=== PATIENT | female | born 1950 | race Hispanic/Latino ===

== ENCOUNTER 2020-01-07 14:59 | Inpatient (IN) | payer MEDICARE ==
[~2020-01-07] VITALS: Ht 152.4 cm; Wt 82.1 kg
--- NOTE | 2020-01-07 15:39 | Emergency Department Note ---
History of Present Illnes History of Present Illness Chief Complaint: Chest Pain History of Present Illness This is a 70 year old female PATIENT IN FROM HOME, HAS BEEN HAVING DIZZINESS; S JELLY SHE WAS SENT BY DR GUTIERRES FOR A COMPLETE HEART BLOCK; PATIENT SCHEDULED TO GET A PACEMAKER TOMORROW FOR A COMPLETE HEART BLOCK. PATIENT ALERT AND ORIENTED, RESP EVEN AND NONLABORED, APPEARS IN NO DISTRESS, DENIES PAIN. Historian: Patient, Family Member Arrival Mode: Car Phys Assistant Required: No Onset (how long ago): day(s) Radiation: Reports non-radiation Severity: moderate Onset quality: sudden Timing of current episode: intermittent Progression: waxing and waning Chronicity: new Context: Denies recent illness Relieving factors: none Exacerbating factors: none Associated symptoms: Reports denies other symptoms Past Medical/Family History Physician Review I have reviewed the patient's past medical and family history. Any updates have been documented here. Past Medical History Recent Fever: No Clinical Suspicion of Infectio: No New/Unexplained Change in Ment: No Past Medical History: Hypertension, CAD, ESRD, Hemodyalisis Past Surgical History: Hysterectomy, Colon Resection Other Surgery: COLOSTOMY AND COLOSTOMY REVERSAL FISTULA Social History Smoking Cessation: Never Smoker Counseling Performed: No Alcohol Use: None Any Illegal Drug Use: No TB Exposure/Symptoms: No Physically hurt or threatened: No Family History Family history of heart diseas: No Other Any Pre-Existing Lines (PICC,: No Review of Systems Review of Systems Constitutional: Reports no symptoms EENTM: Reports no symptoms Cardiovascular: Reports no symptoms Respiratory: Reports no symptoms Gastrointestinal: Reports no symptoms Genitourinary: Reports no symptoms Musculoskeletal: Reports no symptoms Integumentary: Reports no symptoms Neurological: Reports no symptoms Psychological: Reports no symptoms Endocrine: Reports no symptoms Hematological/Lymphatic: Reports no symptoms Physical Exam Related Data Allergies: Coded Allergies: No Known Allergies (Unverified , 01/07/20) Triage Vital Signs Vital Signs Date Time Temp Pulse Resp B/P (MAP) Pulse Ox O2 Delivery O2 Flow Rate FiO2 01/07/20 15:13 96.7 73 18 113/54 99 Room Air Vital signs reviewed: Yes Physical Exam CONSTITUTIONAL Constitutional: Present well-developed, Present well-nourished HENT HENT: Present normocephalic, Present atraumatic, Present oropharynx clear/moist, Present nose normal HENT L/R: Present left ext ear normal, Present right ext ear normal EYES Eyes: Reports PERRL, Reports conjunctivae normal NECK Neck: Present ROM normal PULMONARY Pulmonary: Present effort normal, Present breath sounds normal CARDIOVASCULAR Cardiovascular: Present regular rhythm, Present heart sounds normal, Present c apillary refill normal, Present normal rate GASTROINTESTINAL Abdominal: Present soft, Present nontender, Present bowel sounds normal GENITOURINARY Genitourinary: Present exam deferred SKIN Skin: Present warm, Present dry MUSCULOSKELETAL Musculoskeletal: Present ROM normal NEUROLOGICAL Neurological: Present alert, Present oriented x 3, Present no gross motor or sensory deficits PSYCHOLOGICAL Psychological: Present mood/affect normal, Present judgement normal Results Laboratory Lab results reviewed: Yes Procedures 12 Lead ECG Interpretation ECG Interpretation : ECG: ECG 1 Phys Assistant: Interpreted by ED physician Date: Jan 07, 2020 Time: 15:16 Rhythm: sinus rhythm Ectopy: atrial premature contractions Rate: normal BPM: 75 QRS axis: normal ST segments normal: Yes T waves normal: Yes Clinical Impression: normal ECG Assessment & Plan Medical Decision Making MDM CBC, CHEM, CARDIACS, ECG, CXR - R/O DYSRHYTHMIAS, STEMI/NSTEMI Reassessment Reassessment D/W DR MONTELONGO - PT HAS BEEN HAVING INTERMITTENT SINUS PAUSES LASTING UP TO 4 SECS. ADMIT FOR PACEMAKER - spoke with dr franco (pcp) Assessment & Plan Final Impression: (1) Sinus pause Depart Disposition: ADMITTED Last Vital Signs Date Time Temp Pulse Resp B/P (MAP) Pulse Ox O2 Delivery O2 Flow Rate FiO2 01/07/20 15:13 96.7 73 18 113/54 99 Room Air DEISI VARGAS MD Jan 07, 2020 15:38
--- OUTSIDE RECORDS SUMMARY | 2020-01-07 15:51 | XMS REPORT | Clinical Summary ---
Author Author [facility] Organization [facility] Address Unknown Phone Unavailable Care Team Providers Care Weigher And Mixer Name Role Phone Bruce Jay MD PCP Pcp, No PCP Unavailable Allergies Comments Active Allergy Reactions Severity Noted Date Patient reported blood in stool when taking carvedilol Carvedilol Other High 03/29/2016 Medications End Date Status Medication Sig Dispensed Refills Start Date Active PROVENTIL HFA 90 Inhale 2 6.7 g 10 mcg/actuation Puffs by 4 inhalerIndications: mouth 4 times Asthma daily as needed for Wheezing. Active budesonide-formoterol Inhale 2 6 g 6 06/07 (SYMBICORT HFA) 160-4.5 Puffs by 4 mcg/actuation mouth 2 times inhalerIndications: daily. Asthma Active loratadine (CLARITIN) 10 Take 1 tablet 90 tablet 3 mg tabletIndications: by mouth 5 Allergic rhinitis daily Prn allergies. Active albuterol (PROVENTIL HFA) Inhale 2 6.7 g 3 90 mcg/actuation Puffs by 5 inhalerIndications: mouth 4 times Reactive airway disease, daily as mild persistent, needed for uncomplicated Wheezing. Active cyclobenzaprine Take 1 tablet 30 tablet 3 03/15/20 1 (FLEXERIL) 10 mg by mouth 5 tabletIndications: Spasm nightly at of muscle bedtime as needed for Muscle Spasms. Active meclizine (ANTIVERT) 25 Take 1/2 30 tablet 3 05 /11/201 mg TabIndications: BPPV tablets by 6 (benign paroxysmal mouth 3 times positional vertigo), daily. unspecified laterality Active polyethylene glycol Add lukewarm 4000 mL 0 09/26 (GOLYTELY) 236-22.74-6.74 drinking 6 -5.86 gram oral water to the solutionIndications: fill nasreen (4 Positive FIT (fecal liters) and immunochemical test) shake. Drink as directed by your doctor.. Active traMADol (ULTRAM) 50 mg Take 1 tablet 30 tablet 0 tabletIndications: Injury by mouth 6 of left foot, sequela daily as needed for Pain. Active sodium polystyrene Take 60 mL by 473 mL 0 08/30 (KAYEXALATE) 15-20 mouth 3 times 7 gram/60 mL Susp oral weekly suspensionIndications: (// ESRD (end stage renal at). disease) Active polyethylene glycol Add lukewarm 4000 mL 0 11/06 (GOLYTELY) 236-22.74-6.74 drinking 7 -5.86 gram oral water to the solutionIndications: fill nasreen (4 Hematochezia liters) and shake. Drink as directed by your doctor.. Active sevelamer (RENAGEL) 400 Take 1 tablet 90 tablet 0 mg tabletIndications: by mouth 3 7 Hyperphosphatemia times daily with meals In place of phoslo. Active calcitriol (ROCALTROL) Take 1 30 capsule 6 0.25 mcg capsule by 8 capsuleIndications: mouth daily. Secondary hyperparathyroidism of renal origin Active labetalol (NORMODYNE) 200 Take 1/2 90 tablet 1 mg tabletIndications: tablet by 8 HTN, goal below 140/90 mouth 2 times daily. Active sodium bicarbonate 650 mg Take 1 tablet 270 tablet 2 tabletIndications: by mouth 3 8 Dialysis patient times daily. Active atorvastatin (LIPITOR) 20 Take 1 tablet 30 tablet 6 mg tabletIndications: by mouth at 8 Dialysis patient bedtime nightly. Active Miscellaneous Medical by 1 Each 0 /2 Supply MiscIndications: Misc.(Non-[place] 8 Assistance needed for g; Combo ambulation and movement, Route) route Requires assistance with RAISED TOILET activities of daily SEAT WITH living (ADL) ARMS - Dx: exertional dyspnea (2/2 aortic stenosis and regurg and diastolic CHF), combined with hand arthritis and ESRD, asthma. Active Miscellaneous Medical WHEELCHAIR 1 Each 0 11/07 Supply MiscIndications: WITH ELEVATED 8 Assistance needed for LEG RESTS - ambulation and movement, Dx: Requires assistance with exertional activities of daily dyspnea (2/2 living (ADL) aortic stenosis and regurg and diastolic CHF), combined with hand arthritis and ESRD, asthma. Active Problems Problem Noted Date History of recent hospitalization - [place] October 8 - SEE OVERVIEW 11/27/2017 Overview: SUMMARY OF ADMISSION TO [facility] 8 - 11/05/17: SUMMARY OF MEDICAL RECORDS FROM [facility] Problem Based [facility] Sepsis 2/2 Sigmoid diverticulitis an d pancolitis CT 10/23/17 with pancolitis and sever e sigmoid diverticulitis with free fluid - pt given rocephin and flagyl Tunneled catheter was removed as pos sible source of sepsis and temporary catheter was placed ABX --> cefepime, flagyl, and oral v ancomycin F/U Imaging 10/27/17 showed pneumoper itoneum, concern for perforated colon, and ? Abscess in pelvis and pt h ad sigmoid resection and colostomy 2/2 perforate distal sigmoid colon w/ f ecal peritonitis PATH (10/27/17): perforated diverticu lum w/ abscess formation, acute and chronic inflammation, serosal fibrinopu rulent exudate, granulation tissue, and foreign body giant cell reaction co nsistent with diverticulitis and diverticulosis. Blood cx on 11/04 are negative ESRD on HD TTS --> fistulogram on - tortuous fistula needing surgical revision - Left AV fistula sti ll maturing New tunneled catheter placed on 11/05 HTN Debility - dizziness post-HD Post-op Ileus seen 10/31/17 - improve d on 11/02/17 imaging Personal history of noncompliance with medical treatm ent, presenting 02/15/2017 hazards to health SOB (shortness of breath) 10/15/2016 Arthritis of foot 08/16/2016 Overview: 2. Mild hallux valgus deformity with mild associated degenerative change and soft tissue bunion. 3. Irregularity at the lateral base o f the second proximal phalanx may represent a healed fracture deformity Macroalbuminuric diabetic nephropathy 08/04/2016 Moderate arthrosis of the hands 08/03/2016 Overview: Moderate radiocarpal, first CMC, and in terphalangeal arthrosis. Mild demineralization. Chronic unheal ed ulnar styloid avulsion. Blowing systolic murmur @ LUSB - ? aortic stenosis 0 08/31/2015 Nonrheumatic aortic valve insufficiency 08/19/2015 Overview: Hvjb-[id number]-ufumtzff aortic regurgitation. Nonrheumatic aortic valve stenosis 08/19/2015 Overview: At most, mild aortic stenosis withaor tic valve area of 1.6-1.9 cm2, peak AV velocity of 2.2 m/sec, mean gradient 7 mmHg. Hyperopia with astigmatism and presbyopia 04/21/2014 Glaucoma suspect 04/21/2014 NS (nuclear sclerosis) 04/21/2014 BMI 40.0-44.9, adult 07/16/2013 Vitamin D deficiency 01/24/2012 Abnormal mammogram, unspecified 11/19/2011 Anemia, unspecified 10/04/2011 Diverticulitis 03/28/2011 Allergic rhinitis 10/26/2010 HTN (hypertension) 10/21/2009 Tobacco abuse 09/26/2009 Chronic kidney disease 04/19/2008 Depression, major 03/17/2008 Asthma Obesity Diastolic dysfunction Anemia Iron deficiency Occult blood positive stool End stage renal disease ( see overview) Overview: [place] [facility] [place] [address] [place] [address] based on patient inf ormation about dialysis being close to [place] - [phone] Processing Technician is Cherelle Berg - Phone i s [phone] ===== ESRD on dialysis at present - [facility] - wi check sodium bicarb. Will start phos lo - bome minearl metabolism - acidosis CO2 - 15 - 16 Hyperphosphatemia Hypocalcemia Prior BUN 126 prior to HD initiation. --> BUN 50s on non-HD days. HTN - BP well controlled on only carved ilol 6.25 mg BID Rx for porcardia - will not fill as pt BP 100s systolically now - likely had elevated BP 2/2 hypervolemia which has improved with HD PhOS LO - TID 2.3 GM proteinuria BMP - d/c sodium bicarbonate. SOB (shortness of breath) on exertion Former smoker Atrophic kidney Elevated blood uric acid level Immunizations Name Administration Dates Next Due Herpes Zoster Vaccine In 01/14/2014 Clinic Influenza <Unspecified> 02/06/2017 Influenza Vaccine 03/29/2016, 01/18/2015, PCV 13 (Pnuemococcal 02/26/2017 (Deferred: Sheela walden Refused - Pt states Conjugated 13 Valent) she received vaccine alread y. ) Td Absorbed Preservative 05/16/2006 Free 7yr/older Im In Clinic Tdap (Tetanus Toxoid, 04/15/2017 (Deferred: Sheela walden already had this Reduced Diphtheria Toxoid immunization - Pt to bring immunization record. ) And Acellular Pertussis, Absorbed) Family History Medical History Relation Name Comments Diabetes Father NO CAD, CANCER Diabetes Mother Relation Name Status Comments Brother Alive 1 Daughter Daughter Father Maternal Grandfather Maternal Grandmother Mother Alive Paternal Grandfather Paternal Grandmother Sister Alive 6 Son Alive 3 Son Alive Son Alive Social History Date Tobacco Use Types Packs/Day Years Used Quit: 07/09/2013 Former Smoker Cigarettes 2 36 Smokeless Tobacco: Never Used Tobacco Cessation: Counseling Given: No Comments: two packs a week Drinks/Week oz/Week Comments Alcohol Use No Food Insecurity Answer Date Recorded Within the past 12 months, you worried that your Sometimes true 11/22/2017 food would run out before you got money to buy more. Within the past 12 months, the food you bought Sometimes t rue 11/22/2017 just didn't last and you didn't have mo clay to get more. Sex Assigned at Date Recorded Not on file Industry Job Start Date Occupation Not on file Not on file Not on file Travel End Travel History Travel Start No recent travel history available. Last Filed Vital Signs Not on file Plan of Treatment Health Maintenance Due Date Last Done Comments IMM Pneumococcal Age 67 01/03/2017 and Up Colorectal Cancer Scrn 08/06/2017 08/06/2016, Annual (FIT/FOBT) Age 52 08/25/2015 to 77 Breast Cancer Scrn 04/03/2018 04/03/2017, (Yearly) 02/09/2016, 02/09/2014, Additional history exists Results Not on fileafter 01/06/2019 Insurance Type Payer Benefit Subscriber ID Effective Phone Address Plan / Dates Group MEDICARE MEDICARE xxxxxxxxxx 2016-P [phone] [id number] [place] [address] [place] [id number] xxxxxxxxx 2017-P [id number] MEDICARE [place], [place] BENEFICIAR [id number] Y Advance Directives Date Inactivated Comments Code Status Date Activated 03/30/2011 5:57 PM Full Code 03/29/2011 1:39 AM
--- OUTSIDE RECORDS SUMMARY | 2020-01-07 15:53 | XMS REPORT | Continuity of Care Document ---
Author Author [facility] t Organization [facility] Address [address] [place] [address] Phone Unavailable Care Team Providers Care Mobile Web Application Developer Name Role Phone MD MARIANNE THACKER MD PCP Lawson Bañuelos Attphys Unavailable Jesse MONTELONGO Attphys Unavailable SHRUTHI YEPEZ Attphys Unavailable Dhaval MELCHOR Attphys Unavailable MARIANNE THACKER Attphys Unavailable Hollie MONTERO Attphys Unavailable Yareli ALMANZA Attphys Unavailable Cayetano VARGAS Attphys Unavailable MARIANNE THACKER Admphys Unavailable Payers Payer Name Policy Type Policy Number Effective Date Expiration Date Hollie camp [facility] [id number] 2017 00:00:00 ERICKA Hollie [facility] Medicare A & B [id number] 2016 00:00:00 [facility] Problems Condition Name Condition Details Condition Category Status Onset Date Resolution Date Last Treatment Date Treating Clinician Comments Source History of recent hospitalization - [place] October 2017 - SEE OVERVIEW History of recent hospitalization - [place] October 2017 - SEE OVERVIEW Disease A ctive 2017-11-27 00:00:00 Overview: LISA HASTINGS OF ADMISSION TO [facility] 10/23/17 - 11/05/17:SUMMARY OF MEDICAL RECORDS FROM [facility] Sepsis 2/2 Sigmoid diverticulitis [address] 10/23/17 with pancolitis and severe sigmoid diverticulitis with free fluid - pt given rocephin and flagyl Tunneled catheter was removed as possible source of sepsis and temporary catheter was placed ABX --> cefepime, flagyl, and oral vancomycin F/U Imaging 10/27/17 showed pneumoperitoneum, concern for perforated colon, and ? Abscess in pelvis and pt had sigmoid resection and colostomy 2/2 pe rforate distal sigmoid colon w/ fecal peritonitis PATH (10/27/17): perforated diverticulum w/ abscess formation, acute and chronic inflammation, serosal fibrinopurulent exudate, granulation tissue, and foreign body giant cell reaction consistent with diverticulitis and diverticulosis. Blood cx on 11/04 are negative ESRD on HD TTS --> fistulogram on 11/01/17 - tortuous fistula needing surgical revision - Left AV fistula still maturing New tunneled catheter placed on 11/05/17 HTN Debility - dizziness post-HD Post-op Ileus seen 10/31/17 - improved on 11/02/17 imaging [facility] Personal history of noncompliance with m edical treatment, presenting hazards to health Personal history of noncompliance with m edical treatment, presenting hazards to health Disease Active 2017-02-15 00:00:00 [facility] SOB (shortness of breath) SOB (shortness of breath) Disease Ac tive 2016-10-15 00:00:00 [facility] Arthritis of foot Arthritis of foot Disease Active 2016-08-16 00:00:00 Overview: 2. Mild hallux valgus deformity with mild associated degenerativechange and soft tissue bunion.3. Irregularity at the lateral base of the second proximal phalanx mayrepresent a healed fracture deformity [facility] Macroalbuminuric diabetic nephropathy Macroalbuminuric diabe tic nephropathy Disease Active 2016-08-04 00:00:00 [facility] Moderate arthrosis of the hands Moderate arthrosis of the hands Dis ease Active 2016-08-03 00:00:00 Overview: Mo derate radiocarpal, first CMC, and interphalangeal arthrosis.Mild demineralization. Chronic unhealed ulnar styloid avulsion. [facility] Blowing systolic murmur @ LUSB - ? aortic stenosis Blo wing systolic murmur @ LUSB - ? aortic stenosis Disease Active 2015-08-31 00:00:00 [facility] Nonrheumatic aortic valve insufficiency Nonrheumatic aortic valve insufficiency Disease Active 2015-08-19 00:00:00 Overv iew: [id number] aortic regurgitation. [facility] Nonrheumatic aortic valve stenosis Nonrheumatic aortic valve sawyer nosis Disease Active 2015-08-19 00:00:00 Overview : At most, mild aortic stenosis with aortic valve area of 1.6-1.9 cm2, peak AV velocity of 2.2 m/sec, mean gradient 7 mmHg. [facility] Hyperopia with astigmatism and presbyopia Hyperopia wi th astigmatism and presbyopia Disease Active 2014-04-21 00:00:00 [facility] Glaucoma suspect Glaucoma suspect Disease Active 2014-04-21 00:00:00 [facility] NS (nuclear sclerosis) NS (nuclear sclerosis) Disease Active 2014-04-21 00:00:00 [facility] BMI 40.0-44.9, adult BMI 40.0-44.9, adult Disease Active 00:00:00 [facility] Vitamin D deficiency Vitamin D deficiency Disease Active 00:00:00 [facility] Abnormal mammogram, unspecified Abnormal mammogram, unspecified Dis ease Active 2011-11-19 00:00:00 [facility] Diverticulitis Diverticulitis Disease Active 2011-03-28 00:00:00 [facility] Allergic rhinitis Allergic rhinitis Disease Active 2010-10-26 00:00:00 [facility] HTN (hypertension) HTN (hypertension) Disease Active 2009-10-21 00:00:0 0 [facility] Tobacco abuse Tobacco abuse Disease Active 2009-09-26 00:00:00 [facility] Chronic kidney disease Chronic kidney disease Disease Active 2008-04-19 00:00:00 [facility] Depression, major Depression, major Disease Active 2008-03-17 00:00:00 [facility] Back pain Back pain Problem Active [facility] End stage renal failure on dialysis ESRD (end stage renal di sease) on dialysis Problem Active [facility] Pericardial effusion Pericardial effusion Problem Active [facility] Congestive heart failure Congestive heart failure (CHF) Problem Active [facility] End-stage renal disease on hemodialysis ESRD on hemodialysis Problem Active [facility] Syncope Problem Active [facility] Dizziness Problem Active [facility] Asthma Asthma Disease Active [facility] alth Obesity Obesity Disease Active [facility] Diastolic dysfunction Diastolic dysfunction Disease Active [facility] Anemia Anemia Disease Active [facility] Iron deficiency Iron deficiency Disease Active [facility] Occult blood positive stool Occult blood positive stool Disease Active [facility] End stage renal disease ( see overview) End stage renal dise ase ( see overview) Disease Active Overview: ESRD LOCATIONDaVIta (F HD)3333 [facility] based on patient information about dialysis being close to [place] - [phone] is Cherelle Berg - Phone is [phone]=====ESRD on dialysis at present - [facility] - will check sodium bicarb. Will start phos lo - bome minearl metabolism- acidosis CO2 - 15 - 16HyperphosphatemiaHypocalcemia Prior BUN 126 prior to HD initiation. --> BUN 50s on non-HD days. HTN - BP well controlled on only carvedilol 6.25 mg BIDRx for porcardia - will not fill as pt BP 100s systolically now - likely had elevated BP 2/2 hypervolemia which has imp roved with HD PhOS LO - TID 2.3 GM proteinuria BMP - d/c sodium bicarbonate. [facility] SOB (shortness of breath) on exertion SOB (shortness of becky th) on exertion [facility] Former smoker Former smoker Disease Active [facility] Atrophic kidney Atrophic kidney Disease Active [facility] Elevated blood uric acid level Elevated blood uric acid level Disease Active [facility] Allergies, Adverse Reactions, Alerts Allergy Name Allergy Type Status Severity Reaction(s) Onset Date Inacti ve Date Treating Clinician Comments Source No Known Allergies DA Active U 2018-05-19 00:00:00 [facility] No Known Allergies DA Active U 2017-12-04 00:00:00 [facility] Carvedilol Propensity to adverse reactions to drug Active Other 2016-03-29 00:00:00 Patient reported blood in stool when taking carvedilol [facility] Family History Family Member Diagnosis Comments Start Date Stop Date Source Natural father Diabetes [facility] Natural mother Diabetes [facility] Social History Social Habit Start Date Stop Date Quantity Comments Source Tobacco Comment two packs a week [facility] Sex Assigned At [facility] Cigarettes smoked current (pack per day) - Reported 00:00:00 2018-09-10 00:00:00 [facility] Cigarette pack-years 2018-09-10 00:00:00 2018-09-10 00:00:00 [facility] Alcohol intake 2018-09-10 00:00:00 2018-09-10 00:00:00 Current non-drinker of alcohol (finding) [facility] History SDOH Food Worry 2017-11-22 00:00:00 2017-11-22 00:00:00 2 [facility] History SDOH Food Scarcity 2017-11-22 00:00:00 2017-11-22 00:00:00 2 [facility] History of tobacco use 2013-07-09 00:00:00 Current smoker [facility] Smoking Status Start Date Stop Date Source Former smoker 2018-09-10 00:00:00 2018-09-10 00:00:00 Tay larry Medications Ordered Medication Name Filled Medication Name Start Date Stop Da te Current Medication? Ordering Clinician Indication Dosage Frequency Signature (SIG) Comments Components Source Miscellaneous Medical Supply [facility] 2017-11-27 00:00:00 Yes Requires assistance with activities of daily living (ADL) by [facility].(Non-Drug; Combo Route) route RAISED TOILET SEAT WITH ARMS - Dx: exertional dyspnea (2/2 aortic stenosis and regurg and diastolic CHF), combined with hand arthritis and ESRD, asthma. [facility] Miscellaneous Medical Supply [facility] 2017-11-27 00:00:00 Yes Requires assistance with activities of daily living (ADL) WHEELCHAIR WITH ELEVATED LEG RESTS - Dx: exertional dyspnea (2/2 aortic stenosis and regurg and diastolic CHF), combined with hand arthritis and ESRD, asthma. [facility] labetalol (NORMODYNE) 200 mg tablet 2017-11-22 00:00:00 Yes HTN, goal below 140/90 100mg Q.5D Take 1/2 tablet by mouth 2 times daily. [facility] sodium bicarbonate 650 mg tablet 2017-11-22 00:00:00 Yes Dialysis patient 650mg Take 1 tablet by mouth 3 times daily. [facility] atorvastatin (LIPITOR) 20 mg tablet 2017-11-22 00:00:00 Yes Dialysis patient 20mg Take 1 tablet by mouth at bedtime nightly. [facility] calcitriol (ROCALTROL) 0.25 mcg capsule 2017-06-03 00:00:00 Yes Secondary hyperparathyroidism of renal origin .25ug QD Take 1 capsule by mout h daily. [facility] sevelamer (RENAGEL) 400 mg tablet 2017-03-07 00:00:00 Yes Hyperphosphatemia 400mg Q.[id number] Take 1 tablet by mouth 3 times daily with meals In place of phoslo. [facility] polyethylene glycol (GOLYTELY) 236-22.74-6.74 -5.86 gram ora l solution 2016-11-06 00:00:00 Yes Hematochezia Add lukewarm drinking water to the fill nasreen (4 liters) and shake. Drink as directed by your doctor.. [facility] sodium polystyrene (KAYEXALATE) 15-20 gram/60 mL Susp oral s uspension 2016-08-30 00:00:00 Yes ESRD (end stage renal disea se) 15g Q.[id number] Take 60 mL by mouth 3 times weekly (//Sat). [facility] traMADol (ULTRAM) 50 mg tablet 2016-03-29 00:00:00 Yes Injury of left foot, sequela 50mg Take 1 tablet by mouth daily as needed for P ain. [facility] polyethylene glycol (GOLYTELY) 236-22.74-6.74 -5.86 gram ora l solution 2015-09-27 00:00:00 Yes Positive FIT (fecal immunochem ical test) Add lukewarm drinking water to the fill nasreen (4 liters) and shake. Drink as directed by your doctor.. [facility] meclizine (ANTIVERT) 25 mg Tab 2015-08-17 00:00:00 Yes BPPV (benign paroxysmal positional vertigo), unspecified laterality 12.5mg Take 1/2 tablets by mouth 3 times daily. [facility] albuterol (PROVENTIL HFA) 90 mcg/actuation inhaler 2015-03 00:00:00 Yes Reactive airway disease, mild persistent, uncomplicated 2{puff} Inhale 2 Puffs by mouth 4 times daily as needed for Wheezing. [facility] cyclobenzaprine (FLEXERIL) 10 mg tablet 2015-03-15 00:00:00 Yes Spasm of muscle 10mg Take 1 tablet by yvonne th nightly at bedtime as needed for Muscle Spasms. [facility] loratadine (CLARITIN) 10 mg tablet 2014-05-20 00:00:00 Yes Allergic rhinitis 10mg QD Take 1 tablet by mouth daily Prn allergies. [facility] PROVENTIL HFA 90 mcg/actuation inhaler 2013-06-30 00:00:00 Yes Asthma 2{puff} Inhale 2 Puffs by mouth 4 times daily as needed for Wh eezing. [facility] budesonide-formoterol (SYMBICORT HFA) 160-4.5 mcg/actuation inhaler 2013-06-30 00:00:00 Yes Asthma 2{puff} Q.5D Inhale 2 Puffs by mouth 2 ti mes daily. [facility] Clopidogrel Bisulfate (Clopidogrel) 75 Mg TABLET Clopi dogrel Bisulfate (Clopidogrel) 75 Mg TABLET Yes 75 Daily [facility] Meclizine Hcl Meclizine Hcl Yes 25 Every 6 Hours as needed for Dizziness [facility] Metoprolol Succinate Metoprolol Succinate Yes Daily [facility] Ondansetron Hcl (Zofran*) 4 Mg TABLET Ondansetron Hcl (Zofran*) 4 Mg TABLET 2019-12-29 00:00:00 No 4 As Needed for Nausea [facility] Amlodipine Besylate Amlodipine Besylate 2018-12-24 00:00:00 No 10 Daily [facility] Acetaminophen With Codeine (Tylenol With Codeine #3 Ta blet) 1 Each TABLET Acetaminophen With Codeine (Tylenol With Codeine #3 Tablet) 1 Each TABLET 2018-07-10 00:00:00 No 300 Every 6 Hours as nee ded for Pain [facility] Amoxicillin/Potassium Clav (Augmentin 500-125 Tablet) 1 Each TABLET Amoxicillin/Potassium Clav (Augmentin 500-125 Tablet) 1 Each TABLET 2018-07-10 00:00:00 No 500 Twice A Day [facility] Aspirin Aspirin 2018-07-10 00:00:00 No 81 Daily [facility] Atorvastatin Calcium Atorvastatin Calcium 2018-07-10 00:00:00 No 20 Bedtime [facility] Clopidogrel Bisulfate (Plavix) 75 Mg TABLET Clopidogre l Bisulfate (Plavix) 75 Mg TABLET 2018-07-10 00:00:00 No 75 Daily [facility] Guaifenesin/Dextromethorphan (Mucinex Dm Er 600-30 Mg Tablet) 1 Each TAB.ER.12H Guaifenesin/Dextromethorphan (Mucinex Dm Er 600-30 Mg Tablet) 1 Each TAB.ER.12H 2018-07-10 00:00:00 No 2 Twice A Day [facility] Metoprolol Tartrate Metoprolol Tartrate 2018-07-10 00:00:00 No 25 Twice A Day [facility] Ondansetron (Zofran Odt) 4 Mg TAB.RAPDIS Ondansetron ( Zofran Odt) 4 Mg TAB.RAPDIS 2018-07-10 00:00:00 No 8 Twice A Day as needed for Nausea [facility] Labetalol Hcl Labetalol Hcl 2018-02-26 00:00:00 No 100 Twice A Day [facility] Levofloxacin (Levaquin) 500 Mg TABLET Levofloxacin (Levaquin) 50 0 Mg TABLET 2018-02-26 00:00:00 No 250 Daily [facility] Tramadol/Apap/325MG Tramadol/Apap/325MG 2018-01-03 00:00:00 No 1 Every 6 Hours as needed for Pain [facility] Cefuroxime Axetil (Cefuroxime) 250 Mg TABLET Cefuroxim e Axetil (Cefuroxime) 250 Mg TABLET 2018-01-01 00:00:00 No 250 Every 12 Hours [facility] Prednisone Prednisone 2018-01-01 00:00:00 No 20 Twi ce A Day [facility] Labetalol Hcl Labetalol Hcl 2017-12-18 00:00:00 No 10 0 Every 12 Hours [facility] Ondansetron (Zofran Odt) 4 Mg TAB.RAPDIS Ondansetron ( Zofran Odt) 4 Mg TAB.RAPDIS 2017-12-18 00:00:00 No 4 E very 6 Hours as needed for Nausea [facility] Immunizations Ordered Immunization Name Filled Immunization Name Date Status Comments Source Influenza <Unspecified> 2017-02-06 00:00:00 Completed [facility] Influenza Vaccine 2016-03-29 00:00:00 Completed [facility] Influenza Vaccine 2015-01-18 00:00:00 Completed [facility] Influenza Vaccine 2014-02-25 00:00:00 Completed [facility] Herpes Zoster Vaccine In Clinic 2014-01-14 00:00:00 Comple [facility] Td Absorbed Preservative Free 7yr/older Im In Clinic 2006-05-16 00:00:00 [facility] Vital Signs Vital Name Observation Time Observation Value Comments Source Weight 2019-12-30 02:02:00 188 [lb_av] [facility] BMI (Body Mass Index) 2019-12-30 02:02:00 36.7 kg/m2 [facility] Body Temperature 2019-12-29 20:00:00 98.2 [degF] [facility] Body Temperature 2019-12-29 15:12:00 98.6 [degF] [facility] BMI (Body Mass Index) 2019-12-29 02:46:00 36.7 kg/m2 [facility] Weight 2019-12-29 00:55:00 188 [lb_av] [facility] Procedures Procedure Date / Time Performed Performing Clinician [facility] Computed tomography of brain without radiopaque contrast 2019-12 00:00:[address] [facility] [address] angiography of chest 2019-05-29 00:00:00 [facility] Plan of Care Planned Activity Planned Date Details Comments Source Future Scheduled Test 2018-04-03 00:00:00 Breast Cancer Scrn (Yearly) [code = Breast Cancer Scrn (Yearly)] [facility] Scheduled Test 2017-08-06 00:00:00 Screening for jarek gnant neoplasm of colon (procedure) [code = 761221682] [facility] Scheduled Test 2017-01-03 00:00:00 IMM Pneumococcal A ge 65 and Up [code = IMM Pneumococcal Age 65 and Up] [facility] Vertigo [facility] Encounters Start Date/Time End Date/Time Encounter Type Admission Type Attendi [facility] Care Department Encounter ID Source 2019-12-30 02:07:00 2019-12-30 02:50:00 Departed Emergency Room [facility] [id number] [facility] 2019-12-29 02:11:00 2019-12-29 20:23:00 Discharged Inpatient (obs) 1 Jacinto Bañuelos [facility] [id number] I [facility] 2019-05-29 07:03:00 2019-05-29 07:03:00 Registered Clinic 3 ORTEGA MONTELONGO [facility] [id number] [facility] 2019-03-11 11:50:00 2019-04-07 22:59:00 Discharged Recurring [facility] [id number] [facility] 2018-12-26 05:00:00 2018-12-26 05:00:00 Registered Surgical Day Car e 3 LUCHOSHRUTHI [facility] [id number] [facility] 2018-11-26 22:07:00 2018-11-27 00:00:00 Departed Emergency Room 1 IRENE MELCHOR [facility] [id number] [facility] 2018-11-10 13:18:00 2018-11-10 14:25:00 Departed Emergency Room [facility] [id number] [facility] 2018-08-18 11:46:00 2018-08-19 15:26:00 Discharged Inpatient (obs) 1 MARIANNE THACKER [facility] [id number] [facility] 2018-07-31 10:32:00 2018-07-31 16:09:00 Departed Emergency Room 1 RACHEL MONTERO [facility] [id number] [facility] 2018-07-11 05:08:00 2018-07-11 05:08:00 Registered Surgical Day Car e SHRUTHI CORNELL [facility] [id number] [facility] 2018-02-25 08:10:00 2018-02-26 19:30:00 Discharged Inpatient (obs) 1 MARIANNE THACKER [facility] [id number] [facility] 2018-02-17 00:00:00 2018-02-17 00:00:00 Outpatient [facility] [id number] [facility] 2018-02-01 14:48:00 2018-02-01 20:48:00 Departed Emergency Room 1 AMAURI ALMANZA [facility] [id number] [facility] 2018-01-01 10:50:00 2018-01-03 09:59:00 Discharged Inpatient 1 MARIANNE THACKER [facility] [id number] [facility] 2017-12-18 11:04:00 2017-12-18 11:04:00 Registered Surgical Day Care [facility] [id number] [facility] 2017-12-06 23:38:00 2017-12-07 21:16:00 Discharged Inpatient (obs) 1 DEISI VARGAS [facility] [id number] [facility] 2017-11-29 10:52:21 2017-11-29 10:52:21 Outpatient [facility] [id number] [facility] 2017-11-29 10:52:12 2017-11-29 10:52:12 Outpatient [facility] [id number] [facility] 2017-11-29 00:00:00 2017-11-29 00:00:00 Outpatient [facility] [id number] [facility] 2017-11-27 00:00:00 2017-11-27 00:00:00 Outpatient [facility] [id number] [facility] 2017-11-22 09:31:00 2017-11-22 09:31:00 Outpatient [facility] [id number] [facility] 2017-11-22 00:00:00 2017-11-22 00:00:00 Outpatient [facility] [id number] [facility] 2017-11-22 00:00:00 2017-11-22 00:00:00 Outpatient [facility] [id number] [facility] 2017-10-18 00:00:00 2017-10-18 00:00:00 Outpatient [facility] [id number] [facility] 2017-10-08 00:00:00 2017-10-08 00:00:00 Outpatient [facility] [id number] [facility] 2017-08-30 00:00:00 2017-08-30 00:00:00 Outpatient [facility] [id number] [facility] 2017-08-23 00:00:00 2017-08-23 00:00:00 Outpatient [facility] [id number] [facility] 2017-08-16 00:00:00 2017-08-16 00:00:00 Outpatient [facility] [id number] [facility] 2017-08-06 00:00:00 2017-08-06 00:00:00 Outpatient [facility] [id number] [facility] 2017-07-31 00:00:00 2017-07-31 00:00:00 Outpatient [facility] [id number] [facility] 2017-07-01 00:00:00 2017-07-01 00:00:00 Outpatient [facility] [id number] [facility] 2017-06-03 15:05:26 2017-06-03 15:05:26 Outpatient [facility] [id number] [facility] 2017-05-08 00:00:00 2017-05-08 00:00:00 Outpatient [facility] [id number] [facility] 2017-05-01 00:00:00 2017-05-01 00:00:00 Outpatient [facility] [id number] [facility] 2017-04-24 00:00:00 2017-04-24 00:00:00 Outpatient [facility] [id number] [facility] 2017-04-23 00:00:00 2017-04-23 00:00:00 Outpatient [facility] [id number] [facility] 2017-04-23 00:00:00 2017-04-23 00:00:00 Outpatient [facility] [id number] [facility] 2017-04-15 12:51:43 2017-04-15 12:51:43 Outpatient [facility] [id number] [facility] 2017-04-15 00:00:00 2017-04-15 00:00:00 Outpatient [facility] [id number] [facility] 2017-04-10 00:00:00 2017-04-10 00:00:00 Outpatient [facility] [id number] [facility] 2017-04-03 16:03:44 2017-04-03 16:03:44 Outpatient [facility] [id number] [facility] 2017-04-03 15:45:14 2017-04-03 15:45:14 Outpatient [facility] [id number] [facility] 2017-04-03 14:14:13 2017-04-03 14:14:13 Outpatient [facility] [id number] [facility] 2017-03-15 00:00:00 2017-03-15 00:00:00 Outpatient [facility] [id number] [facility] 2017-03-12 10:32:31 2017-03-12 10:32:31 Outpatient [facility] [id number] [facility] 2017-03-12 09:59:24 2017-03-12 09:59:24 Outpatient [facility] [id number] [facility] 2017-03-06 00:00:00 2017-03-06 00:00:00 Outpatient [facility] [id number] [facility] 2017-03-06 00:00:00 2017-03-06 00:00:00 Outpatient [facility] [id number] [facility] 2017-03-06 00:00:00 2017-03-06 00:00:00 Outpatient [facility] [id number] [facility] 2017-02-26 11:48:55 2017-02-26 11:48:55 Outpatient [facility] [id number] [facility] 2017-02-26 10:00:18 2017-02-26 10:00:18 Outpatient [facility] [id number] [facility] 2017-02-13 09:05:48 2017-02-13 09:05:48 Outpatient [facility] [id number] [facility] 2017-02-12 15:21:20 2017-02-12 15:21:20 Outpatient [facility] [id number] [facility] Results Test Description Test Time Test Comments Results Result Comments Source Serum or plasma triglyceride measurement (mass/volume) 12-28 14:56:00 Test Item Triglycerides Level (test code = 2571-8) 115 0[facility]/volume[facility]2019-12-29 14:56:00* Test Item Value Reference Range Interpretation Comments Cholesterol Level (test code = 2093-3) 196 0-199 Less than 200 mg/dL Low Tirp334 - 239 mg/dL Borderline Rdpa816 m g/dl and greater High [facility] in LDL measurement (mass/volume) 2019-12-29 14:56:00* Test Item Value Reference Range Interpretation Comments LDL Cholesterol (test code = 2089-1) 120 60-130 [facility] in HDL measurement (mass/volume)2019-12-29 14:56:00* Test Item Value Reference Range Interpretation Comments HDL Cholesterol (test code = 2085-9) 53 40-60 [facility] total [facility]/cholesterol in HDL mass xieox4446-23-79 14:56:00* Test Item Value Reference Range Interpretation Comments Cholesterol/HDL Ratio (test code = 9830-1) 3.7 3.0-3.6 [facility] CenterTroponin I measurement by highly sensitive enzyme byuazaatyfk8675-20-99 14:56:00* Test Item Value Reference Range Interpretation Comments Troponin I (test code = 19192-8) 0.179 0-0.300 [facility] triglyceride measurement (mass/volume)2019-12-29 14:56:00* Test Item Value Reference Range Interpretation Comments Triglycerides Level (test code = 2571-8) 115 0-149 [facility]ererum or plasma cholesterol measurement (mass/volume)2019-12-29 14:56:00* Test Item Value Reference Range Interpretation Comments Cholesterol Level (test code = 2093-3) 196 0-199 Less than 200 mg/dL Low Vtnv382 - 239 mg/dL Borderline Tyqh518 m g/dl and greater High Risk [facility] or plasma cholesterol in LDL measurement (mass/volume) 2019-12-29 14:56:00* Test Item Value Reference Range Interpretation Comments LDL Cholesterol (test code = 2089-1) 120 60-130 [facility] or plasma cholesterol in HDL measurement (mass/volume)2019-12-29 14:56:00* Test Item Value Reference Range Interpretation Comments HDL Cholesterol (test code = 2085-9) 53 40-60 [facility] or plasma total cholesterol/cholesterol in HDL mass xiftx9623-05-84 14:56:00* Test Item Value Reference Range Interpretation Comments Cholesterol/HDL Ratio (test code = 9830-1) 3.7 3.0-3.6 [facility] CenterTroponin I measurement by highly sensitive enzyme vpygarsaviq7284-09-74 14:56:00* Test Item Value Reference Range Interpretation Comments Troponin I (test code = 49336-6) 0.179 0-0.300 [facility] CenterCHEST SINGLE (PORTABLE)2019-12-29 01:52:00 [facility] [address] [place] [address] Patient Name: SHALOM SORIANO MR #: [id number] : 1950 Age/Sex: 69/F Req #: [id number] Adm Physician: Ordered by: Jacinto Bañuelos MD Report #: [id number] Location: ER Room/Bed: Procedure: [id number] DX/CHEST SI NGLE (PORTABLE) Exam Date: 12/29/19 Exam Time: 134 REPORT STATUS: Signed EXAMINATIO N: CHEST SINGLE (PORTABLE) INDICATION: Syncope [id number] COMPARISON: 12/24/2018 FINDINGS: AP view TUBES and LINES: Stable right IJ catheter with tip in right atrium. LUNGS: Lungs a re well inflated. Central vascular congestion. Unchanged right mid to upper l oswaldo field nodular density, likely related calcified granuloma PLEURA: No s ignificant pleural effusion or pneumothorax. HEART AND MEDIASTINUM: The ca rdiomediastinal silhouette is enlarged. BONES AND SOFT TISSUES: No acu te osseous lesion. Soft tissues are unremarkable. UPPER ABDOMEN: No free air under the diaphragm. IMPRESSION: Enlarged cardiomediastinal merlene houette and central vascular congestion. Signed by: Beni Lo on 12/29/2019 1:57 AM Dictated By: JANENE CLARK MD Electronically Sign ed By: JANENE CLARK MD on 12/29/19 0157 Transcribed By: ANTONY on 12/29/19 COPY TO: JACINTO BAÑUELOS MD CT BRAIN [id number] 01:38:00 [place] [address] Patient Name: SHALOM SORIANO MR #: [id number] : 1950 Age/Sex: 69/F Req #: [id number] Adm Physician: Ordered by: Jacinto Bañuelos MD Report #: [id number] Location: [facility]/Bed: Procedure: [id number] CT/CT BRAIN WO Exam Date: 12/29/19 Exam Time: 0125 REPORT STATUS: Signed EXAMINATION: Head CT w ithout contrast. HISTORY:Syncope, fall. COMPARISON:None. TECHNI QUE: Multidetector axial images were obtained from the foramen magnum to the v ertex without contrast. The images were reconstructed using brain and bone alg orithms. Thin section brain images were reformatted into coronal and sagittal planes. Dose modulation, iterative reconstruction, and/or weight based adjust ment of the mA/kV was utilized to reduce the radiation dose to as low as reaso nably achievable. Intravenous contrast: None IMAGE QUALITY: Accept able. FINDINGS: Skull/scalp: No lytic or blastic. lesions. No surgic al changes. Parenchyma: Nonspecific bilateral frontoparietal confluent per iventricular and patchy subcortical/deep white matter hypodensity are likely r elated to small vessel ischemic changes. No acute hemorrhage, mass or acute major vascular territorial infarct. Arteries: No density suggestive of thr ombosis. Advanced atherosclerotic calcification in bilateral carotid siphon an d V4 segment of the vertebral arteries. Dural sinuses: No abnormal den sity suggestive of thrombosis. Ventricles: No hydrocephalus or displaceme nt. Extra-axial spaces: No abnormal density. Brain volume: Normal for age. Craniocervical junction: No mass, Chiari malformation, or basilar invagination. Sella: No mass. Paranasal/mastoid sinuses: Imaged portions unremarkable. IMPRESSION: No acute intracranial abnormality. Moderate supratentorial white matter microvascular ischemic changes. S igned by: Dr. Cindy Handley M.D. on 12/29/2019 1:44 AM Dictated By: KEYANNA HANDLEY MD 3 Transcribed By: ANTONY on 12/29/19143 COPY TO: JACINTO BAÑUELOS MD Blood leukocytes automated count (number/volume)2019-12-29 00:55:00* Test Item Value Reference Range Interpretation Comments White Blood Count (test code = 6690-2) 7.71 4.8-10.8 [facility] CenterBlood erythrocytes automated count (number/volume)2019-12-29 00:55:00* Test Item Value Reference Range Interpretation Comments Red Blood Count (test code = 789-8) 3.24 3.6-5.1 [facility] CenterBlood hemoglobin measurement (moles/volume)2019-12-29 00:55:00* Test Item Value Reference Range Interpretation Comments Hemoglobin (test code = 50424-8) 10.5 12.0-16.0 [facility] CenterAutomated blood hematocrit (volume fraction)2019-12-29 00:55:00* Test Item Value Reference Range Interpretation Comments Hematocrit (test code = 4544-3) 32.1 34.2-44.1 [facility] CenterAutomated erythrocyte mean corpuscular hnuley7278-36-10 00:55:00* Test Item Value Reference Range Interpretation Comments Mean Corpuscular Volume (test code = 787-2) 99.1 81-99 [facility] CenterAutomated erythrocyte mean corpuscular hemoglobin (mass per erythrocyte)2019-12-29 00:55:00* Test Item Value Reference Range Interpretation Comments Mean Corpuscular Hemoglobin (test code = 785-6) 32.4 28-32 [facility] CenterAutomated erythrocyte mean corpuscular hemoglobin concentration measurement (mass/volume)2019-12-29 00:55:00* Test Item Value Reference Range Interpretation Comments Mean Corpuscular Hemoglobin Concent (test code = 786-4) 32.7 31-35 [facility] CenterRDW EpwPe-Nle6088-34-22 00:55:00* Test Item Value Reference Range Interpretation Comments Red Cell Distribution Width (test code = 06869-2) 12.8 11.7 -14.4 [facility] CenterAutomated blood platelet count (count/volume)2019-12-29 00:55:00* Test Item Value Reference Range Interpretation Comments Platelet Count (test code = 777-3) 150 140-360 [facility] CenterAutat[facility] mercyed blood segmented neutrophil count as percentage of total kexfyffmcz1677-43-41 00:55:00* Test Item Value Reference Range Interpretation Comments Neutrophils (%) (Auto) (test code = 77526-2) 69.6 38.7-80.0 [facility] CenterAutomated blood lymphocyte count as percentage ot total onxapymnct7880-21-41 00:55:00* Test Item Value Reference Range Interpretation Comments Lymphocytes (%) (Auto) (test code = 736-9) 17.5 18.0-39.1 [facility] CenterAutomated blood monocyte count as percentage of total hglvnnnalh6800-21-48 00:55:00* Test Item Value Reference Range Interpretation Comments Monocytes (%) (Auto) (test code = 5905-5) 6.9 4.4-11.3 [facility] CenterAutomated blood eosinophil count as percentage of total affljvypri5812-14-22 00:55:00* Test Item Value Reference Range Interpretation Comments Eosinophils (%) (Auto) (test code = 713-8) 5.1 0.0-6.0 [facility] CenterAutomated blood basophil count as percentage of total wpuicpeijh0331-34-08 00:55:00* Test Item Value Reference Range Interpretation Comments Basophils (%) (Auto) (test code = 706-2) 0.5 0.0-1.0 [facility] CenterFluoroscopic procedure less than one hour mwkwhxuf3818-64-40 00:55:00* Test Item Value Reference Range Interpretation Comments IM GRANULOCYTES % (test code = IM GRANULOCYTES %) 0.4 0.0- 1.0 [facility] CenterAutomated blood neutrophil count 2019-12-29 00:55:00* Test Item Value Reference Range Interpretation Comments Neutrophils # (Auto) (test code = 751-8) 5.4 2.1-6.9 [facility] CenterBlood lymphocytes count (number/volume) 2019-12-29 00:55:00* Test Item Value Reference Range Interpretation Comments Lymphocytes # (Auto) (test code = 58485-1) 1.4 1.0-3.2 [facility] CenterBlood monocytes automated count (number/volume)2019-12-29 00:55:00* Test Item Value Reference Range Interpretation Comments Monocytes # (Auto) (test code = 742-7) 0.5 0.2-0.8 [facility] CenterAutomated blood eosinophil count 2019-12-29 00:55:00* Test Item Value Reference Range Interpretation Comments Eosinophils # (Auto) (test code = 711-2) 0.4 0.0-0.4 [facility] CenterAutomated blood basophil count (count/volume)2019-12-29 00:55:00* Test Item Value Reference Range Interpretation Comments Basophils # (Auto) (test code = 704-7) 0.0 0.0-0.1 [facility] CenterFluoroscopic procedure less than one hour tcarvmsm9514-86-75 00:55:00* Test Item Value Reference Range Interpretation Comments Absolute Immature Granulocyte (auto (grazyna t code = Absolute Immature Granulocyte (auto) 0.03 0-0.1 [facility] CenterProthrombin time (PT) in platelet poor plasma by coagulation poovp6195-60-79 00:55:00* Test Item Value Reference Range Interpretation Comments Prothrombin Time (test code = 5902-2) 12.5 11.9-14.5 [facility] CenterINR in Platelet poor plasma by Coagulation dihaj1987-99-24 00:55:00* Test Item Value Reference Range Interpretation Comments Prothromb Time International Ratio (test code = 6301-6) 0.89 Oral Anticoagulant Therapy INR Values:1. Low Intensity Therapy 1.5 - 2.02 . Moderate Intensity Therapy 2.0 - 3.03. High Intensity Therapy(1) 2.5 - 3. 54. High Intensity Therapy(2) 3.0 - 4.05. Panic Value INR > 5.0 [facility]ere[facility] or plasma sodium measurement (moles/volume)2019-12-29 00:55:00* Test Item Value Reference Range Interpretation Comments Sodium Level (test code = 2951-2) 136 136-145 [facility]ererum or plasma potassium measurement (moles/volume)2019-12-29 00:55:00* Test Item Value Reference Range Interpretation Comments Potassium Level (test code = 2823-3) 4.8 3.5-5.1 [facility]ererum or plasma chloride measurement (moles/volume)2019-12-29 00:55:00* Test Item Value Reference Range Interpretation Comments Chloride Level (test code = 2075-0) 96 98-107 [facility]ererum or plasma carbon dioxide, total measurement (moles/volume)2019-12-29 00:55:00* Test Item Value Reference Range Interpretation Comments Carbon Dioxide Level (test code = 2028-9) 25 22-29 [facility]ererum or plasma anion ufw4520-50-50 00:55:00* Test Item Value Reference Range Interpretation Comments Anion Gap (test code = 28450-9) 19.8 8-16 [facility]ererum or plasma urea nitrogen measurement (mass/volume)2019-12-29 00:55:00* Test Item Value Reference Range Interpretation Comments Blood Urea Nitrogen (test code = 3094-0) 68 7-26 [facility]ererum or plasma creatinine measurement (mass/volume)2019-12-29 00:55:00* Test Item Value Reference Range Interpretation Comments Creatinine (test code = 2160-0) 8.68 0.57-1.11 [facility]ererum or plasma urea nitrogen/creatinine mass mjxks8932-92-01 00:55:00* Test Item Value Reference Range Interpretation Comments BUN/Creatinine Ratio (test code = 3097-3) 8 6-25 [facility] CenterEstimated glomerular filtration rate (GFR) svsqpicbgujjc9213-92-31 00:55:00* Test Item Value Reference Range Interpretation Comments Estimat Glomerular Filtration Rate (test code = 177009870) 5 >60 Ranges were taken from the National Kidney Disease Education Program and the [facility] Kid[facility] Foundation literature.Reference ranges:60 or greater: Cflysk11-04 ( for 3 consecutive months): Chronic kidney disease 15 or less: Kidney failureLamb Healthcare CenterGlucose zehmypqivdn6654-90-31 00:55:00* Test Item Value Reference Range Interpretation Comments Glucose Level (test code = AXT6057) 105 74-118 [facility]ererum or plasma calcium measurement (mass/volume)2019-12-29 00:55:00* Test Item Value Reference Range Interpretation Comments Calcium Level (test code = 52491-9) 9.7 8.4-10.2 [facility]ererum or plasma total bilirubin measurement (mass/volume)2019-12-29 00:55:00* Test Item Value Reference Range Interpretation Comments Total Bilirubin (test code = 1975-2) 0.4 0.2-1.2 [facility] CenterFluoroscopic procedure less than one hour xumbwdgq6432-72-40 00:55:00* Test Item Value Reference Range Interpretation Comments Aspartate Amino Transf (AST/SGOT) (test code = Aspartate Amino Transf (AST/SGOT)) 17 5-34 [facility]ererum or plasma alanine aminotransferase measurement (enzymatic activity/volume)2019-12-29 00:55:00* Test Item Value Reference Range Interpretation Comments Alanine Aminotransferase (ALT/SGPT) (test code = 1742-6) 18 0-55 [facility]ererum or plasma protein measurement (mass/volume)2019-12-29 00:55:00* Test Item Value Reference Range Interpretation Comments Total Protein (test code = 2885-2) 6.6 6.5-8.1 [facility]ererum or plasma albumin measurement (mass/volume)2019-12-29 00:55:00* Test Item Value Reference Range Interpretation Comments Albumin (test code = 1751-7) 3.7 3.5-5.0 [facility] CenterPlasma globulin measurement (mass/volume) 2019-12-29 00:55:00* Test Item Value Reference Range Interpretation Comments Globulin (test code = 11853-1) 2.9 2.3-3.5 [facility]ererum or plasma albumin/globulin mass mxdtj0082-54-30 00:55:00* Test Item Value Reference Range Interpretation Comments Albumin/Globulin Ratio (test code = 1759-0) 1.3 0.8-2.0 [facility]ererum or plasma alkaline phosphatase measurement (enzymatic activity/volume)2019-12-29 00:55:00* Test Item Value Reference Range Interpretation Comments Alkaline Phosphatase (test code = 6768-6) 71 40-150 [facility] CenterBNP Otx-yDtr1329-49-22 00:55:00* Test Item Value Reference Range Interpretation Comments B-Type Natriuretic Peptide (test code = 13172-2) 1053.7 0-100 [facility] CenterBlood leukocytes automated count (number/volume)2019-12-29 00:55:00* Test Item Value Reference Range Interpretation Comments White Blood Count (test code = 6690-2) 7.71 4.8-10.8 [facility] CenterBlood erythrocytes automated count (number/volume)2019-12-29 00:55:00* Test Item Value Reference Range Interpretation Comments Red Blood Count (test code = 789-8) 3.24 3.6-5.1 [facility] CenterBlood hemoglobin measurement (moles/volume)2019-12-29 00:55:00* Test Item Value Reference Range Interpretation Comments Hemoglobin (test code = 04027-2) 10.5 12.0-16.0 [facility] CenterAutomated blood hematocrit (volume fraction)2019-12-29 00:55:00* Test Item Value Reference Range Interpretation Comments Hematocrit (test code = 4544-3) 32.1 34.2-44.1 [facility] CenterAutomated erythrocyte mean corpuscular kxcufb4443-09-45 00:55:00* Test Item Value Reference Range Interpretation Comments Mean Corpuscular Volume (test code = 787-2) 99.1 81-99 [facility] CenterAutomated erythrocyte mean corpuscular hemoglobin (mass per erythrocyte)2019-12-29 00:55:00* Test Item Value Reference Range Interpretation Comments Mean Corpuscular Hemoglobin (test code = 785-6) 32.4 28-32 [facility] CenterAutomated erythrocyte mean corpuscular hemoglobin concentration measurement (mass/volume)2019-12-29 00:55:00* Test Item Value Reference Range Interpretation Comments Mean Corpuscular Hemoglobin Concent (test code = 786-4) 32.7 31-35 [facility] CenterRDW HvtYd-Jcc1189-28-22 00:55:00* Test Item Value Reference Range Interpretation Comments Red Cell Distribution Width (test code = 35801-4) 12.8 11.7 -14.4 [facility] CenterAutomated blood platelet count (count/volume)2019-12-29 00:55:00* Test Item Value Reference Range Interpretation Comments Platelet Count (test code = 777-3) 150 140-360 [facility] CenterAutat[facility] health [facility]ed blood segmented neutrophil count as percentage of total vidlspikrj9878-45-34 00:55:00* Test Item Value Reference Range Interpretation Comments Neutrophils (%) (Auto) (test code = 40216-1) 69.6 38.7-80.0 [facility] CenterAutomated blood lymphocyte count as percentage ot total lxnzluoeby4995-85-49 00:55:00* Test Item Value Reference Range Interpretation Comments Lymphocytes (%) (Auto) (test code = 736-9) 17.5 18.0-39.1 [facility] CenterAutomated blood monocyte count as percentage of total frnuiqgypk1345-73-05 00:55:00* Test Item Value Reference Range Interpretation Comments Monocytes (%) (Auto) (test code = 5905-5) 6.9 4.4-11.3 [facility] CenterAutomated blood eosinophil count as percentage of total cyazqkxwdh6167-29-21 00:55:00* Test Item Value Reference Range Interpretation Comments Eosinophils (%) (Auto) (test code = 713-8) 5.1 0.0-6.0 [facility] CenterAutomated blood basophil count as percentage of total sdlicrftes3679-45-10 00:55:00* Test Item Value Reference Range Interpretation Comments Basophils (%) (Auto) (test code = 706-2) 0.5 0.0-1.0 [facility] CenterFluoroscopic procedure less than one hour mxglydox7575-98-81 00:55:00* Test Item Value Reference Range Interpretation Comments IM GRANULOCYTES % (test code = IM GRANULOCYTES %) 0.4 0.0- 1.0 [facility] CenterAutomated blood neutrophil count 2019-12-29 00:55:00* Test Item Value Reference Range Interpretation Comments Neutrophils # (Auto) (test code = 751-8) 5.4 2.1-6.9 [facility] CenterBlood lymphocytes count (number/volume) 2019-12-29 00:55:00* Test Item Value Reference Range Interpretation Comments Lymphocytes # (Auto) (test code = 94744-6) 1.4 1.0-3.2 [facility] CenterBlood monocytes automated count (number/volume)2019-12-29 00:55:00* Test Item Value Reference Range Interpretation Comments Monocytes # (Auto) (test code = 742-7) 0.5 0.2-0.8 [facility] CenterAutomated blood eosinophil count 2019-12-29 00:55:00* Test Item Value Reference Range Interpretation Comments Eosinophils # (Auto) (test code = 711-2) 0.4 0.0-0.4 [facility] CenterAutomated blood basophil count (count/volume)2019-12-29 00:55:00* Test Item Value Reference Range Interpretation Comments Basophils # (Auto) (test code = 704-7) 0.0 0.0-0.1 [facility] CenterFluoroscopic procedure less than one hour azmerlgw2510-40-69 00:55:00* Test Item Value Reference Range Interpretation Comments Absolute Immature Granulocyte (auto (grazyna t code = Absolute Immature Granulocyte (auto) 0.03 0-0.1 [facility] CenterProthrombin time (PT) in platelet poor plasma by coagulation xrouw6149-04-76 00:55:00* Test Item Value Reference Range Interpretation Comments Prothrombin Time (test code = 5902-2) 12.5 11.9-14.5 [facility] CenterINR in Platelet poor plasma by Coagulation grtox8537-81-70 00:55:00* Test Item Value Reference Range Interpretation Comments Prothromb Time International Ratio (test code = 6301-6) 0.89 Oral Anticoagulant Therapy INR Values:1. Low Intensity Therapy 1.5 - 2.02 . Moderate Intensity Therapy 2.0 - 3.03. High Intensity Therapy(1) 2.5 - 3. 54. High Intensity Therapy(2) 3.0 - 4.05. Panic Value INR > 5.0 [facility]ere[facility] or plasma sodium measurement (moles/volume)2019-12-29 00:55:00* Test Item Value Reference Range Interpretation Comments Sodium Level (test code = 2951-2) 136 136-145 [facility]ererum or plasma potassium measurement (moles/volume)2019-12-29 00:55:00* Test Item Value Reference Range Interpretation Comments Potassium Level (test code = 2823-3) 4.8 3.5-5.1 [facility]ererum or plasma chloride measurement (moles/volume)2019-12-29 00:55:00* Test Item Value Reference Range Interpretation Comments Chloride Level (test code = 2075-0) 96 98-107 [facility]ererum or plasma carbon dioxide, total measurement (moles/volume)2019-12-29 00:55:00* Test Item Value Reference Range Interpretation Comments Carbon Dioxide Level (test code = 2028-9) 25 22-29 [facility]ererum or plasma anion zlo8452-37-15 00:55:00* Test Item Value Reference Range Interpretation Comments Anion Gap (test code = 30233-3) 19.8 8-16 [facility]ererum or plasma urea nitrogen measurement (mass/volume)2019-12-29 00:55:00* Test Item Value Reference Range Interpretation Comments Blood Urea Nitrogen (test code = 3094-0) 68 7-26 [facility]ererum or plasma creatinine measurement (mass/volume)2019-12-29 00:55:00* Test Item Value Reference Range Interpretation Comments Creatinine (test code = 2160-0) 8.68 0.57-1.11 [facility]ererum or plasma urea nitrogen/creatinine mass twfrf5720-62-60 00:55:00* Test Item Value Reference Range Interpretation Comments BUN/Creatinine Ratio (test code = 3097-3) 8 6-25 [facility] CenterEstimated glomerular filtration rate (GFR) ssqqockfltqwu2285-13-58 00:55:00* Test Item Value Reference Range Interpretation Comments Estimat Glomerular Filtration Rate (test code = 576213454) 5 >60 Ranges were taken from the National Kidney Disease Education Program and the [facility] Kid[facility] Foundation literature.Reference ranges:60 or greater: Xafrur73-56 ( for 3 consecutive months): Chronic kidney disease 15 or less: Kidney failureLamb Healthcare CenterGlucose nrnxvazwngq0707-62-07 00:55:00* Test Item Value Reference Range Interpretation Comments Glucose Level (test code = QAU3876) 105 74-118 [facility]ererum or plasma calcium measurement (mass/volume)2019-12-29 00:55:00* Test Item Value Reference Range Interpretation Comments Calcium Level (test code = 25736-4) 9.7 8.4-10.2 [facility]ererum or plasma total bilirubin measurement (mass/volume)2019-12-29 00:55:00* Test Item Value Reference Range Interpretation Comments Total Bilirubin (test code = 1975-2) 0.4 0.2-1.2 [facility] CenterFluoroscopic procedure less than one hour jpaaevts3718-49-04 00:55:00* Test Item Value Reference Range Interpretation Comments Aspartate Amino Transf (AST/SGOT) (test code = Aspartate Amino Transf (AST/SGOT)) 17 5-34 [facility]ererum or plasma alanine aminotransferase measurement (enzymatic activity/volume)2019-12-29 00:55:00* Test Item Value Reference Range Interpretation Comments Alanine Aminotransferase (ALT/SGPT) (test code = 1742-6) 18 0-55 [facility]ererum or plasma protein measurement (mass/volume)2019-12-29 00:55:00* Test Item Value Reference Range Interpretation Comments Total Protein (test code = 2885-2) 6.6 6.5-8.1 [facility]ererum or plasma albumin measurement (mass/volume)2019-12-29 00:55:00* Test Item Value Reference Range Interpretation Comments Albumin (test code = 1751-7) 3.7 3.5-5.0 [facility] CenterPlasma globulin measurement (mass/volume) 2019-12-29 00:55:00* Test Item Value Reference Range Interpretation Comments Globulin (test code = 22445-8) 2.9 2.3-3.5 [facility]ererum or plasma albumin/globulin mass sjctv5976-01-07 00:55:00* Test Item Value Reference Range Interpretation Comments Albumin/Globulin Ratio (test code = 1759-0) 1.3 0.8-2.0 [facility]ererum or plasma alkaline phosphatase measurement (enzymatic activity/volume)2019-12-29 00:55:00* Test Item Value Reference Range Interpretation Comments Alkaline Phosphatase (test code = 6768-6) 71 40-150 [facility] CenterBNP Ryn-eAaq4200-59-22 00:55:00* Test Item Value Reference Range Interpretation Comments B-Type Natriuretic Peptide (test code = 89325-0) 1053.7 0-100 [facility] EJSDW3371-78-07 14:23:00 [facility] [address] [place] [address] Patient Name: SHALOM SORIANO MR #: [id number] : 1950 Age/Sex: 69/F Req #: [id number] Adm Physician: Ordered by: ORTEGA MONTELONGO MD Report #: [id number] Location: CT Room/Bed: Procedure: [id number] CT/C TA CHEST Exam Date: 05/29/19 Exam Time: 924 REPORT STATUS: Signed CT angiography of the thoracic aorta COMPARISON: None INDICATION: There is a clini donna concern of ascending aortic aneurysm. This study is performed in an attemp t to avoid an invasive procedure. TECHNIQUE: Helically acquired axial CT im ages of the chest were obtained during the intravenous administration of contr ast. Multi-planar 3-D volume-rendering reconstruction was performed using an [email or web address] workstation. Images were also reformatted into sagittal and coronal planes. This exam was performed according to our departmental dose-optimiz ation program, which includes automated exposure control, adjustment of the mA and/or kV according to patient size and/or use of iterative reconstruction iain nicole. Dose modulation, iterative reconstruction, and/or weight based adjust ment of the mA/kV was utilized to reduce the radiation dose to as low as reaso nably achievable. FINDINGS: VASCULAR:- The central pulmonary a rteries are normal in caliber. The heart is mildly enlarged. The pericardi um appears unremarkable. The coronary artery origins are normal and mild coron mo calcifications are seen. The thoracic aorta is normal in course, contou r, and caliber. There is no evidence of acute aortic pathology, specifical ly, there is no dissection, intramural hematoma, or contained rupture. The arc h vessel branching pattern is normal and the visualized arch vessels are widel y patent proximally. Quantitative dimensions of the aorta are as follows: 3 .4 cm at the proximal ascending thoracic aorta; 3.6 cm at the mid ascending a [place]; 3.6 cm at the distal ascending aorta; 2.7 cm at the mid transverse arch ; 2.4 at the proximal descending aorta; 2.4 cm at the mid descending aorta; 2. 1 cm at the diaphragmatic hiatus. In the abdomen, the aorta measures 2. 3 cm at the mesenteric segment. A HeRO graft is in place which terminates i n the superior atrium. NON-VASCULAR:- The visualized thyroid gland ap pears unremarkable. The chest wall and mediastinum appear normal. No sign ificant adenopathy is identified. In the lung windows, no obvious endobr onchial lesion is seen and no pleural effusion is identified. No suspicious pu lmonary nodule is seen. Mild interstitial edema is present. A calcified granul gayathri is identified in the right upper lobe. No acute osseous pathology is seen. CONCLUSIONS: The thoracic aorta is normal in course, contour, and caliber. There is no evidence of acute aortic pathology, specifically, th ere is no dissection, intramural hematoma, or contained rupture. Quantitative dimension of the aorta are as described above. Signed by: Benjamin garcia MD on 05/29/2019 2:32 PM Dictated By: BENJAMIN COX MD Electronic ally Signed By: BENJAMIN COX MD on 05/29/19 1432 Transcribed By: ANTONY on 05/29/19 1432 COPY TO: ORTEGA MONTELONGO MD AG HEPAT B SURF 2019-04-29 07:14:00* Test Item Value Reference Range Interpretation Comments AG HEPAT B SURF (test code = HBSAG) Nonreactive Index Nonreactive BASIC METABOLIC QFIQQ0728-05-53 04:47:00* Test Item Value Reference Range Interpretation Comments SODIUM (test code = NA) 138 mmol/L 136-145 N POTASSIUM (test code = K) 4.5 mmol/L 3.5-5.1 N CHLORIDE (test code = CL) 95.0 mmol/L 98-107 L CARBON DIOXIDE (test code = CO2) 31.0 mmol/L 21-32 N ANION GAP (test code = GAP) 16.5 10-20 N GLUCOSE (test code = GLU) 89 mg/dL 74-106 N BLOOD UREA NITROGEN (test code = BUN) 46 mg/dL 7-18 H RESULT VERIFIED BY REPEAT ANALYSIS GLOMERULAR FILTRATION RATE (test code = GFR) 7 mL/min >=60 Estimated GFR by using Modified MDRD formula.Chronic kidney disease is defined as either kidney damageor GFR <60 mL/min/1.73 m2 for >3 months. CREATININE (test code = CREAT) 6.10 mg/dL 0.55-1.02 H Note change in reference range due to change in reagent. BUN/CREATININE RATIO (test code = BUN/CREA) 7.5 10-20 L CALCIUM (test code = CA) 8.9 mg/dL 8.5-10.1 N BASIC METABOLIC [id number] 04:30:00* Test Item Value Reference Range Interpretation Comments SODIUM (test code = NA) 138 mmol/L 136-145 N POTASSIUM (test code = K) 4.5 mmol/L 3.5-5.1 N CHLORIDE (test code = CL) 95.0 mmol/L 98-107 L CARBON DIOXIDE (test code = CO2) mmol/L 21-32 ANION GAP (test code = GAP) 10-20 GLUCOSE (test code = GLU) mg/dL 74-106 BLOOD UREA NITROGEN (test code = BUN) mg/dL 7-18 GLOMERULAR FILTRATION RATE (test code = GFR) mL/min >=60 CREATININE (test code = CREAT) mg/dL 0.55-1.02 BUN/CREATININE RATIO (test code = BUN/CREA) 10-20 CALCIUM (test code = CA) mg/dL 8.5-10.1 CBC W/AUTO [id number] 04:02:00* Test Item Value Reference Range Interpretation Comments WHITE BLOOD CELL (test code = WBC) 5.4 K/mm3 4.5-12.5 N RED BLOOD CELL (test code = RBC) 3.49 mill/mm3 3.7-5.2 L HEMOGLOBIN (test code = HGB) 10.8 gram/dL 11.5-15.5 L HEMATOCRIT (test code = HCT) 33.7 % 36.0-46.0 L MEAN CELL VOLUME (test code = MCV) 96.6 fL 80-98 N MEAN CELL HGB (test code = MCH) 30.9 picogram 27.0-33.0 N MEAN CELL HGB CONCETRATION (test code = MCHC) 32.0 gram/dL 33.0-36. 0 L RED CELL DISTRIBUTION WIDTH (test code = RDW) 13.3 % 11.6-16. 2 N RED CELL DISTRIBUTION WIDTH SD (test code = RDW-SD) 46.5 fL 37 .0-51.0 N PLATELET COUNT (test code = PLT) 190 K/mm3 150-450 N MEAN PLATELET VOLUME (test code = MPV) 11.3 fL 6.7-11.0 H NEUTROPHIL % (test code = NT%) 58.1 % 39.0-69.0 N IMMATURE GRANULOCYTE % (test code = IG%) 0.2 % 0.0-5.0 N LYMPHOCYTE % (test code = LY%) 20.9 % 25.0-55.0 L MONOCYTE % (test code = MO%) 10.5 % 0.0-10.0 H EOSINOPHIL % (test code = EO%) 9.6 % 0.0-5.0 H BASOPHIL % (test code = BA%) 0.7 % 0.0-1.0 N NUCLEATED RBC % (test code = NRBC%) 0.0 % 0-0 N NEUTROPHIL # (test code = NT#) 3.14 K/mm3 1.8-7.7 N IMMATURE GRANULOCYTE # (test code = IG#) 0.01 x10 3/uL 0-0.03 N LYMPHOCYTE # (test code = LY#) 1.13 K/mm3 1.0-5.0 N MONOCYTE # (test code = MO#) 0.57 K/mm3 0-0.8 N EOSINOPHIL # (test code = EO#) 0.52 K/mm3 0.0-0.5 H BASOPHIL # (test code = BA#) 0.04 K/mm3 0.0-0.2 N NUCLEATED RBC # (test code = NRBC#) 0.00 K/mm3 0.0-0.1 N BASIC METABOLIC [id number] 10:45:00* Test Item Value Reference Range Interpretation Comments SODIUM (test code = NA) 137 mmol/L 136-145 N POTASSIUM (test code = K) 3.8 mmol/L 3.5-5.1 N CHLORIDE (test code = CL) 94.0 mmol/L 98-107 L CARBON DIOXIDE (test code = CO2) 33.0 mmol/L 21-32 H ANION GAP (test code = GAP) 13.8 10-20 N GLUCOSE (test code = GLU) 98 mg/dL 74-106 N BLOOD UREA NITROGEN (test code = BUN) 28 mg/dL 7-18 H GLOMERULAR FILTRATION RATE (test code = GFR) 12 mL/min >=60 Estimated GFR by using Modified MDRD formula.Chronic kidney disease is defined as either kidney damageor GFR <60 mL/min/1.73 m2 for >3 months. CREATININE (test code = CREAT) 3.80 mg/dL 0.55-1.02 H Note change in reference range due to change in reagent. BUN/CREATININE RATIO (test code = BUN/CREA) 7.4 10-20 L CALCIUM (test code = CA) 9.0 mg/dL 8.5-10.1 N - US HEAD AND [id number] 10:42:00 Name: SHALOM SORIANO [facility] : 1950 Age/S: 69 / F [address] [facility] Unit #: [id number] Loc: [place] [address] Phys: Sharyn Morrell NP Acct: [id number] Dis Date: Status: REG ER PHONE #: [phone] Exam Date: 04/28/2019 1032 FAX #: [phone] Reason: evaluate posterior neck abscess EXAMS: CPT CODE: [id number] US HEAD AND NECK 92576 REASON FOR EXAM: evaluate posterior neck abscess EXAM ORDER DATE: 04/28/2019 10:22 AM Attending M.D.: Sharyn Morrell NP PROCEDURE: - US HEAD AND NECK Comparison: None FINDINGS/ IMPRESSION: Complex heterogenous appearing lesion is present in the scanned portion of the posterior neck. This lesion measures 2.3 x 1.6 x 2.3 cm in size and may represent a developing abscess. at 1042 Reported and signed by: Rafael Cotto MD CC: Sharyn Morrell NP; Marianne Thacker MD; Sumi Novak DO Technologist: ANOOP CAREY(R),ROSYKingsburg Medical Centerb Date/Time: 04/28/2019 (1042) Janene.RR31 Orig Print D/T: S: 04/28/2019 (6262) Probe: PAGE 1 Signed Report BASIC METABOLIC PANEL 2019-04-28 10:40:00* Test Item Value Reference Range Interpretation Comments SODIUM (test code = NA) 137 mmol/L 136-145 N POTASSIUM (test code = K) 3.8 mmol/L 3.5-5.1 N CHLORIDE (test code = CL) 94.0 mmol/L 98-107 L CARBON DIOXIDE (test code = CO2) mmol/L 21-32 ANION GAP (test code = GAP) 10-20 GLUCOSE (test code = GLU) mg/dL 74-106 BLOOD UREA NITROGEN (test code = BUN) mg/dL 7-18 GLOMERULAR FILTRATION RATE (test code = GFR) mL/min >=60 CREATININE (test code = CREAT) mg/dL 0.55-1.02 BUN/CREATININE RATIO (test code = BUN/CREA) 10-20 CALCIUM (test code = CA) mg/dL 8.5-10.1 CBC W/O [id number] 10:29:00* Test Item Value Reference Range Interpretation Comments WHITE BLOOD CELL (test code = WBC) 6.7 K/mm3 4.5-12.5 N RED BLOOD CELL (test code = RBC) 3.68 mill/mm3 3.7-5.2 L HEMOGLOBIN (test code = HGB) 11.7 gram/dL 11.5-15.5 N HEMATOCRIT (test code = HCT) 34.5 % 36.0-46.0 L MEAN CELL VOLUME (test code = MCV) 93.8 fL 80-98 N MEAN CELL HGB (test code = MCH) 31.8 picogram 27.0-33.0 N MEAN CELL HGB CONCETRATION (test code = MCHC) 33.9 gram/dL 33.0-36. 0 N RED CELL DISTRIBUTION WIDTH (test code = RDW) 12.9 % 11.6-16. 2 N PLATELET COUNT (test code = PLT) 200 K/mm3 150-450 N MEAN PLATELET VOLUME (test code = MPV) 11.2 fL 6.7-11.0 H Prothrombin [id number] 07:20:00* Test Item Value Reference Range Interpretation Comments Prothrombin Time (test code = 5902-2) 12.2 11.9-14.5 [facility] CenterProthromb Time International Ratio 2018-12-26 07:20:00* Test Item Value Reference Range Interpretation Comments Prothromb Time International Ratio (test code = 6301-6) 0.86 Oral Anticoagulant Therapy INR Values:1. Low Intensity Therapy 1.5 - 2.02 . Moderate Intensity Therapy 2.0 - 3.03. High Intensity Therapy(1) 2.5 - 3. 54. High Intensity Therapy(2) 3.0 - 4.05. Panic Value INR > 5.0 [facility] CenterActivated Partial Thromboplast Time 2018-12-26 07:20:00* Test Item Value Reference Range Interpretation Comments Activated Partial Thromboplast Time (test code = 95517-4) 24.3 23.8-35.5 [facility]odium Hdouf1361-83-08 06:57:00* Test Item Value Reference Range Interpretation Comments Sodium Level (test code = 2951-2) 137 136-145 [facility] CenterPotassium Iiqdf1274-01-25 06:57:00* Test Item Value Reference Range Interpretation Comments Potassium Level (test code = 2823-3) 5.4 3.5-5.1 H [facility] CenterChloride Odqzc6448-40-97 06:57:00* Test Item Value Reference Range Interpretation Comments Chloride Level (test code = 2075-0) 96 98-107 L [facility] CenterCarbon Dioxide Gmpph7497-78-59 06:57:00* Test Item Value Reference Range Interpretation Comments Carbon Dioxide Level (test code = 2028-9) 29 22-29 [facility] CenterAnion Yfd3957-76-84 06:57:00* Test Item Value Reference Range Interpretation Comments Anion Gap (test code = 28502-3) 17.4 8-16 H [facility] CenterBlood Urea Rxpxlohn1368-73-22 06:57:00* Test Item Value Reference Range Interpretation Comments Blood Urea Nitrogen (test code = 3094-0) 38 7-26 H [facility] CenterCreatinine2019-09-20 06:57:00* Test Item Value Reference Range Interpretation Comments Creatinine (test code = 2160-0) 4.69 0.57-1.11 H [facility] CenterBUN/Creatinine Spbco3960-81-63 06:57:00* Test Item Value Reference Range Interpretation Comments BUN/Creatinine Ratio (test code = 3097-3) 8 6-25 [facility] CenterEstimat Glomerular Filtration Rate 2018-12-26 06:57:00* Test Item Value Reference Range Interpretation Comments Estimat Glomerular Filtration Rate (test code = 069962121) 9 >60 L Ranges were taken from the National Kidney Disease Education Program and the [facility] Kidney Foundation literature.Reference ranges:60 or greater: Mufssx79-85 ( for 3 consecutive months): Chronic kidney disease 15 or less: Kidney failureLamb Healthcare CenterGlucose Rinzz9716-47-67 06:57:00* Test Item Value Reference Range Interpretation Comments Glucose Level (test code = AYI5433) 82 74-118 [facility] CenterCalcium Yndlh6093-22-33 06:57:00* Test Item Value Reference Range Interpretation Comments Calcium Level (test code = 68769-1) 9.8 8.4-10.2 [facility] CenterPlatelet Vhnalosy9148-68-60 06:52:00* Test Item Value Reference Range Interpretation Comments Platelet Estimate (test code = 70954-1) ADEQUATE [facility] CenterClumped Ezhfktaic1251-95-50 06:52:00* Test Item Value Reference Range Interpretation Comments Clumped Platelets (test code = 7796-6) NONE NONE [facility] CenterPlatelet Morphology Huhhrjb7620-27-62 06:52:00* Test Item Value Reference Range Interpretation Comments Platelet Morphology Comment (test code = 65227-1) NORMAL [facility] CenterWhite Blood Eoyjn5342-40-81 06:26:00* Test Item Value Reference Range Interpretation Comments White Blood Count (test code = 6690-2) 5.82 4.8-10.8 [facility] CenterRed Blood Taefd0238-02-15 06:26:00* Test Item Value Reference Range Interpretation Comments Red Blood Count (test code = 789-8) 3.97 3.6-5.1 [facility] CenterHemoglobin2019-09-20 06:26:00* Test Item Value Reference Range Interpretation Comments Hemoglobin (test code = 56209-6) 11.8 12.0-16.0 L [facility] CenterHematocrit2019-09-20 06:26:00* Test Item Value Reference Range Interpretation Comments Hematocrit (test code = 4544-3) 37.3 34.2-44.1 [facility] CenterMean Corpuscular Ldepix9483-52-43 06:26:00* Test Item Value Reference Range Interpretation Comments Mean Corpuscular Volume (test code = 787-2) 94.0 81-99 [facility] CenterMean Corpuscular Zjrufwoowf9434-62-74 06:26:00* Test Item Value Reference Range Interpretation Comments Mean Corpuscular Hemoglobin (test code = 785-6) 29.7 28-32 [facility] Corpuscular Hemoglobin Concent 2018-12-26 06:26:00* Test Item Value Reference Range Interpretation Comments Mean Corpuscular Hemoglobin Concent (test code = 786-4) 31.6 31-35 [facility] CenterRed Cell Distribution Mldhh3075-06-57 06:26:00* Test Item Value Reference Range Interpretation Comments Red Cell Distribution Width (test code = 59466-5) 15.1 11.7 -14.4 H [facility] CenterPlatelet Awjcc1707-83-80 06:26:00* Test Item Value Reference Range Interpretation Comments Platelet Count (test code = 777-3) 166 140-360 [facility] CenterNeutrophils (%) (Auto)2018-12-26 06:26:00 * Test Item Value Reference Range Interpretation Comments Neutrophils (%) (Auto) (test code = 40837-2) 54.3 38.7-80.0 [facility] CenterLymphocytes (%) (Auto)2018-12-26 06:26:00 * Test Item Value Reference Range Interpretation Comments Lymphocytes (%) (Auto) (test code = 736-9) 18.4 18.0-39.1 [facility] CenterMonocytes (%) (Auto)2018-12-26 06:26:00* Test Item Value Reference Range Interpretation Comments Monocytes (%) (Auto) (test code = 5905-5) 9.8 4.4-11.3 [facility] CenterEosinophils (%) (Auto)2018-12-26 06:26:00 * Test Item Value Reference Range Interpretation Comments Eosinophils (%) (Auto) (test code = 713-8) 16.3 0.0-6.0 H [facility] CenterBasophils (%) (Auto)2018-12-26 06:26:00* Test Item Value Reference Range Interpretation Comments Basophils (%) (Auto) (test code = 706-2) 0.9 0.0-1.0 [facility] CenterIM GRANULOCYTES %2018-12-26 06:26:00* Test Item Value Reference Range Interpretation Comments IM GRANULOCYTES % (test code = IM GRANULOCYTES %) 0.3 0.0- 1.0 [facility] CenterNeutrophils # (Auto)2018-12-26 06:26:00* Test Item Value Reference Range Interpretation Comments Neutrophils # (Auto) (test code = 751-8) 3.2 2.1-6.9 [facility] CenterLymphocytes # (Auto)2018-12-26 06:26:00* Test Item Value Reference Range Interpretation Comments Lymphocytes # (Auto) (test code = 81511-3) 1.1 1.0-3.2 [facility] CenterMonocytes # (Auto)2018-12-26 06:26:00* Test Item Value Reference Range Interpretation Comments Monocytes # (Auto) (test code = 742-7) 0.6 0.2-0.8 [facility] CenterEosinophils # (Auto)2018-12-26 06:26:00* Test Item Value Reference Range Interpretation Comments Eosinophils # (Auto) (test code = 711-2) 1.0 0.0-0.4 H [facility] CenterBasophils # (Auto)2018-12-26 06:26:00* Test Item Value Reference Range Interpretation Comments Basophils # (Auto) (test code = 704-7) 0.1 0.0-0.1 [facility] CenterAbsolute Immature Granulocyte (auto 2018-12-26 06:26:00* Test Item Value Reference Range Interpretation Comments Absolute Immature Granulocyte (auto (grazyna t code = Absolute Immature Granulocyte (auto) 0.02 0-0.1 [facility] CenterCHEST 2 [id number] 12:07:00 [place] [address] Patient Name: SHALOM SORIANO MR #: [id number] : 1950 Age/Sex: 68/F Req #: [id number] Adm Physician: Ordered by: SHRUTHI YEPEZ MD Report #: [id number] Location: OR Room/Bed: Procedure: [id number] DX/ CHEST 2 VIEWS Exam Date: Exam Time: REPORT STATUS: Signed EXAM: CHEST 2 VIEWS DATE: 12/24/2018 11:18 AM INDICATION: Preoperative evaluation COM PARISON: 11/26/2018 FINDINGS: Right IJ tunnel catheter again identified in stable position. The trachea is midline. There has been interval resolution of increased interstitial opacities since the prior examination. There is no evidence for new large focal consolidation, pneumothorax, or significant pleu ral effusion. Stable appearing calcified granulomas again noted. The card iac silhouette appears mildly enlarged, unchanged. Mediastinal contours are un remarkable. No acute osseous abnormalities identified. IMPRESSION: No acute cardiopulmonary process identified. Signed by: Beni Schreiber on 12/24/2018 12:09 PM Dictated By: ED DAMON MD Electronically Sign ed By: ED DAMON MD on 12/24/18 1209 Transcribed By: ANTONY on 12/24/18 120 9 COPY TO: SHRUTHI YEPEZ MD Creatine Kinase [id number] 23:38:00* Test Item Value Reference Range Interpretation Comments Creatine Kinase MB (test code = 63387-1) 0.90 0-5.0 [place] 28169019-08-21 23:38:00* Test Item Value Reference Range Interpretation Comments Troponin I (test code = PDV5968) 0.061 0-0.300 [facility] CenterCreatine Kinase XH1436-38-30 23:38:00* Test Item Value Reference Range Interpretation Comments Creatine Kinase MB (test code = 99619-7) 0.90 0-5.0 [facility]ernin A8079-99-37 23:38:00* Test Item Value Reference Range Interpretation Comments Troponin I (test code = IRP5612) 0.061 0-0.300 [facility] CenterCHEST SINGLE (PORTABLE)2018-11-26 23:35:00 [place] [address] Patient Name: SHALOM SORIANO MR #: [id number] : 1950 Age/Sex: 68/F Req #: [id number] Adm Physician: Ordered by: IRENE MELCHOR MD Report #: [id number] Location: ER Room/Bed: Procedure: [id number] DX/CHEST SINGLE (PORTABLE) Exam Date: 11/26/18 Zay stein Time: 2305 REPORT STATUS: Signed EXAMINATION: CHEST SINGLE (PORTABLE) INDICATION: Chest pain COMPARISON: Chest radiograph 08/18/2018; abdominal CT 08/18/2018 FINDIN GS: AP view TUBES and LINES: Stable right IJ central venous catheter w ith tip in the right atrium.. LUNGS: Lungs are well inflated. Faint inc reased opacification of the lung bases. Pulmonary vascular prominence. Increas ed pulmonary interstitial markings. A few calcified granulomas. PLEURA: No pleural effusion or pneumothorax. HEART AND MEDIASTINUM: Cardiac size i s mildly enlarged. BONES AND SOFT TISSUES: No acute osseous lesion. S oft tissues are unremarkable. UPPER ABDOMEN: No free air under the diaphr agm. IMPRESSION: Mild cardiomegaly and mild pulmonary interstitia l edema and question trace bilateral pleural effusions.. Signed by: Sandra Pulliam DO on 11/26/2018 11:37 PM Dictated By: MIRIAM PULLIAM DO 36 Transcribed By: ANTONY on 11/26/182336 COPY TO: IRENE MELCHOR MD Sodium Ghtmo1077-76-82 23:32:00* Test Item Value Reference Range Interpretation Comments Sodium Level (test code = 2951-2) 135 136-145 L [facility] CenterPotassium Fdwwy6393-30-84 23:32:00* Test Item Value Reference Range Interpretation Comments Potassium Level (test code = 2823-3) 5.4 3.5-5.1 H [facility] CenterChloride Wpfnv8752-41-84 23:32:00* Test Item Value Reference Range Interpretation Comments Chloride Level (test code = 2075-0) 95 98-107 L [facility] CenterCarbon Dioxide Gnjxl6311-90-36 23:32:00* Test Item Value Reference Range Interpretation Comments Carbon Dioxide Level (test code = 2028-9) 27 22-29 [facility] CenterAnion Qqt1426-38-36 23:32:00* Test Item Value Reference Range Interpretation Comments Anion Gap (test code = 26091-6) 18.4 8-16 H [facility] CenterBlood Urea Zixeakyb8258-38-09 23:32:00* Test Item Value Reference Range Interpretation Comments Blood Urea Nitrogen (test code = 3094-0) 55 7-26 H [facility] CenterCreatinine2019-08-21 23:32:00* Test Item Value Reference Range Interpretation Comments Creatinine (test code = 2160-0) 6.85 0.57-1.11 H [facility] CenterBUN/Creatinine Orlyn9683-96-06 23:32:00* Test Item Value Reference Range Interpretation Comments BUN/Creatinine Ratio (test code = 3097-3) 8 6-25 [facility] CenterEstimat Glomerular Filtration Rate 2018-11-26 23:32:00* Test Item Value Reference Range Interpretation Comments Estimat Glomerular Filtration Rate (test code = 591767349) 6 >60 L Ranges were taken from the National Kidney Disease Education Program and the [facility] Kid[facility] Foundation literature.Reference ranges:60 or greater: Vjmbuw57-15 ( for 3 consecutive months): Chronic kidney disease 15 or less: Kidney failureLamb Healthcare CenterGlucose Eaynk4613-68-56 23:32:00* Test Item Value Reference Range Interpretation Comments Glucose Level (test code = NUD6422) 89 74-118 [facility] CenterCalcium Amojh3513-72-15 23:32:00* Test Item Value Reference Range Interpretation Comments Calcium Level (test code = 90516-5) 9.3 8.4-10.2 VERIFIED PREVIOUS RESULTSLamb Healthcare CenterTotal Bilirubin 2018-11-26 23:32:00* Test Item Value Reference Range Interpretation Comments Total Bilirubin (test code = 1975-2) 0.6 0.2-1.2 [facility] CenterAspartate Amino Transf (AST/SGOT) 2018-11-26 23:32:00* Test Item Value Reference Range Interpretation Comments Aspartate Amino Transf (AST/SGOT) (test code = Aspartate Amino Transf (AST/SGOT)) 17 5-34 [facility] CenterAlanine Aminotransferase (ALT/SGPT) 2018-11-26 23:32:00* Test Item Value Reference Range Interpretation Comments Alanine Aminotransferase (ALT/SGPT) (test code = 1742-6) 13 0-55 [facility] CenterTotal Yupmjgs1680-33-82 23:32:00* Test Item Value Reference Range Interpretation Comments Total Protein (test code = 2885-2) 6.6 6.5-8.1 [facility] CenterAlbumin2019-08-21 23:32:00* Test Item Value Reference Range Interpretation Comments Albumin (test code = 1751-7) 3.0 3.5-5.0 L [facility] CenterGlobulin2019-08-21 23:32:00* Test Item Value Reference Range Interpretation Comments Globulin (test code = 10489-9) 3.6 2.3-3.5 H [facility] CenterAlbumin/Globulin Czhmv1438-55-16 23:32:00 * Test Item Value Reference Range Interpretation Comments Albumin/Globulin Ratio (test code = 1759-0) 0.8 0.8-2.0 [facility] CenterAlkaline Ngkqkzdskze8763-17-88 23:32:00* Test Item Value Reference Range Interpretation Comments Alkaline Phosphatase (test code = 6768-6) 152 40-150 H [facility] CenterCreatine Veefct9931-21-44 23:32:00* Test Item Value Reference Range Interpretation Comments Creatine Kinase (test code = 2157-6) 49 29-168 [facility] CenterTotal Ujgszxsqj2980-74-27 23:32:00* Test Item Value Reference Range Interpretation Comments Total Bilirubin (test code = 1975-2) 0.6 0.2-1.2 [facility] CenterAspartate Amino Transf (AST/SGOT) 2018-11-26 23:32:00* Test Item Value Reference Range Interpretation Comments Aspartate Amino Transf (AST/SGOT) (test code = Aspartate Amino Transf (AST/SGOT)) 17 5-34 [facility] CenterAlanine Aminotransferase (ALT/SGPT) 2018-11-26 23:32:00* Test Item Value Reference Range Interpretation Comments Alanine Aminotransferase (ALT/SGPT) (test code = 1742-6) 13 0-55 [facility] CenterTotal Oauyzwa4259-47-14 23:32:00* Test Item Value Reference Range Interpretation Comments Total Protein (test code = 2885-2) 6.6 6.5-8.1 [facility] CenterAlbumin2019-08-21 23:32:00* Test Item Value Reference Range Interpretation Comments Albumin (test code = 1751-7) 3.0 3.5-5.0 L [facility] CenterGlobulin2019-08-21 23:32:00* Test Item Value Reference Range Interpretation Comments Globulin (test code = 61702-2) 3.6 2.3-3.5 H [facility] CenterAlbumin/Globulin Xohni7517-84-07 23:32:00 * Test Item Value Reference Range Interpretation Comments Albumin/Globulin Ratio (test code = 1759-0) 0.8 0.8-2.0 [facility] CenterAlkaline Nqgflhtbmmr5206-01-63 23:32:00* Test Item Value Reference Range Interpretation Comments Alkaline Phosphatase (test code = 6768-6) 152 40-150 H [facility] CenterCreatine Qprxvi2607-81-07 23:32:00* Test Item Value Reference Range Interpretation Comments Creatine Kinase (test code = 2157-6) 49 29-168 [facility] CenterProthrombin Tfug5710-91-76 23:23:00* Test Item Value Reference Range Interpretation Comments Prothrombin Time (test code = 5902-2) 13.8 11.9-14.5 [facility] CenterProthromb Time International Ratio 2018-11-26 23:23:00* Test Item Value Reference Range Interpretation Comments Prothromb Time International Ratio (test code = 6301-6) 1.01 Oral Anticoagulant Therapy INR Values:1. Low Intensity Therapy 1.5 - 2.02 . Moderate Intensity Therapy 2.0 - 3.03. High Intensity Therapy(1) 2.5 - 3. 54. High Intensity Therapy(2) 3.0 - 4.05. Panic Value INR > 5.0 [facility] CenterActivated Partial Thromboplast Time 2018-11-26 23:23:00* Test Item Value Reference Range Interpretation Comments Activated Partial Thromboplast Time (test code = 79479-7) 35.7 23.8-35.5 H [facility] CenterWhite Blood Gfblr4244-05-43 23:09:00* Test Item Value Reference Range Interpretation Comments White Blood Count (test code = 6690-2) 7.90 4.8-10.8 [facility] CenterRed Blood Yqzxk4784-68-68 23:09:00* Test Item Value Reference Range Interpretation Comments Red Blood Count (test code = 789-8) 3.55 3.6-5.1 L [facility] CenterHemoglobin2019-08-21 23:09:00* Test Item Value Reference Range Interpretation Comments Hemoglobin (test code = 35141-4) 10.4 12.0-16.0 L [facility] CenterHematocrit2019-08-21 23:09:00* Test Item Value Reference Range Interpretation Comments Hematocrit (test code = 4544-3) 32.8 34.2-44.1 L [facility] CenterMean Corpuscular Amzppp0117-78-00 23:09:00* Test Item Value Reference Range Interpretation Comments Mean Corpuscular Volume (test code = 787-2) 92.4 81-99 [facility] CenterMean Corpuscular Mfaikywlpa0656-38-28 23:09:00* Test Item Value Reference Range Interpretation Comments Mean Corpuscular Hemoglobin (test code = 785-6) 29.3 28-32 [facility] CenterMean Corpuscular Hemoglobin Concent 2018-11-26 23:09:00* Test Item Value Reference Range Interpretation Comments Mean Corpuscular Hemoglobin Concent (test code = 786-4) 31.7 31-35 [facility] CenterRed Cell Distribution Otzqs6087-46-33 23:09:00* Test Item Value Reference Range Interpretation Comments Red Cell Distribution Width (test code = 56406-3) 14.1 11.7 -14.4 [facility] CenterPlatelet Npjne3620-12-64 23:09:00* Test Item Value Reference Range Interpretation Comments Platelet Count (test code = 777-3) 182 140-360 [facility] CenterNeutrophils (%) (Auto)2018-11-26 23:09:00 * Test Item Value Reference Range Interpretation Comments Neutrophils (%) (Auto) (test code = 55874-1) 67.1 38.7-80.0 [facility] CenterLymphocytes (%) (Auto)2018-11-26 23:09:00 * Test Item Value Reference Range Interpretation Comments Lymphocytes (%) (Auto) (test code = 736-9) 15.6 18.0-39.1 L [facility] CenterMonocytes (%) (Auto)2018-11-26 23:09:00* Test Item Value Reference Range Interpretation Comments Monocytes (%) (Auto) (test code = 5905-5) 8.0 4.4-11.3 [facility] CenterEosinophils (%) (Auto)2018-11-26 23:09:00 * Test Item Value Reference Range Interpretation Comments Eosinophils (%) (Auto) (test code = 713-8) 8.4 0.0-6.0 H [facility] CenterBasophils (%) (Auto)2018-11-26 23:09:00* Test Item Value Reference Range Interpretation Comments Basophils (%) (Auto) (test code = 706-2) 0.5 0.0-1.0 [facility] CenterIM GRANULOCYTES %2018-11-26 23:09:00* Test Item Value Reference Range Interpretation Comments IM GRANULOCYTES % (test code = IM GRANULOCYTES %) 0.4 0.0- 1.0 [facility] CenterNeutrophils # (Auto)2018-11-26 23:09:00* Test Item Value Reference Range Interpretation Comments Neutrophils # (Auto) (test code = 751-8) 5.3 2.1-6.9 [facility] CenterLymphocytes # (Auto)2018-11-26 23:09:00* Test Item Value Reference Range Interpretation Comments Lymphocytes # (Auto) (test code = 38496-9) 1.2 1.0-3.2 [facility] CenterMonocytes # (Auto)2018-11-26 23:09:00* Test Item Value Reference Range Interpretation Comments Monocytes # (Auto) (test code = 742-7) 0.6 0.2-0.8 [facility] CenterEosinophils # (Auto)2018-11-26 23:09:00* Test Item Value Reference Range Interpretation Comments Eosinophils # (Auto) (test code = 711-2) 0.7 0.0-0.4 H [facility] CenterBasophils # (Auto)2018-11-26 23:09:00* Test Item Value Reference Range Interpretation Comments Basophils # (Auto) (test code = 704-7) 0.0 0.0-0.1 [facility] CenterAbsolute Immature Granulocyte (auto 2018-11-26 23:09:00* Test Item Value Reference Range Interpretation Comments Absolute Immature Granulocyte (auto (grazyna t code = Absolute Immature Granulocyte (auto) 0.03 0-0.1 [facility] CenterHepat[facility] B Surface Antibody, Quant 2018-08-20 05:52:00* Test Item Value Reference Range Interpretation Comments Hepatitis B Surface Antibody, Quant (test code = 5194-6) <3.1 Immunity>9.9 L Status of Immunity Anti-HBs Level Inconsistent with Immunity 0.0 - 9.9Consistent with Immunity >9.9[facility] Surface Zfvhlie9141-50-04 05:52:00* Test Item Value Reference Range Interpretation Comments Hepatitis B Surface Antigen (test code = 5196-1) Negative Negat tho Performed at: - Lab[address] [id number] Director: Ruben Velázquez MD, Phone: [phone] Healthcare CenterHenapa [facility] hospital B Surface Antibody, Gjtic8123-23-24 05:52:00* Test Item Value Reference Range Interpretation Comments Hepatitis B Surface Antibody, Quant (test code = 5194-6) <3.1 Immunity>9.9 L Status of Immunity Anti-HBs Level Inconsistent with Immunity 0.0 - 9.9Consistent with Immunity >9.9[facility] B Surface Csrupej1789-46-92 05:52:00* Test Item Value Reference Range Interpretation Comments Hepatitis B Surface Antigen (test code = 5196-1) Negative Negat tho Performed at: - Lab[address] [id number] Director: Ruben Velázquez MD, Phone: [phone] Children's Hospital B Surface Antibody, Oasls9971-30-64 05:52:00* Test Item Value Reference Range Interpretation Comments Hepatitis B Surface Antibody, Quant (test code = 5194-6) <3.1 Immunity>9.9 L Status of Immunity Anti-HBs Level Inconsistent with Immunity 0.0 - 9.9Consistent with Immunity >9.9[facility] B Surface Xqtesbn8696-92-71 05:52:00* Test Item Value Reference Range Interpretation Comments Hepatitis B Surface Antigen (test code = 5196-1) Negative Negat tho Performed at: - LabCo[address] [id number] Director: Ruben Velázquez MD, Phone: [phone] Healthcare CenterCHES SINGLE (PORTABLE)2018-08-19 07:21:00 [place] [address] Patient Name: SHALOM SORIANO MR #: [id number] : 1950 Age/Sex: 68/F Req #: [id number] Adm Physician: MARIANNE THACKER MD Ordered by: SHALOM KING SECTION HAND HELPER Report #: [id number] Location: MED/SURG2 Room/Bed: 201-1 Procedure: [id number] DX/CHEST SINGLE (PORTABLE) Exam Date: 08/19/18 Exam Time: 0505 REPORT STATUS: Signed Examination: Single AP view of the chest. COMPARISON: 08/18/2018 at 1103 ho urs INDICATION: Epigastric and chest pain DISCUSSION: See im pression IMPRESSION: Stable position of hemodialysis device. Pul monary venous congestion, trace bilateral pleural effusions, and subsegmental bibasilar atelectasis without significant interval change relative to the exam ination from one hour prior. Signed by: Dr. Paris Lopez M.D. on 08/19 7:22 AM Dictated By: PARIS LOPEZ MD 1 Transcribed By: ANTONY on 08/19/18721 COPY TO: SHALOM KING SECTION HAND HELPER Phosphorus Bcqva8899-07-33 07:17:00* Test Item Value Reference Range Interpretation Comments Phosphorus Level (test code = RTQ0813) 6.7 2.3-4.7 H [facility] CenterMagnesium Hkrkm8288-20-11 07:17:00* Test Item Value Reference Range Interpretation Comments Magnesium Level (test code = 99408-2) 2.2 1.3-2.1 H [facility] CenterPhosphorus Qzytc0861-90-73 07:17:00* Test Item Value Reference Range Interpretation Comments Phosphorus Level (test code = EED0392) 6.7 2.3-4.7 H [facility] CenterMagnesium Zgqhq9908-42-37 07:17:00* Test Item Value Reference Range Interpretation Comments Magnesium Level (test code = 47714-7) 2.2 1.3-2.1 H [facility] CenterPhosphorus Ncjvq7758-18-13 07:17:00* Test Item Value Reference Range Interpretation Comments Phosphorus Level (test code = BZZ0542) 6.7 2.3-4.[address] [facility]erg[facility] Mzehg1417-14-53 07:17:00* Test Item Value Reference Range Interpretation Comments Magnesium Level (test code = 32492-2) 2.2 1.3-2.1 H [facility] CenterPhosphorus Haixl5790-14-41 07:17:00* Test Item Value Reference Range Interpretation Comments Phosphorus Level (test code = EXB0541) 6.7 2.3-4.7 H [facility] Nveyh0804-62-54 07:17:00* Test Item Value Reference Range Interpretation Comments Magnesium Level (test code = 47807-2) 2.2 1.3-2.1 H [place] 28169019-05-14 06:01:00* Test Item Value Reference Range Interpretation Comments Troponin I (test code = SHJ5985) 0.036 0-0.300 [place] 28169019-05-14 06:01:00* Test Item Value Reference Range Interpretation Comments Troponin I (test code = KGX6033) 0.036 0-0.300 [facility] Centerodium Ittbb9437-93-61 05:47:00* Test Item Value Reference Range Interpretation Comments Sodium Level (test code = 2951-2) 137 136-145 [facility] CenterPotassium Zwdhl6848-17-65 05:47:00* Test Item Value Reference Range Interpretation Comments Potassium Level (test code = 2823-3) 3.6 3.5-5.1 [facility] CenterChloride Qrnur2081-64-68 05:47:00* Test Item Value Reference Range Interpretation Comments Chloride Level (test code = 2075-0) 94 98-107 L [facility] CenterCarbon Dioxide Cdzri5979-02-26 05:47:00* Test Item Value Reference Range Interpretation Comments Carbon Dioxide Level (test code = 2028-9) 30 22-29 H [facility] CenterAnion Zka5717-52-86 05:47:00* Test Item Value Reference Range Interpretation Comments Anion Gap (test code = 79647-9) 16.6 8-16 H [facility] CenterBlood Urea Trdnikhg3833-89-08 05:47:00* Test Item Value Reference Range Interpretation Comments Blood Urea Nitrogen (test code = 3094-0) 44 7-26 H [facility] CenterCreatinine2019-05-14 05:47:00* Test Item Value Reference Range Interpretation Comments Creatinine (test code = 2160-0) 5.98 0.57-1.11 H [facility] CenterBUN/Creatinine Rwpub2985-42-32 05:47:00* Test Item Value Reference Range Interpretation Comments BUN/Creatinine Ratio (test code = 3097-3) 7 6-25 [facility] CenterEstimat Glomerular Filtration Rate 2018-08-19 05:47:00* Test Item Value Reference Range Interpretation Comments Estimat Glomerular Filtration Rate (test code = 882582137) 7 >60 L Ranges were taken from the National Kidney Disease Education Program and the [facility] Foundation literature.Reference ranges:60 or greater: Cvmkbq27-89 ( for 3 consecutive months): Chronic kidney disease 15 or less: Kidney failureLamb Healthcare CenterGlucose Uubhi8010-79-11 05:47:00* Test Item Value Reference Range Interpretation Comments Glucose Level (test code = FDQ5237) 80 74-118 [facility] CenterCalcium Wcthk1260-96-77 05:47:00* Test Item Value Reference Range Interpretation Comments Calcium Level (test code = 42668-3) 7.1 8.4-10.2 L [facility] CenterTotal Ybkcptxwy3174-98-87 05:47:00* Test Item Value Reference Range Interpretation Comments Total Bilirubin (test code = 1975-2) 0.4 0.2-1.2 [facility] CenterAspartate Amino Transf (AST/SGOT) 2018-08-19 05:47:00* Test Item Value Reference Range Interpretation Comments Aspartate Amino Transf (AST/SGOT) (test code = Aspartate Amino Transf (AST/SGOT)) 23 5-34 [facility] CenterAlanine Aminotransferase (ALT/SGPT) 2018-08-19 05:47:00* Test Item Value Reference Range Interpretation Comments Alanine Aminotransferase (ALT/SGPT) (test code = 1742-6) 20 0-55 [facility] CenterTotal Ppaytfp0379-85-57 05:47:00* Test Item Value Reference Range Interpretation Comments Total Protein (test code = 2885-2) 6.3 6.5-8.1 L [facility] CenterAlbumin2019-05-14 05:47:00* Test Item Value Reference Range Interpretation Comments Albumin (test code = 1751-7) 2.9 3.5-5.0 L [facility] CenterGlobulin2019-05-14 05:47:00* Test Item Value Reference Range Interpretation Comments Globulin (test code = 20656-8) 3.4 2.3-3.5 [facility] CenterAlbumin/Globulin Tlhek7767-15-53 05:47:00 * Test Item Value Reference Range Interpretation Comments Albumin/Globulin Ratio (test code = 1759-0) 0.9 0.8-2.0 [facility] CenterAlkaline Rzcfdklmiop8744-91-53 05:47:00* Test Item Value Reference Range Interpretation Comments Alkaline Phosphatase (test code = 6768-6) 129 40-150 [facility] Centerodium Vvndy9947-44-21 05:47:00* Test Item Value Reference Range Interpretation Comments Sodium Level (test code = 2951-2) 137 136-145 [facility] CenterPotassium Zkpbn5204-80-64 05:47:00* Test Item Value Reference Range Interpretation Comments Potassium Level (test code = 2823-3) 3.6 3.5-5.1 [facility] CenterChloride Zzqzo8006-08-95 05:47:00* Test Item Value Reference Range Interpretation Comments Chloride Level (test code = 2075-0) 94 98-107 L [facility] CenterCarbon Dioxide Gkzql1993-32-40 05:47:00* Test Item Value Reference Range Interpretation Comments Carbon Dioxide Level (test code = 2028-9) 30 22-29 H [facility] CenterAnion Vdq0399-03-13 05:47:00* Test Item Value Reference Range Interpretation Comments Anion Gap (test code = 88676-5) 16.6 8-16 H [facility] CenterBlood Urea Dlkedluy7316-87-16 05:47:00* Test Item Value Reference Range Interpretation Comments Blood Urea Nitrogen (test code = 3094-0) 44 7-26 H [facility] CenterCreatinine2019-05-14 05:47:00* Test Item Value Reference Range Interpretation Comments Creatinine (test code = 2160-0) 5.98 0.57-1.11 H [facility] CenterBUN/Creatinine Socfu9315-39-09 05:47:00* Test Item Value Reference Range Interpretation Comments BUN/Creatinine Ratio (test code = 3097-3) 7 6-25 [facility] CenterEstimat Glomerular Filtration Rate 2018-08-19 05:47:00* Test Item Value Reference Range Interpretation Comments Estimat Glomerular Filtration Rate (test code = 610919186) 7 >60 L Ranges were taken from the National Kidney Disease Education Program and the [facility] Foundation literature.Reference ranges:60 or greater: Uttpgz23-07 ( for 3 consecutive months): Chronic kidney disease 15 or less: Kidney failureLamb Healthcare CenterGlucose Rwdnb8393-87-52 05:47:00* Test Item Value Reference Range Interpretation Comments Glucose Level (test code = YIA1161) 80 74-118 [facility] CenterCalcium Vpsaa0554-45-37 05:47:00* Test Item Value Reference Range Interpretation Comments Calcium Level (test code = 34142-1) 7.1 8.4-10.2 L [facility] CenterTotal Npmwpxhaq3376-22-48 05:47:00* Test Item Value Reference Range Interpretation Comments Total Bilirubin (test code = 1975-2) 0.4 0.2-1.2 [facility] CenterAspartate Amino Transf (AST/SGOT) 2018-08-19 05:47:00* Test Item Value Reference Range Interpretation Comments Aspartate Amino Transf (AST/SGOT) (test code = Aspartate Amino Transf (AST/SGOT)) 23 5-34 [facility] CenterAlanine Aminotransferase (ALT/SGPT) 2018-08-19 05:47:00* Test Item Value Reference Range Interpretation Comments Alanine Aminotransferase (ALT/SGPT) (test code = 1742-6) 20 0-55 [facility] CenterTotal Nlxftvu7687-16-88 05:47:00* Test Item Value Reference Range Interpretation Comments Total Protein (test code = 2885-2) 6.3 6.5-8.1 L [facility] CenterAlbumin2019-05-14 05:47:00* Test Item Value Reference Range Interpretation Comments Albumin (test code = 1751-7) 2.9 3.5-5.0 L [facility] CenterGlobulin2019-05-14 05:47:00* Test Item Value Reference Range Interpretation Comments Globulin (test code = 82391-8) 3.4 2.3-3.5 [facility] CenterAlbumin/Globulin Ovcsq1805-28-13 05:47:00 * Test Item Value Reference Range Interpretation Comments Albumin/Globulin Ratio (test code = 1759-0) 0.9 0.8-2.0 [facility] CenterAlkaline Zxakfhsbbzw7291-33-66 05:47:00* Test Item Value Reference Range Interpretation Comments Alkaline Phosphatase (test code = 6768-6) 129 40-150 [facility] CenterB-Type Natriuretic Vucxurx9747-63-17 05:32:00* Test Item Value Reference Range Interpretation Comments B-Type Natriuretic Peptide (test code = 49271-3) 2446.3 0-100 H [facility] CenterB-Type Natriuretic Ogdvnyb2148-77-18 05:32:00* Test Item Value Reference Range Interpretation Comments B-Type Natriuretic Peptide (test code = 26339-2) 2446.3 0-100 H [facility] CenterB-Type Natriuretic Edqvscl3286-19-81 05:32:00* Test Item Value Reference Range Interpretation Comments B-Type Natriuretic Peptide (test code = 35127-0) 2446.3 0-100 H [facility] CenterB-Type Natriuretic Fbdabsq9517-18-44 05:32:00* Test Item Value Reference Range Interpretation Comments B-Type Natriuretic Peptide (test code = 77924-2) 2446.3 0-100 H [facility] CenterWhite Blood Oaibl1863-96-40 05:09:00* Test Item Value Reference Range Interpretation Comments White Blood Count (test code = 6690-2) 4.68 4.8-10.8 L [facility] CenterRed Blood Enjqz2635-97-06 05:09:00* Test Item Value Reference Range Interpretation Comments Red Blood Count (test code = 789-8) 3.05 3.6-5.1 L [facility] CenterHemoglobin2019-05-14 05:09:00* Test Item Value Reference Range Interpretation Comments Hemoglobin (test code = 42222-3) 9.0 12.0-16.0 L [facility] CenterHematocrit2019-05-14 05:09:00* Test Item Value Reference Range Interpretation Comments Hematocrit (test code = 4544-3) 28.4 34.2-44.1 L [facility] CenterMean Corpuscular Rizvbx6513-31-66 05:09:00* Test Item Value Reference Range Interpretation Comments Mean Corpuscular Volume (test code = 787-2) 93.1 81-99 [facility] CenterMean Corpuscular Pqvunjlugq9888-28-70 05:09:00* Test Item Value Reference Range Interpretation Comments Mean Corpuscular Hemoglobin (test code = 785-6) 29.5 28-32 [facility] CenterMean Corpuscular Hemoglobin Concent 2018-08-19 05:09:00* Test Item Value Reference Range Interpretation Comments Mean Corpuscular Hemoglobin Concent (test code = 786-4) 31.7 31-35 [facility] CenterRed Cell Distribution Rarmh5273-86-42 05:09:00* Test Item Value Reference Range Interpretation Comments Red Cell Distribution Width (test code = 38381-7) 14.6 11.7 -14.4 H [facility] CenterPlatelet Efgzf4890-44-27 05:09:00* Test Item Value Reference Range Interpretation Comments Platelet Count (test code = 777-3) 208 140-360 [facility] CenterNeutrophils (%) (Auto)2018-08-19 05:09:00 * Test Item Value Reference Range Interpretation Comments Neutrophils (%) (Auto) (test code = 07410-8) 67.4 38.7-80.0 [facility] CenterLymphocytes (%) (Auto)2018-08-19 05:09:00 * Test Item Value Reference Range Interpretation Comments Lymphocytes (%) (Auto) (test code = 736-9) 17.7 18.0-39.1 L [facility] CenterMonocytes (%) (Auto)2018-08-19 05:09:00* Test Item Value Reference Range Interpretation Comments Monocytes (%) (Auto) (test code = 5905-5) 10.9 4.4-11.3 [facility] CenterEosinophils (%) (Auto)2018-08-19 05:09:00 * Test Item Value Reference Range Interpretation Comments Eosinophils (%) (Auto) (test code = 713-8) 3.2 0.0-6.0 [facility] CenterBasophils (%) (Auto)2018-08-19 05:09:00* Test Item Value Reference Range Interpretation Comments Basophils (%) (Auto) (test code = 706-2) 0.6 0.0-1.0 [facility] CenterIM GRANULOCYTES %2018-08-19 05:09:00* Test Item Value Reference Range Interpretation Comments IM GRANULOCYTES % (test code = IM GRANULOCYTES %) 0.2 0.0- 1.0 [facility] CenterNeutrophils # (Auto)2018-08-19 05:09:00* Test Item Value Reference Range Interpretation Comments Neutrophils # (Auto) (test code = 751-8) 3.2 2.1-6.9 [facility] CenterLymphocytes # (Auto)2018-08-19 05:09:00* Test Item Value Reference Range Interpretation Comments Lymphocytes # (Auto) (test code = 29487-7) 0.8 1.0-3.2 L [facility] CenterMonocytes # (Auto)2018-08-19 05:09:00* Test Item Value Reference Range Interpretation Comments Monocytes # (Auto) (test code = 742-7) 0.5 0.2-0.8 [facility] CenterEosinophils # (Auto)2018-08-19 05:09:00* Test Item Value Reference Range Interpretation Comments Eosinophils # (Auto) (test code = 711-2) 0.2 0.0-0.4 [facility] CenterBasophils # (Auto)2018-08-19 05:09:00* Test Item Value Reference Range Interpretation Comments Basophils # (Auto) (test code = 704-7) 0.0 0.0-0.1 [facility] CenterAbsolute Immature Granulocyte (auto 2018-08-19 05:09:00* Test Item Value Reference Range Interpretation Comments Absolute Immature Granulocyte (auto (grazyna t code = Absolute Immature Granulocyte (auto) 0.01 0-0.1 [facility] CenterWhite Blood Gvnfq4936-42-72 05:09:00* Test Item Value Reference Range Interpretation Comments White Blood Count (test code = 6690-2) 4.68 4.8-10.8 L [facility] CenterRed Blood Oktbk2880-01-20 05:09:00* Test Item Value Reference Range Interpretation Comments Red Blood Count (test code = 789-8) 3.05 3.6-5.1 L [facility] CenterHemoglobin2019-05-14 05:09:00* Test Item Value Reference Range Interpretation Comments Hemoglobin (test code = 79018-0) 9.0 12.0-16.0 L [facility] CenterHematocrit2019-05-14 05:09:00* Test Item Value Reference Range Interpretation Comments Hematocrit (test code = 4544-3) 28.4 34.2-44.1 L [facility] CenterMean Corpuscular Hohxsx3890-59-35 05:09:00* Test Item Value Reference Range Interpretation Comments Mean Corpuscular Volume (test code = 787-2) 93.1 81-99 [facility] CenterMean Corpuscular Dqnvymcbyn7688-01-83 05:09:00* Test Item Value Reference Range Interpretation Comments Mean Corpuscular Hemoglobin (test code = 785-6) 29.5 28-32 [facility] CenterMean Corpuscular Hemoglobin Concent 2018-08-19 05:09:00* Test Item Value Reference Range Interpretation Comments Mean Corpuscular Hemoglobin Concent (test code = 786-4) 31.7 31-35 [facility] CenterRed Cell Distribution Usafy2460-82-23 05:09:00* Test Item Value Reference Range Interpretation Comments Red Cell Distribution Width (test code = 18561-9) 14.6 11.7 -14.4 H [facility] CenterPlatelet Gjbif2708-69-62 05:09:00* Test Item Value Reference Range Interpretation Comments Platelet Count (test code = 777-3) 208 140-360 [facility] CenterNeutrophils (%) (Auto)2018-08-19 05:09:00 * Test Item Value Reference Range Interpretation Comments Neutrophils (%) (Auto) (test code = 82165-6) 67.4 38.7-80.0 [facility] CenterLymphocytes (%) (Auto)2018-08-19 05:09:00 * Test Item Value Reference Range Interpretation Comments Lymphocytes (%) (Auto) (test code = 736-9) 17.7 18.0-39.1 L [facility] CenterMonocytes (%) (Auto)2018-08-19 05:09:00* Test Item Value Reference Range Interpretation Comments Monocytes (%) (Auto) (test code = 5905-5) 10.9 4.4-11.3 [facility] CenterEosinophils (%) (Auto)2018-08-19 05:09:00 * Test Item Value Reference Range Interpretation Comments Eosinophils (%) (Auto) (test code = 713-8) 3.2 0.0-6.0 [facility] CenterBasophils (%) (Auto)2018-08-19 05:09:00* Test Item Value Reference Range Interpretation Comments Basophils (%) (Auto) (test code = 706-2) 0.6 0.0-1.0 [facility] CenterIM GRANULOCYTES %2018-08-19 05:09:00* Test Item Value Reference Range Interpretation Comments IM GRANULOCYTES % (test code = IM GRANULOCYTES %) 0.2 0.0- 1.0 [facility] CenterNeutrophils # (Auto)2018-08-19 05:09:00* Test Item Value Reference Range Interpretation Comments Neutrophils # (Auto) (test code = 751-8) 3.2 2.1-6.9 [facility] CenterLymphocytes # (Auto)2018-08-19 05:09:00* Test Item Value Reference Range Interpretation Comments Lymphocytes # (Auto) (test code = 93227-1) 0.8 1.0-3.2 L [facility] CenterMonocytes # (Auto)2018-08-19 05:09:00* Test Item Value Reference Range Interpretation Comments Monocytes # (Auto) (test code = 742-7) 0.5 0.2-0.8 [facility] CenterEosinophils # (Auto)2018-08-19 05:09:00* Test Item Value Reference Range Interpretation Comments Eosinophils # (Auto) (test code = 711-2) 0.2 0.0-0.4 [facility] CenterBasophils # (Auto)2018-08-19 05:09:00* Test Item Value Reference Range Interpretation Comments Basophils # (Auto) (test code = 704-7) 0.0 0.0-0.1 [facility] CenterAbsolute Immature Granulocyte (auto 2018-08-19 05:09:00* Test Item Value Reference Range Interpretation Comments Absolute Immature Granulocyte (auto (grazyna t code = Absolute Immature Granulocyte (auto) 0.01 0-0.1 [facility] CenterCT ABDOMEN/PELVIS [id number] 13:05:00 [facility] [address] [address] Patient Name: SHALOM SORIANO MR #: [id number] : 1950 Age/Sex: 68/F Req #: [id number] Adm Physician: Ordered by: SHALOM KING SECTION HAND HELPER Report #: [id number] Location: ER Room/Bed: Procedure: [id number] C T/CT ABDOMEN/PELVIS WO Exam Date: 08/18/18 Exam Time : 1245 REPORT STATUS: Signed EXA MINATION: CT of the abdomen and pelvis without contrast. TECHNIQUE: Spiral CT images of the abdomen and pelvis were performed from the lung bases to the lesser trochanters. No intravenous contrast was given per referring physician request. Oral contrast was administered. Coronal and sagittal reformatted im ages were obtained. COMPARISON: None. CLINICAL HISTORY:Abdominal pain , vomiting, diarrhea DISCUSSION: ABSENCE OF INTRAVENOUS CONTRAST DECRE ASES SENSITIVITY FOR DETECTION OF FOCAL LESIONS AND VASCULAR PATHOLOGY. A BDOMEN/PELVIS: LOWER THORAX: Trace bilateral pleural effusions right larger than left. Linear opacity in the dependent lower lobes compatible with subseg mental atelectasis. Groundglass opacities with interlobular septal thickeni ng partially visualized compatible with interstitial edema. Calcified granulom a right lung. Atherosclerotic calcifications of the coronary arteries. H EPATOBILIARY:No focal hepatic lesion or intrahepatic biliary ductal dilatation . The gallbladder has been removed. SPLEEN: No splenomegaly. PANCREAS: No focal masses or ductal dilatation. ADRENALS: No adrenal nodules. K IDNEYS/URETERS: Diminutive kidneys in keeping with end-stage renal disease. Sm all exophytic cyst projecting from the right kidney. PELVIC ORGANS/BLADDER: The urinary bladder is collapsed. Uterus is not identified and has presumably been removed. No adnexal mass. PERITONEUM/RETROPERITONEUM: No free air or fluid. LYMPH NODES: No pelvic sidewall, retroperitoneal, or mesenteric ly mphadenopathy. VESSELS: Atherosclerotic calcification of the abdominal aort a and major branch vessels without aneurysmal dilatation. Evaluation is otherw ise limited in the absence of intravenous contrast. GI TRACT: Postsurgica l changes related to partial sigmoidectomy with primary anastomosis. Diverticu la along the remainder of the large bowel, most notably along the descending a nd residual sigmoid colon, without evidence of diverticulitis. No small bowel dilatation to suggest obstruction. The appendix is not definitively identified . No right lower quadrant inflammatory change. BONES AND SOFT TISSUES: Post surgical changes of the anterior abdominal wall with a broad-based infraumbili donna ventral hernia containing loops of ileum, without dilatation or inflammato ry change. No additional focal soft tissue abnormalities. No osseous destructi ve lesions. Degenerative disc changes and facet arthropathy of the lumbar spin e. IMPRESSION: No acute intra-abdominal or pelvic CT abnormalities Broad-based infraumbilical ventral hernia contains loops of ileum without inflammatory change or evidence of obstruction. Postsurgical changes of the sigmoid colon. Residual large bowel diverticulosis without findings of divert iculitis. Atherosclerotic vascular disease. End stage renal disease wi th mild interstitial pulmonary edema and trace bilateral pleural effusions par tially visualized. Signed by: Dr. Paris Lopez M.D. on 08/18/2018 1:16 PM Dictated By: PARIS LOPEZ MD 1316 Transcribed By: ANTONY on 08/18/18 1316 COPY TO: SHALOM GARCIA SECTION HAND HELPER CHEST 2 ARWVG2773-85-16 12:07:00 [place] [address] Patient Name: SHALOM SORIANO MR #: [id number] : 1950 Age/Sex: 68/F Req #: [id number] Adm Physician: Ordered by: MARICEL ROMAN MD Report #: [id number] Location: ER Room/Bed: Procedure: [id number] DX/DAQUAN ST 2 VIEWS Exam Date: 08/18/18 Exam Time: 1100 REPORT STATUS: Signed EXAMINATION: PA and lateral views of the chest. COMPARISON: 07/31/2018 CLINICAL HIS TORY: Concern for pneumonia DISCUSSION: Unchanged position of he modialysis device. Lungs remain well-inflated. Unchanged patchy bibasilar o pacities, likely atelectasis with suspected trace pleural effusions. Stable ca rdiomediastinal contour with pulmonary venous congestion. Right upper lobe donna cified granuloma. No acute osseous abnormality. IMPRESSION: Stable findings of mild fluid overload. No consolidative pneumonia. Signed by: Dr. Paris Lopez M.D. on 08/18/2018 12:11 PM Dictated By: PARIS LOPEZ MD 1211 Transcribed By: ANTONY on 08/18/18 1211 COPY TO: MARICEL ROMAN MD Urine [id number] 11:34:00* Test Item Value Reference Range Interpretation Comments Urine WBC (test code = 5821-4) NONE 0-5 [facility] CenterUrine [id number] 11:34:00* Test Item Value Reference Range Interpretation Comments Urine RBC (test code = 45973-4) 0-5 0-5 [facility] CenterUrine Ssgonzxb6116-84-24 11:34:00* Test Item Value Reference Range Interpretation Comments Urine Bacteria (test code = 87316-1) NONE NONE [facility] CenterUrine Epithelial Tobsf7253-71-69 11:34:00 * Test Item Value Reference Range Interpretation Comments Urine Epithelial Cells (test code = 11907-2) FEW NONE [facility] CenterU[facility] [id number] 11:34:00* Test Item Value Reference Range Interpretation Comments Urine WBC (test code = 5821-4) NONE 0-5 [facility] CenterU[facility] EMM6670-86-01 11:34:00* Test Item Value Reference Range Interpretation Comments Urine RBC (test code = 98860-9) 0-5 0-5 [facility] CenterUrine Rlsrcuaw2590-07-06 11:34:00* Test Item Value Reference Range Interpretation Comments Urine Bacteria (test code = 84993-2) NONE NONE [facility] CenterUrine Epithelial Plinn7013-79-31 11:34:00 * Test Item Value Reference Range Interpretation Comments Urine Epithelial Cells (test code = 21959-1) FEW NONE [facility] CenterU[facility] [id number] 11:34:00* Test Item Value Reference Range Interpretation Comments Urine WBC (test code = 5821-4) NONE 0-5 [facility] CenterU[facility] SGG0977-81-88 11:34:00* Test Item Value Reference Range Interpretation Comments Urine RBC (test code = 51992-3) 0-5 0-5 [facility] CenterU[facility] Ccnyaxks7180-07-46 11:34:00* Test Item Value Reference Range Interpretation Comments Urine Bacteria (test code = 00828-0) NONE NONE [facility] CenterUrine Epithelial Zpiey9080-72-62 11:34:00 * Test Item Value Reference Range Interpretation Comments Urine Epithelial Cells (test code = 87377-9) FEW NONE [facility] CenterUrine [id number] 11:34:00* Test Item Value Reference Range Interpretation Comments Urine WBC (test code = 5821-4) NONE 0-5 [facility] CenterU[facility] [id number] 11:34:00* Test Item Value Reference Range Interpretation Comments Urine RBC (test code = 62103-6) 0-5 0-5 [facility] CenterU[facility] Skntvipk8919-63-56 11:34:00* Test Item Value Reference Range Interpretation Comments Urine Bacteria (test code = 01568-2) NONE NONE [facility] CenterUrine Epithelial Dpyvj1573-37-30 11:34:00 * Test Item Value Reference Range Interpretation Comments Urine Epithelial Cells (test code = 10194-4) FEW NONE [facility] CenterAmylase Xwttr0281-36-44 11:29:00* Test Item Value Reference Range Interpretation Comments Amylase Level (test code = 1798-8) 141 25-125 H [facility] CenterLipase2019-05-13 11:29:00* Test Item Value Reference Range Interpretation Comments Lipase (test code = 3040-3) 50 8-78 [facility] CenterAmylase Exjju5641-45-64 11:29:00* Test Item Value Reference Range Interpretation Comments Amylase Level (test code = 1798-8) 141 25-125 H [facility] CenterLipase2019-05-13 11:29:00* Test Item Value Reference Range Interpretation Comments Lipase (test code = 3040-3) 50 8-78 [facility] CenterAmylase Nobbw4006-73-01 11:29:00* Test Item Value Reference Range Interpretation Comments Amylase Level (test code = 1798-8) 141 25-125 H [facility] CenterLipase2019-05-13 11:29:00* Test Item Value Reference Range Interpretation Comments Lipase (test code = 3040-3) 50 8-78 [facility] CenterAmylase Mbpvg1368-03-78 11:29:00* Test Item Value Reference Range Interpretation Comments Amylase Level (test code = 1798-8) 141 25-125 H [facility] CenterLipase2019-05-13 11:29:00* Test Item Value Reference Range Interpretation Comments Lipase (test code = 3040-3) 50 8-78 [facility] CenterUrine Hwcmu3596-26-02 10:45:00* Test Item Value Reference Range Interpretation Comments Urine Color (test code = 5778-6) YELLOW YELLOW [facility] CenterUrine Yyysylw2981-99-37 10:45:00* Test Item Value Reference Range Interpretation Comments Urine Clarity (test code = 81803-4) CLOUDY CLEAR H [facility] CenterUrine Specific Vsqmwqn0522-69-32 10:45:00 * Test Item Value Reference Range Interpretation Comments Urine Specific [place] (test code = 5811-5) 1.010 1.010-1.02 5 [facility] CenterUrine lE0668-37-44 10:45:00* Test Item Value Reference Range Interpretation Comments Urine pH (test code = 33213-3) 9 5-7 H [facility] CenterUrine Leukocyte Cleptqiu1787-38-92 10:45:00* Test Item Value Reference Range Interpretation Comments Urine Leukocyte Esterase (test code = 5799-2) NEGATIVE NEGATIVE [facility] CenterUrine Jqwnntq4476-98-42 10:45:00* Test Item Value Reference Range Interpretation Comments Urine Nitrite (test code = 13418-6) NEGATIVE NEGATIVE [facility] CenterUrine Gzpnkwp2349-99-48 10:45:00* Test Item Value Reference Range Interpretation Comments Urine Protein (test code = 5804-0) 2+ NEGATIVE H [facility] Glucose (UA)2018-08-18 10:45:00* Test Item Value Reference Range Interpretation Comments Urine Glucose (UA) (test code = 2349-9) 2+ NEGATIVE H [facility] CenterUrine Nktmclm1494-15-77 10:45:00* Test Item Value Reference Range Interpretation Comments Urine Ketones (test code = 39439-7) NEGATIVE NEGATIVE [facility] CenterUrine Jumfzqrcykwz7856-38-81 10:45:00* Test Item Value Reference Range Interpretation Comments Urine Urobilinogen (test code = 07000-0) 0.2 0.2-1 [facility] CenterUrine Twfqdodpp3811-15-08 10:45:00* Test Item Value Reference Range Interpretation Comments Urine Bilirubin (test code = 1978-6) NEGATIVE NEGATIVE [facility] CenterUrine Vfuzp0193-50-78 10:45:00* Test Item Value Reference Range Interpretation Comments Urine Blood (test code = 13714-3) TRACE NEGATIVE H [facility] CenterUrine Pfndk7246-34-49 10:45:00* Test Item Value Reference Range Interpretation Comments Urine Color (test code = 5778-6) YELLOW YELLOW [facility] CenterUrine Kvhqutr7302-74-72 10:45:00* Test Item Value Reference Range Interpretation Comments Urine Clarity (test code = 04304-0) CLOUDY CLEAR H [facility] CenterUrine Specific Bkdjsmz5532-87-39 10:45:00 * Test Item Value Reference Range Interpretation Comments Urine Specific [place] (test code = 5811-5) 1.010 1.010-1.02 5 [facility] CenterUrine vY6321-74-43 10:45:00* Test Item Value Reference Range Interpretation Comments Urine pH (test code = 01390-7) 9 5-7 H [facility] CenterU[facility] Leukocyte Kpzuqzfo6677-94-56 10:45:00* Test Item Value Reference Range Interpretation Comments Urine Leukocyte Esterase (test code = 5799-2) NEGATIVE NEGATIVE [facility] CenterUrine Vbkkgqp0500-77-71 10:45:00* Test Item Value Reference Range Interpretation Comments Urine Nitrite (test code = 48252-7) NEGATIVE NEGATIVE [facility] CenterU[facility] Wydisml3836-83-83 10:45:00* Test Item Value Reference Range Interpretation Comments Urine Protein (test code = 5804-0) 2+ NEGATIVE H [facility] CenterU[facility] Glucose (UA)2018-08-18 10:45:00* Test Item Value Reference Range Interpretation Comments Urine Glucose (UA) (test code = 2349-9) 2+ NEGATIVE H [facility] CenterU[facility] Pqdndcv9588-26-03 10:45:00* Test Item Value Reference Range Interpretation Comments Urine Ketones (test code = 18285-1) NEGATIVE NEGATIVE [facility] CenterU[facility] Kgyfvzxtcxzt5401-58-66 10:45:00* Test Item Value Reference Range Interpretation Comments Urine Urobilinogen (test code = 12877-9) 0.2 0.2-1 [facility] CenterUrine Xdstppeir7347-19-16 10:45:00* Test Item Value Reference Range Interpretation Comments Urine Bilirubin (test code = 1978-6) NEGATIVE NEGATIVE [facility] CenterU[facility] Jqati5420-16-11 10:45:00* Test Item Value Reference Range Interpretation Comments Urine Blood (test code = 05161-3) TRACE NEGATIVE H [facility] CenterUrine Bwucb3115-26-16 10:45:00* Test Item Value Reference Range Interpretation Comments Urine Color (test code = 5778-6) YELLOW YELLOW [facility] CenterUrine Gmzkgiv7109-15-58 10:45:00* Test Item Value Reference Range Interpretation Comments Urine Clarity (test code = 84460-3) CLOUDY CLEAR H [facility] CenterUrine Specific Kqdjtyb0920-27-04 10:45:00 * Test Item Value Reference Range Interpretation Comments Urine Specific [place] (test code = 5811-5) 1.010 1.010-1.02 5 [facility] CenterUrine pZ3615-44-96 10:45:00* Test Item Value Reference Range Interpretation Comments Urine pH (test code = 57695-6) 9 5-7 H [facility] CenterU[facility] Leukocyte Rkunovmx7602-64-62 10:45:00* Test Item Value Reference Range Interpretation Comments Urine Leukocyte Esterase (test code = 5799-2) NEGATIVE NEGATIVE [facility] CenterU[facility] Uupjbjo0171-46-99 10:45:00* Test Item Value Reference Range Interpretation Comments Urine Nitrite (test code = 97122-4) NEGATIVE NEGATIVE [facility] CenterU[facility] Gbamgzd2975-28-30 10:45:00* Test Item Value Reference Range Interpretation Comments Urine Protein (test code = 5804-0) 2+ NEGATIVE H [facility] CenterU[facility] Glucose (UA)2018-08-18 10:45:00* Test Item Value Reference Range Interpretation Comments Urine Glucose (UA) (test code = 2349-9) 2+ NEGATIVE H [facility] CenterU[facility] Gnctojb4009-37-80 10:45:00* Test Item Value Reference Range Interpretation Comments Urine Ketones (test code = 68356-6) NEGATIVE NEGATIVE [facility] CenterU[facility] Gpcbmpufvbfm6670-86-98 10:45:00* Test Item Value Reference Range Interpretation Comments Urine Urobilinogen (test code = 79234-1) 0.2 0.2-1 [facility] CenterU[facility] Brfcxbkfb7357-10-16 10:45:00* Test Item Value Reference Range Interpretation Comments Urine Bilirubin (test code = 1978-6) NEGATIVE NEGATIVE [facility] CenterU[facility] Hucgj8228-94-45 10:45:00* Test Item Value Reference Range Interpretation Comments Urine Blood (test code = 48063-3) TRACE NEGATIVE H [facility] CenterU[facility] Utjrf1601-97-52 10:45:00* Test Item Value Reference Range Interpretation Comments Urine Color (test code = 5778-6) YELLOW YELLOW [facility] CenterUrine Tverlbz6263-17-51 10:45:00* Test Item Value Reference Range Interpretation Comments Urine Clarity (test code = 26767-5) CLOUDY CLEAR H [facility] CenterU[facility] Specific Tnyvllr7220-26-60 10:45:00 * Test Item Value Reference Range Interpretation Comments Urine Specific [place] (test code = 5811-5) 1.010 1.010-1.02 5 [facility] CenterU[facility] bR8742-30-93 10:45:00* Test Item Value Reference Range Interpretation Comments Urine pH (test code = 22618-3) 9 5-7 H [facility] CenterUrine Leukocyte Xpbanmvb8737-53-84 10:45:00* Test Item Value Reference Range Interpretation Comments Urine Leukocyte Esterase (test code = 5799-2) NEGATIVE NEGATIVE [facility] CenterU[facility] Isevfmh4978-38-99 10:45:00* Test Item Value Reference Range Interpretation Comments Urine Nitrite (test code = 97466-2) NEGATIVE NEGATIVE [facility] CenterUrine Trftbhu8420-05-47 10:45:00* Test Item Value Reference Range Interpretation Comments Urine Protein (test code = 5804-0) 2+ NEGATIVE H [facility] CenterU[facility] Glucose (UA)2018-08-18 10:45:00* Test Item Value Reference Range Interpretation Comments Urine Glucose (UA) (test code = 2349-9) 2+ NEGATIVE H [facility] CenterUrine Vxxylaa2903-18-07 10:45:00* Test Item Value Reference Range Interpretation Comments Urine Ketones (test code = 39357-3) NEGATIVE NEGATIVE [facility] CenterU[facility] Lljhqafbfjwk9794-43-09 10:45:00* Test Item Value Reference Range Interpretation Comments Urine Urobilinogen (test code = 12666-6) 0.2 0.2-1 [facility] CenterU[facility] Tnzxtzoxh0952-08-02 10:45:00* Test Item Value Reference Range Interpretation Comments Urine Bilirubin (test code = 1978-6) NEGATIVE NEGATIVE [facility] CenterU[facility] Kjoqs4927-48-26 10:45:00* Test Item Value Reference Range Interpretation Comments Urine Blood (test code = 05214-0) TRACE NEGATIVE H [facility] CenterCreatine Kinase CS4027-52-12 16:00:00* Test Item Value Reference Range Interpretation Comments Creatine Kinase MB (test code = 19951-2) 0.60 0-5.0 [facility] CenterTroponin [id number] 16:00:00* Test Item Value Reference Range Interpretation Comments Troponin I (test code = RBU7101) 0.025 0-0.300 [facility] CenterCreatine Kinase XM4416-29-92 16:00:00* Test Item Value Reference Range Interpretation Comments Creatine Kinase MB (test code = 45233-4) 0.60 0-5.0 [facility] CenterCreatine Kinase IA2593-67-24 16:00:00* Test Item Value Reference Range Interpretation Comments Creatine Kinase MB (test code = 63418-8) 0.60 0-5.0 [facility] CenterCreatine Kifmcj3026-18-14 15:53:00* Test Item Value Reference Range Interpretation Comments Creatine Kinase (test code = 2157-6) 30 29-168 [facility] CenterCreatine Evboui5924-87-42 15:53:00* Test Item Value Reference Range Interpretation Comments Creatine Kinase (test code = 2157-6) 30 29-168 [facility] CenterCreatine Laeywz9514-49-08 15:53:00* Test Item Value Reference Range Interpretation Comments Creatine Kinase (test code = 2157-6) 30 29-168 [facility] Shzgk9052-06-00 11:55:00* Test Item Value Reference Range Interpretation Comments Sodium Level (test code = 2951-2) 137 136-145 [facility] CenterPotassium Nvcng1446-17-01 11:55:00* Test Item Value Reference Range Interpretation Comments Potassium Level (test code = 2823-3) 5.2 3.5-5.1 H NO HEMOLYSISLamb Healthcare CenterChloride Vpdmr7511-67-15 11:55:00* Test Item Value Reference Range Interpretation Comments Chloride Level (test code = 2075-0) 97 98-107 L [facility] CenterCarbon Dioxide Fobis9159-38-41 11:55:00* Test Item Value Reference Range Interpretation Comments Carbon Dioxide Level (test code = 2028-9) 26 22-29 [facility] CenterAnion Til5974-89-21 11:55:00* Test Item Value Reference Range Interpretation Comments Anion Gap (test code = 15796-1) 19.2 8-16 H [facility] CenterBlood Urea Ijydpckf0983-54-17 11:55:00* Test Item Value Reference Range Interpretation Comments Blood Urea Nitrogen (test code = 3094-0) 54 7-26 H [facility] CenterCreatinine2019-04-25 11:55:00* Test Item Value Reference Range Interpretation Comments Creatinine (test code = 2160-0) 6.97 0.57-1.11 H [facility] CenterBUN/Creatinine Tetmq3330-44-66 11:55:00* Test Item Value Reference Range Interpretation Comments BUN/Creatinine Ratio (test code = 3097-3) 8 6-25 [facility] CenterEstimat Glomerular Filtration Rate 2018-07-31 11:55:00* Test Item Value Reference Range Interpretation Comments Estimat Glomerular Filtration Rate (test code = 418368893) 6 >60 L Ranges were taken from the National Kidney Disease Education Program and the [facility] Kidney Foundation literature.Reference ranges:60 or greater: Kvfaau86-45 ( for 3 consecutive months): Chronic kidney disease 15 or less: Kidney failureLamb Healthcare CenterGlucose Sxthi8324-87-73 11:55:00* Test Item Value Reference Range Interpretation Comments Glucose Level (test code = MRG5748) 101 74-118 [facility] CenterCalcium Tprfz7359-54-61 11:55:00* Test Item Value Reference Range Interpretation Comments Calcium Level (test code = 60857-3) 8.8 8.4-10.2 [facility] CenterTotal Rvwqhpxtk6740-85-18 11:55:00* Test Item Value Reference Range Interpretation Comments Total Bilirubin (test code = 1975-2) 0.5 0.2-1.2 [facility] CenterAspartate Amino Transf (AST/SGOT) 2018-07-31 11:55:00* Test Item Value Reference Range Interpretation Comments Aspartate Amino Transf (AST/SGOT) (test code = Aspartate Amino Transf (AST/SGOT)) 15 5-34 [facility] CenterAlanine Aminotransferase (ALT/SGPT) 2018-07-31 11:55:00* Test Item Value Reference Range Interpretation Comments Alanine Aminotransferase (ALT/SGPT) (test code = 1742-6) 15 0-55 [facility] CenterTotal Apbumsa5105-98-50 11:55:00* Test Item Value Reference Range Interpretation Comments Total Protein (test code = 2885-2) 6.9 6.5-8.1 [facility] CenterAlbumin2019-04-25 11:55:00* Test Item Value Reference Range Interpretation Comments Albumin (test code = 1751-7) 2.9 3.5-5.0 L [facility] CenterGlobulin2019-04-25 11:55:00* Test Item Value Reference Range Interpretation Comments Globulin (test code = 18755-0) 4.0 2.3-3.5 H [facility] CenterAlbumin/Globulin Rwipy0831-24-77 11:55:00 * Test Item Value Reference Range Interpretation Comments Albumin/Globulin Ratio (test code = 1759-0) 0.7 0.8-2.0 L [facility] CenterAlkaline Rtccluordhd4941-30-13 11:55:00* Test Item Value Reference Range Interpretation Comments Alkaline Phosphatase (test code = 6768-6) 125 40-150 [facility] CenterLipase2019-04-25 11:55:00* Test Item Value Reference Range Interpretation Comments Lipase (test code = 3040-3) 61 8-78 [facility] SINGLE (PORTABLE)2018-07-31 11:47:00 [facility] [address] [address] Patient Name: SHALOM SORIANO MR #: [id number] : 1950 Age/Sex: 68/F Req #: [id number] Adm Physician: Ordered by: RACHEL MONTERO MD Report #: [id number] Location: ER Room/Bed: Procedure: [id number] DX/ CHEST SINGLE (PORTABLE) Exam Date: 07/31/18 Exam Artemio e: 1105 REPORT STATUS: Signed EX AMINATION: CHEST SINGLE (PORTABLE) INDICATION: Back fuentes, chest pain. COMPARISON: Chest radiograph 07/10/2018. FINDINGS: TUBES and L MONICA: Right IJ tunneled hemodialysis catheter terminates in the right atrium. LUNGS: The lungs are moderately inflated. There is central vascular conges tion without pulmonary edema. Mild patchy bibasilar opacities, likely atelecta sis. No evidence of lobar pneumonia. Unchanged appearance of calcified granulo ma in the right midlung. PLEURA: No pleural effusion or pneumothorax. HEART AND MEDIASTINUM: The cardiomediastinal silhouette is mildly enlarged. BONES AND SOFT TISSUES: No acute osseous abnormality. UPPER ABDOMEN: No free air under the diaphragm. IMPRESSION: No acute radiographic abnormality. Given the previously noted opacity in the posterior left lower lobe on the prior lateral chest radiograph from 07/10/2018, a follow-up radiogr aph with lateral view or a nonurgent chest CT is suggested. Signed by: Dr Gricel Lyn MD on 07/31/2018 11:53 AM Dictated By: RAD LYN MD Electr onically Signed By: RAD LYN MD on 07/31/18 1153 Transcribed By: ANTONY on 0 07/31/18 1153 COPY TO: RACHEL MONTERO MD White Blood Count 2018-07-31 11:41:00* Test Item Value Reference Range Interpretation Comments White Blood Count (test code = 6690-2) 6.83 4.8-10.8 [facility] CenterRed Blood Beahq5114-69-02 11:41:00* Test Item Value Reference Range Interpretation Comments Red Blood Count (test code = 789-8) 3.19 3.6-5.1 L [facility] CenterHemoglobin2019-04-25 11:41:00* Test Item Value Reference Range Interpretation Comments Hemoglobin (test code = 23556-3) 9.5 12.0-16.0 L [facility] CenterHematocrit2019-04-25 11:41:00* Test Item Value Reference Range Interpretation Comments Hematocrit (test code = 4544-3) 30.8 34.2-44.1 L [facility] CenterMean Corpuscular Cwoblc0063-05-47 11:41:00* Test Item Value Reference Range Interpretation Comments Mean Corpuscular Volume (test code = 787-2) 96.6 81-99 [facility] Corpuscular Cmdhtktmzh2289-97-77 11:41:00* Test Item Value Reference Range Interpretation Comments Mean Corpuscular Hemoglobin (test code = 785-6) 29.8 28-32 [facility] CenterMean Corpuscular Hemoglobin Concent 2018-07-31 11:41:00* Test Item Value Reference Range Interpretation Comments Mean Corpuscular Hemoglobin Concent (test code = 786-4) 30.8 31-35 L [facility] CenterRed Cell Distribution [id number] 11:41:00* Test Item Value Reference Range Interpretation Comments Red Cell Distribution Width (test code = 55657-6) 14.1 11.7 -14.4 [facility] CenterPlatelet [id number] 11:41:00* Test Item Value Reference Range Interpretation Comments Platelet Count (test code = 777-3) 729 665-360 [facility] CenterNeutrophils (%) (Auto)2018-07-31 11:41:00 * Test Item Value Reference Range Interpretation Comments Neutrophils (%) (Auto) (test code = 76154-1) 67.6 38.7-80.0 [facility] CenterLymphocytes (%) (Auto)2018-07-31 11:41:00 * Test Item Value Reference Range Interpretation Comments Lymphocytes (%) (Auto) (test code = 736-9) 16.8 18.0-39.1 L [facility] CenterMonocytes (%) (Auto)2018-07-31 11:41:00* Test Item Value Reference Range Interpretation Comments Monocytes (%) (Auto) (test code = 5905-5) 10.7 4.4-11.3 [facility] CenterEosinophils (%) (Auto)2018-07-31 11:41:00 * Test Item Value Reference Range Interpretation Comments Eosinophils (%) (Auto) (test code = 713-8) 4.2 0.0-6.0 [facility] CenterBasophils (%) (Auto)2018-07-31 11:41:00* Test Item Value Reference Range Interpretation Comments Basophils (%) (Auto) (test code = 706-2) 0.4 0.0-1.0 [facility] CenterIM GRANULOCYTES %2018-07-31 11:41:00* Test Item Value Reference Range Interpretation Comments IM GRANULOCYTES % (test code = IM GRANULOCYTES %) 0.3 0.0- 1.0 [facility] CenterNeutrophils # (Auto)2018-07-31 11:41:00* Test Item Value Reference Range Interpretation Comments Neutrophils # (Auto) (test code = 751-8) 4.6 2.1-6.9 [facility] CenterLymphocytes # (Auto)2018-07-31 11:41:00* Test Item Value Reference Range Interpretation Comments Lymphocytes # (Auto) (test code = 90500-7) 1.2 1.0-3.2 [facility] CenterMonocytes # (Auto)2018-07-31 11:41:00* Test Item Value Reference Range Interpretation Comments Monocytes # (Auto) (test code = 742-7) 0.7 0.2-0.8 [facility] CenterEosinophils # (Auto)2018-07-31 11:41:00* Test Item Value Reference Range Interpretation Comments Eosinophils # (Auto) (test code = 711-2) 0.3 0.0-0.4 [facility] CenterBasophils # (Auto)2018-07-31 11:41:00* Test Item Value Reference Range Interpretation Comments Basophils # (Auto) (test code = 704-7) 0.0 0.0-0.1 [facility] CenterAbsolute Immature Granulocyte (auto 2018-07-31 11:41:00* Test Item Value Reference Range Interpretation Comments Absolute Immature Granulocyte (auto (grazyna t code = Absolute Immature Granulocyte (auto) 0.02 0-0.1 [facility] CenterUrine [id number] 11:41:00* Test Item Value Reference Range Interpretation Comments Urine WBC (test code = 5821-4) 0-5 0-5 [facility] CenterUrine [id number] 11:41:00* Test Item Value Reference Range Interpretation Comments Urine RBC (test code = 21948-0) 0-5 0-5 [facility] CenterUrine Azuaaufp5741-35-87 11:41:00* Test Item Value Reference Range Interpretation Comments Urine Bacteria (test code = 12309-3) FEW NONE [facility] CenterU[facility] Epithelial Beumg2419-53-01 11:41:00 * Test Item Value Reference Range Interpretation Comments Urine Epithelial Cells (test code = 94799-3) MANY NONE [facility] CenterU[facility] Rmqew4545-22-49 11:31:00* Test Item Value Reference Range Interpretation Comments Urine Color (test code = 5778-6) YELLOW YELLOW [facility] CenterUrine Irusyre4542-30-44 11:31:00* Test Item Value Reference Range Interpretation Comments Urine Clarity (test code = 00888-0) SL CLOUDY CLEAR [facility] CenterUrine Specific Pgntyxl9491-73-92 11:31:00 * Test Item Value Reference Range Interpretation Comments Urine Specific [place] (test code = 5811-5) 1.010 1.010-1.02 5 [facility] CenterUrine [id number] 11:31:00* Test Item Value Reference Range Interpretation Comments Urine pH (test code = 42709-4) 8 5-7 H [facility] CenterU[facility] Leukocyte Taocklep8928-43-45 11:31:00* Test Item Value Reference Range Interpretation Comments Urine Leukocyte Esterase (test code = 5799-2) NEGATIVE NEGATIVE [facility] Hrdflsq0628-29-63 11:31:00* Test Item Value Reference Range Interpretation Comments Urine Nitrite (test code = 47325-3) NEGATIVE NEGATIVE [facility] Crlzwnb2436-43-86 11:31:00* Test Item Value Reference Range Interpretation Comments Urine Protein (test code = 5804-0) 1+ NEGATIVE H [facility] Glucose (UA)2018-07-31 11:31:00* Test Item Value Reference Range Interpretation Comments Urine Glucose (UA) (test code = 2349-9) 2+ NEGATIVE H [facility] CenterUrine Csgvbko6118-52-61 11:31:00* Test Item Value Reference Range Interpretation Comments Urine Ketones (test code = 80078-4) NEGATIVE NEGATIVE [facility] Icpwonlhfvtu9632-04-56 11:31:00* Test Item Value Reference Range Interpretation Comments Urine Urobilinogen (test code = 86763-0) 0.2 0.2-1 [facility] CenterU[facility] Hfsxvymuw1348-68-27 11:31:00* Test Item Value Reference Range Interpretation Comments Urine Bilirubin (test code = 1978-6) NEGATIVE NEGATIVE [facility] CenterUrine Tvlek2020-80-37 11:31:00* Test Item Value Reference Range Interpretation Comments Urine Blood (test code = 31269-5) NEGATIVE NEGATIVE [facility] CenterProthrombin Hnkg2942-18-24 11:05:00* Test Item Value Reference Range Interpretation Comments Prothrombin Time (test code = 5902-2) 11.9 11.9-14.5 [facility] CenterProthromb Time International Ratio 2018-07-10 11:05:00* Test Item Value Reference Range Interpretation Comments Prothromb Time International Ratio (test code = 6301-6) 0.83 Oral Anticoagulant Therapy INR Values:1. Low Intensity Therapy 1.5 - 2.02 . Moderate Intensity Therapy 2.0 - 3.03. High Intensity Therapy(1) 2.5 - 3. 54. High Intensity Therapy(2) 3.0 - 4.05. Panic Value INR > 5.0 [facility] CenterActivated Partial Thromboplast Time 2018-07-10 11:05:00* Test Item Value Reference Range Interpretation Comments Activated Partial Thromboplast Time (test code = 22495-0) 29.8 23.8-35.5 [facility] CenterProthrombin [id number] 11:05:00* Test Item Value Reference Range Interpretation Comments Prothrombin Time (test code = 5902-2) 11.9 11.9-14.5 [facility] CenterProthromb Time International Ratio 2018-07-10 11:05:00* Test Item Value Reference Range Interpretation Comments Prothromb Time International Ratio (test code = 6301-6) 0.83 Oral Anticoagulant Therapy INR Values:1. Low Intensity Therapy 1.5 - 2.02 . Moderate Intensity Therapy 2.0 - 3.03. High Intensity Therapy(1) 2.5 - 3. 54. High Intensity Therapy(2) 3.0 - 4.05. Panic Value INR > 5.0 [facility] CenterActivated Partial Thromboplast Time 2018-07-10 11:05:00* Test Item Value Reference Range Interpretation Comments Activated Partial Thromboplast Time (test code = 18756-8) 29.8 23.8-35.5 [facility] CenterProthrombin Ugnx7783-78-01 11:05:00* Test Item Value Reference Range Interpretation Comments Prothrombin Time (test code = 5902-2) 11.9 11.9-14.5 [facility] CenterProthromb Time International Ratio 2018-07-10 11:05:00* Test Item Value Reference Range Interpretation Comments Prothromb Time International Ratio (test code = 6301-6) 0.83 Oral Anticoagulant Therapy INR Values:1. Low Intensity Therapy 1.5 - 2.02 . Moderate Intensity Therapy 2.0 - 3.03. High Intensity Therapy(1) 2.5 - 3. 54. High Intensity Therapy(2) 3.0 - 4.05. Panic Value INR > 5.0 [facility] CenterActivated Partial Thromboplast Time 2018-07-10 11:05:00* Test Item Value Reference Range Interpretation Comments Activated Partial Thromboplast Time (test code = 76249-5) 29.8 23.8-35.5 [facility] CenterCHEST 2 OPAHV0791-03-08 10:58:00 [facility] [address] [address] Patient Name: SHALOM SORIANO MR #: [id number] : 1950 Age/Sex: 68/F Req #: [id number] Adm Physician: Ordered by: SHRUTHI YEPEZ MD Report #: [id number] Location: OR Room/Bed: Procedure: [id number] DX/ CHEST 2 VIEWS Exam Date: 07/10/18 Exam Time: 1030 REPORT STATUS: Signed EXAMINATI ON: PA and lateral views of the chest. COMPARISON: Portable chest CLINICAL HISTORY: Preop finger symptoms DISCUSSION: Lines /tubes: Unchanged right sided IJ catheter, with tip projecting in the right a trium. Lungs: The lungs are well inflated. Stable 6 mm calcified granuloma in the right midlung. Rounded opacity in the posterior left lower lung. There is no evidence of pulmonary edema. Pleura: Small bilateral pleural effu sions. Heart and mediastinum: Enlarged cardiac silhouette, stable Pulmon mo vasculature is normal. Bones and soft tissues: No acute bony abnorma lities. Degenerative changes in the thoracic spine IMPRESSION: 1. Rounded opacity in the posterior left lower lobe with associated blunting of t he left posterior costophrenic sulcus is felt to represent pleural effusion an d associated atelectasis. Chest CT may be obtained for further evaluation. 2. Small right pleural effusion. Signed by: Dr. Shan Ramirez M.D. on 07/10/2018 11:03 AM Dictated By: SHAN RAMIREZ MD El ectronically Signed By: SHAN RAMIREZ MD on 07/10/181102 Transcribed By: RADHA KEMP on 07/10/181102 COPY TO: SHRUTHI YEPEZ MD COLON,COLOSTOMY [id number] 15:45:00 RUN DATE: 05/27/18 [facility] PAGE 1 RUN TIME: 1545 Specimen Inqui ry RUN USER: INTERFACE PATIENT: SHALOM SORIANO ACCT #: [id number] [facility] #: [id number] AGE/SX: 68/F ROOM: 2081 RE05/21/18REG DR: Marianne Thacker MD : 54 BED: A DIS: STATUS: ADM IN TLOC: SPEC #: [id number] RECD: 05/22/18 STATUS: CRISTIANA BEDOYA #: [id number] ОЛЬГА: 05/21/18 [facility] [address]: Paris Johnson MD ENTERED: 05/22/18 SP TYPE: COLON, COL OTHR DR: José Luis Ahuja MD, Monte E MDORDERED: GROSS COPIES TO: José Luis Ahuja MD [address] [facility] [place] [address] Paris Johnson MD [address] [place], [place] [address] Marianne Thacker MD [address] [place] [address] PROCEDURES: GROSS (05/27/18110) TISSU ES: 1. COLOSTOMY - SITE 2. COLON, NOS CLINICAL HISTORY COLLECTION DATE: 05/21/2018 PERFORATED DIVERTICULITIS FINAL DI AGNOSIS Colostomy site, colostomy closure: COLOSTOMY STOMA Colon , site not further specified, segmental resection: CHRONIC DIVERTICULITIS FIBROUS SEROSAL ADHESIONS NEGATIVE FOR MALIGNANCY DMW/sm D CONTINUED ON NEXT PAGE BELLO Zaragoza DATE: 05/27/18 [place] - Lab PAGE 2 RUN TIME: 1545 Specimen Inquiry RUN USER: INTERFACE SPEC #: [id number] PATIENT: SHALOM SORIANO #[id number] (Continued) FINAL DIAGNOSIS (Co ntinued) [id number], [id number] MACROSCOPIC Specimen (1) is received in [facility] labeled with the patient's name, "colostomy site" and consists of a seg ment of colon with attached fatty tissue and dark walsh-lópez skin at one margin. The specimen measures 7 cm in length with diameter up to 4.0 cm. The mucosal surface is pink-lópez with unremarkable folds. No focal lesions are seen. Re presentative tissue is submitted as (1). Specimen (2) [facility] with the patient's name, "colon" and consists of a segment of colo n with attached indurated fatty tissue. The specimen measures 7 cm in length with diameter up to 4.8 cm. The serosal surface is lópez to pink-red with walsh-red adhesions extending over the serosal surface onto the adjacent fat. The specimen is opened to reveal lópez mucosa with prominent folds. The specim en is allowed to fix prior to further evaluation. After the specimen is allowed to fix it is reexamined. A suture is noted on the surface as well as adhesions. The bowel wall is thickened. Multiple transverse sections demonst rate areas of diverticular formation. No nodules, polyps or masses are seen. Samples of areas of diverticular formation are submitted for microscopic eval uation in cassettes (2A-2C). GROSS PERFORMED AT [facility] [address] [place] [id number] (J) MICROSCOPIC MICROSCOPIC PERFORMED AT [facility] All of the stains, including any controls performed, stain appropriately. [facility] [address] [facility], [place] [address] (p)[phone] CONTINUED ON NEXT PAGE BELLO Zaragoza DATE: 05/27/18 [place] [employer] [facility] PAGE 3 RUN TIME: 1545 Specimen Inquiry RUN USER: INTERFACE SPEC #: [id number] PATIENT: PRITESHSHALOM VALENTE #[id number] (Continued) PERFORMING SITE Diagnosis performed at: [facility], [place] [address] [facility] [place] [address] Signed SIGNATURE ON FILE Lamar Stanley MD 05/27/18 1545 END OF REPORT COMPREHENSIVE METABOLIC [id number] 05:39:00* Test Item Value Reference Range Interpretation Comments SODIUM (test code = NA) 136 mmol/L 136-145 N POTASSIUM (test code = K) 4.3 mmol/L 3.5-5.1 N CHLORIDE (test code = CL) 98.0 mmol/L 98-107 N CARBON DIOXIDE (test code = CO2) 26.0 mmol/L 21-32 N ANION GAP (test code = GAP) 16.3 10-20 N GLUCOSE (test code = GLU) 78 mg/dL 74-106 N BLOOD UREA NITROGEN (test code = BUN) 33 mg/dL 7-18 H RESULT VERIFIED BY REPEAT ANALYSIS GLOMERULAR FILTRATION RATE (test code = GFR) 5 mL/min >=60 Estimated GFR by using Modified MDRD formula.Chronic kidney disease is defined as either kidney damageor GFR <60 mL/min/1.73 m2 for >3 months. CREATININE (test code = CREAT) 7.50 mg/dL 0.55-1.02 H Note change in reference range due to change in reagent. BUN/CREATININE RATIO (test code = BUN/CREA) 4.4 10-20 L TOTAL PROTEIN (test code = PROT) 6.9 gram/dL 6.4-8.2 N ALBUMIN (test code = ALB) 2.5 g/dL 3.4-5.0 L GLOBULIN (test code = GLOB) 4.4 gram/dL 2.7-4.2 H ALBUMIN/GLOBULIN RATIO (test code = A/G) 0.6 0.75-1.50 L CALCIUM (test code = CA) 9.1 mg/dL 8.5-10.1 N BILIRUBIN TOTAL (test code = BILT) 0.30 mg/dL 0.0-1.0 N SGOT/AST (test code = AST) 18 IUnit/L 15-37 N SGPT/ALT (test code = ALT) 14 IUnit/L 12-78 N ALKALINE PHOSPHATASE TOTAL (test code = ALKP) 95 IUnit/L 45-117 N Note change in reference range due to change in reagent. COMPREHENSIVE METABOLIC [id number] 05:15:00* Test Item Value Reference Range Interpretation Comments SODIUM (test code = NA) 136 mmol/L 136-145 N POTASSIUM (test code = K) 4.3 mmol/L 3.5-5.1 N CHLORIDE (test code = CL) 98.0 mmol/L 98-107 N CARBON DIOXIDE (test code = CO2) mmol/L 21-32 ANION GAP (test code = GAP) 10-20 GLUCOSE (test code = GLU) mg/dL 74-106 BLOOD UREA NITROGEN (test code = BUN) mg/dL 7-18 GLOMERULAR FILTRATION RATE (test code = GFR) mL/min >=60 CREATININE (test code = CREAT) mg/dL 0.55-1.02 BUN/CREATININE RATIO (test code = BUN/CREA) 10-20 TOTAL PROTEIN (test code = PROT) gram/dL 6.4-8.2 ALBUMIN (test code = ALB) g/dL 3.4-5.0 GLOBULIN (test code = GLOB) gram/dL 2.7-4.2 ALBUMIN/GLOBULIN RATIO (test code = A/G) 0.75-1.50 CALCIUM (test code = CA) mg/dL 8.5-10.1 BILIRUBIN TOTAL (test code = BILT) mg/dL 0.0-1.0 SGOT/AST (test code = AST) IUnit/L 15-37 SGPT/ALT (test code = ALT) IUnit/L 12-78 ALKALINE PHOSPHATASE TOTAL (test code = ALKP) IUnit/L 45-117 CBC W/AUTO [id number] 05:00:00* Test Item Value Reference Range Interpretation Comments WHITE BLOOD CELL (test code = WBC) 6.5 K/mm3 4.5-12.5 N RED BLOOD CELL (test code = RBC) 3.33 mill/mm3 3.7-5.2 L HEMOGLOBIN (test code = HGB) 9.5 gram/dL 11.5-15.5 L HEMATOCRIT (test code = HCT) 30.6 % 36.0-46.0 L MEAN CELL VOLUME (test code = MCV) 91.9 fL 80-98 N MEAN CELL HGB (test code = MCH) 28.5 picogram 27.0-33.0 N MEAN CELL HGB CONCETRATION (test code = MCHC) 31.0 gram/dL 33.0-36. 0 L RED CELL DISTRIBUTION WIDTH (test code = RDW) 14.8 % 11.6-16. 2 N RED CELL DISTRIBUTION WIDTH SD (test code = RDW-SD) 49.5 fL 37 .0-51.0 N PLATELET COUNT (test code = PLT) 219 K/mm3 150-450 N MEAN PLATELET VOLUME (test code = MPV) 11.6 fL 6.7-11.0 H NEUTROPHIL % (test code = NT%) 64.0 % 39.0-69.0 N IMMATURE GRANULOCYTE % (test code = IG%) 0.3 % 0.0-5.0 N LYMPHOCYTE % (test code = LY%) 20.3 % 25.0-55.0 L MONOCYTE % (test code = MO%) 8.0 % 0.0-10.0 N EOSINOPHIL % (test code = EO%) 7.1 % 0.0-5.0 H BASOPHIL % (test code = BA%) 0.3 % 0.0-1.0 N NUCLEATED RBC % (test code = NRBC%) 0.0 % 0-0 N NEUTROPHIL # (test code = NT#) 4.16 K/mm3 1.8-7.7 N IMMATURE GRANULOCYTE # (test code = IG#) 0.02 x10 3/uL 0-0.03 N LYMPHOCYTE # (test code = LY#) 1.32 K/mm3 1.0-5.0 N MONOCYTE # (test code = MO#) 0.52 K/mm3 0-0.8 N EOSINOPHIL # (test code = EO#) 0.46 K/mm3 0.0-0.5 N BASOPHIL # (test code = BA#) 0.02 K/mm3 0.0-0.2 N NUCLEATED RBC # (test code = NRBC#) 0.00 K/mm3 0.0-0.1 N COMPREHENSIVE METABOLIC [id number] 06:04:00* Test Item Value Reference Range Interpretation Comments SODIUM (test code = NA) 137 mmol/L 136-145 N POTASSIUM (test code = K) 4.2 mmol/L 3.5-5.1 N CHLORIDE (test code = CL) 100.0 mmol/L 98-107 N CARBON DIOXIDE (test code = CO2) 28.0 mmol/L 21-32 N ANION GAP (test code = GAP) 13.2 10-20 N GLUCOSE (test code = GLU) 80 mg/dL 74-106 N BLOOD UREA NITROGEN (test code = BUN) 23 mg/dL 7-18 H GLOMERULAR FILTRATION RATE (test code = GFR) 7 mL/min >=60 Estimated GFR by using Modified MDRD formula.Chronic kidney disease is defined as either kidney damageor GFR <60 mL/min/1.73 m2 for >3 months. CREATININE (test code = CREAT) 6.00 mg/dL 0.55-1.02 H Note change in reference range due to change in reagent. BUN/CREATININE RATIO (test code = BUN/CREA) 3.9 10-20 L TOTAL PROTEIN (test code = PROT) 6.2 gram/dL 6.4-8.2 L ALBUMIN (test code = ALB) 2.2 g/dL 3.4-5.0 L GLOBULIN (test code = GLOB) 4.0 gram/dL 2.7-4.2 N ALBUMIN/GLOBULIN RATIO (test code = A/G) 0.6 0.75-1.50 L CALCIUM (test code = CA) 8.7 mg/dL 8.5-10.1 N BILIRUBIN TOTAL (test code = BILT) 0.40 mg/dL 0.0-1.0 N SGOT/AST (test code = AST) 13 IUnit/L 15-37 L SGPT/ALT (test code = ALT) 9 IUnit/L 12-78 L ALKALINE PHOSPHATASE TOTAL (test code = ALKP) 81 IUnit/L 45-117 N Note change in reference range due to change in reagent. COMPREHENSIVE METABOLIC [id number] 05:53:00* Test Item Value Reference Range Interpretation Comments SODIUM (test code = NA) 137 mmol/L 136-145 N POTASSIUM (test code = K) 4.2 mmol/L 3.5-5.1 N CHLORIDE (test code = CL) 100.0 mmol/L 98-107 N CARBON DIOXIDE (test code = CO2) mmol/L 21-32 ANION GAP (test code = GAP) 10-20 GLUCOSE (test code = GLU) mg/dL 74-106 BLOOD UREA NITROGEN (test code = BUN) mg/dL 7-18 GLOMERULAR FILTRATION RATE (test code = GFR) mL/min >=60 CREATININE (test code = CREAT) mg/dL 0.55-1.02 BUN/CREATININE RATIO (test code = BUN/CREA) 10-20 TOTAL PROTEIN (test code = PROT) gram/dL 6.4-8.2 ALBUMIN (test code = ALB) g/dL 3.4-5.0 GLOBULIN (test code = GLOB) gram/dL 2.7-4.2 ALBUMIN/GLOBULIN RATIO (test code = A/G) 0.75-1.50 CALCIUM (test code = CA) mg/dL 8.5-10.1 BILIRUBIN TOTAL (test code = BILT) mg/dL 0.0-1.0 SGOT/AST (test code = AST) IUnit/L 15-37 SGPT/ALT (test code = ALT) IUnit/L 12-78 ALKALINE PHOSPHATASE TOTAL (test code = ALKP) IUnit/L 45-117 CBC W/AUTO [id number] 05:30:00* Test Item Value Reference Range Interpretation Comments WHITE BLOOD CELL (test code = WBC) 5.8 K/mm3 4.5-12.5 N RED BLOOD CELL (test code = RBC) 3.09 mill/mm3 3.7-5.2 L HEMOGLOBIN (test code = HGB) 8.8 gram/dL 11.5-15.5 L HEMATOCRIT (test code = HCT) 29.0 % 36.0-46.0 L MEAN CELL VOLUME (test code = MCV) 93.9 fL 80-98 N MEAN CELL HGB (test code = MCH) 28.5 picogram 27.0-33.0 N MEAN CELL HGB CONCETRATION (test code = MCHC) 30.3 gram/dL 33.0-36. 0 L RED CELL DISTRIBUTION WIDTH (test code = RDW) 14.9 % 11.6-16. 2 N RED CELL DISTRIBUTION WIDTH SD (test code = RDW-SD) 50.7 fL 37 .0-51.0 N PLATELET COUNT (test code = PLT) 196 K/mm3 150-450 N MEAN PLATELET VOLUME (test code = MPV) 12.0 fL 6.7-11.0 H NEUTROPHIL % (test code = NT%) 61.1 % 39.0-69.0 N IMMATURE GRANULOCYTE % (test code = IG%) 0.5 % 0.0-5.0 N LYMPHOCYTE % (test code = LY%) 20.0 % 25.0-55.0 L MONOCYTE % (test code = MO%) 10.5 % 0.0-10.0 H EOSINOPHIL % (test code = EO%) 7.6 % 0.0-5.0 H BASOPHIL % (test code = BA%) 0.3 % 0.0-1.0 N NUCLEATED RBC % (test code = NRBC%) 0.0 % 0-0 N NEUTROPHIL # (test code = NT#) 3.53 K/mm3 1.8-7.7 N IMMATURE GRANULOCYTE # (test code = IG#) 0.03 x10 3/uL 0-0.03 N LYMPHOCYTE # (test code = LY#) 1.16 K/mm3 1.0-5.0 N MONOCYTE # (test code = MO#) 0.61 K/mm3 0-0.8 N EOSINOPHIL # (test code = EO#) 0.44 K/mm3 0.0-0.5 N BASOPHIL # (test code = BA#) 0.02 K/mm3 0.0-0.2 N NUCLEATED RBC # (test code = NRBC#) 0.00 K/mm3 0.0-0.1 N BASIC METABOLIC [id number] 07:15:00* Test Item Value Reference Range Interpretation Comments SODIUM (test code = NA) 137 mmol/L 136-145 N POTASSIUM (test code = K) 4.2 mmol/L 3.5-5.1 N CHLORIDE (test code = CL) 98.0 mmol/L 98-107 N CARBON DIOXIDE (test code = CO2) 28.0 mmol/L 21-32 N ANION GAP (test code = GAP) 15.2 10-20 N GLUCOSE (test code = GLU) 73 mg/dL 74-106 L BLOOD UREA NITROGEN (test code = BUN) 31 mg/dL 7-18 H RESULT VERIFIED BY REPEAT ANALYSIS GLOMERULAR FILTRATION RATE (test code = GFR) 6 mL/min >=60 Estimated GFR by using Modified MDRD formula.Chronic kidney disease is defined as either kidney damageor GFR <60 mL/min/1.73 m2 for >3 months. CREATININE (test code = CREAT) 6.80 mg/dL 0.55-1.02 H Note change in reference range due to change in reagent. BUN/CREATININE RATIO (test code = BUN/CREA) 4.6 10-20 L CALCIUM (test code = CA) 8.4 mg/dL 8.5-10.1 L BASIC METABOLIC [id number] 06:40:00* Test Item Value Reference Range Interpretation Comments SODIUM (test code = NA) 137 mmol/L 136-145 N POTASSIUM (test code = K) 4.2 mmol/L 3.5-5.1 N CHLORIDE (test code = CL) 98.0 mmol/L 98-107 N CARBON DIOXIDE (test code = CO2) mmol/L 21-32 ANION GAP (test code = GAP) 10-20 GLUCOSE (test code = GLU) mg/dL 74-106 BLOOD UREA NITROGEN (test code = BUN) mg/dL 7-18 GLOMERULAR FILTRATION RATE (test code = GFR) mL/min >=60 CREATININE (test code = CREAT) mg/dL 0.55-1.02 BUN/CREATININE RATIO (test code = BUN/CREA) 10-20 CALCIUM (test code = CA) mg/dL 8.5-10.1 CBC W/AUTO [id number] 06:38:00* Test Item Value Reference Range Interpretation Comments WHITE BLOOD CELL (test code = WBC) 7.3 K/mm3 4.5-12.5 N RED BLOOD CELL (test code = RBC) 2.94 mill/mm3 3.7-5.2 L HEMOGLOBIN (test code = HGB) 8.3 gram/dL 11.5-15.5 L HEMATOCRIT (test code = HCT) 28.3 % 36.0-46.0 L MEAN CELL VOLUME (test code = MCV) 96.3 fL 80-98 N MEAN CELL HGB (test code = MCH) 28.2 picogram 27.0-33.0 N MEAN CELL HGB CONCETRATION (test code = MCHC) 29.3 gram/dL 33.0-36. 0 L RED CELL DISTRIBUTION WIDTH (test code = RDW) 15.7 % 11.6-16. 2 N RED CELL DISTRIBUTION WIDTH SD (test code = RDW-SD) 55.2 fL 37 .0-51.0 H PLATELET COUNT (test code = PLT) 188 K/mm3 150-450 N MEAN PLATELET VOLUME (test code = MPV) 12.0 fL 6.7-11.0 H NEUTROPHIL % (test code = NT%) 69.3 % 39.0-69.0 H IMMATURE GRANULOCYTE % (test code = IG%) 0.4 % 0.0-5.0 N LYMPHOCYTE % (test code = LY%) 14.6 % 25.0-55.0 L MONOCYTE % (test code = MO%) 10.5 % 0.0-10.0 H EOSINOPHIL % (test code = EO%) 4.8 % 0.0-5.0 N BASOPHIL % (test code = BA%) 0.4 % 0.0-1.0 N NUCLEATED RBC % (test code = NRBC%) 0.0 % 0-0 N NEUTROPHIL # (test code = NT#) 5.02 K/mm3 1.8-7.7 N IMMATURE GRANULOCYTE # (test code = IG#) 0.03 x10 3/uL 0-0.03 N LYMPHOCYTE # (test code = LY#) 1.06 K/mm3 1.0-5.0 N MONOCYTE # (test code = MO#) 0.76 K/mm3 0-0.8 N EOSINOPHIL # (test code = EO#) 0.35 K/mm3 0.0-0.5 N BASOPHIL # (test code = BA#) 0.03 K/mm3 0.0-0.2 N NUCLEATED RBC # (test code = NRBC#) 0.00 K/mm3 0.0-0.1 N MANUAL DIFF REQUIRED (test code = MDIFF) NO, ONLY SCAN NEEDED DIFFERENTIAL [id number] 06:38:00* Test Item Value Reference Range Interpretation Comments STAIN ACCEPTABILITY (test code = STN ACCEPTABLE) STAIN ACCEPTABLE PLATELET ESTIMATE (test code = PLTEST) ADEQUATE PLATELET MORPHOLOGY (test code = PLTMORPH) NORMAL CBC W/AUTO [id number] 06:14:00* Test Item Value Reference Range Interpretation Comments WHITE BLOOD CELL (test code = WBC) 7.3 K/mm3 4.5-12.5 N RED BLOOD CELL (test code = RBC) 2.94 mill/mm3 3.7-5.2 L HEMOGLOBIN (test code = HGB) 8.3 gram/dL 11.5-15.5 L HEMATOCRIT (test code = HCT) 28.3 % 36.0-46.0 L MEAN CELL VOLUME (test code = MCV) 96.3 fL 80-98 N MEAN CELL HGB (test code = MCH) 28.2 picogram 27.0-33.0 N MEAN CELL HGB CONCETRATION (test code = MCHC) 29.3 gram/dL 33.0-36. 0 L RED CELL DISTRIBUTION WIDTH (test code = RDW) 15.7 % 11.6-16. 2 N RED CELL DISTRIBUTION WIDTH SD (test code = RDW-SD) 55.2 fL 37 .0-51.0 H PLATELET COUNT (test code = PLT) 188 K/mm3 150-450 N MEAN PLATELET VOLUME (test code = MPV) 12.0 fL 6.7-11.0 H NEUTROPHIL % (test code = NT%) 69.3 % 39.0-69.0 H IMMATURE GRANULOCYTE % (test code = IG%) 0.4 % 0.0-5.0 N LYMPHOCYTE % (test code = LY%) 14.6 % 25.0-55.0 L MONOCYTE % (test code = MO%) 10.5 % 0.0-10.0 H EOSINOPHIL % (test code = EO%) 4.8 % 0.0-5.0 N BASOPHIL % (test code = BA%) 0.4 % 0.0-1.0 N NUCLEATED RBC % (test code = NRBC%) 0.0 % 0-0 N NEUTROPHIL # (test code = NT#) 5.02 K/mm3 1.8-7.7 N IMMATURE GRANULOCYTE # (test code = IG#) 0.03 x10 3/uL 0-0.03 N LYMPHOCYTE # (test code = LY#) 1.06 K/mm3 1.0-5.0 N MONOCYTE # (test code = MO#) 0.76 K/mm3 0-0.8 N EOSINOPHIL # (test code = EO#) 0.35 K/mm3 0.0-0.5 N BASOPHIL # (test code = BA#) 0.03 K/mm3 0.0-0.2 N NUCLEATED RBC # (test code = NRBC#) 0.00 K/mm3 0.0-0.1 N MANUAL DIFF REQUIRED (test code = MDIFF) NO, ONLY SCAN NEEDED DIFFERENTIAL [id number] 06:14:00* Test Item Value Reference Range Interpretation Comments STAIN ACCEPTABILITY (test code = STN ACCEPTABLE) CABOT RINGS (test code = CAB) MORPHOLOGY COMMENT (test code = MOC) PLATELET ESTIMATE (test code = PLTEST) PLATELET MORPHOLOGY (test code = PLTMORPH) CBC W/AUTO [id number] 06:14:00* Test Item Value Reference Range Interpretation Comments WHITE BLOOD CELL (test code = WBC) 7.3 K/mm3 4.5-12.5 N RED BLOOD CELL (test code = RBC) 2.94 mill/mm3 3.7-5.2 L HEMOGLOBIN (test code = HGB) 8.3 gram/dL 11.5-15.5 L HEMATOCRIT (test code = HCT) 28.3 % 36.0-46.0 L MEAN CELL VOLUME (test code = MCV) 96.3 fL 80-98 N MEAN CELL HGB (test code = MCH) 28.2 picogram 27.0-33.0 N MEAN CELL HGB CONCETRATION (test code = MCHC) 29.3 gram/dL 33.0-36. 0 L RED CELL DISTRIBUTION WIDTH (test code = RDW) 15.7 % 11.6-16. 2 N RED CELL DISTRIBUTION WIDTH SD (test code = RDW-SD) 55.2 fL 37 .0-51.0 H PLATELET COUNT (test code = PLT) 188 K/mm3 150-450 N MEAN PLATELET VOLUME (test code = MPV) 12.0 fL 6.7-11.0 H NEUTROPHIL % (test code = NT%) 69.3 % 39.0-69.0 H IMMATURE GRANULOCYTE % (test code = IG%) 0.4 % 0.0-5.0 N LYMPHOCYTE % (test code = LY%) 14.6 % 25.0-55.0 L MONOCYTE % (test code = MO%) 10.5 % 0.0-10.0 H EOSINOPHIL % (test code = EO%) 4.8 % 0.0-5.0 N BASOPHIL % (test code = BA%) 0.4 % 0.0-1.0 N NUCLEATED RBC % (test code = NRBC%) 0.0 % 0-0 N NEUTROPHIL # (test code = NT#) 5.02 K/mm3 1.8-7.7 N IMMATURE GRANULOCYTE # (test code = IG#) 0.03 x10 3/uL 0-0.03 N LYMPHOCYTE # (test code = LY#) 1.06 K/mm3 1.0-5.0 N MONOCYTE # (test code = MO#) 0.76 K/mm3 0-0.8 N EOSINOPHIL # (test code = EO#) 0.35 K/mm3 0.0-0.5 N BASOPHIL # (test code = BA#) 0.03 K/mm3 0.0-0.2 N NUCLEATED RBC # (test code = NRBC#) 0.00 K/mm3 0.0-0.1 N MANUAL DIFF REQUIRED (test code = MDIFF) NO, ONLY SCAN NEEDED DIFFERENTIAL [id number] 06:14:00* Test Item Value Reference Range Interpretation Comments STAIN ACCEPTABILITY (test code = STN ACCEPTABLE) CABOT RINGS (test code = CAB) MORPHOLOGY COMMENT (test code = MOC) PLATELET ESTIMATE (test code = PLTEST) PLATELET MORPHOLOGY (test code = PLTMORPH) CBC W/AUTO [id number] 06:14:00* Test Item Value Reference Range Interpretation Comments WHITE BLOOD CELL (test code = WBC) 7.3 K/mm3 4.5-12.5 N RED BLOOD CELL (test code = RBC) 2.94 mill/mm3 3.7-5.2 L HEMOGLOBIN (test code = HGB) 8.3 gram/dL 11.5-15.5 L HEMATOCRIT (test code = HCT) 28.3 % 36.0-46.0 L MEAN CELL VOLUME (test code = MCV) 96.3 fL 80-98 N MEAN CELL HGB (test code = MCH) 28.2 picogram 27.0-33.0 N MEAN CELL HGB CONCETRATION (test code = MCHC) 29.3 gram/dL 33.0-36. 0 L RED CELL DISTRIBUTION WIDTH (test code = RDW) 15.7 % 11.6-16. 2 N RED CELL DISTRIBUTION WIDTH SD (test code = RDW-SD) 55.2 fL 37 .0-51.0 H PLATELET COUNT (test code = PLT) 188 K/mm3 150-450 N MEAN PLATELET VOLUME (test code = MPV) 12.0 fL 6.7-11.0 H NEUTROPHIL % (test code = NT%) 69.3 % 39.0-69.0 H IMMATURE GRANULOCYTE % (test code = IG%) 0.4 % 0.0-5.0 N LYMPHOCYTE % (test code = LY%) 14.6 % 25.0-55.0 L MONOCYTE % (test code = MO%) 10.5 % 0.0-10.0 H EOSINOPHIL % (test code = EO%) 4.8 % 0.0-5.0 N BASOPHIL % (test code = BA%) 0.4 % 0.0-1.0 N NUCLEATED RBC % (test code = NRBC%) 0.0 % 0-0 N NEUTROPHIL # (test code = NT#) 5.02 K/mm3 1.8-7.7 N IMMATURE GRANULOCYTE # (test code = IG#) 0.03 x10 3/uL 0-0.03 N LYMPHOCYTE # (test code = LY#) 1.06 K/mm3 1.0-5.0 N MONOCYTE # (test code = MO#) 0.76 K/mm3 0-0.8 N EOSINOPHIL # (test code = EO#) 0.35 K/mm3 0.0-0.5 N BASOPHIL # (test code = BA#) 0.03 K/mm3 0.0-0.2 N NUCLEATED RBC # (test code = NRBC#) 0.00 K/mm3 0.0-0.1 N MANUAL DIFF REQUIRED (test code = MDIFF) NO, ONLY SCAN NEEDED DIFFERENTIAL [id number] 06:14:00* Test Item Value Reference Range Interpretation Comments STAIN ACCEPTABILITY (test code = STN ACCEPTABLE) MORPHOLOGY COMMENT (test code = MOC) PLATELET ESTIMATE (test code = PLTEST) PLATELET MORPHOLOGY (test code = PLTMORPH) CBC W/AUTO [id number] 06:13:00* Test Item Value Reference Range Interpretation Comments WHITE BLOOD CELL (test code = WBC) 7.3 K/mm3 4.5-12.5 N RED BLOOD CELL (test code = RBC) 2.94 mill/mm3 3.7-5.2 L HEMOGLOBIN (test code = HGB) 8.3 gram/dL 11.5-15.5 L HEMATOCRIT (test code = HCT) 28.3 % 36.0-46.0 L MEAN CELL VOLUME (test code = MCV) 96.3 fL 80-98 N MEAN CELL HGB (test code = MCH) 28.2 picogram 27.0-33.0 N MEAN CELL HGB CONCETRATION (test code = MCHC) 29.3 gram/dL 33.0-36. 0 L RED CELL DISTRIBUTION WIDTH (test code = RDW) 15.7 % 11.6-16. 2 N RED CELL DISTRIBUTION WIDTH SD (test code = RDW-SD) 55.2 fL 37 .0-51.0 H PLATELET COUNT (test code = PLT) 188 K/mm3 150-450 N MEAN PLATELET VOLUME (test code = MPV) 12.0 fL 6.7-11.0 H NEUTROPHIL % (test code = NT%) 69.3 % 39.0-69.0 H IMMATURE GRANULOCYTE % (test code = IG%) 0.4 % 0.0-5.0 N LYMPHOCYTE % (test code = LY%) 14.6 % 25.0-55.0 L MONOCYTE % (test code = MO%) 10.5 % 0.0-10.0 H EOSINOPHIL % (test code = EO%) 4.8 % 0.0-5.0 N BASOPHIL % (test code = BA%) 0.4 % 0.0-1.0 N NUCLEATED RBC % (test code = NRBC%) 0.0 % 0-0 N NEUTROPHIL # (test code = NT#) 5.02 K/mm3 1.8-7.7 N IMMATURE GRANULOCYTE # (test code = IG#) 0.03 x10 3/uL 0-0.03 N LYMPHOCYTE # (test code = LY#) 1.06 K/mm3 1.0-5.0 N MONOCYTE # (test code = MO#) 0.76 K/mm3 0-0.8 N EOSINOPHIL # (test code = EO#) 0.35 K/mm3 0.0-0.5 N BASOPHIL # (test code = BA#) 0.03 K/mm3 0.0-0.2 N NUCLEATED RBC # (test code = NRBC#) 0.00 K/mm3 0.0-0.1 N MANUAL DIFF REQUIRED (test code = MDIFF) NO, ONLY SCAN NEEDED DIFFERENTIAL [id number] 06:13:00* Test Item Value Reference Range Interpretation Comments STAIN ACCEPTABILITY (test code = STN ACCEPTABLE) CABOT RINGS (test code = CAB) MORPHOLOGY COMMENT (test code = MOC) PLATELET ESTIMATE (test code = PLTEST) PLATELET MORPHOLOGY (test code = PLTMORPH) COMPREHENSIVE METABOLIC [id number] 06:35:00* Test Item Value Reference Range Interpretation Comments SODIUM (test code = NA) 140 mmol/L 136-145 N POTASSIUM (test code = K) 4.4 mmol/L 3.5-5.1 N CHLORIDE (test code = CL) 100.0 mmol/L 98-107 N CARBON DIOXIDE (test code = CO2) 29.0 mmol/L 21-32 N ANION GAP (test code = GAP) 15.4 10-20 N GLUCOSE (test code = GLU) 94 mg/dL 74-106 N BLOOD UREA NITROGEN (test code = BUN) 20 mg/dL 7-18 H RESULT VERIFIED BY REPEAT ANALYSIS GLOMERULAR FILTRATION RATE (test code = GFR) 9 mL/min >=60 Estimated GFR by using Modified MDRD formula.Chronic kidney disease is defined as either kidney damageor GFR <60 mL/min/1.73 m2 for >3 months. CREATININE (test code = CREAT) 5.00 mg/dL 0.55-1.02 H Note change in reference range due to change in reagent. BUN/CREATININE RATIO (test code = BUN/CREA) 4.0 10-20 L TOTAL PROTEIN (test code = PROT) 6.2 gram/dL 6.4-8.2 L ALBUMIN (test code = ALB) 2.5 g/dL 3.4-5.0 L GLOBULIN (test code = GLOB) 3.7 gram/dL 2.7-4.2 N ALBUMIN/GLOBULIN RATIO (test code = A/G) 0.7 0.75-1.50 L CALCIUM (test code = CA) 8.5 mg/dL 8.5-10.1 N BILIRUBIN TOTAL (test code = BILT) 0.40 mg/dL 0.0-1.0 N SGOT/AST (test code = AST) 17 IUnit/L 15-37 N SGPT/ALT (test code = ALT) 11 IUnit/L 12-78 L ALKALINE PHOSPHATASE TOTAL (test code = ALKP) 95 IUnit/L 45-117 N Note change in reference range due to change in reagent. COMPREHENSIVE METABOLIC [id number] 06:17:00* Test Item Value Reference Range Interpretation Comments SODIUM (test code = NA) 140 mmol/L 136-145 N POTASSIUM (test code = K) 4.4 mmol/L 3.5-5.1 N CHLORIDE (test code = CL) 100.0 mmol/L 98-107 N CARBON DIOXIDE (test code = CO2) mmol/L 21-32 ANION GAP (test code = GAP) 10-20 GLUCOSE (test code = GLU) mg/dL 74-106 BLOOD UREA NITROGEN (test code = BUN) mg/dL 7-18 GLOMERULAR FILTRATION RATE (test code = GFR) mL/min >=60 CREATININE (test code = CREAT) mg/dL 0.55-1.02 BUN/CREATININE RATIO (test code = BUN/CREA) 10-20 TOTAL PROTEIN (test code = PROT) gram/dL 6.4-8.2 ALBUMIN (test code = ALB) g/dL 3.4-5.0 GLOBULIN (test code = GLOB) gram/dL 2.7-4.2 ALBUMIN/GLOBULIN RATIO (test code = A/G) 0.75-1.50 CALCIUM (test code = CA) mg/dL 8.5-10.1 BILIRUBIN TOTAL (test code = BILT) mg/dL 0.0-1.0 SGOT/AST (test code = AST) IUnit/L 15-37 SGPT/ALT (test code = ALT) IUnit/L 12-78 ALKALINE PHOSPHATASE TOTAL (test code = ALKP) IUnit/L 45-117 CBC W/AUTO [id number] 05:59:00* Test Item Value Reference Range Interpretation Comments WHITE BLOOD CELL (test code = WBC) 8.3 K/mm3 4.5-12.5 N RED BLOOD CELL (test code = RBC) 3.46 mill/mm3 3.7-5.2 L HEMOGLOBIN (test code = HGB) 9.7 gram/dL 11.5-15.5 L HEMATOCRIT (test code = HCT) 32.8 % 36.0-46.0 L MEAN CELL VOLUME (test code = MCV) 94.8 fL 80-98 N MEAN CELL HGB (test code = MCH) 28.0 picogram 27.0-33.0 N MEAN CELL HGB CONCETRATION (test code = MCHC) 29.6 gram/dL 33.0-36. 0 L RED CELL DISTRIBUTION WIDTH (test code = RDW) 15.9 % 11.6-16. 2 N RED CELL DISTRIBUTION WIDTH SD (test code = RDW-SD) 55.3 fL 37 .0-51.0 H PLATELET COUNT (test code = PLT) 207 K/mm3 150-450 N MEAN PLATELET VOLUME (test code = MPV) 11.6 fL 6.7-11.0 H NEUTROPHIL % (test code = NT%) 76.6 % 39.0-69.0 H IMMATURE GRANULOCYTE % (test code = IG%) 0.4 % 0.0-5.0 N LYMPHOCYTE % (test code = LY%) 11.1 % 25.0-55.0 L MONOCYTE % (test code = MO%) 10.1 % 0.0-10.0 H EOSINOPHIL % (test code = EO%) 1.4 % 0.0-5.0 N BASOPHIL % (test code = BA%) 0.4 % 0.0-1.0 N NUCLEATED RBC % (test code = NRBC%) 0.0 % 0-0 N NEUTROPHIL # (test code = NT#) 6.34 K/mm3 1.8-7.7 N IMMATURE GRANULOCYTE # (test code = IG#) 0.03 x10 3/uL 0-0.03 N LYMPHOCYTE # (test code = LY#) 0.92 K/mm3 1.0-5.0 L MONOCYTE # (test code = MO#) 0.84 K/mm3 0-0.8 H EOSINOPHIL # (test code = EO#) 0.12 K/mm3 0.0-0.5 N BASOPHIL # (test code = BA#) 0.03 K/mm3 0.0-0.2 N NUCLEATED RBC # (test code = NRBC#) 0.00 K/mm3 0.0-0.1 N - XR CHEST 1 [id number] 15:09:00 FAX: Paris Maldonado MD [phone] [place]: B St: ADM FAX: Marianne Hogue MD [phone] Name: SHALOM SORIANO [facility] : 1950 Age/S: 68/F [address] [facility] Unit #: [id number] Loc: V.5002 [place] [address] Phys: Marianne Thacker MD Acct: [id number] Dis Date: Status: ADM IN PHONE #: [phone] Exam Date: 05/22/2018 1502 FAX #: [phone] Reason: CHF and ESRD EXAMS: CPT CODE: [id number] XR CHEST 1 V [id number] REASON FOR EXAM: CHF and ESRD EXAM ORDER DATE: 05/22/2018 12:00 AM Ordering Janae: Marianne Thacker MD PROCEDURE: - XR CHEST 1 V COMPARISON: 01/17/2018 FINDINGS: Portable AP frontal view of the chest obtained at 2:53 PM shows the heart size is minimally enlarged. Pulmonary vasculatures are minimally congested. Stable appearance of the right IJ graft. IMPRESSION: Minimal atelectasis of the bases with small right pleural effusion. at 1502 Reported and signed by: Ricki Bearden M.D. CC: Paris Johnson MD; Marianne Thacker MD Technologist: DAVE CAMPOS RT(R) Trnscrd Date/Time/By: 05/22/2018 ([id number]) : By: Julia Orig Print D/T: S: 05/22/2018 (4222) PAGE 1 Signed Report AG HEPAT B [id number] 08:54:00* Test Item Value Reference Range Interpretation Comments AG HEPAT B SURF (test code = HBSAG) Nonreactive Index Nonreactive BASIC METABOLIC [id number] 06:48:00* Test Item Value Reference Range Interpretation Comments SODIUM (test code = NA) 142 mmol/L 136-145 N POTASSIUM (test code = K) 5.2 mmol/L 3.5-5.1 H CHLORIDE (test code = CL) 102.0 mmol/L 98-107 N CARBON DIOXIDE (test code = CO2) 23.0 mmol/L 21-32 N ANION GAP (test code = GAP) 22.2 10-20 H GLUCOSE (test code = GLU) 97 mg/dL 74-106 N BLOOD UREA NITROGEN (test code = BUN) 48 mg/dL 7-18 H GLOMERULAR FILTRATION RATE (test code = GFR) 5 mL/min >=60 Estimated GFR by using Modified MDRD formula.Chronic kidney disease is defined as either kidney damageor GFR <60 mL/min/1.73 m2 for >3 months. CREATININE (test code = CREAT) 8.10 mg/dL 0.55-1.02 H Note change in reference range due to change in reagent. BUN/CREATININE RATIO (test code = BUN/CREA) 5.9 10-20 L CALCIUM (test code = CA) 8.6 mg/dL 8.5-10.1 N BASIC METABOLIC [id number] 06:43:00* Test Item Value Reference Range Interpretation Comments SODIUM (test code = NA) 142 mmol/L 136-145 N POTASSIUM (test code = K) 5.2 mmol/L 3.5-5.1 H CHLORIDE (test code = CL) 102.0 mmol/L 98-107 N CARBON DIOXIDE (test code = CO2) mmol/L 21-32 ANION GAP (test code = GAP) 10-20 GLUCOSE (test code = GLU) mg/dL 74-106 BLOOD UREA NITROGEN (test code = BUN) mg/dL 7-18 GLOMERULAR FILTRATION RATE (test code = GFR) mL/min >=60 CREATININE (test code = CREAT) mg/dL 0.55-1.02 BUN/CREATININE RATIO (test code = BUN/CREA) 10-20 CALCIUM (test code = CA) mg/dL 8.5-10.1 CBC W/AUTO [id number] 06:25:00* Test Item Value Reference Range Interpretation Comments WHITE BLOOD CELL (test code = WBC) 13.4 K/mm3 4.5-12.5 H RED BLOOD CELL (test code = RBC) 3.19 mill/mm3 3.7-5.2 L HEMOGLOBIN (test code = HGB) 9.1 gram/dL 11.5-15.5 L HEMATOCRIT (test code = HCT) 30.2 % 36.0-46.0 L MEAN CELL VOLUME (test code = MCV) 94.7 fL 80-98 N MEAN CELL HGB (test code = MCH) 28.5 picogram 27.0-33.0 N MEAN CELL HGB CONCETRATION (test code = MCHC) 30.1 gram/dL 33.0-36. 0 L RED CELL DISTRIBUTION WIDTH (test code = RDW) 15.7 % 11.6-16. 2 N RED CELL DISTRIBUTION WIDTH SD (test code = RDW-SD) 54.6 fL 37 .0-51.0 H PLATELET COUNT (test code = PLT) 211 K/mm3 150-450 N MEAN PLATELET VOLUME (test code = MPV) 11.6 fL 6.7-11.0 H NEUTROPHIL % (test code = NT%) 85.9 % 39.0-69.0 H IMMATURE GRANULOCYTE % (test code = IG%) 0.4 % 0.0-5.0 N LYMPHOCYTE % (test code = LY%) 4.8 % 25.0-55.0 L MONOCYTE % (test code = MO%) 8.8 % 0.0-10.0 N EOSINOPHIL % (test code = EO%) 0.0 % 0.0-5.0 N BASOPHIL % (test code = BA%) 0.1 % 0.0-1.0 N NUCLEATED RBC % (test code = NRBC%) 0.0 % 0-0 N NEUTROPHIL # (test code = NT#) 11.46 K/mm3 1.8-7.7 H IMMATURE GRANULOCYTE # (test code = IG#) 0.06 x10 3/uL 0-0.03 H LYMPHOCYTE # (test code = LY#) 0.64 K/mm3 1.0-5.0 L MONOCYTE # (test code = MO#) 1.18 K/mm3 0-0.8 H EOSINOPHIL # (test code = EO#) 0.00 K/mm3 0.0-0.5 N BASOPHIL # (test code = BA#) 0.02 K/mm3 0.0-0.2 N NUCLEATED RBC # (test code = NRBC#) 0.00 K/mm3 0.0-0.1 N MANUAL DIFF REQUIRED (test code = MDIFF) NO [id number] 11:11:00* Test Item Value Reference Range Interpretation Comments POTASSIUM (test code = K) 4.3 mmol/L 3.5-5.1 N COMPREHENSIVE METABOLIC [id number] 17:42:00* Test Item Value Reference Range Interpretation Comments SODIUM (test code = NA) 138 mmol/L 136-145 N POTASSIUM (test code = K) 4.7 mmol/L 3.5-5.1 N CHLORIDE (test code = CL) 101.0 mmol/L 98-107 N CARBON DIOXIDE (test code = CO2) 25.0 mmol/L 21-32 N ANION GAP (test code = GAP) 16.7 10-20 N GLUCOSE (test code = GLU) 134 mg/dL 74-106 H BLOOD UREA NITROGEN (test code = BUN) 93 mg/dL 7-18 H GLOMERULAR FILTRATION RATE (test code = GFR) 4 mL/min >=60 Estimated GFR by using Modified MDRD formula.Chronic kidney disease is defined as either kidney damageor GFR <60 mL/min/1.73 m2 for >3 months. CREATININE (test code = CREAT) 9.50 mg/dL 0.55-1.02 H Note change in reference range due to change in reagent. BUN/CREATININE RATIO (test code = BUN/CREA) 9.8 10-20 L TOTAL PROTEIN (test code = PROT) 7.2 gram/dL 6.4-8.2 N ALBUMIN (test code = ALB) 2.9 g/dL 3.4-5.0 L GLOBULIN (test code = GLOB) 4.3 gram/dL 2.7-4.2 H ALBUMIN/GLOBULIN RATIO (test code = A/G) 0.7 0.75-1.50 L CALCIUM (test code = CA) 8.7 mg/dL 8.5-10.1 N BILIRUBIN TOTAL (test code = BILT) 0.40 mg/dL 0.0-1.0 N SGOT/AST (test code = AST) 16 IUnit/L 15-37 N SGPT/ALT (test code = ALT) 12 IUnit/L 12-78 N ALKALINE PHOSPHATASE TOTAL (test code = ALKP) 113 IUnit/L 45-117 N Note change in reference range due to change in reagent. COMPREHENSIVE METABOLIC [id number] 17:33:00* Test Item Value Reference Range Interpretation Comments SODIUM (test code = NA) 138 mmol/L 136-145 N POTASSIUM (test code = K) 4.7 mmol/L 3.5-5.1 N CHLORIDE (test code = CL) 101.0 mmol/L 98-107 N CARBON DIOXIDE (test code = CO2) mmol/L 21-32 ANION GAP (test code = GAP) 10-20 GLUCOSE (test code = GLU) mg/dL 74-106 BLOOD UREA NITROGEN (test code = BUN) mg/dL 7-18 GLOMERULAR FILTRATION RATE (test code = GFR) mL/min >=60 CREATININE (test code = CREAT) mg/dL 0.55-1.02 BUN/CREATININE RATIO (test code = BUN/CREA) 10-20 TOTAL PROTEIN (test code = PROT) gram/dL 6.4-8.2 ALBUMIN (test code = ALB) g/dL 3.4-5.0 GLOBULIN (test code = GLOB) gram/dL 2.7-4.2 ALBUMIN/GLOBULIN RATIO (test code = A/G) 0.75-1.50 CALCIUM (test code = CA) mg/dL 8.5-10.1 BILIRUBIN TOTAL (test code = BILT) mg/dL 0.0-1.0 SGOT/AST (test code = AST) IUnit/L 15-37 SGPT/ALT (test code = ALT) IUnit/L 12-78 ALKALINE PHOSPHATASE TOTAL (test code = ALKP) IUnit/L 45-117 CBC W/AUTO [id number] 17:00:00* Test Item Value Reference Range Interpretation Comments WHITE BLOOD CELL (test code = WBC) 6.3 K/mm3 4.5-12.5 N RED BLOOD CELL (test code = RBC) 3.48 mill/mm3 3.7-5.2 L HEMOGLOBIN (test code = HGB) 9.8 gram/dL 11.5-15.5 L HEMATOCRIT (test code = HCT) 32.0 % 36.0-46.0 L MEAN CELL VOLUME (test code = MCV) 92.0 fL 80-98 N MEAN CELL HGB (test code = MCH) 28.2 picogram 27.0-33.0 N MEAN CELL HGB CONCETRATION (test code = MCHC) 30.6 gram/dL 33.0-36. 0 L RED CELL DISTRIBUTION WIDTH (test code = RDW) 15.9 % 11.6-16. 2 N RED CELL DISTRIBUTION WIDTH SD (test code = RDW-SD) 52.9 fL 37 .0-51.0 H PLATELET COUNT (test code = PLT) 254 K/mm3 150-450 N MEAN PLATELET VOLUME (test code = MPV) 11.3 fL 6.7-11.0 H NEUTROPHIL % (test code = NT%) 62.8 % 39.0-69.0 N IMMATURE GRANULOCYTE % (test code = IG%) 0.3 % 0.0-5.0 N LYMPHOCYTE % (test code = LY%) 23.1 % 25.0-55.0 L MONOCYTE % (test code = MO%) 8.4 % 0.0-10.0 N EOSINOPHIL % (test code = EO%) 4.8 % 0.0-5.0 N BASOPHIL % (test code = BA%) 0.6 % 0.0-1.0 N NUCLEATED RBC % (test code = NRBC%) 0.0 % 0-0 N NEUTROPHIL # (test code = NT#) 3.96 K/mm3 1.8-7.7 N IMMATURE GRANULOCYTE # (test code = IG#) 0.02 x10 3/uL 0-0.03 N LYMPHOCYTE # (test code = LY#) 1.46 K/mm3 1.0-5.0 N MONOCYTE # (test code = MO#) 0.53 K/mm3 0-0.8 N EOSINOPHIL # (test code = EO#) 0.30 K/mm3 0.0-0.5 N BASOPHIL # (test code = BA#) 0.04 K/mm3 0.0-0.2 N NUCLEATED RBC # (test code = NRBC#) 0.00 K/mm3 0.0-0.1 N Hepatitis B Core Total Hjmlngev1481-47-10 23:57:00* Test Item Value Reference Range Interpretation Comments Hepatitis B Core Total Antibody (test code = 74499-3) Negative Negative Performed at: [facility] [id number] Director: Ruben Velázquez MD, Phone: [phone] Children's Hospital B Core Total Jsiwanio6315-33-00 23:57:00* Test Item Value Reference Range Interpretation Comments Hepatitis B Core Total Antibody (test code = 61013-3) Negative Negative Performed at: [address] [id number] Director: Ruben Velázquez MD, Phone: [phone] [place] [address] B Core Total Fmbiqpos6828-50-42 23:57:00* Test Item Value Reference Range Interpretation Comments Hepatitis B Core Total Antibody (test code = 19634-1) Negative Negative Performed at: [address] [id number] Director: Ruben Velázquez MD, Phone: [phone] [facility] Hospital B Core Total Gvdryipx3352-55-27 23:57:00* Test Item Value Reference Range Interpretation Comments Hepatitis B Core Total Antibody (test code = 30612-4) Negative Negative Performed at: [address] [id number] Director: Ruben Velázquez MD, Phone: [phone] Healthcare CenterCHES SINGLE (PORTABLE)2018-02-26 06:43:00 [place] [address] Patient Name: SHALOM SORIANO MR #: [id number] : 1950 Age/Sex: 68/F Req #: [id number] [facility] Physician: MARIANNE THACKER MD Ordered by: OSWALDO BAEZ MD Report #: [id number] Location: [facility] Room/Bed: [place] [address] Procedure: [id number] DX/CHEST SINGLE (PORTABLE) Exam Date: 02/26/18 Exam Time: 0515 REPORT STATUS: Signed EXAMINATION: CHEST SINGLE (PORTABLE) INDICATION: CHF. KARTIK RISON: 02/25/2018 FINDINGS: AP view TUBES and LINES: Right IJ catheter tip overlies the SVC. LUNGS/PLEURA: Lungs are well inflated. D ecreased small to moderate right pleural effusion with improved aeration of th e adjacent lung. Left lung remains grossly clear. Stable vascular congestion. HEART AND MEDIASTINUM: The cardiomediastinal silhouette is unremarkable. BONES AND SOFT TISSUES: No acute osseous lesion. Soft tissues are un remarkable. UPPER ABDOMEN: No free air under the diaphragm. IMPRES JOSE: Decreased small to moderate right pleural effusion. Signed by: DR. Garry Espino MD on 02/26/2018 6:46 AM Dictated By: GARRY ESPINO MD 5 Transcribed By: Ruth BRAVO on 02/26/18645 COPY TO: OSWALDO BAEZ MD Hepatitis B Surface Bkjcktp5353-18-31 06:21:00* Test Item Value Reference Range Interpretation Comments Hepatitis B Surface Antigen (test code = 5196-1) Negative Negat tho Performed at: [address] [id number] Director: Ruben Velázquez MD, Phone: [phone] Children's Hospital B Surface Rcexvzd3272-06-92 06:21:00* Test Item Value Reference Range Interpretation Comments Hepatitis B Surface Antigen (test code = 5196-1) Negative Negat tho Performed at: [facility] [address] [id number] Director: Ruben Velázquez MD, Phone: [phone] Children's Hospital B Surface Qqnmfsk5256-56-48 06:21:00* Test Item Value Reference Range Interpretation Comments Hepatitis B Surface Antigen (test code = 5196-1) Negative Negat tho Performed at: - [address], [place], [place] [id number] Director: Ruben Velázquez MD, Phone: [phone] Army Medical Centerodium Sqonl3234-18-80 06:15:00* Test Item Value Reference Range Interpretation Comments Sodium Level (test code = 2951-2) 138 136-145 [facility] Center[facility] Tbjxb5659-07-52 06:15:00* Test Item Value Reference Range Interpretation Comments Potassium Level (test code = 2823-3) 3.8 3.5-5.1 [facility] CenterChloride Ikjpb9594-60-89 06:15:00* Test Item Value Reference Range Interpretation Comments Chloride Level (test code = 2075-0) 98 98-107 [facility] CenterCarbon Dioxide Hgnnq8995-65-96 06:15:00* Test Item Value Reference Range Interpretation Comments Carbon Dioxide Level (test code = 2028-9) 29 22-29 [facility] CenterAnion Doc5006-95-18 06:15:00* Test Item Value Reference Range Interpretation Comments Anion Gap (test code = 07258-3) 14.8 8-16 [facility] CenterBlood Urea Laxnqgsc0152-19-79 06:15:00* Test Item Value Reference Range Interpretation Comments Blood Urea Nitrogen (test code = 3094-0) 19 7-26 [facility] CenterCreatinine2018-11-21 06:15:00* Test Item Value Reference Range Interpretation Comments Creatinine (test code = 2160-0) 4.06 0.57-1.11 H [facility] CenterBUN/Creatinine Irxgi5408-97-38 06:15:00* Test Item Value Reference Range Interpretation Comments BUN/Creatinine Ratio (test code = 3097-3) 5 6-25 L [facility] CenterEstimat Glomerular Filtration Rate 2018-02-26 06:15:00* Test Item Value Reference Range Interpretation Comments Estimat Glomerular Filtration Rate (test code = 381546163) 11 >60 L Ranges were taken from the National Kidney Disease Education Program and the [facility] Foundation literature.Reference ranges:60 or greater: Sgesxg83-97 ( for 3 consecutive months): Chronic kidney disease 15 or less: Kidney failureLamb Healthcare CenterGlucose Bwcyn3838-30-37 06:15:00* Test Item Value Reference Range Interpretation Comments Glucose Level (test code = VAZ9316) 86 74-118 [facility] CenterCalcium Rtnbj0426-86-52 06:15:00* Test Item Value Reference Range Interpretation Comments Calcium Level (test code = 99495-7) 8.5 8.4-10.2 [facility] CenterPhosphorus Krnke5694-62-13 06:15:00* Test Item Value Reference Range Interpretation Comments Phosphorus Level (test code = YJW0824) 4.7 2.3-4.7 [facility] CenterMagnesium Zkggc8197-50-11 06:15:00* Test Item Value Reference Range Interpretation Comments Magnesium Level (test code = 25105-6) 2.0 1.3-2.1 [facility] CenterTotal Skfyrjhpj2364-93-31 06:15:00* Test Item Value Reference Range Interpretation Comments Total Bilirubin (test code = 1975-2) 0.4 0.2-1.2 [facility] CenterAspartate Amino Transf (AST/SGOT) 2018-02-26 06:15:00* Test Item Value Reference Range Interpretation Comments Aspartate Amino Transf (AST/SGOT) (test code = Aspartate Amino Transf (AST/SGOT)) 18 5-34 [facility] CenterAlanine Aminotransferase (ALT/SGPT) 2018-02-26 06:15:00* Test Item Value Reference Range Interpretation Comments Alanine Aminotransferase (ALT/SGPT) (test code = 1742-6) 6 0-55 [facility] CenterTotal Ojpxegq7160-40-94 06:15:00* Test Item Value Reference Range Interpretation Comments Total Protein (test code = 2885-2) 6.3 6.5-8.1 L [facility] CenterAlbumin2018-11-21 06:15:00* Test Item Value Reference Range Interpretation Comments Albumin (test code = 1751-7) 2.4 3.5-5.0 L [facility] CenterGlobulin2018-11-21 06:15:00* Test Item Value Reference Range Interpretation Comments Globulin (test code = 21544-0) 3.9 2.3-3.5 H [facility] CenterAlbumin/Globulin Tprqp0156-20-04 06:15:00 * Test Item Value Reference Range Interpretation Comments Albumin/Globulin Ratio (test code = 1759-0) 0.6 0.8-2.0 L [facility] CenterAlkaline Orxhntwzbvu8287-11-81 06:15:00* Test Item Value Reference Range Interpretation Comments Alkaline Phosphatase (test code = 6768-6) 104 40-150 [facility] CenterTriglycerides Tbgxj2457-04-19 06:15:00* Test Item Value Reference Range Interpretation Comments Triglycerides Level (test code = 2571-8) 105 0-149 [facility] CenterCholesterol Hzvjk8456-48-17 06:15:00* Test Item Value Reference Range Interpretation Comments Cholesterol Level (test code = 2093-3) 139 0-199 Less than 200 mg/dL Low Bugh440 - 239 mg/dL Borderline Oxde605 m g/dl and greater High Risk [facility] CenterLDL Xplxwqmnptz2414-83-64 06:15:00* Test Item Value Reference Range Interpretation Comments LDL Cholesterol (test code = 2089-1) 69 60-130 [facility] CenterHDL Wfbknpfbezz0457-29-97 06:15:00* Test Item Value Reference Range Interpretation Comments HDL Cholesterol (test code = 2085-9) 49 40-60 [facility] CenterCholesterol/HDL Uekrg0643-04-64 06:15:00 * Test Item Value Reference Range Interpretation Comments Cholesterol/HDL Ratio (test code = 9830-1) 2.8 3.0-3.6 L [facility] CenterPhosphorus Vazkl5019-89-95 06:15:00* Test Item Value Reference Range Interpretation Comments Phosphorus Level (test code = GEF3588) 4.7 2.3-4.7 [facility] CenterMagnesium Cyxtr9135-02-59 06:15:00* Test Item Value Reference Range Interpretation Comments Magnesium Level (test code = 84276-7) 2.0 1.3-2.1 [facility] CenterTriglycerides Iomrc2181-54-72 06:15:00* Test Item Value Reference Range Interpretation Comments Triglycerides Level (test code = 2571-8) 105 0-149 [facility] CenterCholesterol Amskp5696-31-47 06:15:00* Test Item Value Reference Range Interpretation Comments Cholesterol Level (test code = 2093-3) 139 0-199 Less than 200 mg/dL Low Ndqp569 - 239 mg/dL Borderline Zwmo718 m g/dl and greater High Risk [facility] CenterLDL Uazhiokpjgr4862-09-77 06:15:00* Test Item Value Reference Range Interpretation Comments LDL Cholesterol (test code = 2089-1) 69 60-130 [facility] Mknwslkcttw8408-65-97 06:15:00* Test Item Value Reference Range Interpretation Comments HDL Cholesterol (test code = 2085-9) 49 40-60 [facility] CenterCholesterol/HDL Hcifi1696-54-32 06:15:00 * Test Item Value Reference Range Interpretation Comments Cholesterol/HDL Ratio (test code = 9830-1) 2.8 3.0-3.6 L [facility] CenterTriglycerides Oaupj1656-90-04 06:15:00* Test Item Value Reference Range Interpretation Comments Triglycerides Level (test code = 2571-8) 105 0-149 [facility] CenterCholesterol Lmmkf4905-52-35 06:15:00* Test Item Value Reference Range Interpretation Comments Cholesterol Level (test code = 2093-3) 139 0-199 Less than 200 mg/dL Low Kayc520 - 239 mg/dL Borderline Mmwa435 m g/dl and greater High Risk [facility] CenterLDL Jfwbzrscpzp1181-96-52 06:15:00* Test Item Value Reference Range Interpretation Comments LDL Cholesterol (test code = 2089-1) 69 60-130 [facility] Wmzozeerzka8257-44-17 06:15:00* Test Item Value Reference Range Interpretation Comments HDL Cholesterol (test code = 2085-9) 49 40-60 [facility] CenterCholesterol/HDL Yvwak3639-49-64 06:15:00 * Test Item Value Reference Range Interpretation Comments Cholesterol/HDL Ratio (test code = 9830-1) 2.8 3.0-3.6 L [facility] CenterTriglycerides Mmlve7169-84-33 06:15:00* Test Item Value Reference Range Interpretation Comments Triglycerides Level (test code = 2571-8) 105 0-149 [facility] CenterCholesterol Rmflo0655-04-83 06:15:00* Test Item Value Reference Range Interpretation Comments Cholesterol Level (test code = 2093-3) 139 0-199 Less than 200 mg/dL Low Csto779 - 239 mg/dL Borderline Jwtd799 m g/dl and greater High Risk [facility] CenterLDL Lvlfcjgvvyt2266-82-45 06:15:00* Test Item Value Reference Range Interpretation Comments LDL Cholesterol (test code = 2089-1) 69 60-130 [facility] CenterHD Nyfnzbnnsyu0096-69-65 06:15:00* Test Item Value Reference Range Interpretation Comments HDL Cholesterol (test code = 2085-9) 49 40-60 [facility] CenterCholesterol/HDL Cvdax1522-96-55 06:15:00 * Test Item Value Reference Range Interpretation Comments Cholesterol/HDL Ratio (test code = 9830-1) 2.8 3.0-3.6 L [facility] CenterTriglycerides Mrnus6877-96-84 06:15:00* Test Item Value Reference Range Interpretation Comments Triglycerides Level (test code = 2571-8) 105 0-149 [facility] CenterCholesterol Wyubd5863-86-10 06:15:00* Test Item Value Reference Range Interpretation Comments Cholesterol Level (test code = 2093-3) 139 0-199 Less than 200 mg/dL Low Ozri462 - 239 mg/dL Borderline Xfmh859 m g/dl and greater High Risk [facility] CenterLDL Urvihygrrnu9481-40-68 06:15:00* Test Item Value Reference Range Interpretation Comments LDL Cholesterol (test code = 2089-1) 69 60-130 [facility] Pcdyijeyswp3681-98-23 06:15:00* Test Item Value Reference Range Interpretation Comments HDL Cholesterol (test code = 2085-9) 49 40-60 [facility] CenterCholesterol/HDL Ogszi0684-58-76 06:15:00 * Test Item Value Reference Range Interpretation Comments Cholesterol/HDL Ratio (test code = 9830-1) 2.8 3.0-3.6 L [facility] CenterB-Type Natriuretic Glckyoq7544-24-20 06:10:00* Test Item Value Reference Range Interpretation Comments B-Type Natriuretic Peptide (test code = 90594-2) 1112.9 0-100 H [facility] CenterB-Type Natriuretic Gonbvsr5166-60-56 06:10:00* Test Item Value Reference Range Interpretation Comments B-Type Natriuretic Peptide (test code = 19297-5) 1112.9 0-100 H [facility] CenterProthrombin Htsp1323-85-54 05:49:00* Test Item Value Reference Range Interpretation Comments Prothrombin Time (test code = 5902-2) 13.2 11.9-14.5 [facility] CenterProthromb Time International Ratio 2018-02-26 05:49:00* Test Item Value Reference Range Interpretation Comments Prothromb Time International Ratio (test code = 6301-6) 0.92 Oral Anticoagulant Therapy INR Values:1. Low Intensity Therapy 1.5 - 2.02 . Moderate Intensity Therapy 2.0 - 3.03. High Intensity Therapy(1) 2.5 - 3. 54. High Intensity Therapy(2) 3.0 - 4.05. Panic Value INR > 5.0 [facility] CenterActivated Partial Thromboplast Time 2018-02-26 05:49:00* Test Item Value Reference Range Interpretation Comments Activated Partial Thromboplast Time (test code = 92922-7) 29.4 23.8-35.5 [facility] CenterWhite Blood Ldpgz5268-24-67 05:33:00* Test Item Value Reference Range Interpretation Comments White Blood Count (test code = 6690-2) 7.13 4.8-10.8 [facility] CenterRed Blood Opigj0955-24-64 05:33:00* Test Item Value Reference Range Interpretation Comments Red Blood Count (test code = 789-8) 3.95 3.6-5.1 [facility] CenterHemoglobin2018-11-21 05:33:00* Test Item Value Reference Range Interpretation Comments Hemoglobin (test code = 68425-6) 11.1 12.0-16.0 L [facility] CenterHematocrit2018-11-21 05:33:00* Test Item Value Reference Range Interpretation Comments Hematocrit (test code = 4544-3) 36.9 34.2-44.1 [facility] CenterMean Corpuscular Hjxtec1473-19-66 05:33:00* Test Item Value Reference Range Interpretation Comments Mean Corpuscular Volume (test code = 787-2) 93.4 81-99 [facility] CenterMean Corpuscular Yvlrlwehcl5223-25-08 05:33:00* Test Item Value Reference Range Interpretation Comments Mean Corpuscular Hemoglobin (test code = 785-6) 28.1 28-32 [facility] CenterMean Corpuscular Hemoglobin Concent 2018-02-26 05:33:00* Test Item Value Reference Range Interpretation Comments Mean Corpuscular Hemoglobin Concent (test code = 786-4) 30.1 31-35 L [facility] CenterRed Cell Distribution Bpfht0596-46-93 05:33:00* Test Item Value Reference Range Interpretation Comments Red Cell Distribution Width (test code = 45475-5) 14.9 11.7 -14.4 H [facility] CenterPlatelet Hgayb7024-12-65 05:33:00* Test Item Value Reference Range Interpretation Comments Platelet Count (test code = 777-3) 267 140-360 [facility] CenterNeutrophils (%) (Auto)2018-02-26 05:33:00 * Test Item Value Reference Range Interpretation Comments Neutrophils (%) (Auto) (test code = 10931-7) 65.2 38.7-80.0 [facility] CenterLymphocytes (%) (Auto)2018-02-26 05:33:00 * Test Item Value Reference Range Interpretation Comments Lymphocytes (%) (Auto) (test code = 736-9) 19.9 18.0-39.1 [facility] CenterMonocytes (%) (Auto)2018-02-26 05:33:00* Test Item Value Reference Range Interpretation Comments Monocytes (%) (Auto) (test code = 5905-5) 10.5 4.4-11.3 [facility] CenterEosinophils (%) (Auto)2018-02-26 05:33:00 * Test Item Value Reference Range Interpretation Comments Eosinophils (%) (Auto) (test code = 713-8) 3.4 0.0-6.0 [facility] CenterBasophils (%) (Auto)2018-02-26 05:33:00* Test Item Value Reference Range Interpretation Comments Basophils (%) (Auto) (test code = 706-2) 0.7 0.0-1.0 [facility] CenterIM GRANULOCYTES %2018-02-26 05:33:00* Test Item Value Reference Range Interpretation Comments IM GRANULOCYTES % (test code = IM GRANULOCYTES %) 0.3 0.0- 1.0 [facility] CenterNeutrophils # (Auto)2018-02-26 05:33:00* Test Item Value Reference Range Interpretation Comments Neutrophils # (Auto) (test code = 751-8) 4.7 2.1-6.9 [facility] CenterLymphocytes # (Auto)2018-02-26 05:33:00* Test Item Value Reference Range Interpretation Comments Lymphocytes # (Auto) (test code = 51285-7) 1.4 1.0-3.2 [facility] CenterMonocytes # (Auto)2018-02-26 05:33:00* Test Item Value Reference Range Interpretation Comments Monocytes # (Auto) (test code = 742-7) 0.8 0.2-0.8 [facility] CenterEosinophils # (Auto)2018-02-26 05:33:00* Test Item Value Reference Range Interpretation Comments Eosinophils # (Auto) (test code = 711-2) 0.2 0.0-0.4 [facility] CenterBasophils # (Auto)2018-02-26 05:33:00* Test Item Value Reference Range Interpretation Comments Basophils # (Auto) (test code = 704-7) 0.1 0.0-0.1 [facility] CenterAbsolute Immature Granulocyte (auto 2018-02-26 05:33:00* Test Item Value Reference Range Interpretation Comments Absolute Immature Granulocyte (auto (grazyna t code = Absolute Immature Granulocyte (auto) 0.02 0-0.1 [facility] CenterInfluenza Virus Types A,B Antigen 2018-02-26 00:58:00* Test Item Value Reference Range Interpretation Comments Influenza Virus Types A,B Antigen (test code = 50606-2) NEGATIVE NEGATIVE [facility] CenterInfluenza Virus Types A,B Antigen 2018-02-26 00:58:00* Test Item Value Reference Range Interpretation Comments Influenza Virus Types A,B Antigen (test code = 49393-5) NEGATIVE NEGATIVE [facility] CenterInfluenza Virus Types A,B Antigen 2018-02-26 00:58:00* Test Item Value Reference Range Interpretation Comments Influenza Virus Types A,B Antigen (test code = 08719-0) NEGATIVE NEGATIVE [facility] CenterInfluenza Virus Types A,B Antigen 2018-02-26 00:58:00* Test Item Value Reference Range Interpretation Comments Influenza Virus Types A,B Antigen (test code = 25691-7) NEGATIVE NEGATIVE [facility] CenterInfluenza Virus Types A,B Antigen 2018-02-26 00:58:00* Test Item Value Reference Range Interpretation Comments Influenza Virus Types A,B Antigen (test code = 19824-5) NEGATIVE NEGATIVE [facility] CenterCreatine Kinase ZP9698-31-29 16:34:00* Test Item Value Reference Range Interpretation Comments Creatine Kinase MB (test code = 18738-1) 1.40 0-5.0 [facility] CenterTroponin H8434-64-71 16:34:00* Test Item Value Reference Range Interpretation Comments Troponin I (test code = EHG5052) 0.058 0-0.300 [facility] CenterCreatine Afphoq3026-35-55 16:28:00* Test Item Value Reference Range Interpretation Comments Creatine Kinase (test code = 2157-6) 27 29-168 L [facility] CenterCHEST SINGLE (PORTABLE)2018-02-25 07:16:00 [facility] [address] [address] Patient Name: SHALOM SORIANO MR #: [id number] : 1950 Age/Sex: 68/F Req #: [id number] Adm Physician: Ordered by: IRENE MELCHOR MD Report #: [id number] Location: ER Room/Bed: Procedure: 1120-002 0 DX/CHEST SINGLE (PORTABLE) Exam Date: 02/25/18 Zay stein Time: 0643 REPORT STATUS: Signed Examination: Single AP view of the chest. COMPARISON: 02/01/2018 IN DICATION: Shortness of breath DISCUSSION: Stable right internal j ugular tunneled hemodialysis catheter. Lungs remain reasonably well inflate d. Interval increase in size of small-moderate right pleural effusion with adj acent lower and middle lobe airspace disease likely passive atelectasis. Left lung is grossly clear. Cardiomediastinal contour is stable. Mild pulmonary theo ous congestion. No acute osseous abnormality. IMPRESSION: Interval increase in size of small-moderate right pleural effusion with presumed adjace nt passive atelectasis of the lower and middle lobes. Stable pulmonary veno us congestion relative to 02/01/2018. Signed by: Dr. Paris Lopez M.D. on 02/25/2018 7:18 AM Dictated By: PARIS LOPEZ MD 7 Transcribed By: ANTONY on 02/25/18717 COPY TO: IRENE MELCHOR MD CHEST SINGLE (PORTABLE)2018-02-01 17:59:00 [place] [address] Patient Name: SHALOM SORIANO MR #: [id number] : 1950 Age/Sex: 68/F Req #: [id number] Adm Physician: Ordered by: REZA ZAMBRANO NP Report #: [id number] Location: ER Room/Bed: Procedure: 5133-7386 DX/CH EST SINGLE (PORTABLE) Exam Date: 02/01/18 Exam Time: 1640 REPORT STATUS: Signed Exam ination: Single AP view of the chest. COMPARISON: AP chest 01/02/2018 I NDICATION: Dizziness IMPRESSION: 1. Lines and Tubes: Stable righ t IJ tunneled hemodialysis catheter 2. Bibasilar atelectasis and small bilate ral pleural effusions which are grossly unchanged since prior exam. 3. Card iomediastinal silhouette is borderline to mildly enlarged.. Central pulmonary venous congestion. 4. No acute bony abnormalities. Signed by: Dr. Shan Ramirez M.D. on 02/01/2018 6:01 PM Dictated By: SHAN RAMIREZ MD 00 Transcribed By: THOMAS BATISTA on 02/01/181800 COPY TO: REZA ZAMBRANO SECTION HAND HELPER PERICARDIUM 2018-01-10 14:11:00 RUN DATE: 01/10/18 [facility] PAGE 1 RUN TIME: 1411 Specimen Inqui ry RUN USER: INTERFACE PATIENT: SHALOM SORIANO ACCT #: V [id number] [facility] U #: [id number] AGE/SX: 68/F [facility]: Davida Dc MD : 54 BED: A DIS: STATUS: ADM IN TLOC: SPEC #: [id number] RECD: 01/09/18 STATUS: CRISTIANA REQ #: [id number] ОЛЬГА: 01/08/18- SUBM DR: Bruce Hsieh MD ENTERED: 01/09/18 SP TYPE: PERICARDIU OTHR DR: José Luis Ahuja MD, Mohamed O MD Orahood, Monte E MD Shiue, Angela B MDORDERED: GROSS COPIES TO: José Luis Ahuja MD [address] [facility] [place] [address] Roberta Vasquez MD [address] [place] [address] Bruce Hsieh MD [address] [facility] [address] [place] [address] Marianne Thacker MD [address] [place] [address] Cayetano Montelongo MD [address] [place] [address] PROC EDURES: JAY (01/10/18-1204) TISSUES: PERICARDIUM, [facility] AL HISTORY COLLECTION DATE: 01/08/18 PERICARDIAL EFFUSION CONTINUED ON NEXT PAGE RUN DATE: 01/10/18 [facility] PAGE 2 RUN TIME: 1411 Specimen Inquiry RUN USER: Brody RODRIGUEZ S PEC #: [id number] PATIENT: SHALOM SORIANO #[id number] (Continued) COMMENT All of the tissue is submitted fo r histologic evaluation. The sections show mature adipose tissue that is vascul arized and contains a few unremarkable peripheral nerve bundles. A few small l ymphoid aggregates are present within the fatty tissue but no significant acute or chronic inflammation is appreciated. The fat occurs adjacent to fibrous ti ssue with an attenuated mesothelial lining that is compatible with pericardium. A very small amount of perivascular chronic inflammation is seen within the fi brous tissue. At the mesothelial surface of the tissue there is focal extravasa tion of red blood cells into the fibrous tissue compatible with hemorrhage in t he area. A small amount of chronic inflammation is seen in these areas. No gra nulomas or areas of necrosis are identified. No cytologic atypia or features d iagnostic of malignancy are present. The findings are considered to be nonspec ific and correlation is recommended. FINAL DIAGNOSIS Pericardium, bio psy: MATURE ADIPOSE TISSUE AND FIBROUS TISSUE WITH ATTENUATED MESOTHELIAL LINING COMPATIBLE WITH PERICARDIUM VERY MILD CHRONIC INFLAMMAT ION AND FOCAL HEMORRHAGE AT MESOTHELIAL SURFACE NEGATIVE FOR MA LIGNANCY RRB/sm D 19740 MACROSCOPIC The specimen is r eceived in formalin, labeled with the patient's name and identified as "perica rdium". It consists of a flat portion of tissue which has a walsh glistening s urface on one side and a yellow fatty surface on the opposite side. It measur es 1.7 X 1.2 X 0.4 cm in thickness. The specimen is multiply transected and s ubmitted in its entirety for microscopic evaluation in a single cassette. GROSS PERFORMED AT [facility] [address] [place] [address], [place] [address] (p)[phone] MICROSCOPIC MICROSC OPIC PERFORMED AT [facility] All of the stains, including any cont rols performed, stain appropriately. CONTINU ED ON NEXT PAGE RUN DATE: 01/10/18 [facility] PAGE 3 RUN TIME: 141 Specimen Inquiry RUN USER: INTERFACE SPEC #: [id number] RENZO IENT: SHALOM SORIANO #[id number] (Continued) MICROSCOPIC (Continued) [facility] [address] [place] [address] (P)[phone] PERFORMING SITE Di agnosis performed at: [facility], [place] [address] [place] [address] Signed SIG NATURE ON FILE Seth Weber 01/10/18 1411 ------- ----- END OF REPORT HRGQKSAGYRB8728-76-12 13:51:00 RUN DATE: 01/10/18 [facility] PAGE 1 RUN TIME: 1351 Specimen Inqui ry RUN USER: INTERFACE PATIENT: SHALOM SORIANO ACCT #: V [id number] LOC: [facility] U #: [id number] AGE/SX: 68/F ROOM: [facility] RE01/07/18REG DR: Davida Dc MD : 54 BED: A DIS: STATUS: ADM IN TLOC: SPEC #: [id number] RECD: 01/09/18 STATUS: CRISTIANA BEDOYA #: [id number] ОЛЬГА: 01/08/18- SUBM DR: Bruce Hsieh MD ENTERED: 01/09/18 SP TYPE: PERICARDIU OTHR DR: José Luis Ahuja MD,Marianne Rodriguez MD, MD, Angela B MDORDERED: JAY COPIES TO: José Luis Ahuja MD [address] [facility] [address] [place] [id number] Roberta Vasquez MD [address] [place] [address] Bruce Hsieh MD [address] [facility] [address] [place] [address] Marianne Thacker MD [address] [facility] [address] [place] [address] Cayetano Montelongo MD [address] [place] [address] PROC EDURES: JAY (01/10/18) TISSUES: PERICARDIUM, NOS - 1000ML RED F LUID CLINICAL HISTORY COLLECTION DATE: 01/08/2018 PERICARDIAL EFFUSION PENDING CONTINUED ON NEXT PAGE RUN DATE: 01/10/18 [place] - Lab PAGE 2 RUN TIME: 1351 Specimen In quiry RUN USER: INTERFACE SPEC #: [id number] PATIENT: SORIANOGHANSHYAM #[id number] (Continued) COMMENT Two concentrated smears, a cytospin and cell block are prepared from the flui d. FINAL DIAGNOSIS Pericardial fluid, cytology: NEGATIVE FOR MALIGNANCY MIXED INFLAMMATORY CELLS IN BACKGROUND OF BLOOD RRB/ sm D 41058, 89841 MACROSCOPIC The specimen consists of 1000 mL of red fluid for concentration and evaluation. GROSS PERFORMED AT [facility] [address] [place] [address] [phone])[phone] MICROSCOPIC MICROSCOPIC PERFORMED AT [facility] All of the stains, including any controls performed, stain appro priately. [facility] [address] [place] [address] (p)[phone] PERFORMING SITE Diagnosis performed at: [facility], [address] [address] Signed SIGNATURE ON FILE Seth Weber 01/10/18 1351 END OF REPORT Blood Jdwswhl7241-40-00 12:20:00* Test Item Value Reference Range Interpretation Comments Blood Culture (test code = 62253702) NO GROWTH AFTER 5 DAYS, FINAL REPORT [facility] CenterBlood Eeuhiaj0408-54-43 12:20:00* Test Item Value Reference Range Interpretation Comments Blood Culture (test code = 62155199) NO GROWTH AFTER 5 DAYS, FINAL REPORT [facility] CenterBlood Pjhiaft4422-52-05 12:20:00* Test Item Value Reference Range Interpretation Comments Blood Culture (test code = 82792353) NO GROWTH AFTER 5 DAYS, FINAL REPORT [facility] CenterHe[facility] B Surface Antibody, Quant 2018 06:30:00* Test Item Value Reference Range Interpretation Comments Hepatitis B Surface Antibody, Quant (test code = 5194-6) <3.1 Immunity>9.9 L Status of Immunity Anti-HBs Level Inconsistent with Immunity 0.0 - 9.9Consistent with Immunity >9.9[facility] B Core Total Qithwssh7130-24-12 06:30:00* Test Item Value Reference Range Interpretation Comments Hepatitis B Core Total Antibody (test code = 88344-2) Negative Negative Performed at: - [address] [id number] Director: Ruben Velázquez MD, Phone: [phone] B Surface Antibody, Nyrcm8430-90-70 06:30:00* Test Item Value Reference Range Interpretation Comments Hepatitis B Surface Antibody, Quant (test code = 5194-6) <3.1 Immunity>9.9 L Status of Immunity Anti-HBs Level Inconsistent with Immunity 0.0 - 9.9Consistent with Immunity >9.9[facility] Surface Antibody, Pddvy4869-86-00 06:30:00* Test Item Value Reference Range Interpretation Comments Hepatitis B Surface Antibody, Quant (test code = 5194-6) <3.1 Immunity>9.9 L Status of Immunity Anti-HBs Level Inconsistent with Immunity 0.0 - 9.9Consistent with Immunity >9.9[facility] Iehim8118-73-52 06:31:00* Test Item Value Reference Range Interpretation Comments Sodium Level (test code = 2951-2) 138 136-145 [facility] CenterPotassium Eyswn6575-35-59 06:31:00* Test Item Value Reference Range Interpretation Comments Potassium Level (test code = 2823-3) 3.7 3.5-5.1 [facility] CenterChloride Zpydd6371-85-79 06:31:00* Test Item Value Reference Range Interpretation Comments Chloride Level (test code = 2075-0) 96 98-107 L [facility] [facility] CenterCarbon Dioxide Yegqu5650-62-18 06:31:00* Test Item Value Reference Range Interpretation Comments Carbon Dioxide Level (test code = 2028-9) 26 22-29 [facility] CenterAnion Qla2290-28-93 06:31:00* Test Item Value Reference Range Interpretation Comments Anion Gap (test code = 77937-8) 19.7 8-16 H [facility] CenterBlood Urea Xkvbuyrc5183-81-77 06:31:00* Test Item Value Reference Range Interpretation Comments Blood Urea Nitrogen (test code = 3094-0) 16 7-26 [facility] CenterCreatinine2018-09-28 06:31:00* Test Item Value Reference Range Interpretation Comments Creatinine (test code = 2160-0) 3.65 0.57-1.11 H [facility] CenterBUN/Creatinine Vmnrk7306-69-75 06:31:00* Test Item Value Reference Range Interpretation Comments BUN/Creatinine Ratio (test code = 3097-3) 4 6-25 L [facility] CenterEstimat Glomerular Filtration Rate 2018-01-03 06:31:00* Test Item Value Reference Range Interpretation Comments Estimat Glomerular Filtration Rate (test code = 248888900) 12 >60 L Ranges were taken from the National Kidney Disease Education Program and the [facility] Foundation literature.Reference ranges:60 or greater: Acpkri31-49 ( for 3 consecutive months): Chronic kidney disease 15 or less: Kidney failureLamb Healthcare CenterGlucose Ewlsr6339-75-52 06:31:00* Test Item Value Reference Range Interpretation Comments Glucose Level (test code = NIC5660) 106 74-118 [facility] CenterCalcium Nbcgo3172-15-40 06:31:00* Test Item Value Reference Range Interpretation Comments Calcium Level (test code = 24976-8) 8.9 8.4-10.2 [facility] CenterWhite Blood Nvuks2281-55-90 06:29:00* Test Item Value Reference Range Interpretation Comments White Blood Count (test code = 6690-2) 12.40 4.8-10.8 H [facility] CenterRed Blood Desis5086-97-00 06:29:00* Test Item Value Reference Range Interpretation Comments Red Blood Count (test code = 789-8) 2.90 3.6-5.1 L [facility] CenterHemoglobin2018-09-28 06:29:00* Test Item Value Reference Range Interpretation Comments Hemoglobin (test code = 32664-9) 8.5 12.0-16.0 L [facility] CenterHematocrit2018-09-28 06:29:00* Test Item Value Reference Range Interpretation Comments Hematocrit (test code = 4544-3) 27.4 34.2-44.1 L [facility] CenterMean Corpuscular Vnrtzs7149-33-14 06:29:00* Test Item Value Reference Range Interpretation Comments Mean Corpuscular Volume (test code = 787-2) 94.5 81-99 [facility] CenterMean Corpuscular Hktzedwqjw9219-35-68 06:29:00* Test Item Value Reference Range Interpretation Comments Mean Corpuscular Hemoglobin (test code = 785-6) 29.3 28-32 [facility] CenterMean Corpuscular Hemoglobin Concent 2018-01-03 06:29:00* Test Item Value Reference Range Interpretation Comments Mean Corpuscular Hemoglobin Concent (test code = 786-4) 31.0 31-35 [facility] CenterRed Cell Distribution Cycvw0158-55-70 06:29:00* Test Item Value Reference Range Interpretation Comments Red Cell Distribution Width (test code = 49626-2) 15.7 11.7 -14.4 H [facility] CenterPlatelet Mspmk1455-57-73 06:29:00* Test Item Value Reference Range Interpretation Comments Platelet Count (test code = 777-3) 247 140-360 [facility] CenterNeutrophils (%) (Auto)2018-01-03 06:29:00 * Test Item Value Reference Range Interpretation Comments Neutrophils (%) (Auto) (test code = 62972-9) 81.2 38.7-80.0 H [facility] CenterLymphocytes (%) (Auto)2018-01-03 06:29:00 * Test Item Value Reference Range Interpretation Comments Lymphocytes (%) (Auto) (test code = 736-9) 7.2 18.0-39.1 L [facility] CenterMonocytes (%) (Auto)2018-01-03 06:29:00* Test Item Value Reference Range Interpretation Comments Monocytes (%) (Auto) (test code = 5905-5) 8.5 4.4-11.3 [facility] CenterEosinophils (%) (Auto)2018-01-03 06:29:00 * Test Item Value Reference Range Interpretation Comments Eosinophils (%) (Auto) (test code = 713-8) 2.2 0.0-6.0 [facility] CenterBasophils (%) (Auto)2018-01-03 06:29:00* Test Item Value Reference Range Interpretation Comments Basophils (%) (Auto) (test code = 706-2) 0.3 0.0-1.0 [facility] CenterIM GRANULOCYTES %2018-01-03 06:29:00* Test Item Value Reference Range Interpretation Comments IM GRANULOCYTES % (test code = IM GRANULOCYTES %) 0.6 0.0- 1.0 [facility] CenterNeutrophils # (Auto)2018-01-03 06:29:00* Test Item Value Reference Range Interpretation Comments Neutrophils # (Auto) (test code = 751-8) 10.1 2.1-6.9 H [facility] CenterLymphocytes # (Auto)2018-01-03 06:29:00* Test Item Value Reference Range Interpretation Comments Lymphocytes # (Auto) (test code = 38304-2) 0.9 1.0-3.2 L [facility] CenterMonocytes # (Auto)2018-01-03 06:29:00* Test Item Value Reference Range Interpretation Comments Monocytes # (Auto) (test code = 742-7) 1.1 0.2-0.8 H [facility] CenterEosinophils # (Auto)2018-01-03 06:29:00* Test Item Value Reference Range Interpretation Comments Eosinophils # (Auto) (test code = 711-2) 0.3 0.0-0.4 [facility] CenterBasophils # (Auto)2018-01-03 06:29:00* Test Item Value Reference Range Interpretation Comments Basophils # (Auto) (test code = 704-7) 0.0 0.0-0.1 [facility] CenterAbsolute Immature Granulocyte (auto 2018-01-03 06:29:00* Test Item Value Reference Range Interpretation Comments Absolute Immature Granulocyte (auto (grazyna t code = Absolute Immature Granulocyte (auto) 0.08 0-0.1 [facility] CenterBlood Awzcusl7902-32-60 12:20:00* Test Item Value Reference Range Interpretation Comments Blood Culture (test code = 21248294) NO GROWTH AFTER 24 HOURS [facility] CenterCHEST SINGLE (PORTABLE)2018-01-02 11:12:00 [facility] [address] [place] [address] Patient Name: SHALOM SORIANO MR #: [id number] : 1950 Age/Sex: 67/F Req #: [id number] Adm Physician: MARIANNE THACKER MD Ordered by: MARIANNE THACKER MD Report #: [id number] Location: MED/SURG2 Room/Bed: [facility] Procedure: [id number] DX/C HEST SINGLE (PORTABLE) Exam Date: 01/02/18 Exam Time : 1010 REPORT STATUS: Signed PROCEDURE: A single AP view of the chest . COMPARISON: Chest radiograph 01/01/18. INDICATIONS: FLUID OVERLOA D FINDINGS: Lines/tubes: Right IJ tunneled hemodialysis catheter wi th tip overlying the right atrium. Lungs: Moderate lung volumes. Perih ilar and interstitial opacity, right greater than left. Patchy opacity at t he right lung base. Pleura: Moderate right and small left pleural effusion . No evidence of pneumothorax. Heart and mediastinum: Enlarged cardiomed iastinal silhouette. Atherosclerotic calcifications of the aortic arch. Bones: No acute bony abnormality. IMPRESSION: Pulmonary interstitial edema with moderate right and small left pleural effusions. Patchy opacity at the right lung base, likely atelectasis. Cardiomegaly. Dictated by: RAD LYN M.D. on 01/02/2018 at 11:12 Electronically appro racheal by: RAD LYN M.D. on 01/02/2018 at 11:12 Dictated By: JAGJIT LYN MD 1112 Transcribed By: YURI on 01/02/18 1112 COPY TO: MARIANNE THACKER MD Creatine Kinase MH7166-82-68 06:16:00* Test Item Value Reference Range Interpretation Comments Creatine Kinase MB (test code = 19423-3) 0.50 0-5.0 [facility] CenterTroponin Z5638-90-74 06:16:00* Test Item Value Reference Range Interpretation Comments Troponin I (test code = XUP6230) 0.052 0-0.300 [facility] CenterB-Type Natriuretic Vynubtq1060-41-54 06:08:00* Test Item Value Reference Range Interpretation Comments B-Type Natriuretic Peptide (test code = 79747-5) 662.2 0-100 H [facility] CenterPhosphorus Embqy3212-22-34 06:01:00* Test Item Value Reference Range Interpretation Comments Phosphorus Level (test code = IHW3472) 5.1 2.3-4.7 H [facility] CenterMagnesium Pxvfi5501-48-34 06:01:00* Test Item Value Reference Range Interpretation Comments Magnesium Level (test code = 86249-5) 1.8 1.3-2.1 [facility] CenterTotal Xkrskauev0799-83-69 06:01:00* Test Item Value Reference Range Interpretation Comments Total Bilirubin (test code = 1975-2) 0.5 0.2-1.2 [facility] CenterAspartate Amino Transf (AST/SGOT) 2018-01-02 06:01:00* Test Item Value Reference Range Interpretation Comments Aspartate Amino Transf (AST/SGOT) (test code = Aspartate Amino Transf (AST/SGOT)) 11 5-34 [facility] CenterAlanine Aminotransferase (ALT/SGPT) 2018-01-02 06:01:00* Test Item Value Reference Range Interpretation Comments Alanine Aminotransferase (ALT/SGPT) (test code = 1742-6) -6 0-55 [facility] CenterTotal Ieasous3917-44-39 06:01:00* Test Item Value Reference Range Interpretation Comments Total Protein (test code = 2885-2) 5.9 6.5-8.1 L [facility] CenterAlbumin2018-09-27 06:01:00* Test Item Value Reference Range Interpretation Comments Albumin (test code = 1751-7) 2.6 3.5-5.0 L [facility] CenterGlobulin2018-09-27 06:01:00* Test Item Value Reference Range Interpretation Comments Globulin (test code = 41554-1) 3.3 2.3-3.5 [facility] CenterAlbumin/Globulin Edxgb8214-08-67 06:01:00 * Test Item Value Reference Range Interpretation Comments Albumin/Globulin Ratio (test code = 1759-0) 0.8 0.8-2.0 [facility] CenterAlkaline Bklvhluxnyk0183-88-65 06:01:00* Test Item Value Reference Range Interpretation Comments Alkaline Phosphatase (test code = 6768-6) 82 40-150 [facility] CenterCreatine Grluwb8561-56-30 06:01:00* Test Item Value Reference Range Interpretation Comments Creatine Kinase (test code = 2157-6) 15 29-168 L [facility] CenterCHEST 2 TKDCF5824-22-98 09:19:00 [facility] [address] [address] Patient Name: SHALOM SORIANO MR #: [id number] : Age/Sex: 67/F Req #: [id number] Adm Physician: Ordered by: OSWALDO BAEZ MD Report #: [id number] Location: ER Room/B ed: Procedure: [id number] DX/CHEST 2 VIEWS Exam Date: 01/01/18 Exam Time: 0850 REPORT STATUS: Signed PROCEDURE: Frontal and lateral views of the chest. COMPARISON: None. INDICATIONS: SHORTNESS OF BREATH FINDINGS: Lines/tubes: Right IJ tunneled hemodialysis catheter with tip overlying the right atrium. Lungs: Moderate lung volumes. Perihilar and interstitial opacity, right greater than left. Patchy opacity at the right lung base. Pleura: Modera te right and small left pleural effusion. No evidence of pneumothorax. Heart and mediastinum: Enlarged cardiomediastinal silhouette. Atheroscleroti c calcifications of the aortic arch. Bones: No acute bony abnormality. IMPRESSION: Pulmonary interstitial edema with moderate right and small l eft pleural effusions. Patchy opacity at the right lung base, likely atelecta sis. Cardiomegaly. Dictated by: RAD LYN M.D. on 01/01/2018 at 9 :19 Electronically approved by: RAD LYN M.D. on 01/01/2018 at 9:19 Dictated By: RAD LYN MD 8 Transcribed By: YURI on 01/01/18918 COPY TO: OSWALDO GUERRA MD Prothrombin Pvrg7947-34-41 12:22:00* Test Item Value Reference Range Interpretation Comments Prothrombin Time (test code = 5902-2) 13.6 11.9-14.5 [facility] CenterProthromb Time International Ratio 2017-12-17 12:22:00* Test Item Value Reference Range Interpretation Comments Prothromb Time International Ratio (test code = 6301-6) 1.13 Oral Anticoagulant Therapy INR Values:1. Low Intensity Therapy 1.5 - 2.02 . Moderate Intensity Therapy 2.0 - 3.03. High Intensity Therapy(1) 2.5 - 3. 54. High Intensity Therapy(2) 3.0 - 4.05. Panic Value INR > 5.0 [facility] Surface Antibody, Quant 2017-12-11 10:04:00* Test Item Value Reference Range Interpretation Comments Hepatitis B Surface Antibody, Quant (test code = 5194-6) -3.1 Immunity>9.9 L Status of Immunity Anti-HBs Level Inconsistent with Immunity 0.0 - 9.9Consistent with Immunity >9.9[facility] Core Total Olbnwuhg5467-54-96 10:04:00* Test Item Value Reference Range Interpretation Comments Hepatitis B Core Total Antibody (test code = 47372-3) Negative Negative [facility] B Surface Kerwkes6276-12-51 10:04:00* Test Item Value Reference Range Interpretation Comments Hepatitis B Surface Antigen (test code = 5196-1) Negative Negat tho [facility] B Core IgM Igyidthh6701-56-87 10:04:00* Test Item Value Reference Range Interpretation Comments Hepatitis B Core IgM Antibody (test code = 28071-9) Negative Ne gative Performed at: [address] [id number] Director: Ruben Velázquez MD, Phone: [phone] Healthcare CenterHepatitis B Core IgM Tbqgopjr2655-45-59 10:04:00* Test Item Value Reference Range Interpretation Comments Hepatitis B Core IgM Antibody (test code = 51943-3) Negative Ne gative Performed at: [address] [id number] Director: Ruben Velázquez MD, Phone: [phone] Healthcare CenterHekindred hospital lou[facility]illetis B Core IgM Dxwlqsrl1583-38-28 10:04:00* Test Item Value Reference Range Interpretation Comments Hepatitis B Core IgM Antibody (test code = 23736-0) Negative Ne gative Performed at: [address] [id number] Director: Ruben Velázquez MD, Phone: [phone] Healthcare CenterHenapa [facility] hospital B Core IgM Ftudvrff8583-05-51 10:04:00* Test Item Value Reference Range Interpretation Comments Hepatitis B Core IgM Antibody (test code = 95645-5) Negative Ne gative Performed at: [address] [id number] Director: Ruben Velázquez MD, Phone: [phone] Healthcare CenterCreatine Kinase AJ9196-56-07 12:48:00* Test Item Value Reference Range Interpretation Comments Creatine Kinase MB (test code = 36562-1) 0.80 0-5.0 [facility] CenterTroponin G1493-82-18 12:48:00* Test Item Value Reference Range Interpretation Comments Troponin I (test code = PWQ7189) 0.053 0-0.300 [facility] CenterCreatine Llqoxo0906-70-59 12:41:00* Test Item Value Reference Range Interpretation Comments Creatine Kinase (test code = 2157-6) 13 29-168 [facility] Centerodium Klwyo7477-59-60 07:05:00* Test Item Value Reference Range Interpretation Comments Sodium Level (test code = 2951-2) 134 136-145 L [facility] CenterPotassium Ocoft7463-90-02 07:05:00* Test Item Value Reference Range Interpretation Comments Potassium Level (test code = 2823-3) 3.4 3.5-5.1 L [facility] CenterChloride Pzroc9088-58-39 07:05:00* Test Item Value Reference Range Interpretation Comments Chloride Level (test code = 2075-0) 94 98-107 L [facility] CenterCarbon Dioxide Lawxt9000-05-06 07:05:00* Test Item Value Reference Range Interpretation Comments Carbon Dioxide Level (test code = 2028-9) 26 22-29 [facility] CenterAnion Ubf6286-42-77 07:05:00* Test Item Value Reference Range Interpretation Comments Anion Gap (test code = 24111-0) 17.4 8-16 H [facility] CenterBlood Urea Pvoxlbsa4126-38-87 07:05:00* Test Item Value Reference Range Interpretation Comments Blood Urea Nitrogen (test code = 3094-0) 30 7-26 H [facility] CenterCreatinine2018-09-01 07:05:00* Test Item Value Reference Range Interpretation Comments Creatinine (test code = 2160-0) 5.44 0.57-1.11 H [facility] CenterBUN/Creatinine Bozkn3903-60-37 07:05:00* Test Item Value Reference Range Interpretation Comments BUN/Creatinine Ratio (test code = 3097-3) 6 6-25 [facility] CenterEstimat Glomerular Filtration Rate 2017-12-07 07:05:00* Test Item Value Reference Range Interpretation Comments Estimat Glomerular Filtration Rate (test code = 84637-0) 8 >60 L Ranges were taken from the National Kidney Disease Education Program and the [facility] Kid[facility] Foundation literature.Reference ranges:60 or greater: Wogfob92-88 ( for 3 consecutive months): Chronic kidney disease 15 or less: Kidney failureCH[facility] CenterGlucose Fegug0200-18-69 07:05:00* Test Item Value Reference Range Interpretation Comments Glucose Level (test code = ATJ5570) 85 74-118 [facility] CenterCalcium Jsjwm3840-94-19 07:05:00* Test Item Value Reference Range Interpretation Comments Calcium Level (test code = 19799-0) 8.7 8.4-10.2 [facility] CenterTotal Vnsfdaiml4320-05-09 07:05:00* Test Item Value Reference Range Interpretation Comments Total Bilirubin (test code = 1975-2) 0.5 0.2-1.2 [facility] CenterAspartate Amino Transf (AST/SGOT) 2017-12-07 07:05:00* Test Item Value Reference Range Interpretation Comments Aspartate Amino Transf (AST/SGOT) (test code = Aspartate Amino Transf (AST/SGOT)) 10 5-34 [facility] CenterAlanine Aminotransferase (ALT/SGPT) 2017-12-07 07:05:00* Test Item Value Reference Range Interpretation Comments Alanine Aminotransferase (ALT/SGPT) (test code = 1742-6) 7 0-55 [facility] Bgnkknw7367-45-32 07:05:00* Test Item Value Reference Range Interpretation Comments Total Protein (test code = 2885-2) 5.5 6.5-8.1 L [facility] CenterAlbumin2018-09-01 07:05:00* Test Item Value Reference Range Interpretation Comments Albumin (test code = 1751-7) 2.3 3.5-5.0 L [facility] CenterGlobulin2018-09-01 07:05:00* Test Item Value Reference Range Interpretation Comments Globulin (test code = 37897-4) 3.2 2.3-3.5 [facility] CenterAlbumin/Globulin Qrgbn9349-19-12 07:05:00 * Test Item Value Reference Range Interpretation Comments Albumin/Globulin Ratio (test code = 1759-0) 0.7 0.8-2.0 L [facility] CenterAlkaline Kpbrvultxuf1801-66-32 07:05:00* Test Item Value Reference Range Interpretation Comments Alkaline Phosphatase (test code = 6768-6) 76 40-150 [facility] CenterTriglycerides Vwvnq2913-54-68 07:05:00* Test Item Value Reference Range Interpretation Comments Triglycerides Level (test code = 2571-8) 82 0-149 [facility] CenterCholesterol Jmiyb8429-37-49 07:05:00* Test Item Value Reference Range Interpretation Comments Cholesterol Level (test code = 2093-3) 147 0-199 Less than 200 mg/dL Low Gxqc004 - 239 mg/dL Borderline Bcxr971 m g/dl and greater High Risk [facility] CenterLDL Eoelhpyuuen2336-17-52 07:05:00* Test Item Value Reference Range Interpretation Comments LDL Cholesterol (test code = 2089-1) 85 60-130 [facility] Gglougenqxd2505-61-21 07:05:00* Test Item Value Reference Range Interpretation Comments HDL Cholesterol (test code = 2085-9) 46 40-60 [facility] CenterCholesterol/HDL Ltktw8095-53-74 07:05:00 * Test Item Value Reference Range Interpretation Comments Cholesterol/HDL Ratio (test code = 9830-1) 3.2 3.0-3.6 [facility] CenterTriglycerides Ycuwj4599-98-05 07:05:00* Test Item Value Reference Range Interpretation Comments Triglycerides Level (test code = 2571-8) 82 0-149 [facility] CenterCholesterol Pqiwj5599-14-23 07:05:00* Test Item Value Reference Range Interpretation Comments Cholesterol Level (test code = 2093-3) 147 0-199 Less than 200 mg/dL Low Mvwy766 - 239 mg/dL Borderline Tzkz324 m g/dl and greater High Risk [facility] CenterLDL Rtekvczuava9835-22-87 07:05:00* Test Item Value Reference Range Interpretation Comments LDL Cholesterol (test code = 2089-1) 85 60-130 [facility] Dxdxmqyvhzg0548-41-46 07:05:00* Test Item Value Reference Range Interpretation Comments HDL Cholesterol (test code = 2085-9) 46 40-60 [facility] CenterCholesterol/HDL Tlluw2149-32-85 07:05:00 * Test Item Value Reference Range Interpretation Comments Cholesterol/HDL Ratio (test code = 9830-1) 3.2 3.0-3.6 [facility] CenterWhite Blood Jxzid4169-36-07 06:28:00* Test Item Value Reference Range Interpretation Comments White Blood Count (test code = 6690-2) 6.69 4.8-10.8 [facility] CenterRed Blood Gynwy3620-27-94 06:28:00* Test Item Value Reference Range Interpretation Comments Red Blood Count (test code = 789-8) 3.03 3.6-5.1 L [facility] CenterHemoglobin2018-09-01 06:28:00* Test Item Value Reference Range Interpretation Comments Hemoglobin (test code = 78500-3) 9.3 12.0-16.0 L [facility] CenterHematocrit2018-09-01 06:28:00* Test Item Value Reference Range Interpretation Comments Hematocrit (test code = 4544-3) 29.3 34.2-44.1 L [facility] CenterMean Corpuscular Hxqgpz2302-10-01 06:28:00* Test Item Value Reference Range Interpretation Comments Mean Corpuscular Volume (test code = 787-2) 96.7 81-99 [facility] CenterMean Corpuscular Onnnmnitvj9538-27-75 06:28:00* Test Item Value Reference Range Interpretation Comments Mean Corpuscular Hemoglobin (test code = 785-6) 30.7 28-32 [facility] CenterMean Corpuscular Hemoglobin Concent 2017-12-07 06:28:00* Test Item Value Reference Range Interpretation Comments Mean Corpuscular Hemoglobin Concent (test code = 786-4) 31.7 31-35 [facility] CenterRed Cell Distribution Mrxjs1740-62-77 06:28:00* Test Item Value Reference Range Interpretation Comments Red Cell Distribution Width (test code = 82552-0) 15.5 11.7 -14.4 H [facility] CenterPlatelet Dsovb1832-54-78 06:28:00* Test Item Value Reference Range Interpretation Comments Platelet Count (test code = 777-3) 174 140-360 [facility] CenterNeutrophils (%) (Auto)2017-12-07 06:28:00 * Test Item Value Reference Range Interpretation Comments Neutrophils (%) (Auto) (test code = 47185-2) 68.4 38.7-80.0 [facility] CenterLymphocytes (%) (Auto)2017-12-07 06:28:00 * Test Item Value Reference Range Interpretation Comments Lymphocytes (%) (Auto) (test code = 736-9) 19.1 18.0-39.1 [facility] CenterMonocytes (%) (Auto)2017-12-07 06:28:00* Test Item Value Reference Range Interpretation Comments Monocytes (%) (Auto) (test code = 5905-5) 8.2 4.4-11.3 [facility] CenterEosinophils (%) (Auto)2017-12-07 06:28:00 * Test Item Value Reference Range Interpretation Comments Eosinophils (%) (Auto) (test code = 713-8) 3.6 0.0-6.0 [facility] CenterBasophils (%) (Auto)2017-12-07 06:28:00* Test Item Value Reference Range Interpretation Comments Basophils (%) (Auto) (test code = 706-2) 0.4 0.0-1.0 [facility] CenterIM GRANULOCYTES %2017-12-07 06:28:00* Test Item Value Reference Range Interpretation Comments IM GRANULOCYTES % (test code = IM GRANULOCYTES %) 0.3 0.0- 1.0 [facility] CenterNeutrophils # (Auto)2017-12-07 06:28:00* Test Item Value Reference Range Interpretation Comments Neutrophils # (Auto) (test code = 751-8) 4.6 2.1-6.9 [facility] CenterLymphocytes # (Auto)2017-12-07 06:28:00* Test Item Value Reference Range Interpretation Comments Lymphocytes # (Auto) (test code = 33414-7) 1.3 1.0-3.2 [facility] CenterMonocytes # (Auto)2017-12-07 06:28:00* Test Item Value Reference Range Interpretation Comments Monocytes # (Auto) (test code = 742-7) 0.6 0.2-0.8 [facility] CenterEosinophils # (Auto)2017-12-07 06:28:00* Test Item Value Reference Range Interpretation Comments Eosinophils # (Auto) (test code = 711-2) 0.2 0.0-0.4 [facility] CenterBasophils # (Auto)2017-12-07 06:28:00* Test Item Value Reference Range Interpretation Comments Basophils # (Auto) (test code = 704-7) 0.0 0.0-0.1 [facility] CenterAbsolute Immature Granulocyte (auto 2017-12-07 06:28:00* Test Item Value Reference Range Interpretation Comments Absolute Immature Granulocyte (auto (grazyna t code = Absolute Immature Granulocyte (auto) 0.02 0-0.1 [facility] CenterB-Type Natriuretic Nnspnkd9324-33-99 22:08:00* Test Item Value Reference Range Interpretation Comments B-Type Natriuretic Peptide (test code = 67082-2) 408.5 0-100 H [facility] CenterProthrombin Lyfl8768-35-26 21:58:00* Test Item Value Reference Range Interpretation Comments Prothrombin Time (test code = 5902-2) 13.1 11.9-14.5 [facility] CenterProthromb Time International Ratio 2017-12-06 21:58:00* Test Item Value Reference Range Interpretation Comments Prothromb Time International Ratio (test code = 6301-6) 1.07 Oral Anticoagulant Therapy INR Values:1. Low Intensity Therapy 1.5 - 2.02 . Moderate Intensity Therapy 2.0 - 3.03. High Intensity Therapy(1) 2.5 - 3. 54. High Intensity Therapy(2) 3.0 - 4.05. Panic Value INR > 5.0 [facility] CenterActivated Partial Thromboplast Time 2017-12-06 21:58:00* Test Item Value Reference Range Interpretation Comments Activated Partial Thromboplast Time (test code = 84831-7) 36.2 23.8-35.5 H [facility] CenterActivated Partial Thromboplast Time 2017-12-06 21:58:00* Test Item Value Reference Range Interpretation Comments Activated Partial Thromboplast Time (test code = 19408-9) 36.2 23.8-35.5 H [facility] CenterCHEST SINGLE (PORTABLE)2017-12-06 21:51:00 [facility] [address] [address] Patient Name: SHALOM SORIANO MR #: [id number] : 1950 Age/Sex: 67/F Req #: [id number] Adm Physician: Ordered by: REZA ZAMBRANO SECTION HAND HELPER Report #: [id number] Location: ER Room/Bed: Procedure: [id number] DX/CHEST SINGLE (PORTABLE) Exam Date: Exam Time: REPORT STATUS: Signed EX AM: CHEST SINGLE (PORTABLE), AP 1 view INDICATION: Back pain COMPARISON: Non e FINDINGS: LINES/TUBES: There is a right internal jugular vein tunnel he modialysis catheter with the tip at the expected location of the atriocaval ju nction. LUNGS: Mild bibasilar atelectasis PLEURA: Small bilateral ple ural effusions HEART AND MEDIASTINUM: The heart is at the upper limits of n ormal in size. BONES AND SOFT TISSUES: No acute findings. IMPRESSION: Mild vascular congestion, bibasilar atelectasis and small bilateral pleural effusions. Signed by: Dr. Carlos Piña M.D. on 12/06/2017 9:52 PM Dictated By: CARLOS PIÑA MD 53 Transcribed By: ANTONY on 12/06/172151 COPY TO: REZA ZAMBRANO NP
--- NOTE | 2020-01-07 15:59 | NUR ---
requested phlebotomy to draw patient at this time
--- NOTE | 2020-01-07 16:19 | Diagnostic Imaging Report ---
TECHNIQUE: Frontal view of the chest. INDICATION: ^PALPITATIONS ^[id number] ^1550 COMPARISON: None DISCUSSION: Limited evaluation due to portable technique. Lines and hardware: Right HERO graft metallic tubing is noted extending to the mid to inferior right atrium. Overlying EKG leads are noted. Heart and mediastinum: Cardiomediastinal silhouette is enlarged. Central vascular congestion is noted. Lungs and pleura: Negative for focal consolidation, large effusion or pneumothorax. Right midlung 6 mm nodule is noted, possibly calcified granuloma. Soft tissues and bones: No acute abnormality. IMPRESSION: 1. Cardio megaly and central vascular condition. 2. Negative for focal consolidation. 3. Right-sided HERO graft is noted. 4. Right midlung 6 mm nodule, possibly a calcified granuloma. Consider obtaining any prior imaging to establish stability. Signed by: Gus Madrigal MD on 01/07/2020 4:16 PM
--- NOTE | 2020-01-07 16:43 | NUR ---
[facility] H&P: [id number]
[2020-01-07 16:56] LABS: BASOPHILS # (AUTO) 0.1 (0.0-0.1); BASOPHILS % 0.7 % (0.0-1.0); EOSINOPHILS # (AUTO) 0.4 (0.0-0.4); EOSINOPHILS % 5.9 % (0.0-6.0); HEMATOCRIT 36.8 % (34.2-44.1); LYMPHOCYTES # (AUTO) 1.1 (1.0-3.2); LYMPHOCYTES % 14.6 % (18.0-39.1); MEAN CORPUSCULAR HEMOGLOBIN 32.1 pg (28-32); MEAN CORPUSCULAR HGB CONC 32.6 g/dL (31-35); MEAN CORPUSCULAR VOLUME 98.4 fL (81-99); MONOCYTES # (AUTO) 0.7 (0.2-0.8); NEUTROPHILS # (AUTO) 5.1 (2.1-6.9); NEUTROPHILS % 68.3 % (38.7-80.0); PLATELET COUNT 201 x10e3/uL (140-360); RED BLOOD COUNT 3.74 x10e6/uL (3.6-5.1); RED CELL DISTRIBUTION WIDTH 12.5 % (11.7-14.4)
[2020-01-07] MEDS ORDERED: ONDANSETRON HCL INJ 2MG/ML 2ML 2 MG/ML VIAL IV PRN (17:00)
[2020-01-07 17:06] LABS: INR 0.86; PARTIAL THROMBOPLASTIN TIME 27.3 seconds (23.8-35.5); PROTHROMBIN TIME 12.2 seconds (11.9-14.5)
--- OUTSIDE RECORDS SUMMARY | 2020-01-07 17:11 | XMS REPORT | Clinical Summary ---
Author Author [facility] Organization [facility] Address Unknown Phone Unavailable Care Team Providers Care Shingler Name Role Phone Bruce Jay MD PCP [...] Noted Date History of recent hospitalization - [place] October 8 - SEE OVERVIEW 11/27/2017 Overview: SUMMARY OF ADMISSION TO [facility] - 11/05/17: SUMMARY OF MEDICAL RECORDS FROM [facility] Problem Based [facility] Sepsis 2/2 Sigmoid diverticulitis an d pancolitis [...] 08/31/2015 Nonrheumatic aortic valve insufficiency 08/19/2015 Overview: Btnr-[id number]-nlwenafk aortic regurgitation. Nonrheumatic aortic valve stenosis 08/19/2015 [...] disease ( see overview) Overview: ESRD LOCATION [facility] (MWF HD) [address] [place] [address] based on patient inf ormation about dialysis being close to [place] - [phone] Fish Conservationist is Cherelle Berg - Phone i s [phone] ===== ESRD on dialysis at present - [facility] - wi check sodium bicarb. Will [...] / Dates Group MEDICARE MEDICARE xxxxxxxxxx 2016-P [id number] [place] [address] [place] MEDICAID [id number] xxxxxxxxx 2017-P [phone] [address] resent [id number] MEDICARE [place], [place] BENEFICIAR [id number] Y Advance Directives Date Inactivated Comments Code Status Date Activated 03/30/2011 5:57 PM Full Code 03/29/2011 1:39 AM
--- OUTSIDE RECORDS SUMMARY | 2020-01-07 17:13 | XMS REPORT | Continuity of Care Document ---
Author Author [facility] t Organization [facility] Address [address] [place] [address] Phone Unavailable Care Team Providers Care [employer] Supervisor Name Role Phone MD MARIANNE MCLEAN MD PCP Cayetano VARGAS Attphys Unavailable Lawson Bañuelos Attphys Unavailable Jesse PATEL Attphys Unavailable SHRUTHI YEPEZ Attphys Unavailable Dhaval MELCHOR Attphys Unavailable MARIANNE MCLEAN Attphys Unavailable Hollie MONTERO Attphys Unavailable Yareli ALMANZA Attphys Unavailable MARIANNE MCLEAN [facility] Unavailable Payers Payer Name Policy Type Policy Number Effective Date Expiration Date Hollie camp [facility] [id number] 2017 00:00:00 ERICKA Hollie [facility] Medicare A & B [id number] 2016 00:00:00 [facility] Problems Condition Name Condition Details Condition Category Status Onset Date Resolution Date Last Treatment Date Treating Clinician Comments Source History of recent hospitalization - [place] October 2017 - SEE OVERVIEW History of recent hospitalization - [place] October 2017 - SEE OVERVIEW Disease A ctive 2017-11-27 00:00:00 Overview: LISA HASTINGS OF ADMISSION TO [facility] 10/23/17 - 11/05/17:SUMMARY OF MEDICAL RECORDS FROM [facility] Sepsis 2/2 Sigmoid diverticulitis and [...] seen 10/31/17 - improved on 11/02/17 imaging [facility] Personal history of noncompliance with m edical treatment, presenting hazards to health Personal history of noncompliance with m edical treatment, presenting hazards to health Disease Active 2017-02-15 00:00:00 [facility] SOB (shortness of breath) SOB (shortness of breath) Disease Ac tive 2016-10-15 00:00:00 [facility] Arthritis of foot Arthritis of foot Disease Active 2016-08-16 00:00:00 Overview: 2. Mild hallux valgus deformity with mild associated degenerativechange and soft tissue bunion.3. 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 Chronic unhealed ulnar styloid avulsion. [facility] Blowing systolic murmur @ LUSB - ? aortic stenosis Blo wing systolic murmur @ LUSB - ? aortic stenosis Disease Active 2015-08-31 00:00:00 [facility] Nonrheumatic aortic valve insufficiency Nonrheumatic aortic valve insufficiency Disease Active 2015-08-19 00:00:00 Overv iew: Cqus-yf-nrefzxqy aortic regurgitation. [facility] Nonrheumatic aortic valve stenosis Nonrheumatic aortic valve sawyer nosis Disease Active 2015-08-19 00:00:00 Overview : At most, mild aortic stenosis with aortic valve area of 1.6-1.9 cm2, peak AV velocity of 2.2 m/sec, mean gradient 7 mmHg. [facility] Hyperopia with astigmatism and presbyopia Hyperopia wi th astigmatism and presbyopia Disease Active 2014-04-21 00:00:00 [facility] Glaucoma suspect Glaucoma suspect Disease Active 2014-04-21 00:00:00 [facility] NS (nuclear sclerosis) NS (nuclear sclerosis) Disease Active 2014-04-21 00:00:00 [facility] BMI 40.0-44.9, adult BMI 40.0-44.9, adult Disease Active 00:00:00 [facility] Vitamin D deficiency Vitamin D deficiency Disease Active 00:00:00 [facility] Abnormal mammogram, unspecified Abnormal mammogram, unspecified Dis ease Active 2011-11-19 00:00:00 [facility] Diverticulitis Diverticulitis Disease Active 2011-03-28 00:00:00 [facility] Allergic rhinitis Allergic rhinitis Disease Active 2010-10-26 00:00:00 [facility] HTN (hypertension) HTN (hypertension) Disease Active 2009-10-21 00:00:0 0 [facility] Tobacco abuse Tobacco abuse Disease Active 2009-09-26 00:00:00 [facility] Chronic kidney disease Chronic kidney disease Disease Active 2008-04-19 00:00:00 [facility] Depression, major Depression, major Disease Active 2008-03-17 00:00:00 [facility] Back pain Back pain Problem Active [facility] End stage renal failure on dialysis ESRD (end stage renal di sease) on dialysis Problem Active [facility] Pericardial effusion Pericardial effusion Problem Active [facility] Congestive heart failure Congestive heart failure (CHF) Problem Active [facility] End-stage renal disease on hemodialysis ESRD on hemodialysis Problem Active [facility] Syncope Problem Active [facility] Dizziness Problem Active [facility] Asthma Asthma Disease Active [facility] alth Obesity Obesity Disease Active [facility] Diastolic dysfunction Diastolic dysfunction Disease Active [facility] Anemia Anemia Disease Active [facility] Iron deficiency Iron deficiency Disease Active [facility] Occult blood positive stool Occult blood positive stool Disease Active [facility] End stage renal disease ( see overview) End stage renal dise ase ( see overview) Disease Active Overview: ESRD LOCATIONDaVIta (F HD)3333 [facility] based on patient information about dialysis being close to [place] - [phone] is Cherelle Berg - Phone is [phone]=====ESRD on dialysis at present - [facility] - will check sodium bicarb. Will [...] GM proteinuria BMP - d/c sodium bicarbonate. [facility] SOB (shortness of breath) on exertion SOB (shortness of becky th) on exertion [facility] Former smoker Former smoker Disease Active [facility] Atrophic kidney Atrophic kidney Disease Active [facility] Elevated blood uric acid level Elevated blood uric acid level Disease Active [facility] Allergies, Adverse Reactions, Alerts Allergy Name Allergy Type Status Severity Reaction(s) Onset Date Inacti ve Date Treating Clinician Comments Source No Known Allergies DA Active U 2018-05-19 00:00:00 [facility] No Known Allergies DA Active U 2017-12-04 00:00:00 [facility] Carvedilol Propensity to adverse reactions to drug Active Other 2016-03-29 00:00:00 Patient reported blood in stool when taking carvedilol [facility] Family History Family Member Diagnosis Comments Start Date Stop Date Source Natural father Diabetes [facility] Natural mother Diabetes [facility] Social History Social Habit Start Date Stop Date Quantity Comments Source Tobacco Comment two packs [facility] week [facility] Cigarettes smoked current (pack per day) - Reported 00:00:00 2018-09-10 00:00:00 [facility] Cigarette pack-years 2018-09-10 00:00:00 2018-09-10 00:00:00 [facility] Alcohol intake 2018-09-10 00:00:00 2018-09-10 00:00:00 Current non-drinker of alcohol (finding) [facility] History SDOH Food Worry 2017-11-22 00:00:00 2017-11-22 00:00:00 2 [facility] History SDOH Food Scarcity 2017-11-22 00:00:00 2017-11-22 00:00:00 2 [facility] History of tobacco use 2013-07-09 00:00:00 Current smoker [facility] Smoking Status Start Date Stop Date Source Former smoker 2018-09-10 00:00:00 2018-09-10 00:00:00 Tay larry Medications Ordered Medication Name Filled Medication Name Start Date Stop Da te Current Medication? Ordering Clinician Indication Dosage Frequency Signature (SIG) Comments Components Source Miscellaneous Medical Supply [facility] 2017-11-27 00:00:00 Yes Requires assistance with activities of daily living (ADL) by [facility].(Non-Drug; Combo Route) route RAISED TOILET SEAT WITH ARMS - Dx: exertional dyspnea (2/2 aortic stenosis and regurg and diastolic CHF), combined with hand arthritis and ESRD, asthma. [facility] Miscellaneous Medical Supply [facility] 2017-11-27 00:00:00 Yes Requires assistance with activities of daily living (ADL) WHEELCHAIR WITH ELEVATED LEG RESTS - Dx: exertional dyspnea (2/2 aortic stenosis and regurg and diastolic CHF), combined with hand arthritis and ESRD, asthma. [facility] labetalol (NORMODYNE) 200 mg tablet 2017-11-22 00:00:00 Yes HTN, goal below 140/90 100mg Q.5D Take 1/2 tablet by mouth 2 times daily. [facility] sodium bicarbonate 650 mg tablet 2017-11-22 00:00:00 Yes Dialysis patient 650mg Take 1 tablet by mouth 3 times daily. [facility] atorvastatin (LIPITOR) 20 mg tablet 2017-11-22 00:00:00 Yes Dialysis patient 20mg Take 1 tablet by mouth at bedtime nightly. [facility] calcitriol (ROCALTROL) 0.25 mcg capsule 2017-06-03 00:00:00 Yes Secondary hyperparathyroidism of renal origin .25ug QD Take 1 capsule by mout h daily. [facility] sevelamer (RENAGEL) 400 mg tablet 2017-03-07 00:00:00 Yes Hyperphosphatemia 400mg Q.0180350023590770151N Take 1 tablet by mouth 3 times daily with meals In place [facility] polyethylene glycol (GOLYTELY) 236-22.74-6.74 -5.86 gram ora l solution 2016-11-06 00:00:00 Yes Hematochezia Add lukewarm drinking water to the fill nasreen (4 liters) and shake. Drink as directed by your doctor.. [facility] sodium polystyrene (KAYEXALATE) 15-20 gram/60 mL Susp oral s uspension 2016-08-30 00:00:00 Yes ESRD (end stage renal disea se) 15g Q.4630571661515422637O Take 60 mL by mouth 3 times weekly (//Sat). [facility] traMADol (ULTRAM) 50 mg tablet 2016-03-29 00:00:00 Yes Injury of left foot, sequela 50mg Take 1 tablet by mouth daily as needed for P ain. [facility] polyethylene glycol (GOLYTELY) 236-22.74-6.74 -5.86 gram ora l solution 2015-09-27 00:00:00 Yes Positive FIT (fecal immunochem ical test) Add lukewarm drinking water to the fill nasreen (4 liters) and shake. Drink as directed by your doctor.. [facility] meclizine (ANTIVERT) 25 mg Tab 2015-08-17 00:00:00 Yes BPPV (benign paroxysmal positional vertigo), unspecified laterality 12.5mg Take 1/2 tablets by mouth 3 times daily. [facility] albuterol (PROVENTIL HFA) 90 mcg/actuation inhaler 2015-03 00:00:00 Yes Reactive airway disease, mild persistent, uncomplicated 2{puff} Inhale 2 Puffs by mouth 4 times daily as needed for Wheezing. [facility] cyclobenzaprine (FLEXERIL) 10 mg tablet 2015-03-15 00:00:00 Yes Spasm of muscle 10mg Take 1 tablet by yvonne th nightly at bedtime as needed for Muscle Spasms. [facility] loratadine (CLARITIN) 10 mg tablet 2014-05-20 00:00:00 Yes Allergic rhinitis 10mg QD Take 1 tablet by mouth daily Prn allergies. [facility] PROVENTIL HFA 90 mcg/actuation inhaler 2013-06-30 00:00:00 Yes Asthma 2{puff} Inhale 2 Puffs by mouth 4 times daily as needed for Wh eezing. [facility] budesonide-formoterol (SYMBICORT HFA) 160-4.5 mcg/actuation inhaler 2013-06-30 00:00:00 Yes Asthma 2{puff} Q.5D Inhale 2 Puffs by mouth 2 ti mes daily. [facility] Clopidogrel Bisulfate (Clopidogrel) 75 Mg TABLET Clopi dogrel Bisulfate (Clopidogrel) 75 Mg TABLET Yes 75 Daily [facility] Meclizine Hcl Meclizine Hcl Yes 25 Every 6 Hours as needed for Dizziness [facility] Metoprolol Succinate Metoprolol Succinate Yes Daily [facility] Ondansetron Hcl (Zofran*) 4 Mg TABLET Ondansetron Hcl (Zofran*) 4 Mg TABLET 2019-12-29 00:00:00 No 4 As Needed for Nausea [facility] Amlodipine Besylate Amlodipine Besylate 2018-12-24 00:00:00 No 10 Daily [facility] Acetaminophen With Codeine (Tylenol With Codeine #3 Ta blet) 1 Each TABLET Acetaminophen With Codeine (Tylenol With Codeine #3 Tablet) 1 Each TABLET 2018-07-10 00:00:00 No 300 Every 6 Hours as nee ded for Pain [facility] Amoxicillin/Potassium Clav (Augmentin 500-125 Tablet) 1 Each TABLET Amoxicillin/Potassium Clav (Augmentin 500-125 Tablet) 1 Each TABLET 2018-07-10 00:00:00 No 500 Twice A Day [facility] Aspirin Aspirin 2018-07-10 00:00:00 No 81 Daily [facility] Atorvastatin Calcium Atorvastatin Calcium 2018-07-10 00:00:00 No [address] [facility] Clopidogrel Bisulfate (Plavix) 75 Mg TABLET Clopidogre l Bisulfate (Plavix) 75 Mg TABLET 2018-07-10 00:00:00 No 75 Daily [facility] Guaifenesin/Dextromethorphan (Mucinex Dm Er 600-30 Mg Tablet) 1 Each TAB.ER.12H Guaifenesin/Dextromethorphan (Mucinex Dm Er 600-30 Mg Tablet) 1 Each TAB.ER.12H 2018-07-10 00:00:00 No 2 Twice A Day [facility] Metoprolol Tartrate Metoprolol Tartrate 2018-07-10 00:00:00 No 25 Twice A Day [facility] Ondansetron (Zofran Odt) 4 Mg TAB.RAPDIS Ondansetron ( Zofran Odt) 4 Mg TAB.RAPDIS 2018-07-10 00:00:00 No 8 Twice A Day as needed for Nausea [facility] Labetalol Hcl Labetalol Hcl 2018-02-26 00:00:00 No 100 Twice A Day [facility] Levofloxacin (Levaquin) 500 Mg TABLET Levofloxacin (Levaquin) 50 0 Mg TABLET 2018-02-26 00:00:00 No 250 Daily [facility] Tramadol/Apap/325MG Tramadol/Apap/325MG 2018-01-03 00:00:00 No 1 Every 6 Hours as needed for Pain [facility] Cefuroxime Axetil (Cefuroxime) 250 Mg TABLET Cefuroxim e Axetil (Cefuroxime) 250 Mg TABLET 2018-01-01 00:00:00 No 250 Every 12 Hours [facility] Prednisone Prednisone 2018-01-01 00:00:00 No 20 Twi ce A Day [facility] Labetalol Hcl Labetalol Hcl 2017-12-18 00:00:00 No 10 0 Every 12 Hours [facility] Ondansetron (Zofran Odt) 4 Mg TAB.RAPDIS Ondansetron ( Zofran Odt) 4 Mg TAB.RAPDIS 2017-12-18 00:00:00 No 4 E very 6 Hours as needed for Nausea [facility] Immunizations Ordered Immunization Name Filled Immunization Name Date Status Comments Source Influenza <Unspecified> 2017-02-06 00:00:00 Completed [facility] Influenza Vaccine 2016-03-29 00:00:00 Completed [facility] Influenza Vaccine 2015-01-18 00:00:00 Completed [facility] Influenza Vaccine 2014-02-25 00:00:00 Completed [facility] Herpes Zoster Vaccine In Clinic 2014-01-14 00:00:00 [facility] Absorbed Preservative Free 7yr/older Im In Clinic 2006-05-16 00:00:00 [facility] Vital Signs Vital Name Observation Time Observation Value Comments Source Weight 2019-12-30 02:02:00 188 [lb_av] [facility] BMI (Body Mass Index) 2019-12-30 02:02:00 36.7 kg/m2 [facility] Body Temperature 2019-12-29 20:00:00 98.2 [degF] [facility] Body Temperature 2019-12-29 15:12:00 98.6 [degF] [facility] BMI (Body Mass Index) 2019-12-29 02:46:00 36.7 kg/m2 [facility] Weight 2019-12-29 00:55:00 188 [lb_av] [facility] Procedures Procedure Date / Time Performed Performing Clinician [facility] e Computed tomography of brain without radiopaque contrast 2019-12 00:00:[address] [facility] [address] angiography of chest 2019-05-29 00:00:00 [facility] Plan of Care Planned Activity Planned Date Details Comments Source Future Scheduled Test 2018-04-03 00:00:00 Breast Cancer Scrn (Yearly) [code = Breast Cancer Scrn (Yearly)] [facility] Scheduled Test 2017-08-06 00:00:00 Screening for jarek gnant neoplasm of colon (procedure) [code = 773204782] [facility] Scheduled Test 2017-01-03 00:00:00 IMM Pneumococcal A ge 65 and Up [code = IMM Pneumococcal Age 65 and Up] [facility] Vertigo [facility] Encounters Start Date/Time End Date/Time Encounter Type Admission Type Attendi [facility] Care Department Encounter ID Source 2019-12-30 02:07:00 2019-12-30 02:50:00 Departed Emergency Room [facility] [id number] [facility] 2019-12-29 02:11:00 2019-12-29 20:23:00 Discharged Inpatient (obs) 1 Jacinto Bañuelos [facility] [id number] I [facility] 2019-05-29 07:03:00 2019-05-29 07:03:00 Registered Clinic 3 ORTEGA PATEL [facility] [id number] [facility] 2019-03-11 11:50:00 2019-04-07 22:59:00 Discharged Recurring [facility] [id number] [facility] 2018-12-26 05:00:00 2018-12-26 05:00:00 Registered Surgical Day Car e 3 LUCHOSHRUTHI [facility] [id number] [facility] 2018-11-26 22:07:00 2018-11-27 00:00:00 Departed Emergency Room 1 IRENE MELCHOR [facility] [id number] [facility] 2018-11-10 13:18:00 2018-11-10 14:25:00 Departed Emergency Room [facility] [id number] [facility] 2018-08-18 11:46:00 2018-08-19 15:26:00 Discharged Inpatient (obs) 1 MARIANNE MCLEAN [facility] [id number] [facility] 2018-07-31 10:32:00 2018-07-31 16:09:00 Departed Emergency Room 1 RACHEL MONTERO [facility] [id number] [facility] 2018-07-11 05:08:00 2018-07-11 05:08:00 Registered Surgical Day Car e SHRUTHI CORNELL [facility] [id number] [facility] 2018-02-25 08:10:00 2018-02-26 19:30:00 Discharged Inpatient (obs) 1 MARIANNE MCLEAN [facility] [id number] [facility] 2018-02-17 00:00:00 2018-02-17 00:00:00 Outpatient [facility] [id number] [facility] 2018-02-01 14:48:00 2018-02-01 20:48:00 Departed Emergency Room 1 AMAURI ALMANZA [facility] [id number] [facility] 2018-01-01 10:50:00 2018-01-03 09:59:00 Discharged Inpatient 1 MARIANNE MCLEAN [facility] [id number] [facility] 2017-12-18 11:04:00 2017-12-18 11:04:00 Registered Surgical Day Care [facility] [id number] [facility] 2017-12-06 23:38:00 2017-12-07 21:16:00 Discharged Inpatient (obs) 1 DEISI VARGAS [facility] [id number] [facility] 2017-11-29 10:52:21 2017-11-29 10:52:21 Outpatient [facility] [id number] [facility] 2017-11-29 10:52:12 2017-11-29 10:52:12 Outpatient [facility] [id number] [facility] 2017-11-29 00:00:00 2017-11-29 00:00:00 Outpatient [facility] [id number] [facility] 2017-11-27 00:00:00 2017-11-27 00:00:00 Outpatient [facility] [id number] [facility] 2017-11-22 09:31:00 2017-11-22 09:31:00 Outpatient [facility] [id number] [facility] 2017-11-22 00:00:00 2017-11-22 00:00:00 Outpatient [facility] [id number] [facility] 2017-11-22 00:00:00 2017-11-22 00:00:00 Outpatient [facility] [id number] [facility] 2017-10-18 00:00:00 2017-10-18 00:00:00 Outpatient [facility] [id number] [facility] 2017-10-08 00:00:00 2017-10-08 00:00:00 Outpatient [facility] [id number] [facility] 2017-08-30 00:00:00 2017-08-30 00:00:00 Outpatient [facility] [id number] [facility] 2017-08-23 00:00:00 2017-08-23 00:00:00 Outpatient [facility] [id number] [facility] 2017-08-16 00:00:00 2017-08-16 00:00:00 Outpatient [facility] [id number] [facility] 2017-08-06 00:00:00 2017-08-06 00:00:00 Outpatient [facility] [id number] [facility] 2017-07-31 00:00:00 2017-07-31 00:00:00 Outpatient [facility] [id number] [facility] 2017-07-01 00:00:00 2017-07-01 00:00:00 Outpatient [facility] [id number] [facility] 2017-06-03 15:05:26 2017-06-03 15:05:26 Outpatient [facility] [id number] [facility] 2017-05-08 00:00:00 2017-05-08 00:00:00 Outpatient [facility] [id number] [facility] 2017-05-01 00:00:00 2017-05-01 00:00:00 Outpatient [facility] [id number] [facility] 2017-04-24 00:00:00 2017-04-24 00:00:00 Outpatient [facility] [id number] [facility] 2017-04-23 00:00:00 2017-04-23 00:00:00 Outpatient [facility] [id number] [facility] 2017-04-23 00:00:00 2017-04-23 00:00:00 Outpatient [facility] [id number] [facility] 2017-04-15 12:51:43 2017-04-15 12:51:43 Outpatient [facility] [id number] [facility] 2017-04-15 00:00:00 2017-04-15 00:00:00 Outpatient [facility] [id number] [facility] 2017-04-10 00:00:00 2017-04-10 00:00:00 Outpatient [facility] [id number] [facility] 2017-04-03 16:03:44 2017-04-03 16:03:44 Outpatient [facility] [id number] [facility] 2017-04-03 15:45:14 2017-04-03 15:45:14 Outpatient [facility] [id number] [facility] 2017-04-03 14:14:13 2017-04-03 14:14:13 Outpatient [facility] [id number] [facility] 2017-03-15 00:00:00 2017-03-15 00:00:00 Outpatient [facility] [id number] [facility] 2017-03-12 10:32:31 2017-03-12 10:32:31 Outpatient [facility] [id number] [facility] 2017-03-12 09:59:24 2017-03-12 09:59:24 Outpatient [facility] [id number] [facility] 2017-03-06 00:00:00 2017-03-06 00:00:00 Outpatient [facility] [id number] [facility] 2017-03-06 00:00:00 2017-03-06 00:00:00 Outpatient [facility] [id number] [facility] 2017-03-06 00:00:00 2017-03-06 00:00:00 Outpatient [facility] [id number] [facility] 2017-02-26 11:48:55 2017-02-26 11:48:55 Outpatient [facility] [id number] [facility] 2017-02-26 10:00:18 2017-02-26 10:00:18 Outpatient [facility] [id number] [facility] 2017-02-13 09:05:48 2017-02-13 09:05:48 Outpatient [facility] [id number] [facility] 2017-02-12 15:21:20 2017-02-12 15:21:20 Outpatient [facility] [id number] [facility] Results Test Description Test Time Test Comments Results Result Comments Source CHEST SINGLE (PORTABLE) 2020-01-07 16:14:00 [facility] [address] [address] Patient Name: SHALOM SORIANO MR #: [id number] : 1950 Age/Sex: 70/F Req #: [id number] Adm Physician: Ordered by: DEISI VARGAS MD Report #: [id number] Location: ER Room/Bed: Procedure: [id number] DX/CHEST SINGLE (PORTABLE) Exam Date: 01/07/20 Exam Time: 1550 REPORT STATUS: Signed TECHNIQUE: Frontal view of the chest. INDICATION: PALPITATIONS [id number] COMPARISON: None DISCUSSION: Limited evaluation due to portable technique. Lines and hardware: Right HERO graft metallic tubing is noted extending to the mid to inferior right atrium. Overlying EKG leads are noted. Heart and mediastinum: Cardiomediastinal silhouette is enlarged. Central vascular congestion is noted. Lungs and pleura: Negative for focal consolidation, large effusion or pneumothorax. Right midlung 6 mm nodule is noted, possibly calcified granuloma. Soft tissues and bones: No acute abnormality. IMPRESSION: 1. Cardio megaly and central vascular condition. 2. Negative for focal consolidation. 3. Right-sided HERO graft is noted. 4. Right midlung 6 mm nodule, possibly a calcified granuloma. Consider obtaining any prior imaging to establish stability. Signed by: Gus Madrigal MD on 01/07/2020 4:16 PM Dictated By: GUS MADRIGAL MD 15 Transcribed By: ANTONY on 01/07/201615 COPY TO: DEISI VARGAS MD Serum or plasma triglyceride measurement (mass/volume) 12-28 14:56:00 Test Item Triglycerides Level (test code = 2571-8) 115 0-149 [facility] (mass/volume)2019-12-29 14:56:00* Test Item Value Reference Range Interpretation Comments Cholesterol Level (test code = 2093-3) 196 0-199 Less than 200 mg/dL Low Gmey114 - 239 mg/dL Borderline Aveh494 m g/dl and greater High Risk [facility] in LDL measurement (mass/volume) 2019-12-29 14:56:00* Test Item Value Reference Range Interpretation Comments LDL Cholesterol (test code = 2089-1) 120 60-130 [facility] in HDL measurement (mass/volume)2019-12-29 14:56:00* Test Item Value Reference Range Interpretation Comments HDL Cholesterol (test code = 2085-9) 53 40-60 [facility] total cholesterol/cholesterol in HDL mass nktwx0416-52-24 14:56:00* Test Item Value Reference Range Interpretation Comments Cholesterol/HDL Ratio (test code = 9830-1) 3.7 3.0-3.6 [facility] measurement by highly sensitive enzyme xegoqcfrmxh3912-20-57 14:56:00* Test Item Value Reference Range Interpretation Comments Troponin I (test code = 97345-9) 0.179 0-0.300 [facility] triglyceride measurement (mass/volume)2019-12-29 14:56:00* Test Item Value Reference Range Interpretation Comments Triglycerides Level (test code = 2571-8) 115 0-149 [facility] cholesterol measurement (mass/volume)2019-12-29 14:56:00* Test Item Value Reference Range Interpretation Comments Cholesterol Level (test code = 2093-3) 196 0-199 Less than 200 mg/dL Low Dzgl788 - 239 mg/dL Borderline Emqv533 m g/dl and greater High [facility] in LDL measurement (mass/volume) 2019-12-29 14:56:00* Test Item Value Reference Range Interpretation Comments LDL Cholesterol (test code = 2089-1) 120 60-130 [facility] cholesterol in HDL measurement (mass/volume)2019-12-29 14:56:00* Test Item Value Reference Range Interpretation Comments HDL Cholesterol (test code = 2085-9) 53 40-60 [facility] total cholesterol/cholesterol in HDL mass dctsh7678-18-24 14:56:00* Test Item Value Reference Range Interpretation Comments Cholesterol/HDL Ratio (test code = 9830-1) 3.7 3.0-3.6 [facility]field[facility] I measurement by highly sensitive enzyme pevlvaeeaie3547-64-69 14:56:00* Test Item Value Reference Range Interpretation Comments Troponin I (test code = 47658-4) 0.179 0-0.300 [facility]2019-12-29 01:52:00 [facility] [address] [place] [address] Patient Name: SHALOM SORIANO MR #: [id number] : 1950 Age/Sex: 69/F Req #: [id number] Adm Physician: Ordered by: Jacinto Bañuelos MD Report #: [id number] Location: ER Room/Bed: Procedure: [id number] DX/CHEST SI NGLE (PORTABLE) Exam Date: 12/29/19 [...] COPY TO: JACINTO BAÑUELOS MD CT BRAIN [id number] 01:38:00 [place] [address] Patient Name: SHALOM SORIANO MR #: [id number] : 1950 Age/Sex: 69/F Req #: [id number] Adm Physician: Ordered by: Jacinto Bañuelos MD Report #: [id number] Location: [facility]/Bed: Procedure: [id number] CT/CT BRAIN WO Exam Date: 12/29/19 Exam [...] Count (test code = 6690-2) 7.71 4.8-10.8 [facility]fieldBlood erythrocytes automated count (number/volume)2019-12-29 00:55:00* Test Item Value Reference Range Interpretation Comments Red Blood Count (test code = 789-8) 3.24 3.6-5.1 [facility]fieldBlood hemoglobin measurement (moles/volume)2019-12-29 00:55:00* Test Item Value Reference Range Interpretation Comments Hemoglobin (test code = 12964-2) 10.5 12.0-16.0 [facility]fieldAutomated blood hematocrit (volume fraction)2019-12-29 00:55:00* Test Item Value Reference Range Interpretation Comments Hematocrit (test code = 4544-3) 32.1 34.2-44.1 [facility]fieldAutomated erythrocyte mean corpuscular hwmkbb5407-11-02 00:55:00* Test Item Value Reference Range Interpretation Comments Mean Corpuscular Volume (test code = 787-2) 99.1 81-99 [facility]fieldAutomated erythrocyte mean corpuscular hemoglobin (mass per erythrocyte)2019-12-29 00:55:00* Test Item Value Reference Range Interpretation Comments Mean Corpuscular Hemoglobin (test code = 785-6) 32.4 28-32 [facility]fieldAutomated erythrocyte mean corpuscular hemoglobin concentration measurement (mass/volume)2019-12-29 00:55:00* Test Item Value Reference Range Interpretation Comments Mean Corpuscular Hemoglobin Concent (test code = 786-4) 32.7 31-35 [facility] MansfieldRDW KhnHt-Lev2957-76-22 00:55:00* Test Item Value Reference Range Interpretation Comments Red Cell Distribution Width (test code = 11070-2) 12.8 11.7 -14.4 [facility]fieldAutomated blood platelet count (count/volume)2019-12-29 00:55:00* Test Item Value Reference Range Interpretation Comments Platelet Count (test code = 777-3) 150 140-360 [facility]fieldAutformerly [facility] blood segmented neutrophil count as percentage of total csgeejesga5037-36-06 00:55:00* Test Item Value Reference Range Interpretation Comments Neutrophils (%) (Auto) (test code = 00247-4) 69.6 38.7-80.0 [facility]fieldAutomated blood lymphocyte count as percentage ot total cntqfuqbpq1358-01-29 00:55:00* Test Item Value Reference Range Interpretation Comments Lymphocytes (%) (Auto) (test code = 736-9) 17.5 18.0-39.1 [facility]fieldAutomated blood monocyte count as percentage of total rlhaefxbrw0554-84-68 00:55:00* Test Item Value Reference Range Interpretation Comments Monocytes (%) (Auto) (test code = 5905-5) 6.9 4.4-11.3 [facility]fieldAutomated blood eosinophil count as percentage of total kabhtawxcy0772-54-10 00:55:00* Test Item Value Reference Range Interpretation Comments Eosinophils (%) (Auto) (test code = 713-8) 5.1 0.0-6.0 [facility]fieldAutomated blood basophil count as percentage of total ryvmawujat1578-91-35 00:55:00* Test Item Value Reference Range Interpretation Comments Basophils (%) (Auto) (test code = 706-2) 0.5 0.0-1.0 [facility] MansfieldFluoroscopic procedure less than one hour ifadnrle6340-29-38 00:55:00* Test Item Value Reference Range Interpretation Comments IM GRANULOCYTES % (test code = IM GRANULOCYTES %) 0.4 0.0- 1.0 [facility]fieldAutomated blood neutrophil count 2019-12-29 00:55:00* Test Item Value Reference Range Interpretation Comments Neutrophils # (Auto) (test code = 751-8) 5.4 2.1-6.9 [facility]fieldBlood lymphocytes count (number/volume) 2019-12-29 00:55:00* Test Item Value Reference Range Interpretation Comments Lymphocytes # (Auto) (test code = 63047-3) 1.4 1.0-3.2 [facility]fieldBlood monocytes automated count (number/volume)2019-12-29 00:55:00* Test Item Value Reference Range Interpretation Comments Monocytes # (Auto) (test code = 742-7) 0.5 0.2-0.8 [facility]fieldAutomated blood eosinophil count 2019-12-29 00:55:00* Test Item Value Reference Range Interpretation Comments Eosinophils # (Auto) (test code = 711-2) 0.4 0.0-0.4 [facility]fieldAutomated blood basophil count (count/volume)2019-12-29 00:55:00* Test Item Value Reference Range Interpretation Comments Basophils # (Auto) (test code = 704-7) 0.0 0.0-0.1 [facility]fieldFluoroscopic procedure less than one hour rzigaqoc6194-88-86 00:55:00* Test Item Value Reference Range Interpretation Comments Absolute Immature Granulocyte (auto (grazyna t code = Absolute Immature Granulocyte (auto) 0.03 0-0.1 [facility]fieldProthrombin time (PT) in platelet poor plasma by coagulation khvcp9592-60-76 00:55:00* Test Item Value Reference Range Interpretation Comments Prothrombin Time (test code = 5902-2) 12.5 11.9-14.5 [facility]fieldINR in Platelet poor plasma by Coagulation ohwvm9100-54-44 00:55:00* Test Item Value Reference Range Interpretation Comments Prothromb Time International Ratio (test code = 6301-6) 0.89 Oral Anticoagulant Therapy INR Values:1. Low Intensity Therapy 1.5 - 2.02 . Moderate Intensity Therapy 2.0 - 3.03. High Intensity Therapy(1) 2.5 - 3. 54. High Intensity Therapy(2) 3.0 - 4.05. Panic Value INR > 5.0 [facility] sodium measurement (moles/volume)2019-12-29 00:55:00* Test Item Value Reference Range Interpretation Comments Sodium Level (test code = 2951-2) 136 136-145 [facility] plasma potassium measurement (moles/volume)2019-12-29 00:55:00* Test Item Value Reference Range Interpretation Comments Potassium Level (test code = 2823-3) 4.8 3.5-5.1 [facility] plasma chloride measurement (moles/volume)2019-12-29 00:55:00* Test Item Value Reference Range Interpretation Comments Chloride Level (test code = 2075-0) 96 98-107 [facility] or plasma carbon dioxide, total measurement (moles/volume)2019-12-29 00:55:00* Test Item Value Reference Range Interpretation Comments Carbon Dioxide Level (test code = 2028-9) 25 22-29 [facility] or plasma anion aqv6823-50-41 00:55:00* Test Item Value Reference Range Interpretation Comments Anion Gap (test code = 65460-2) 19.8 8-16 [facility] plasma urea nitrogen measurement (mass/volume)2019-12-29 00:55:00* Test Item Value Reference Range Interpretation Comments Blood Urea Nitrogen (test code = 3094-0) 68 7-26 [facility] plasma creatinine measurement (mass/volume)2019-12-29 00:55:00* Test Item Value Reference Range Interpretation Comments Creatinine (test code = 2160-0) 8.68 0.57-1.11 [facility] plasma urea nitrogen/creatinine mass noqex6865-21-46 00:55:00* Test Item Value Reference Range Interpretation Comments BUN/Creatinine Ratio (test code = 3097-3) 8 6-25 [facility]fieldEstimated glomerular filtration rate (GFR) xzdlfgzrptmeo6997-45-61 00:55:00* Test Item Value Reference Range Interpretation Comments Estimat Glomerular Filtration Rate (test code = 197519248) 5 >60 Ranges were taken from the National Kidney Disease Education Program and the [facility] Kidney Foundation literature.Reference ranges:60 or greater: Stxzwd98-41 ( for 3 consecutive months): Chronic kidney disease 15 or less: Kidney failureTexas Health Hospital MansfieldGlucose mlmgylncajx4325-79-17 00:55:00* Test Item Value Reference Range Interpretation Comments Glucose Level (test code = CZM5571) 105 74-118 [facility] plasma calcium measurement (mass/volume)2019-12-29 00:55:00* Test Item Value Reference Range Interpretation Comments Calcium Level (test code = 45220-0) 9.7 8.4-10.2 [facility] or plasma total bilirubin measurement (mass/volume)2019-12-29 00:55:00* Test Item Value Reference Range Interpretation Comments Total Bilirubin (test code = 1975-2) 0.4 0.2-1.2 [facility] MansfieldFluoroscopic procedure less than one hour kvzmnurw0971-57-14 00:55:00* Test Item Value Reference Range Interpretation Comments Aspartate Amino Transf (AST/SGOT) (test code = Aspartate Amino Transf (AST/SGOT)) 17 5-34 [facility] or plasma alanine aminotransferase measurement (enzymatic activity/volume)2019-12-29 00:55:00* Test Item Value Reference Range Interpretation Comments Alanine Aminotransferase (ALT/SGPT) (test code = 1742-6) 18 0-55 [facility] or plasma protein measurement (mass/volume)2019-12-29 00:55:00* Test Item Value Reference Range Interpretation Comments Total Protein (test code = 2885-2) 6.6 6.5-8.1 [facility]erum or plasma albumin measurement (mass/volume)2019-12-29 00:55:00* Test Item Value Reference Range Interpretation Comments Albumin (test code = 1751-7) 3.7 3.5-5.0 [facility] MansfieldPlasma globulin measurement (mass/volume) 2019-12-29 00:55:00* Test Item Value Reference Range Interpretation Comments Globulin (test code = 55182-4) 2.9 2.3-3.5 [facility]er[facility] or plasma albumin/globulin mass jdweb5711-40-93 00:55:00* Test Item Value Reference Range Interpretation Comments Albumin/Globulin Ratio (test code = 1759-0) 1.3 0.8-2.0 [facility]er[facility] or plasma alkaline phosphatase measurement (enzymatic activity/volume)2019-12-29 00:55:00* Test Item Value Reference Range Interpretation Comments Alkaline Phosphatase (test code = 6768-6) 71 40-150 [facility] MansfieldBNP Ahl-uQnj4654-70-22 00:55:00* Test Item Value Reference Range Interpretation Comments B-Type Natriuretic Peptide (test code = 10567-6) 1053.7 0-100 [facility]fieldBlood leukocytes automated count (number/volume)2019-12-29 00:55:00* Test Item Value Reference Range Interpretation Comments White Blood Count (test code = 6690-2) 7.71 4.8-10.8 [facility]fieldBlood erythrocytes automated count (number/volume)2019-12-29 00:55:00* Test Item Value Reference Range Interpretation Comments Red Blood Count (test code = 789-8) 3.24 3.6-5.1 [facility]fieldBlood hemoglobin measurement (moles/volume)2019-12-29 00:55:00* Test Item Value Reference Range Interpretation Comments Hemoglobin (test code = 40549-8) 10.5 12.0-16.0 [facility] MansfieldAutomated blood hematocrit (volume fraction)2019-12-29 00:55:00* Test Item Value Reference Range Interpretation Comments Hematocrit (test code = 4544-3) 32.1 34.2-44.1 [facility] MansfieldAutomated erythrocyte mean corpuscular epakcx1821-32-72 00:55:00* Test Item Value Reference Range Interpretation Comments Mean Corpuscular Volume (test code = 787-2) 99.1 81-99 [facility] MansfieldAutomated erythrocyte mean corpuscular hemoglobin (mass per erythrocyte)2019-12-29 00:55:00* Test Item Value Reference Range Interpretation Comments Mean Corpuscular Hemoglobin (test code = 785-6) 32.4 28-32 [facility] MansfieldAutomated erythrocyte mean corpuscular hemoglobin concentration measurement (mass/volume)2019-12-29 00:55:00* Test Item Value Reference Range Interpretation Comments Mean Corpuscular Hemoglobin Concent (test code = 786-4) 32.7 31-35 [facility] MansfieldRDW DtiVr-Fnh0188-93-22 00:55:00* Test Item Value Reference Range Interpretation Comments Red Cell Distribution Width (test code = 62296-0) 12.8 11.7 -14.4 [facility] MansfieldAutomated blood platelet count (count/volume)2019-12-29 00:55:00* Test Item Value Reference Range Interpretation Comments Platelet Count (test code = 777-3) 150 140-360 [facility]ed [facility] segmented neutrophil count as percentage of total pfwpfxkcoc3347-35-89 00:55:00* Test Item Value Reference Range Interpretation Comments Neutrophils (%) (Auto) (test code = 56494-5) 69.6 38.7-80.0 [facility]fieldAutomated blood lymphocyte count as percentage ot total frxyznucjz5541-10-79 00:55:00* Test Item Value Reference Range Interpretation Comments Lymphocytes (%) (Auto) (test code = 736-9) 17.5 18.0-39.1 [facility] MansfieldAutomated blood monocyte count as percentage of total xeiecvopnj8862-08-67 00:55:00* Test Item Value Reference Range Interpretation Comments Monocytes (%) (Auto) (test code = 5905-5) 6.9 4.4-11.3 [facility]fieldAutomated blood eosinophil count as percentage of total autniembid7237-30-26 00:55:00* Test Item Value Reference Range Interpretation Comments Eosinophils (%) (Auto) (test code = 713-8) 5.1 0.0-6.0 [facility]fieldAutomated blood basophil count as percentage of total ldcodovhwb6841-70-62 00:55:00* Test Item Value Reference Range Interpretation Comments Basophils (%) (Auto) (test code = 706-2) 0.5 0.0-1.0 [facility]fieldFluoroscopic procedure less than one hour bhwwpvjg3087-87-72 00:55:00* Test Item Value Reference Range Interpretation Comments IM GRANULOCYTES % (test code = IM GRANULOCYTES %) 0.4 0.0- 1.0 [facility]fieldAutomated blood neutrophil count 2019-12-29 00:55:00* Test Item Value Reference Range Interpretation Comments Neutrophils # (Auto) (test code = 751-8) 5.4 2.1-6.9 [facility]fieldBlood lymphocytes count (number/volume) 2019-12-29 00:55:00* Test Item Value Reference Range Interpretation Comments Lymphocytes # (Auto) (test code = 84701-1) 1.4 1.0-3.2 [facility]fieldBlood monocytes automated count (number/volume)2019-12-29 00:55:00* Test Item Value Reference Range Interpretation Comments Monocytes # (Auto) (test code = 742-7) 0.5 0.2-0.8 [facility]fieldAutomated blood eosinophil count 2019-12-29 00:55:00* Test Item Value Reference Range Interpretation Comments Eosinophils # (Auto) (test code = 711-2) 0.4 0.0-0.4 [facility]fieldAutomated blood basophil count (count/volume)2019-12-29 00:55:00* Test Item Value Reference Range Interpretation Comments Basophils # (Auto) (test code = 704-7) 0.0 0.0-0.1 [facility]fieldFluoroscopic procedure less than one hour qyzimpul8703-99-94 00:55:00* Test Item Value Reference Range Interpretation Comments Absolute Immature Granulocyte (auto (grazyna t code = Absolute Immature Granulocyte (auto) 0.03 0-0.1 [facility]fieldProthrombin time (PT) in platelet poor plasma by coagulation uawvd2811-55-53 00:55:00* Test Item Value Reference Range Interpretation Comments Prothrombin Time (test code = 5902-2) 12.5 11.9-14.5 [facility] MansfieldINR in Platelet poor plasma by Coagulation wocfy9418-87-94 00:55:00* Test Item Value Reference Range Interpretation Comments Prothromb Time International Ratio (test code = 6301-6) 0.89 Oral Anticoagulant Therapy INR Values:1. Low Intensity Therapy 1.5 - 2.02 . Moderate Intensity Therapy 2.0 - 3.03. High Intensity Therapy(1) 2.5 - 3. 54. High Intensity Therapy(2) 3.0 - 4.05. Panic Value INR > 5.0 [facility] sodium measurement (moles/volume)2019-12-29 00:55:00* Test Item Value Reference Range Interpretation Comments Sodium Level (test code = 2951-2) 136 136-145 [facility] plasma potassium measurement (moles/volume)2019-12-29 00:55:00* Test Item Value Reference Range Interpretation Comments Potassium Level (test code = 2823-3) 4.8 3.5-5.1 [facility] plasma chloride measurement (moles/volume)2019-12-29 00:55:00* Test Item Value Reference Range Interpretation Comments Chloride Level (test code = 2075-0) 96 98-107 [facility] or plasma carbon dioxide, total measurement (moles/volume)2019-12-29 00:55:00* Test Item Value Reference Range Interpretation Comments Carbon Dioxide Level (test code = 2028-9) 25 22-29 [facility]erum or plasma anion goh6633-94-74 00:55:00* Test Item Value Reference Range Interpretation Comments Anion Gap (test code = 90252-9) 19.8 8-16 [facility] plasma urea nitrogen measurement (mass/volume)2019-12-29 00:55:00* Test Item Value Reference Range Interpretation Comments Blood Urea Nitrogen (test code = 3094-0) 68 7-26 [facility] plasma creatinine measurement (mass/volume)2019-12-29 00:55:00* Test Item Value Reference Range Interpretation Comments Creatinine (test code = 2160-0) 8.68 0.57-1.11 [facility]er[facility] or plasma urea nitrogen/creatinine mass dudgh8479-55-79 00:55:00* Test Item Value Reference Range Interpretation Comments BUN/Creatinine Ratio (test code = 3097-3) 8 6-25 [facility]fieldEstimated glomerular filtration rate (GFR) phmqytydlyxqa2230-79-58 00:55:00* Test Item Value Reference Range Interpretation Comments Estimat Glomerular Filtration Rate (test code = 115291712) 5 >60 Ranges were taken from the National Kidney Disease Education Program and the [facility] Kidney Foundation literature.Reference ranges:60 or greater: Jnadfv26-83 ( for 3 consecutive months): Chronic kidney disease 15 or less: Kidney failureTexas Health Hospital MansfieldGlucose tkpswouszov2426-99-18 00:55:00* Test Item Value Reference Range Interpretation Comments Glucose Level (test code = MSW9020) 105 74-118 [facility] plasma calcium measurement (mass/volume)2019-12-29 00:55:00* Test Item Value Reference Range Interpretation Comments Calcium Level (test code = 72761-6) 9.7 8.4-10.2 [facility] plasma total bilirubin measurement (mass/volume)2019-12-29 00:55:00* Test Item Value Reference Range Interpretation Comments Total Bilirubin (test code = 1975-2) 0.4 0.2-1.2 [facility]fieldFluoroscopic procedure less than one hour thhgbque8097-39-80 00:55:00* Test Item Value Reference Range Interpretation Comments Aspartate Amino Transf (AST/SGOT) (test code = Aspartate Amino Transf (AST/SGOT)) 17 5-34 [facility]er[facility] or plasma alanine aminotransferase measurement (enzymatic activity/volume)2019-12-29 00:55:00* Test Item Value Reference Range Interpretation Comments Alanine Aminotransferase (ALT/SGPT) (test code = 1742-6) 18 0-55 [facility] or plasma protein measurement (mass/volume)2019-12-29 00:55:00* Test Item Value Reference Range Interpretation Comments Total Protein (test code = 2885-2) 6.6 6.5-8.1 [facility]er[facility] or plasma albumin measurement (mass/volume)2019-12-29 00:55:00* Test Item Value Reference Range Interpretation Comments Albumin (test code = 1751-7) 3.7 3.5-5.0 [facility]fieldPlasma globulin measurement (mass/volume) 2019-12-29 00:55:00* Test Item Value Reference Range Interpretation Comments Globulin (test code = 86551-7) 2.9 2.3-3.5 [facility] plasma albumin/globulin mass iqycx1120-92-87 00:55:00* Test Item Value Reference Range Interpretation Comments Albumin/Globulin Ratio (test code = 1759-0) 1.3 0.8-2.0 [facility] plasma alkaline phosphatase measurement (enzymatic activity/volume)2019-12-29 00:55:00* Test Item Value Reference Range Interpretation Comments Alkaline Phosphatase (test code = 6768-6) 71 40-150 [facility] MansfieldBNP Qot-pDco5931-76-22 00:55:00* Test Item Value Reference Range Interpretation Comments B-Type Natriuretic Peptide (test code = 74991-0) 1053.7 0-100 [facility]CT[facility] MRHPJ1212-90-67 14:23:00 [facility] [address] [address] Patient Name: SHALOM SORIANO MR #: [id number] : 1950 Age/Sex: 69/F Req #: [id number] Adm Physician: Ordered by: ORTEGA PATEL MD Report #: [id number] Location: CT Room/Bed: Procedure: [id number] CT/C TA CHEST Exam Date: 05/29/19 Exam [...] 3-D volume-rendering reconstruction was performed using an [employer] workstation. Images were also reformatted into sagittal [...] ANTONY on 05/29/19 1432 COPY TO: ORTEGA PATEL MD AG HEPAT B SURF 2019-04-29 07:14:00* Test Item Value Reference Range Interpretation Comments AG HEPAT B SURF (test code = HBSAG) Nonreactive Index Nonreactive BASIC METABOLIC [id number] 04:47:00* Test Item Value Reference Range Interpretation [...] CA) 8.9 mg/dL 8.5-10.1 N BASIC METABOLIC BCKDI9409-29-00 04:30:00* Test Item Value Reference Range Interpretation [...] code = CA) mg/dL 8.5-10.1 CBC W/AUTO LURJ4711-11-25 04:02:00* Test Item Value Reference Range Interpretation [...] NRBC#) 0.00 K/mm3 0.0-0.1 N BASIC METABOLIC KUCRJ8964-07-37 10:45:00* Test Item Value Reference Range Interpretation [...] = CA) 9.0 mg/dL 8.5-10.1 N - HEAD AND UTPB3321-93-04 10:42:00 Name: SHALOM SORIANO [facility] : 1950 Age/S: 69 / F [address] [facility] Unit #: [id number] Loc: [place] [address] Phys: Sharyn Morrell NP Acct: [id number] Dis Date: Status: REG ER PHONE #: [phone] Exam Date: 04/28/2019 1032 FAX #: [phone] Reason: evaluate posterior neck abscess EXAMS: CPT CODE: [id number] US HEAD AND NECK 35625 REASON FOR EXAM: evaluate posterior neck abscess [...] by: Rafael Cotto MD CC: Sharyn Morrell HAND OUTSIDE CUTTER; Marianne Mclean MD; Sumi Novak DO Technologist: ANOOP CAREY RT(R),ROSYMS Trnscb Date/Time: 04/28/2019 (104) DaniiRR31 Orig Print D/T: S: 04/28/2019 (1462) Probe: PAGE 1 Signed Report BASIC METABOLIC [...] code = CA) mg/dL 8.5-10.1 CBC W/O FXHZ4078-97-11 10:29:00* Test Item Value Reference Range Interpretation [...] = MPV) 11.2 fL 6.7-11.0 H Prothrombin Uwrx6400-75-89 07:20:00* Test Item Value Reference Range Interpretation Comments Prothrombin Time (test code = 5902-2) 12.2 11.9-14.5 [facility]fieldProthromb Time International Ratio 2018-12-26 07:20:00* Test Item Value Reference Range Interpretation Comments Prothromb Time International Ratio (test code = 6301-6) 0.86 Oral Anticoagulant Therapy INR Values:1. Low Intensity Therapy 1.5 - 2.02 . Moderate Intensity Therapy 2.0 - 3.03. High Intensity Therapy(1) 2.5 - 3. 54. High Intensity Therapy(2) 3.0 - 4.05. Panic Value INR > 5.0 [facility]fieldActivated Partial Thromboplast Time 2018-12-26 07:20:00* Test Item Value Reference Range Interpretation Comments Activated Partial Thromboplast Time (test code = 22849-0) 24.3 23.8-35.5 [facility] Jonba2073-68-59 06:57:00* Test Item Value Reference Range Interpretation Comments Sodium Level (test code = 2951-2) 137 136-145 [facility]fieldPotassium Qzjxm4923-80-51 06:57:00* Test Item Value Reference Range Interpretation Comments Potassium Level (test code = 2823-3) 5.4 3.5-5.1 H [facility]fieldChloride Egycn1271-06-36 06:57:00* Test Item Value Reference Range Interpretation Comments Chloride Level (test code = 2075-0) 96 98-107 L [facility] MansfieldCarbon Dioxide Vnxhd4996-21-02 06:57:00* Test Item Value Reference Range Interpretation Comments Carbon Dioxide Level (test code = 2028-9) 29 22-29 [facility] MansfieldAnion Oac8768-39-77 06:57:00* Test Item Value Reference Range Interpretation Comments Anion Gap (test code = 75225-2) 17.4 8-16 H [facility]fieldBlood Urea Gliitimh2270-80-02 06:57:00* Test Item Value Reference Range Interpretation Comments Blood Urea Nitrogen (test code = 3094-0) 38 7-26 H [facility] MansfieldCreatinine2019-09-20 06:57:00* Test Item Value Reference Range Interpretation Comments Creatinine (test code = 2160-0) 4.69 0.57-1.11 H [facility]fieldBUN/Creatinine Fojxy2143-52-37 06:57:00* Test Item Value Reference Range Interpretation Comments BUN/Creatinine Ratio (test code = 3097-3) 8 6-25 [facility] MansfieldEstimat Glomerular Filtration Rate 2018-12-26 06:57:00* Test Item Value Reference Range Interpretation Comments Estimat Glomerular Filtration Rate (test code = 677142191) 9 >60 L Ranges were taken from the National Kidney Disease Education Program and the [facility] Kidney Foundation literature.Reference ranges:60 or greater: Uxbonc44-26 ( for 3 consecutive months): Chronic kidney disease 15 or less: Kidney failureTexas Health Hospital MansfieldGlucose Ymafz8093-52-16 06:57:00* Test Item Value Reference Range Interpretation Comments Glucose Level (test code = UEN0555) 82 74-118 [facility] MansfieldCalcium Bxijp8644-51-13 06:57:00* Test Item Value Reference Range Interpretation Comments Calcium Level (test code = 86188-7) 9.8 8.4-10.2 [facility] MansfieldPlatelet Qbanorpj5270-45-15 06:52:00* Test Item Value Reference Range Interpretation Comments Platelet Estimate (test code = 93365-5) ADEQUATE [facility] MansfieldClumped Mpojatoll2521-24-79 06:52:00* Test Item Value Reference Range Interpretation Comments Clumped Platelets (test code = 7796-6) NONE NONE [facility] MansfieldPlatelet Morphology Exrxlet6668-61-18 06:52:00* Test Item Value Reference Range Interpretation Comments Platelet Morphology Comment (test code = 38812-3) NORMAL [facility] MansfieldWhite Blood Diwvi1222-11-46 06:26:00* Test Item Value Reference Range Interpretation Comments White Blood Count (test code = 6690-2) 5.82 4.8-10.8 [facility] MansfieldRed Blood Afodn3491-10-53 06:26:00* Test Item Value Reference Range Interpretation Comments Red Blood Count (test code = 789-8) 3.97 3.6-5.1 [facility]fieldHemoglobin2019-09-20 06:26:00* Test Item Value Reference Range Interpretation Comments Hemoglobin (test code = 14861-5) 11.8 12.0-16.0 L [facility] MansfieldHematocrit2019-09-20 06:26:00* Test Item Value Reference Range Interpretation Comments Hematocrit (test code = 4544-3) 37.3 34.2-44.1 [facility] MansfieldMean Corpuscular Iivjfy1682-77-56 06:26:00* Test Item Value Reference Range Interpretation Comments Mean Corpuscular Volume (test code = 787-2) 94.0 81-99 [facility]fieldMean Corpuscular Fwslyxuvyr2054-96-01 06:26:00* Test Item Value Reference Range Interpretation Comments Mean Corpuscular Hemoglobin (test code = 785-6) 29.7 28-32 [facility] MansfieldMean Corpuscular Hemoglobin Concent 2018-12-26 06:26:00* Test Item Value Reference Range Interpretation Comments Mean Corpuscular Hemoglobin Concent (test code = 786-4) 31.6 31-35 [facility]fieldRed Cell Distribution Xhdrd8035-92-42 06:26:00* Test Item Value Reference Range Interpretation Comments Red Cell Distribution Width (test code = 82418-0) 15.1 11.7 -14.4 H [facility] MansfieldPlatelet Ysgei8077-28-81 06:26:00* Test Item Value Reference Range Interpretation Comments Platelet Count (test code = 777-3) 166 140-360 [facility]fieldNeutrophils (%) (Auto)2018-12-26 06:26:00 * Test Item Value Reference Range Interpretation Comments Neutrophils (%) (Auto) (test code = 98101-1) 54.3 38.7-80.0 [facility] MansfieldLymphocytes (%) (Auto)2018-12-26 06:26:00 * Test Item Value Reference Range Interpretation Comments Lymphocytes (%) (Auto) (test code = 736-9) 18.4 18.0-39.1 [facility]fieldMonocytes (%) (Auto)2018-12-26 06:26:00* Test Item Value Reference Range Interpretation Comments Monocytes (%) (Auto) (test code = 5905-5) 9.8 4.4-11.3 [facility]fieldEosinophils (%) (Auto)2018-12-26 06:26:00 * Test Item Value Reference Range Interpretation Comments Eosinophils (%) (Auto) (test code = 713-8) 16.3 0.0-6.0 H [facility]fieldBasophils (%) (Auto)2018-12-26 06:26:00* Test Item Value Reference Range Interpretation Comments Basophils (%) (Auto) (test code = 706-2) 0.9 0.0-1.0 [facility] MansfieldIM GRANULOCYTES %2018-12-26 06:26:00* Test Item Value Reference Range Interpretation Comments IM GRANULOCYTES % (test code = IM GRANULOCYTES %) 0.3 0.0- 1.0 [facility]fieldNeutrophils # (Auto)2018-12-26 06:26:00* Test Item Value Reference Range Interpretation Comments Neutrophils # (Auto) (test code = 751-8) 3.2 2.1-6.9 [facility]fieldLymphocytes # (Auto)2018-12-26 06:26:00* Test Item Value Reference Range Interpretation Comments Lymphocytes # (Auto) (test code = 03438-2) 1.1 1.0-3.2 [facility]fieldMonocytes # (Auto)2018-12-26 06:26:00* Test Item Value Reference Range Interpretation Comments Monocytes # (Auto) (test code = 742-7) 0.6 0.2-0.8 [facility]fieldEosinophils # (Auto)2018-12-26 06:26:00* Test Item Value Reference Range Interpretation Comments Eosinophils # (Auto) (test code = 711-2) 1.0 0.0-0.4 H [facility]fieldBasophils # (Auto)2018-12-26 06:26:00* Test Item Value Reference Range Interpretation Comments Basophils # (Auto) (test code = 704-7) 0.1 0.0-0.1 [facility] MansfieldAbsolute Immature Granulocyte (auto 2018-12-26 06:26:00* Test Item Value Reference Range Interpretation Comments Absolute Immature Granulocyte (auto (grazyna t code = Absolute Immature Granulocyte (auto) 0.02 0-0.1 [facility]fieldCHEST 2 PPOMZ9788-24-39 12:07:00 [place] [address] Patient Name: SHALOM SORIANO MR #: [id number] : 1950 Age/Sex: 68/F Req #: [id number] Adm Physician: Ordered by: SHRUTHI YEPEZ MD Report #: [id number] Location: OR Room/Bed: Procedure: [id number] DX/ CHEST 2 VIEWS Exam Date: Exam [...] ed By: ED DAMON MD on 12/24/18 120 Transcribed By: ANTONY on 12/24/18 120 9 COPY TO: SHRUTHI YEPEZ MD Creatine Kinase II7939-46-31 23:38:00* Test Item Value Reference Range Interpretation Comments Creatine Kinase MB (test code = 29287-2) 0.90 0-5.0 [place] 55595019-08-21 23:38:00* Test Item Value Reference Range Interpretation Comments Troponin I (test code = TOM2175) 0.061 0-0.300 [facility] MansfieldCreatine Kinase XX9973-50-84 23:38:00* Test Item Value Reference Range Interpretation Comments Creatine Kinase MB (test code = 28372-7) 0.90 0-5.0 [facility]-34-35 23:38:00* Test Item Value Reference Range Interpretation Comments Troponin I (test code = JCP3605) 0.061 0-0.300 [facility]fieldCHEST SINGLE (PORTABLE)2018-11-26 23:35:00 [place] [address] Patient Name: SHALOM SORIANO MR #: [id number] : 1950 Age/Sex: 68/F Req #: [id number] Adm Physician: Ordered by: IRENE MELCHOR MD Report #: [id number] Location: ER Room/Bed: Procedure: [id number] DX/CHEST [...] 11:37 PM Dictated By: MIRIAM PULLIAM DO 2337 Transcribed By: ANTONY on 11/26/18 2337 COPY TO: IRENE MELCHOR MD Sodium Srcqe0290-69-34 23:32:00* Test Item Value Reference Range Interpretation Comments Sodium Level (test code = 2951-2) 135 136-145 L [facility] MansfieldPotassium Tmzoo6492-28-02 23:32:00* Test Item Value Reference Range Interpretation Comments Potassium Level (test code = 2823-3) 5.4 3.5-5.1 H [facility] MansfieldChloride Eyhgt4573-17-02 23:32:00* Test Item Value Reference Range Interpretation Comments Chloride Level (test code = 2075-0) 95 98-107 L [facility] MansfieldCarbon Dioxide Hhpeq6094-90-79 23:32:00* Test Item Value Reference Range Interpretation Comments Carbon Dioxide Level (test code = 2028-9) 27 22-29 [facility] MansfieldAnion Kik8584-31-84 23:32:00* Test Item Value Reference Range Interpretation Comments Anion Gap (test code = 34982-6) 18.4 8-16 H [facility] MansfieldBlood Urea Uclnuklb8873-62-50 23:32:00* Test Item Value Reference Range Interpretation Comments Blood Urea Nitrogen (test code = 3094-0) 55 7-26 H [facility] MansfieldCreatinine2019-08-21 23:32:00* Test Item Value Reference Range Interpretation Comments Creatinine (test code = 2160-0) 6.85 0.57-1.11 H [facility] MansfieldBUN/Creatinine Tigev9495-26-60 23:32:00* Test Item Value Reference Range Interpretation Comments BUN/Creatinine Ratio (test code = 3097-3) 8 6-25 [facility] MansfieldEstimat Glomerular Filtration Rate 2018-11-26 23:32:00* Test Item Value Reference Range Interpretation Comments Estimat Glomerular Filtration Rate (test code = 708182019) 6 >60 L Ranges were taken from the National Kidney Disease Education Program and the [facility] Kid[facility] Foundation literature.Reference ranges:60 or greater: Qdxaes29-96 ( for 3 consecutive months): Chronic kidney disease 15 or less: Kidney failureTexas Health Hospital MansfieldGlucose Asabj0366-10-23 23:32:00* Test Item Value Reference Range Interpretation Comments Glucose Level (test code = JRV6597) 89 74-118 [facility] MansfieldCalcium Adtrs6270-59-76 23:32:00* Test Item Value Reference Range Interpretation Comments Calcium Level (test code = 39532-0) 9.3 8.4-10.2 VERIFIED PREVIOUS RESULTSTexas Health Hospital MansfieldTotal Bilirubin 2018-11-26 23:32:00* Test Item Value Reference Range Interpretation Comments Total Bilirubin (test code = 1975-2) 0.6 0.2-1.2 [facility] MansfieldAspartate Amino Transf (AST/SGOT) 2018-11-26 23:32:00* Test Item Value Reference Range Interpretation Comments Aspartate Amino Transf (AST/SGOT) (test code = Aspartate Amino Transf (AST/SGOT)) 17 5-34 [facility] MansfieldAlanine Aminotransferase (ALT/SGPT) 2018-11-26 23:32:00* Test Item Value Reference Range Interpretation Comments Alanine Aminotransferase (ALT/SGPT) (test code = 1742-6) 13 0-55 [facility] MansfieldTotal Jguvalc0244-37-13 23:32:00* Test Item Value Reference Range Interpretation Comments Total Protein (test code = 2885-2) 6.6 6.5-8.1 [facility] MansfieldAlbumin2019-08-21 23:32:00* Test Item Value Reference Range Interpretation Comments Albumin (test code = 1751-7) 3.0 3.5-5.0 L [facility] MansfieldGlobulin2019-08-21 23:32:00* Test Item Value Reference Range Interpretation Comments Globulin (test code = 78319-5) 3.6 2.3-3.5 H [facility] MansfieldAlbumin/Globulin Zogwx1185-42-81 23:32:00 * Test Item Value Reference Range Interpretation Comments Albumin/Globulin Ratio (test code = 1759-0) 0.8 0.8-2.0 [facility] MansfieldAlkaline Pnfllpudgde1027-09-33 23:32:00* Test Item Value Reference Range Interpretation Comments Alkaline Phosphatase (test code = 6768-6) 152 40-150 H [facility] MansfieldCreatine Fvubvk3583-57-53 23:32:00* Test Item Value Reference Range Interpretation Comments Creatine Kinase (test code = 2157-6) 49 29-168 [facility]fieldTotal Jsedgvawg0662-85-75 23:32:00* Test Item Value Reference Range Interpretation Comments Total Bilirubin (test code = 1975-2) 0.6 0.2-1.2 [facility] MansfieldAspartate Amino Transf (AST/SGOT) 2018-11-26 23:32:00* Test Item Value Reference Range Interpretation Comments Aspartate Amino Transf (AST/SGOT) (test code = Aspartate Amino Transf (AST/SGOT)) 17 5-34 [facility] MansfieldAlanine Aminotransferase (ALT/SGPT) 2018-11-26 23:32:00* Test Item Value Reference Range Interpretation Comments Alanine Aminotransferase (ALT/SGPT) (test code = 1742-6) 13 0-55 [facility] MansfieldTotal Psmqcbm5894-82-86 23:32:00* Test Item Value Reference Range Interpretation Comments Total Protein (test code = 2885-2) 6.6 6.5-8.1 [facility] MansfieldAlbumin2019-08-21 23:32:00* Test Item Value Reference Range Interpretation Comments Albumin (test code = 1751-7) 3.0 3.5-5.0 L [facility] MansfieldGlobulin2019-08-21 23:32:00* Test Item Value Reference Range Interpretation Comments Globulin (test code = 47223-6) 3.6 2.3-3.5 H [facility] MansfieldAlbumin/Globulin Gimmx5493-42-06 23:32:00 * Test Item Value Reference Range Interpretation Comments Albumin/Globulin Ratio (test code = 1759-0) 0.8 0.8-2.0 [facility] MansfieldAlkaline Eaycrepgpbn6484-31-80 23:32:00* Test Item Value Reference Range Interpretation Comments Alkaline Phosphatase (test code = 6768-6) 152 40-150 H [facility] MansfieldCreatine Juqqox4347-76-63 23:32:00* Test Item Value Reference Range Interpretation Comments Creatine Kinase (test code = 2157-6) 49 29-168 [facility] MansfieldProthrombin Whoe6081-02-66 23:23:00* Test Item Value Reference Range Interpretation Comments Prothrombin Time (test code = 5902-2) 13.8 11.9-14.5 [facility] MansfieldProthromb Time International Ratio 2018-11-26 23:23:00* Test Item Value Reference Range Interpretation Comments Prothromb Time International Ratio (test code = 6301-6) 1.01 Oral Anticoagulant Therapy INR Values:1. Low Intensity Therapy 1.5 - 2.02 . Moderate Intensity Therapy 2.0 - 3.03. High Intensity Therapy(1) 2.5 - 3. 54. High Intensity Therapy(2) 3.0 - 4.05. Panic Value INR > 5.0 [facility] MansfieldActivated Partial Thromboplast Time 2018-11-26 23:23:00* Test Item Value Reference Range Interpretation Comments Activated Partial Thromboplast Time (test code = 06949-2) 35.7 23.8-35.5 H [facility] MansfieldWhite Blood Zeukl5097-06-86 23:09:00* Test Item Value Reference Range Interpretation Comments White Blood Count (test code = 6690-2) 7.90 4.8-10.8 [facility] MansfieldRed Blood Hfdye5937-37-52 23:09:00* Test Item Value Reference Range Interpretation Comments Red Blood Count (test code = 789-8) 3.55 3.6-5.1 L [facility] MansfieldHemoglobin2019-08-21 23:09:00* Test Item Value Reference Range Interpretation Comments Hemoglobin (test code = 62703-3) 10.4 12.0-16.0 L [facility] MansfieldHematocrit2019-08-21 23:09:00* Test Item Value Reference Range Interpretation Comments Hematocrit (test code = 4544-3) 32.8 34.2-44.1 L [facility] MansfieldMean Corpuscular Bivepl3473-41-52 23:09:00* Test Item Value Reference Range Interpretation Comments Mean Corpuscular Volume (test code = 787-2) 92.4 81-99 [facility] MansfieldMean Corpuscular Rgdypevefa8111-46-99 23:09:00* Test Item Value Reference Range Interpretation Comments Mean Corpuscular Hemoglobin (test code = 785-6) 29.3 28-32 [facility] MansfieldMean Corpuscular Hemoglobin Concent 2018-11-26 23:09:00* Test Item Value Reference Range Interpretation Comments Mean Corpuscular Hemoglobin Concent (test code = 786-4) 31.7 31-35 [facility] MansfieldRed Cell Distribution Fbnjr0632-90-72 23:09:00* Test Item Value Reference Range Interpretation Comments Red Cell Distribution Width (test code = 67900-3) 14.1 11.7 -14.4 [facility] MansfieldPlatelet Mkkvc1495-82-26 23:09:00* Test Item Value Reference Range Interpretation Comments Platelet Count (test code = 777-3) 182 140-360 [facility] MansfieldNeutrophils (%) (Auto)2018-11-26 23:09:00 * Test Item Value Reference Range Interpretation Comments Neutrophils (%) (Auto) (test code = 51219-1) 67.1 38.7-80.0 [facility] MansfieldLymphocytes (%) (Auto)2018-11-26 23:09:00 * Test Item Value Reference Range Interpretation Comments Lymphocytes (%) (Auto) (test code = 736-9) 15.6 18.0-39.1 L [facility]fieldMonocytes (%) (Auto)2018-11-26 23:09:00* Test Item Value Reference Range Interpretation Comments Monocytes (%) (Auto) (test code = 5905-5) 8.0 4.4-11.3 [facility]fieldEosinophils (%) (Auto)2018-11-26 23:09:00 * Test Item Value Reference Range Interpretation Comments Eosinophils (%) (Auto) (test code = 713-8) 8.4 0.0-6.0 H [facility]fieldBasophils (%) (Auto)2018-11-26 23:09:00* Test Item Value Reference Range Interpretation Comments Basophils (%) (Auto) (test code = 706-2) 0.5 0.0-1.0 [facility] MansfieldIM GRANULOCYTES %2018-11-26 23:09:00* Test Item Value Reference Range Interpretation Comments IM GRANULOCYTES % (test code = IM GRANULOCYTES %) 0.4 0.0- 1.0 [facility]fieldNeutrophils # (Auto)2018-11-26 23:09:00* Test Item Value Reference Range Interpretation Comments Neutrophils # (Auto) (test code = 751-8) 5.3 2.1-6.9 [facility]fieldLymphocytes # (Auto)2018-11-26 23:09:00* Test Item Value Reference Range Interpretation Comments Lymphocytes # (Auto) (test code = 35240-6) 1.2 1.0-3.2 [facility]fieldMonocytes # (Auto)2018-11-26 23:09:00* Test Item Value Reference Range Interpretation Comments Monocytes # (Auto) (test code = 742-7) 0.6 0.2-0.8 [facility]fieldEosinophils # (Auto)2018-11-26 23:09:00* Test Item Value Reference Range Interpretation Comments Eosinophils # (Auto) (test code = 711-2) 0.7 0.0-0.4 H [facility]fieldBasophils # (Auto)2018-11-26 23:09:00* Test Item Value Reference Range Interpretation Comments Basophils # (Auto) (test code = 704-7) 0.0 0.0-0.1 [facility] MansfieldAbsolute Immature Granulocyte (auto 2018-11-26 23:09:00* Test Item Value Reference Range Interpretation Comments Absolute Immature Granulocyte (auto (grazyna t code = Absolute Immature Granulocyte (auto) 0.03 0-0.1 [facility]fieldHeemanate [facility] B Surface Antibody, Quant 2018-08-20 05:52:00* Test Item Value Reference Range Interpretation Comments Hepatitis B Surface Antibody, Quant (test code = 5194-6) <3.1 Immunity>9.9 L Status of Immunity Anti-HBs Level Inconsistent with Immunity 0.0 - 9.9Consistent with Immunity >9.9[facility] B Surface Opcjqji0464-48-94 05:52:00* Test Item Value Reference Range Interpretation Comments Hepatitis B Surface Antigen (test code = 5196-1) Negative Negat tho Performed at: [facility] [id number] Director: Ruben Velázquez MD, Phone: [phone] Health Hospital MansfieldHeemanate health/[facility] B Surface Antibody, Aesvk2551-70-58 05:52:00* Test Item Value Reference Range Interpretation Comments Hepatitis B Surface Antibody, Quant (test code = 5194-6) <3.1 Immunity>9.9 L Status of Immunity Anti-HBs Level Inconsistent with Immunity 0.0 - 9.9Consistent with Immunity >9.9[facility] B Surface Xqpnmvp3051-39-13 05:52:00* Test Item Value Reference Range Interpretation Comments Hepatitis B Surface Antigen (test code = 5196-1) Negative Negat tho Performed at: - [facility] [id number] Director: Ruben Velázquez MD, Phone: [phone] Medical Center B Surface Antibody, Zadet7934-33-89 05:52:00* Test Item Value Reference Range Interpretation Comments Hepatitis B Surface Antibody, Quant (test code = 5194-6) <3.1 Immunity>9.9 L Status of Immunity Anti-HBs Level Inconsistent with Immunity 0.0 - 9.9Consistent with Immunity >9.9[facility] B Surface Ybtdvbf9231-37-50 05:52:00* Test Item Value Reference Range Interpretation Comments Hepatitis B Surface Antigen (test code = 5196-1) Negative Negat tho Performed at: - [facility] [id number] Director: Ruben Velázquez MD, Phone: [phone] Health Hospital MansfieldCHES SINGLE (PORTABLE)2018-08-19 07:21:00 [place] [address] Patient Name: SHALOM SORIANO MR #: [id number] : 1950 Age/Sex: 68/F Req #: [id number] Adm Physician: MARIANNE MCLEAN MD Ordered by: SHALOM KING HAND OUTSIDE CUTTER Report #: [id number] Location: MED/SURG2 Room/Bed: 201 Procedure: [id number] DX/CHEST SINGLE (PORTABLE) Exam Date: 08/19/18 Exam [...] one hour prior. Signed by: Dr. Paris Chauhan M.D. on 08/19 7:22 AM Dictated By: PARIS CHAUHAN MD 1 Transcribed By: ANTONY on 08/19/18721 COPY TO: SHALOM KING NP Phosphorus Bswaw4036-37-87 07:17:00* Test Item Value Reference Range Interpretation Comments Phosphorus Level (test code = VTI3712) 6.7 2.3-4.7 [facility] Nrsdm3594-66-99 07:17:00* Test Item Value Reference Range Interpretation Comments Magnesium Level (test code = 24190-1) 2.2 1.3-2.1 H [facility] MansfieldPhosphorus Mizmk1030-09-33 07:17:00* Test Item Value Reference Range Interpretation Comments Phosphorus Level (test code = TJS9397) 6.7 2.3-4.7 [facility]erg[facility] Ypmeb0478-27-35 07:17:00* Test Item Value Reference Range Interpretation Comments Magnesium Level (test code = 42632-7) 2.2 1.3-2.1 H [facility] MansfieldPhosphorus Cqtgw2047-20-25 07:17:00* Test Item Value Reference Range Interpretation Comments Phosphorus Level (test code = [id number]) 6.7 2.3-4.7 [facility] Rmfui9870-47-43 07:17:00* Test Item Value Reference Range Interpretation Comments Magnesium Level (test code = 80849-6) 2.2 1.3-2.1 [facility] Nhial9613-05-84 07:17:00* Test Item Value Reference Range Interpretation Comments Phosphorus Level (test code = KJO9259) 6.7 2.3-4.7 H [facility]2019-05-14 07:17:00* Test Item Value Reference Range Interpretation Comments Magnesium Level (test code = 78005-0) 2.2 1.3-2.1 H [place] 55595019-05-14 06:01:00* Test Item Value Reference Range Interpretation Comments Troponin I (test code = LEW0784) 0.036 0-0.300 [place] 55595019-05-14 06:01:00* Test Item Value Reference Range Interpretation Comments Troponin I (test code = MZC9071) 0.036 0-0.300 [facility] Hghym8825-63-32 05:47:00* Test Item Value Reference Range Interpretation Comments Sodium Level (test code = 2951-2) 137 136-145 [facility] Uigqu2398-37-24 05:47:00* Test Item Value Reference Range Interpretation Comments Potassium Level (test code = 2823-3) 3.6 3.5-5.1 [facility]fieldChloride Hbctw4584-77-73 05:47:00* Test Item Value Reference Range Interpretation Comments Chloride Level (test code = 2075-0) 94 98-107 L [facility]fieldCarbon Dioxide Vrhvf8325-69-68 05:47:00* Test Item Value Reference Range Interpretation Comments Carbon Dioxide Level (test code = 2028-9) 30 22-29 [facility]fieldAnion Enx9224-29-45 05:47:00* Test Item Value Reference Range Interpretation Comments Anion Gap (test code = 25061-7) 16.6 8-16 H [facility]fieldBlood Urea Knogsfkn2506-01-33 05:47:00* Test Item Value Reference Range Interpretation Comments Blood Urea Nitrogen (test code = 3094-0) 44 7-26 [facility]fieldCreatinine2019-05-14 05:47:00* Test Item Value Reference Range Interpretation Comments Creatinine (test code = 2160-0) 5.98 0.57-1.11 [facility]fieldBUN/Creatinine Dbrhc0160-01-86 05:47:00* Test Item Value Reference Range Interpretation Comments BUN/Creatinine Ratio (test code = 3097-3) 7 6-25 [facility]fieldEstimat Glomerular Filtration Rate 2018-08-19 05:47:00* Test Item Value Reference Range Interpretation Comments Estimat Glomerular Filtration Rate (test code = 113687392) 7 >60 L Ranges were taken from the National Kidney Disease Education Program and the [facility] literature.Reference ranges:60 or greater: Rrjfdl48-34 ( for 3 consecutive months): Chronic kidney disease 15 or less: Kidney failureTexas [facility] Hospital MansfieldGlucose Emohw0577-13-37 05:47:00* Test Item Value Reference Range Interpretation Comments Glucose Level (test code = GNS6874) 80 74-118 [facility]fieldCalcium Pmfjh0556-23-47 05:47:00* Test Item Value Reference Range Interpretation Comments Calcium Level (test code = 62134-2) 7.1 8.4-10.2 L [facility]fieldTotal Dnmvlzhbt9931-00-95 05:47:00* Test Item Value Reference Range Interpretation Comments Total Bilirubin (test code = 1975-2) 0.4 0.2-1.2 [facility]fieldAspartate Amino Transf (AST/SGOT) 2018-08-19 05:47:00* Test Item Value Reference Range Interpretation Comments Aspartate Amino Transf (AST/SGOT) (test code = Aspartate Amino Transf (AST/SGOT)) 23 5-34 [facility]fieldAlanine Aminotransferase (ALT/SGPT) 2018-08-19 05:47:00* Test Item Value Reference Range Interpretation Comments Alanine Aminotransferase (ALT/SGPT) (test code = 1742-6) 20 0-55 [facility]fieldTotal Gdwplxq3634-76-33 05:47:00* Test Item Value Reference Range Interpretation Comments Total Protein (test code = 2885-2) 6.3 6.5-8.1 L [facility]fieldAlbumin2019-05-14 05:47:00* Test Item Value Reference Range Interpretation Comments Albumin (test code = 1751-7) 2.9 3.5-5.0 L [facility]fieldGlobulin2019-05-14 05:47:00* Test Item Value Reference Range Interpretation Comments Globulin (test code = 44662-9) 3.4 2.3-3.5 [facility]fieldAlbumin/Globulin Wxzpo2124-62-73 05:47:00 * Test Item Value Reference Range Interpretation Comments Albumin/Globulin Ratio (test code = 1759-0) 0.9 0.8-2.0 [facility]fieldAlkaline Hgrsrdmimqi1615-73-07 05:47:00* Test Item Value Reference Range Interpretation Comments Alkaline Phosphatase (test code = 6768-6) 129 40-150 [facility] Mlkzr0133-66-30 05:47:00* Test Item Value Reference Range Interpretation Comments Sodium Level (test code = 2951-2) 137 136-145 [facility]fieldPotassium Kgevb7216-97-59 05:47:00* Test Item Value Reference Range Interpretation Comments Potassium Level (test code = 2823-3) 3.6 3.5-5.1 [facility]fieldChloride Navqz0284-97-08 05:47:00* Test Item Value Reference Range Interpretation Comments Chloride Level (test code = 2075-0) 94 98-107 L [facility]fieldCarbon Dioxide Heafn9147-09-77 05:47:00* Test Item Value Reference Range Interpretation Comments Carbon Dioxide Level (test code = 2028-9) 30 22-29 H [facility]fieldAnion Wdl8195-15-38 05:47:00* Test Item Value Reference Range Interpretation Comments Anion Gap (test code = 05179-7) 16.6 8-16 H [facility]fieldBlood Urea Xyympedo0733-52-97 05:47:00* Test Item Value Reference Range Interpretation Comments Blood Urea Nitrogen (test code = 3094-0) 44 7-26 [facility]fieldCreatinine2019-05-14 05:47:00* Test Item Value Reference Range Interpretation Comments Creatinine (test code = 2160-0) 5.98 0.57-1.11 [facility]fieldBUN/Creatinine Zexvk2080-26-63 05:47:00* Test Item Value Reference Range Interpretation Comments BUN/Creatinine Ratio (test code = 3097-3) 7 6-25 [facility]fieldEstimat Glomerular Filtration Rate 2018-08-19 05:47:00* Test Item Value Reference Range Interpretation Comments Estimat Glomerular Filtration Rate (test code = 853712494) 7 >60 L Ranges were taken from the National Kidney Disease Education Program and the [facility] literature.Reference ranges:60 or greater: Satjyv86-81 ( for 3 consecutive months): Chronic kidney disease 15 or less: Kidney failureTexas Health Hospital MansfieldGlucose Hehee0423-06-73 05:47:00* Test Item Value Reference Range Interpretation Comments Glucose Level (test code = HCR0910) 80 74-118 [facility]fieldCalcium Vtwfp5131-01-13 05:47:00* Test Item Value Reference Range Interpretation Comments Calcium Level (test code = 09822-0) 7.1 8.4-10.2 L [facility]fieldTotal Kgdposabw8121-14-69 05:47:00* Test Item Value Reference Range Interpretation Comments Total Bilirubin (test code = 1975-2) 0.4 0.2-1.2 [facility]fieldAspartate Amino Transf (AST/SGOT) 2018-08-19 05:47:00* Test Item Value Reference Range Interpretation Comments Aspartate Amino Transf (AST/SGOT) (test code = Aspartate Amino Transf (AST/SGOT)) 23 5-34 [facility]fieldAlanine Aminotransferase (ALT/SGPT) 2018-08-19 05:47:00* Test Item Value Reference Range Interpretation Comments Alanine Aminotransferase (ALT/SGPT) (test code = 1742-6) 20 0-55 [facility]fieldTotal Rqxiynm2653-00-74 05:47:00* Test Item Value Reference Range Interpretation Comments Total Protein (test code = 2885-2) 6.3 6.5-8.1 L [facility]fieldAlbumin2019-05-14 05:47:00* Test Item Value Reference Range Interpretation Comments Albumin (test code = 1751-7) 2.9 3.5-5.0 L [facility]fieldGlobulin2019-05-14 05:47:00* Test Item Value Reference Range Interpretation Comments Globulin (test code = 96502-2) 3.4 2.3-3.5 [facility]fieldAlbumin/Globulin Ojgep9621-69-62 05:47:00 * Test Item Value Reference Range Interpretation Comments Albumin/Globulin Ratio (test code = 1759-0) 0.9 0.8-2.0 [facility]fieldAlkaline Oewpaqdgbgr1928-27-61 05:47:00* Test Item Value Reference Range Interpretation Comments Alkaline Phosphatase (test code = 6768-6) 129 40-150 [facility] MansfieldB-Type Natriuretic Jvaomum9614-62-28 05:32:00* Test Item Value Reference Range Interpretation Comments B-Type Natriuretic Peptide (test code = 89589-0) 2446.3 0-100 H [facility] MansfieldB-Type Natriuretic Xhropfu1122-31-55 05:32:00* Test Item Value Reference Range Interpretation Comments B-Type Natriuretic Peptide (test code = 83508-1) 2446.3 0-100 H [facility] MansfieldB-Type Natriuretic Uyjxrfd9758-67-40 05:32:00* Test Item Value Reference Range Interpretation Comments B-Type Natriuretic Peptide (test code = 79442-5) 2446.3 0-100 H [facility] MansfieldB-Type Natriuretic Gfujzul6526-72-93 05:32:00* Test Item Value Reference Range Interpretation Comments B-Type Natriuretic Peptide (test code = 87614-3) 2446.3 0-100 H [facility]fieldWhite Blood Yavph8232-41-02 05:09:00* Test Item Value Reference Range Interpretation Comments White Blood Count (test code = 6690-2) 4.68 4.8-10.8 L [facility]fieldRed Blood Okkgw2597-72-36 05:09:00* Test Item Value Reference Range Interpretation Comments Red Blood Count (test code = 789-8) 3.05 3.6-5.1 L [facility]fieldHemoglobin2019-05-14 05:09:00* Test Item Value Reference Range Interpretation Comments Hemoglobin (test code = 96173-5) 9.0 12.0-16.0 L [facility]fieldHematocrit2019-05-14 05:09:00* Test Item Value Reference Range Interpretation Comments Hematocrit (test code = 4544-3) 28.4 34.2-44.1 L [facility]fieldMean Corpuscular Ossrxd2543-12-54 05:09:00* Test Item Value Reference Range Interpretation Comments Mean Corpuscular Volume (test code = 787-2) 93.1 81-99 [facility]fieldMean Corpuscular Fgajmrkqac9695-54-30 05:09:00* Test Item Value Reference Range Interpretation Comments Mean Corpuscular Hemoglobin (test code = 785-6) 29.5 28-32 [facility]fieldMean Corpuscular Hemoglobin Concent 2018-08-19 05:09:00* Test Item Value Reference Range Interpretation Comments Mean Corpuscular Hemoglobin Concent (test code = 786-4) 31.7 31-35 [facility]fieldRed Cell Distribution Zngyh2208-91-52 05:09:00* Test Item Value Reference Range Interpretation Comments Red Cell Distribution Width (test code = 94457-0) 14.6 11.7 -14.4 H [facility]fieldPlatelet Ajiqv5565-96-69 05:09:00* Test Item Value Reference Range Interpretation Comments Platelet Count (test code = 777-3) 208 140-360 [facility]fieldNeutrophils (%) (Auto)2018-08-19 05:09:00 * Test Item Value Reference Range Interpretation Comments Neutrophils (%) (Auto) (test code = 96499-8) 67.4 38.7-80.0 [facility]fieldLymphocytes (%) (Auto)2018-08-19 05:09:00 * Test Item Value Reference Range Interpretation Comments Lymphocytes (%) (Auto) (test code = 736-9) 17.7 18.0-39.1 L [facility]fieldMonocytes (%) (Auto)2018-08-19 05:09:00* Test Item Value Reference Range Interpretation Comments Monocytes (%) (Auto) (test code = 5905-5) 10.9 4.4-11.3 [facility]fieldEosinophils (%) (Auto)2018-08-19 05:09:00 * Test Item Value Reference Range Interpretation Comments Eosinophils (%) (Auto) (test code = 713-8) 3.2 0.0-6.0 [facility]fieldBasophils (%) (Auto)2018-08-19 05:09:00* Test Item Value Reference Range Interpretation Comments Basophils (%) (Auto) (test code = 706-2) 0.6 0.0-1.0 [facility]fieldIM GRANULOCYTES %2018-08-19 05:09:00* Test Item Value Reference Range Interpretation Comments IM GRANULOCYTES % (test code = IM GRANULOCYTES %) 0.2 0.0- 1.0 [facility]fieldNeutrophils # (Auto)2018-08-19 05:09:00* Test Item Value Reference Range Interpretation Comments Neutrophils # (Auto) (test code = 751-8) 3.2 2.1-6.9 [facility]fieldLymphocytes # (Auto)2018-08-19 05:09:00* Test Item Value Reference Range Interpretation Comments Lymphocytes # (Auto) (test code = 37812-6) 0.8 1.0-3.2 L [facility]fieldMonocytes # (Auto)2018-08-19 05:09:00* Test Item Value Reference Range Interpretation Comments Monocytes # (Auto) (test code = 742-7) 0.5 0.2-0.8 [facility]fieldEosinophils # (Auto)2018-08-19 05:09:00* Test Item Value Reference Range Interpretation Comments Eosinophils # (Auto) (test code = 711-2) 0.2 0.0-0.4 [facility]fieldBasophils # (Auto)2018-08-19 05:09:00* Test Item Value Reference Range Interpretation Comments Basophils # (Auto) (test code = 704-7) 0.0 0.0-0.1 [facility]fieldAbsolute Immature Granulocyte (auto 2018-08-19 05:09:00* Test Item Value Reference Range Interpretation Comments Absolute Immature Granulocyte (auto (grazyna t code = Absolute Immature Granulocyte (auto) 0.01 0-0.1 [facility]fieldWhite Blood Srnnw2509-94-32 05:09:00* Test Item Value Reference Range Interpretation Comments White Blood Count (test code = 6690-2) 4.68 4.8-10.8 L [facility]fieldRed Blood Rfdkc5514-62-99 05:09:00* Test Item Value Reference Range Interpretation Comments Red Blood Count (test code = 789-8) 3.05 3.6-5.1 L [facility]fieldHemoglobin2019-05-14 05:09:00* Test Item Value Reference Range Interpretation Comments Hemoglobin (test code = 70907-7) 9.0 12.0-16.0 L [facility]fieldHematocrit2019-05-14 05:09:00* Test Item Value Reference Range Interpretation Comments Hematocrit (test code = 4544-3) 28.4 34.2-44.1 L [facility]fieldMean Corpuscular Mibhtn8278-34-78 05:09:00* Test Item Value Reference Range Interpretation Comments Mean Corpuscular Volume (test code = 787-2) 93.1 81-99 [facility]fieldMean Corpuscular Ysyimzlyvc2242-92-11 05:09:00* Test Item Value Reference Range Interpretation Comments Mean Corpuscular Hemoglobin (test code = 785-6) 29.5 28-32 [facility]fieldMean Corpuscular Hemoglobin Concent 2018-08-19 05:09:00* Test Item Value Reference Range Interpretation Comments Mean Corpuscular Hemoglobin Concent (test code = 786-4) 31.7 31-35 [facility]fieldRed Cell Distribution Ntiby4894-72-27 05:09:00* Test Item Value Reference Range Interpretation Comments Red Cell Distribution Width (test code = 77999-6) 14.6 11.7 -14.4 H [facility]fieldPlatelet Cfitc5832-95-09 05:09:00* Test Item Value Reference Range Interpretation Comments Platelet Count (test code = 777-3) 208 140-360 [facility]fieldNeutrophils (%) (Auto)2018-08-19 05:09:00 * Test Item Value Reference Range Interpretation Comments Neutrophils (%) (Auto) (test code = 75932-8) 67.4 38.7-80.0 [facility]fieldLymphocytes (%) (Auto)2018-08-19 05:09:00 * Test Item Value Reference Range Interpretation Comments Lymphocytes (%) (Auto) (test code = 736-9) 17.7 18.0-39.1 L [facility]fieldMonocytes (%) (Auto)2018-08-19 05:09:00* Test Item Value Reference Range Interpretation Comments Monocytes (%) (Auto) (test code = 5905-5) 10.9 4.4-11.3 [facility]fieldEosinophils (%) (Auto)2018-08-19 05:09:00 * Test Item Value Reference Range Interpretation Comments Eosinophils (%) (Auto) (test code = 713-8) 3.2 0.0-6.0 [facility]fieldBasophils (%) (Auto)2018-08-19 05:09:00* Test Item Value Reference Range Interpretation Comments Basophils (%) (Auto) (test code = 706-2) 0.6 0.0-1.0 [facility]fieldIM GRANULOCYTES %2018-08-19 05:09:00* Test Item Value Reference Range Interpretation Comments IM GRANULOCYTES % (test code = IM GRANULOCYTES %) 0.2 0.0- 1.0 [facility]fieldNeutrophils # (Auto)2018-08-19 05:09:00* Test Item Value Reference Range Interpretation Comments Neutrophils # (Auto) (test code = 751-8) 3.2 2.1-6.9 [facility]fieldLymphocytes # (Auto)2018-08-19 05:09:00* Test Item Value Reference Range Interpretation Comments Lymphocytes # (Auto) (test code = 67573-1) 0.8 1.0-3.2 L [facility]fieldMonocytes # (Auto)2018-08-19 05:09:00* Test Item Value Reference Range Interpretation Comments Monocytes # (Auto) (test code = 742-7) 0.5 0.2-0.8 [facility]fieldEosinophils # (Auto)2018-08-19 05:09:00* Test Item Value Reference Range Interpretation Comments Eosinophils # (Auto) (test code = 711-2) 0.2 0.0-0.4 [facility]fieldBasophils # (Auto)2018-08-19 05:09:00* Test Item Value Reference Range Interpretation Comments Basophils # (Auto) (test code = 704-7) 0.0 0.0-0.1 [facility]fieldAbsolute Immature Granulocyte (auto 2018-08-19 05:09:00* Test Item Value Reference Range Interpretation Comments Absolute Immature Granulocyte (auto (grazyna t code = Absolute Immature Granulocyte (auto) 0.01 0-0.1 [facility]fieldCT ABDOMEN/PELVIS LD3595-34-65 13:05:00 [facility] [address] [address] Patient Name: SHALOM SORIANO MR #: [id number] : 1950 Age/[facility]: 68[id number] Req #: [id number] Adm Physician: Ordered by: SHAOLM KING NP Report #: [id number] Location: ER Room/Bed: Procedure: [id number] C T/CT ABDOMEN/PELVIS WO Exam Date: 08/18/18 [...] par tially visualized. Signed by: Dr. Paris Chauhan M.D. on 08/18/2018 1:16 PM Dictated By: PARIS CHAUHAN MD 1316 Transcribed By: ANTONY on 08/18/18 1316 COPY TO: SHALOM GARCIA HAND OUTSIDE CUTTER CHEST 2 IPIAL9479-01-79 12:07:00 [place] [address] Patient Name: SHALOM SORIANO MR #: [id number] : 1950 Age/Sex: 68/F Req #: [id number] Adm Physician: Ordered by: MARICEL ROMAN MD Report #: [id number] Location: ER Room/Bed: Procedure: [id number] DX/DAQUAN ST 2 VIEWS Exam Date: 08/18/18 [...] No consolidative pneumonia. Signed by: Dr. Paris Chauhan M.D. on 08/18/2018 12:11 PM Dictated By: PARIS CHAUHAN MD 1211 Transcribed By: ANTONY on 08/18/18 1211 COPY TO: MARICEL ROMAN MD Urine SUX6864-68-78 11:34:00* Test Item Value Reference Range Interpretation Comments Urine WBC (test code = 5821-4) NONE 0-5 [facility]fieldU[facility] SXL1311-19-80 11:34:00* Test Item Value Reference Range Interpretation Comments Urine RBC (test code = 29876-5) 0-5 0-5 [facility]fieldUrine Zzlgpisl7904-96-99 11:34:00* Test Item Value Reference Range Interpretation Comments Urine Bacteria (test code = 08405-0) NONE NONE [facility]fieldUrine Epithelial Zadoj0394-88-13 11:34:00 * Test Item Value Reference Range Interpretation Comments Urine Epithelial Cells (test code = 96584-2) FEW NONE [facility]fieldUrine VND6367-81-28 11:34:00* Test Item Value Reference Range Interpretation Comments Urine WBC (test code = 5821-4) NONE 0-5 [facility]fieldU[facility] SFG7670-99-94 11:34:00* Test Item Value Reference Range Interpretation Comments Urine RBC (test code = 89282-1) 0-5 0-5 [facility]fieldUrine Ojdonuuq0615-21-33 11:34:00* Test Item Value Reference Range Interpretation Comments Urine Bacteria (test code = 81640-1) NONE NONE [facility]fieldU[facility] Epithelial Rcpsi5074-72-47 11:34:00 * Test Item Value Reference Range Interpretation Comments Urine Epithelial Cells (test code = 75709-3) FEW NONE [facility] ZCI2944-49-62 11:34:00* Test Item Value Reference Range Interpretation Comments Urine WBC (test code = 5821-4) NONE 0-5 [facility]fieldU[facility] KPE6227-01-62 11:34:00* Test Item Value Reference Range Interpretation Comments Urine RBC (test code = 11755-4) 0-5 0-5 [facility] Jitjebiy2523-06-58 11:34:00* Test Item Value Reference Range Interpretation Comments Urine Bacteria (test code = 45275-7) NONE NONE [facility]fieldU[facility] Epithelial Jugvw9818-74-38 11:34:00 * Test Item Value Reference Range Interpretation Comments Urine Epithelial Cells (test code = 19974-5) FEW NONE [facility]fieldUrine TNH0940-86-49 11:34:00* Test Item Value Reference Range Interpretation Comments Urine WBC (test code = 5821-4) NONE 0-5 [facility]fieldU[facility] FYS8825-68-71 11:34:00* Test Item Value Reference Range Interpretation Comments Urine RBC (test code = 20740-2) 0-5 0-5 [facility] Nclfpghx2968-89-23 11:34:00* Test Item Value Reference Range Interpretation Comments Urine Bacteria (test code = 82399-2) NONE NONE [facility]fieldU[facility] Epithelial Xacqh9746-52-22 11:34:00 * Test Item Value Reference Range Interpretation Comments Urine Epithelial Cells (test code = 03937-8) FEW NONE [facility] MansfieldAmylase Pfntp6774-73-77 11:29:00* Test Item Value Reference Range Interpretation Comments Amylase Level (test code = 1798-8) 141 25-125 H [facility] MansfieldLipase2019-05-13 11:29:00* Test Item Value Reference Range Interpretation Comments Lipase (test code = 3040-3) 50 8-78 [facility]fieldAmylase Nqkvl7241-36-81 11:29:00* Test Item Value Reference Range Interpretation Comments Amylase Level (test code = 1798-8) 141 25-125 H [facility] MansfieldLipase2019-05-13 11:29:00* Test Item Value Reference Range Interpretation Comments Lipase (test code = 3040-3) 50 8-78 [facility]fieldAmylase Eauou5854-14-73 11:29:00* Test Item Value Reference Range Interpretation Comments Amylase Level (test code = 1798-8) 141 25-125 H [facility]fieldLipase2019-05-13 11:29:00* Test Item Value Reference Range Interpretation Comments Lipase (test code = 3040-3) 50 8-78 [facility]fieldAmylase Bdylk3129-94-61 11:29:00* Test Item Value Reference Range Interpretation Comments Amylase Level (test code = 1798-8) 141 25-125 H [facility]fieldLipase2019-05-13 11:29:00* Test Item Value Reference Range Interpretation Comments Lipase (test code = 3040-3) 50 8-78 [facility]fieldUrine Medox9958-02-81 10:45:00* Test Item Value Reference Range Interpretation Comments Urine Color (test code = 5778-6) YELLOW YELLOW [facility]fieldUrine Bpajtpp4459-38-06 10:45:00* Test Item Value Reference Range Interpretation Comments Urine Clarity (test code = 88575-2) CLOUDY CLEAR H [facility]fieldUrine Specific Uepuplu8226-23-33 10:45:00 * Test Item Value Reference Range Interpretation Comments Urine Specific [place] (test code = 5811-5) 1.010 1.010-1.02 5 [facility]fieldU[facility] yP6507-53-45 10:45:00* Test Item Value Reference Range Interpretation Comments Urine pH (test code = 11809-1) 9 5-7 H [facility]fieldU[facility] Leukocyte Imzgaouk1841-06-99 10:45:00* Test Item Value Reference Range Interpretation Comments Urine Leukocyte Esterase (test code = 5799-2) NEGATIVE NEGATIVE [facility]fieldU[facility] Ifrgrjp0979-77-66 10:45:00* Test Item Value Reference Range Interpretation Comments Urine Nitrite (test code = 89268-1) NEGATIVE NEGATIVE [facility]fieldU[facility] Zbncbte3453-62-11 10:45:00* Test Item Value Reference Range Interpretation Comments Urine Protein (test code = 5804-0) 2+ NEGATIVE H [facility] Glucose (UA)2018-08-18 10:45:00* Test Item Value Reference Range Interpretation Comments Urine Glucose (UA) (test code = 2349-9) 2+ NEGATIVE H [facility]fieldUrine Xgymufx9066-05-59 10:45:00* Test Item Value Reference Range Interpretation Comments Urine Ketones (test code = 85174-8) NEGATIVE NEGATIVE [facility]fieldU[facility] Jzruqxpgxlvb7938-42-35 10:45:00* Test Item Value Reference Range Interpretation Comments Urine Urobilinogen (test code = 56527-3) 0.2 0.2-1 [facility]fieldU[facility] Gbrwqcuof5296-26-60 10:45:00* Test Item Value Reference Range Interpretation Comments Urine Bilirubin (test code = 1978-6) NEGATIVE NEGATIVE [facility]fieldU[facility] Zjxsp0049-23-63 10:45:00* Test Item Value Reference Range Interpretation Comments Urine Blood (test code = 02020-2) TRACE NEGATIVE H [facility]fieldUrine Lrukj9198-01-76 10:45:00* Test Item Value Reference Range Interpretation Comments Urine Color (test code = 5778-6) YELLOW YELLOW [facility] Jqcmtjj2558-52-55 10:45:00* Test Item Value Reference Range Interpretation Comments Urine Clarity (test code = 50981-4) CLOUDY CLEAR H [facility] Specific Mrqrhle7094-16-82 10:45:00 * Test Item Value Reference Range Interpretation Comments Urine Specific [place] (test code = 5811-5) 1.010 1.010-1.02 5 [facility] oC3729-92-05 10:45:00* Test Item Value Reference Range Interpretation Comments Urine pH (test code = 60909-8) 9 5-7 H [facility] Leukocyte Dzssoadk7303-17-69 10:45:00* Test Item Value Reference Range Interpretation Comments Urine Leukocyte Esterase (test code = 5799-2) NEGATIVE NEGATIVE [facility] Lbxplah8858-69-39 10:45:00* Test Item Value Reference Range Interpretation Comments Urine Nitrite (test code = 16327-2) NEGATIVE NEGATIVE [facility] Mvjyzfq6959-10-26 10:45:00* Test Item Value Reference Range Interpretation Comments Urine Protein (test code = 5804-0) 2+ NEGATIVE H [facility] Glucose (UA)2018-08-18 10:45:00* Test Item Value Reference Range Interpretation Comments Urine Glucose (UA) (test code = 2349-9) 2+ NEGATIVE H [facility] Ziowfhh2175-88-32 10:45:00* Test Item Value Reference Range Interpretation Comments Urine Ketones (test code = 16188-7) NEGATIVE NEGATIVE [facility] Mrttqydnkkho2625-92-65 10:45:00* Test Item Value Reference Range Interpretation Comments Urine Urobilinogen (test code = 28042-3) 0.2 0.2-1 [facility] Qzhuwguke2407-47-06 10:45:00* Test Item Value Reference Range Interpretation Comments Urine Bilirubin (test code = 1978-6) NEGATIVE NEGATIVE [facility] Sxgdk6864-26-47 10:45:00* Test Item Value Reference Range Interpretation Comments Urine Blood (test code = 12829-6) TRACE NEGATIVE H [facility] Znhem4344-15-79 10:45:00* Test Item Value Reference Range Interpretation Comments Urine Color (test code = 5778-6) YELLOW YELLOW [facility] Mbuileg4810-35-64 10:45:00* Test Item Value Reference Range Interpretation Comments Urine Clarity (test code = 71917-4) CLOUDY CLEAR H [facility] Specific Ldkntpn0890-32-09 10:45:00 * Test Item Value Reference Range Interpretation Comments Urine Specific [place] (test code = 5811-5) 1.010 1.010-1.02 5 [facility] fV0840-15-83 10:45:00* Test Item Value Reference Range Interpretation Comments Urine pH (test code = 93492-6) 9 5-7 H [facility] Leukocyte Inkuiesw6342-84-97 10:45:00* Test Item Value Reference Range Interpretation Comments Urine Leukocyte Esterase (test code = 5799-2) NEGATIVE NEGATIVE [facility] Owzwezm8566-97-99 10:45:00* Test Item Value Reference Range Interpretation Comments Urine Nitrite (test code = 71309-9) NEGATIVE NEGATIVE [facility] Ncxwmqh1049-30-57 10:45:00* Test Item Value Reference Range Interpretation Comments Urine Protein (test code = 5804-0) 2+ NEGATIVE H [facility] Glucose (UA)2018-08-18 10:45:00* Test Item Value Reference Range Interpretation Comments Urine Glucose (UA) (test code = 2349-9) 2+ NEGATIVE H [facility] Jbrkcqq3005-77-79 10:45:00* Test Item Value Reference Range Interpretation Comments Urine Ketones (test code = 18166-5) NEGATIVE NEGATIVE [facility] Rbwzenftuhsp1942-52-27 10:45:00* Test Item Value Reference Range Interpretation Comments Urine Urobilinogen (test code = 37091-2) 0.2 0.2-1 [facility] Xjvvgdezi7901-94-11 10:45:00* Test Item Value Reference Range Interpretation Comments Urine Bilirubin (test code = 1978-6) NEGATIVE NEGATIVE [facility] Bgcco5240-42-16 10:45:00* Test Item Value Reference Range Interpretation Comments Urine Blood (test code = 92950-4) TRACE NEGATIVE H [facility] Vblrc6802-44-94 10:45:00* Test Item Value Reference Range Interpretation Comments Urine Color (test code = 5778-6) YELLOW YELLOW [facility] Nrcqifs3565-35-12 10:45:00* Test Item Value Reference Range Interpretation Comments Urine Clarity (test code = 13234-4) CLOUDY CLEAR H [facility] Specific Rpcvonb0010-03-56 10:45:00 * Test Item Value Reference Range Interpretation Comments Urine Specific [place] (test code = 5811-5) 1.010 1.010-1.02 5 [facility] jH9297-61-53 10:45:00* Test Item Value Reference Range Interpretation Comments Urine pH (test code = 59177-9) 9 5-7 H [facility] Leukocyte Qaidnzjq2192-17-90 10:45:00* Test Item Value Reference Range Interpretation Comments Urine Leukocyte Esterase (test code = 5799-2) NEGATIVE NEGATIVE [facility] Pstofsn5096-48-85 10:45:00* Test Item Value Reference Range Interpretation Comments Urine Nitrite (test code = 91163-8) NEGATIVE NEGATIVE [facility] Ldistfd4781-64-98 10:45:00* Test Item Value Reference Range Interpretation Comments Urine Protein (test code = 5804-0) 2+ NEGATIVE H [facility] Glucose (UA)2018-08-18 10:45:00* Test Item Value Reference Range Interpretation Comments Urine Glucose (UA) (test code = 2349-9) 2+ NEGATIVE H [facility] Udhripw7651-81-14 10:45:00* Test Item Value Reference Range Interpretation Comments Urine Ketones (test code = 64603-6) NEGATIVE NEGATIVE [facility] Nsncfsmcdwyy4497-32-84 10:45:00* Test Item Value Reference Range Interpretation Comments Urine Urobilinogen (test code = 16113-0) 0.2 0.2-1 [facility] Ydbttfhhi1304-08-96 10:45:00* Test Item Value Reference Range Interpretation Comments Urine Bilirubin (test code = 1978-6) NEGATIVE NEGATIVE [facility] Ofesv2601-31-43 10:45:00* Test Item Value Reference Range Interpretation Comments Urine Blood (test code = 98940-3) TRACE NEGATIVE H [facility]fieldCreatine Kinase XE3512-06-27 16:00:00* Test Item Value Reference Range Interpretation Comments Creatine Kinase MB (test code = 41648-4) 0.60 0-5.0 [facility]fieldTroponin A9569-71-59 16:00:00* Test Item Value Reference Range Interpretation Comments Troponin I (test code = WJG7513) 0.025 0-0.300 [facility] Kinase ZA4009-81-09 16:00:00* Test Item Value Reference Range Interpretation Comments Creatine Kinase MB (test code = 38751-0) 0.60 0-5.0 [facility]fieldCreat[facility] Kinase BV3881-05-96 16:00:00* Test Item Value Reference Range Interpretation Comments Creatine Kinase MB (test code = 72226-9) 0.60 0-5.0 [facility]fieldCreat[facility] Onpoqb0466-17-75 15:53:00* Test Item Value Reference Range Interpretation Comments Creatine Kinase (test code = 2157-6) 30 29-168 [facility] Glwrsb4051-62-35 15:53:00* Test Item Value Reference Range Interpretation Comments Creatine Kinase (test code = 2157-6) 30 29-168 [facility] Pyuror6050-86-73 15:53:00* Test Item Value Reference Range Interpretation Comments Creatine Kinase (test code = 2157-6) 30 29-168 [facility] Kmxwg5118-30-94 11:55:00* Test Item Value Reference Range Interpretation Comments Sodium Level (test code = 2951-2) 137 136-145 [facility]field[facility]assium Omaei6600-88-61 11:55:00* Test Item Value Reference Range Interpretation Comments Potassium Level (test code = 2823-3) 5.2 3.5-5.1 H [facility] MansfieldChloride Kptcw9064-81-28 11:55:00* Test Item Value Reference Range Interpretation Comments Chloride Level (test code = 2075-0) 97 98-107 L [facility]fieldCarbon Dioxide Mhuuu1558-59-52 11:55:00* Test Item Value Reference Range Interpretation Comments Carbon Dioxide Level (test code = 2028-9) 26 22-29 [facility]fieldAnion Yda2164-97-83 11:55:00* Test Item Value Reference Range Interpretation Comments Anion Gap (test code = 84686-2) 19.2 8-16 H [facility]fieldBlood Urea Kgkufdmg6185-38-23 11:55:00* Test Item Value Reference Range Interpretation Comments Blood Urea Nitrogen (test code = 3094-0) 54 7-26 H [facility]fieldCreatinine2019-04-25 11:55:00* Test Item Value Reference Range Interpretation Comments Creatinine (test code = 2160-0) 6.97 0.57-1.11 H [facility]fieldBUN/Creatinine Twaub6608-61-24 11:55:00* Test Item Value Reference Range Interpretation Comments BUN/Creatinine Ratio (test code = 3097-3) 8 6-25 [facility]fieldEstimat Glomerular Filtration Rate 2018-07-31 11:55:00* Test Item Value Reference Range Interpretation Comments Estimat Glomerular Filtration Rate (test code = 860796550) 6 >60 L Ranges were taken from the National Kidney Disease Education Program and the [facility] Foundation literature.Reference ranges:60 or greater: Xvmuqr20-58 ( for 3 consecutive months): Chronic kidney disease 15 or less: Kidney failureTexas Health Hospital MansfieldGlucose Mbuml4612-60-38 11:55:00* Test Item Value Reference Range Interpretation Comments Glucose Level (test code = NUN2885) 101 74-118 [facility]fieldCalcium Gmbzh4772-19-64 11:55:00* Test Item Value Reference Range Interpretation Comments Calcium Level (test code = 52792-7) 8.8 8.4-10.2 [facility]fieldTotal Iohfyqpbt1154-16-44 11:55:00* Test Item Value Reference Range Interpretation Comments Total Bilirubin (test code = 1975-2) 0.5 0.2-1.2 [facility]fieldAspartate Amino Transf (AST/SGOT) 2018-07-31 11:55:00* Test Item Value Reference Range Interpretation Comments Aspartate Amino Transf (AST/SGOT) (test code = Aspartate Amino Transf (AST/SGOT)) 15 5-34 [facility]fieldAlanine Aminotransferase (ALT/SGPT) 2018-07-31 11:55:00* Test Item Value Reference Range Interpretation Comments Alanine Aminotransferase (ALT/SGPT) (test code = 1742-6) 15 0-55 [facility] Oginqly9017-57-82 11:55:00* Test Item Value Reference Range Interpretation Comments Total Protein (test code = 2885-2) 6.9 6.5-8.1 [facility]fieldAlbumin2019-04-25 11:55:00* Test Item Value Reference Range Interpretation Comments Albumin (test code = 1751-7) 2.9 3.5-5.0 L [facility]fieldGlobulin2019-04-25 11:55:00* Test Item Value Reference Range Interpretation Comments Globulin (test code = 46837-9) 4.0 2.3-3.5 H [facility]fieldAlbumin/Globulin Zoxyn1888-46-01 11:55:00 * Test Item Value Reference Range Interpretation Comments Albumin/Globulin Ratio (test code = 1759-0) 0.7 0.8-2.0 L [facility]fieldAlkaline Izhakfnwmwu3683-63-49 11:55:00* Test Item Value Reference Range Interpretation Comments Alkaline Phosphatase (test code = 6768-6) 125 40-150 [facility]fieldLipase2019-04-25 11:55:00* Test Item Value Reference Range Interpretation Comments Lipase (test code = 3040-3) 61 8-78 [facility]fieldCHEST SINGLE (PORTABLE)2018-07-31 11:47:00 [facility] [address] [place] [address] Patient Name: SHALOM SORIANO MR #: [id number] : 1950 Age/Sex: 68/F Req #: [id number] Adm Physician: Ordered by: RACHEL MONTERO MD Report #: [id number] Location: ER Room/Bed: Procedure: [id number] DX/ CHEST SINGLE (PORTABLE) Exam Date: 07/31/18 [...] Count (test code = 6690-2) 6.83 4.8-10.8 [facility]fieldRed Blood Kwdqr6103-89-61 11:41:00* Test Item Value Reference Range Interpretation Comments Red Blood Count (test code = 789-8) 3.19 3.6-5.1 L [facility]fieldHemoglobin2019-04-25 11:41:00* Test Item Value Reference Range Interpretation Comments Hemoglobin (test code = 26324-1) 9.5 12.0-16.0 L [facility]fieldHematocrit2019-04-25 11:41:00* Test Item Value Reference Range Interpretation Comments Hematocrit (test code = 4544-3) 30.8 34.2-44.1 L [facility]fieldMean Corpuscular Pcautm3782-28-62 11:41:00* Test Item Value Reference Range Interpretation Comments Mean Corpuscular Volume (test code = 787-2) 96.6 81-99 [facility]fieldMean Corpuscular Pcfordsbpo8753-03-71 11:41:00* Test Item Value Reference Range Interpretation Comments Mean Corpuscular Hemoglobin (test code = 785-6) 29.8 28-32 [facility]fieldMean Corpuscular Hemoglobin Concent 2018-07-31 11:41:00* Test Item Value Reference Range Interpretation Comments Mean Corpuscular Hemoglobin Concent (test code = 786-4) 30.8 31-35 L [facility]fieldRed Cell Distribution Yjlif4879-57-11 11:41:00* Test Item Value Reference Range Interpretation Comments Red Cell Distribution Width (test code = 25073-6) 14.1 11.7 -14.4 [facility]fieldPlatelet Svfab1021-29-06 11:41:00* Test Item Value Reference Range Interpretation Comments Platelet Count (test code = 777-3) 195 140-360 [facility]fieldNeutrophils (%) (Auto)2018-07-31 11:41:00 * Test Item Value Reference Range Interpretation Comments Neutrophils (%) (Auto) (test code = 53898-3) 67.6 38.7-80.0 [facility]fieldLymphocytes (%) (Auto)2018-07-31 11:41:00 * Test Item Value Reference Range Interpretation Comments Lymphocytes (%) (Auto) (test code = 736-9) 16.8 18.0-39.1 L [facility]fieldMonocytes (%) (Auto)2018-07-31 11:41:00* Test Item Value Reference Range Interpretation Comments Monocytes (%) (Auto) (test code = 5905-5) 10.7 4.4-11.3 [facility]fieldEosinophils (%) (Auto)2018-07-31 11:41:00 * Test Item Value Reference Range Interpretation Comments Eosinophils (%) (Auto) (test code = 713-8) 4.2 0.0-6.0 [facility]fieldBasophils (%) (Auto)2018-07-31 11:41:00* Test Item Value Reference Range Interpretation Comments Basophils (%) (Auto) (test code = 706-2) 0.4 0.0-1.0 [facility]fieldIM GRANULOCYTES %2018-07-31 11:41:00* Test Item Value Reference Range Interpretation Comments IM GRANULOCYTES % (test code = IM GRANULOCYTES %) 0.3 0.0- 1.0 [facility]fieldNeutrophils # (Auto)2018-07-31 11:41:00* Test Item Value Reference Range Interpretation Comments Neutrophils # (Auto) (test code = 751-8) 4.6 2.1-6.9 [facility]fieldLymphocytes # (Auto)2018-07-31 11:41:00* Test Item Value Reference Range Interpretation Comments Lymphocytes # (Auto) (test code = 96720-6) 1.2 1.0-3.2 [facility]fieldMonocytes # (Auto)2018-07-31 11:41:00* Test Item Value Reference Range Interpretation Comments Monocytes # (Auto) (test code = 742-7) 0.7 0.2-0.8 [facility]fieldEosinophils # (Auto)2018-07-31 11:41:00* Test Item Value Reference Range Interpretation Comments Eosinophils # (Auto) (test code = 711-2) 0.3 0.0-0.4 [facility]fieldBasophils # (Auto)2018-07-31 11:41:00* Test Item Value Reference Range Interpretation Comments Basophils # (Auto) (test code = 704-7) 0.0 0.0-0.1 [facility]fieldAbsolute Immature Granulocyte (auto 2018-07-31 11:41:00* Test Item Value Reference Range Interpretation Comments Absolute Immature Granulocyte (auto (grazyna t code = Absolute Immature Granulocyte (auto) 0.02 0-0.1 [facility]fieldUrine MNU9551-92-97 11:41:00* Test Item Value Reference Range Interpretation Comments Urine WBC (test code = 5821-4) 0-5 0-5 [facility]fieldU[facility] FHX4367-05-91 11:41:00* Test Item Value Reference Range Interpretation Comments Urine RBC (test code = 47405-0) 0-5 0-5 [facility]fieldU[facility] Nyicekjg8376-65-58 11:41:00* Test Item Value Reference Range Interpretation Comments Urine Bacteria (test code = 17083-7) FEW NONE [facility]fieldUrine Epithelial Tvxua5139-79-35 11:41:00 * Test Item Value Reference Range Interpretation Comments Urine Epithelial Cells (test code = 41978-3) MANY NONE [facility]fieldUrine Nbmrc9656-88-30 11:31:00* Test Item Value Reference Range Interpretation Comments Urine Color (test code = 5778-6) YELLOW YELLOW [facility]fieldUrine Otwcmux0972-15-06 11:31:00* Test Item Value Reference Range Interpretation Comments Urine Clarity (test code = 64122-4) SL CLOUDY CLEAR [facility]fieldUrine Specific Xotusec7410-31-44 11:31:00 * Test Item Value Reference Range Interpretation Comments Urine Specific [place] (test code = 5811-5) 1.010 1.010-1.02 5 [facility]fieldUrine gL7169-74-16 11:31:00* Test Item Value Reference Range Interpretation Comments Urine pH (test code = 45681-5) 8 5-7 H [facility]fieldU[facility] Leukocyte Wuewjoko4030-76-08 11:31:00* Test Item Value Reference Range Interpretation Comments Urine Leukocyte Esterase (test code = 5799-2) NEGATIVE NEGATIVE [facility]fieldU[facility] Nyafbug0034-07-08 11:31:00* Test Item Value Reference Range Interpretation Comments Urine Nitrite (test code = 67310-2) NEGATIVE NEGATIVE [facility] Gaddwhp2764-27-64 11:31:00* Test Item Value Reference Range Interpretation Comments Urine Protein (test code = 5804-0) 1+ NEGATIVE H [facility] Glucose (UA)2018-07-31 11:31:00* Test Item Value Reference Range Interpretation Comments Urine Glucose (UA) (test code = 2349-9) 2+ NEGATIVE H [facility]fieldU[facility] Xikreag1610-68-46 11:31:00* Test Item Value Reference Range Interpretation Comments Urine Ketones (test code = 49585-0) NEGATIVE NEGATIVE [facility] Mpevachdrgsi8690-86-19 11:31:00* Test Item Value Reference Range Interpretation Comments Urine Urobilinogen (test code = 97247-6) 0.2 0.2-1 [facility]fieldU[facility] Yfrepehhq6746-36-42 11:31:00* Test Item Value Reference Range Interpretation Comments Urine Bilirubin (test code = 1978-6) NEGATIVE NEGATIVE [facility]fieldU[facility] Enovm2589-41-13 11:31:00* Test Item Value Reference Range Interpretation Comments Urine Blood (test code = 17293-5) NEGATIVE NEGATIVE [facility]fieldProthrombin Djgt8654-71-60 11:05:00* Test Item Value Reference Range Interpretation Comments Prothrombin Time (test code = 5902-2) 11.9 11.9-14.5 [facility]fieldProthromb Time International Ratio 2018-07-10 11:05:00* Test Item Value Reference Range Interpretation Comments Prothromb Time International Ratio (test code = 6301-6) 0.83 Oral Anticoagulant Therapy INR Values:1. Low Intensity Therapy 1.5 - 2.02 . Moderate Intensity Therapy 2.0 - 3.03. High Intensity Therapy(1) 2.5 - 3. 54. High Intensity Therapy(2) 3.0 - 4.05. Panic Value INR > 5.0 [facility]fieldActivated Partial Thromboplast Time 2018-07-10 11:05:00* Test Item Value Reference Range Interpretation Comments Activated Partial Thromboplast Time (test code = 29497-6) 29.8 23.8-35.5 [facility]fieldProthrombin Xuqr1768-59-69 11:05:00* Test Item Value Reference Range Interpretation Comments Prothrombin Time (test code = 5902-2) 11.9 11.9-14.5 [facility]fieldProthromb Time International Ratio 2018-07-10 11:05:00* Test Item Value Reference Range Interpretation Comments Prothromb Time International Ratio (test code = 6301-6) 0.83 Oral Anticoagulant Therapy INR Values:1. Low Intensity Therapy 1.5 - 2.02 . Moderate Intensity Therapy 2.0 - 3.03. High Intensity Therapy(1) 2.5 - 3. 54. High Intensity Therapy(2) 3.0 - 4.05. Panic Value INR > 5.0 [facility]fieldAct[facility] Partial Thromboplast Time 2018-07-10 11:05:00* Test Item Value Reference Range Interpretation Comments Activated Partial Thromboplast Time (test code = 60789-3) 29.8 23.8-35.5 [facility]fieldProthrombin Rwkn8282-63-02 11:05:00* Test Item Value Reference Range Interpretation Comments Prothrombin Time (test code = 5902-2) 11.9 11.9-14.5 [facility]fieldProthromb Time International Ratio 2018-07-10 11:05:00* Test Item Value Reference Range Interpretation Comments Prothromb Time International Ratio (test code = 6301-6) 0.83 Oral Anticoagulant Therapy INR Values:1. Low Intensity Therapy 1.5 - 2.02 . Moderate Intensity Therapy 2.0 - 3.03. High Intensity Therapy(1) 2.5 - 3. 54. High Intensity Therapy(2) 3.0 - 4.05. Panic Value INR > 5.0 [facility]fieldAct[facility] Partial Thromboplast Time 2018-07-10 11:05:00* Test Item Value Reference Range Interpretation Comments Activated Partial Thromboplast Time (test code = 34007-6) 29.8 23.8-35.5 [facility]fieldCHEST 2 LSOTX0330-09-85 10:58:00 [facility] [address] [address] Patient Name: SHALOM SORIANO MR #: [id number] : 1950 Age/Sex: 68/F Req #: [id number] Adm Physician: Ordered by: SHRUTHI YEPEZ MD Report #: [id number] Location: OR Room/Bed: Procedure: [id number] DX/ CHEST 2 VIEWS Exam Date: 07/10/18 Exam Time: 1030 REPORT STATUS: Signed EXAMINATI ON: PA and lateral views of the chest. COMPARISON: Portable chest 8 CLINICAL HISTORY: Preop finger symptoms DISCUSSION: Lines [...] RAMIREZ MD on 07/10/181102 Transcribed By: RADHA RAN on 07/10/181102 COPY TO: SHRUTHI YEPEZ MD COLON,COLOSTOMY FMSJI9892-36-19 15:45:00 RUN DATE: 05/27/18 [place] 1 RUN TIME: 1545 Specimen Inqui ry RUN USER: INTERFACE PATIENT: SHALOM SORIANO ACCT #: [id number] [facility] U #: [id number] AGE/SX: 68/F ROOM: 2081 RE05/21/18REG DR: Marianne Mclean MD : 54 BED: A DIS: STATUS: ADM IN TLOC: SPEC #: [id number] RECD: 05/22/18 STATUS: CRISTIANA BEDOYA #: [id number] ОЛЬГА: 05/21/[address] [facility] [address]: Paris Johnson MD ENTERED: 05/22/18 SP TYPE: COLON, COL OTHR DR: José Luis Ahuja MD, Monte E MDORDERED: JAY COPIES TO: José Luis Ahuja MD [address] [place] [address] Paris Johnson MD [address] [place] [address] Marianne Mclean MD [address] [place] [id number] PROCEDURES: JAY (05/27/18-1102) TISSU ES: 1. COLOSTOMY - SITE 2. COLON, NOS CLINICAL HISTORY COLLECTION DATE: 05/21/2018 PERFORATED DIVERTICULITIS FINAL DI AGNOSIS Colostomy site, colostomy closure: COLOSTOMY STOMA Colon , site not further specified, segmental resection: CHRONIC DIVERTICULITIS FIBROUS SEROSAL ADHESIONS NEGATIVE FOR MALIGNANCY DMW/sm D CONTINUED ON NEXT PAGE BELLO Zaragoza DATE: 05/27/18 [facility] [place] PAGE 2 RUN TIME: 1545 Specimen Inquiry RUN USER: INTERFACE SPEC #: [id number] PATIENT: SHALOM SORIANO #[id number] (Continued) FINAL DIAGNOSIS (Co ntinued) 38792, [id number] MACROSCOPIC Specimen (1) is received in [facility] labeled with the patient's name, "colostomy [...] as (1). Specimen (2) is received in [facility] [place] labeled with the patient's name, "colon" [...] uation in cassettes (2A-2C). GROSS PERFORMED AT [facility] [address] [place] [address], [place] [address] (I) MICROSCOPIC MICROSCOPIC PERFORMED AT [facility] All of the stains, including any controls performed, stain appropriately. [facility] [address], [place] [address] (P)[phone] CONTINUED ON NEXT PAGE BELLO Zaragoza DATE: 05/27/18 [place] - [facility] PAGE 3 RUN TIME: 1545 Specimen Inquiry RUN USER: INTERFACE SPEC #: [id number] PATIENT: SHALOM SORIANO #[id number] (Continued) PERFORMING SITE Diagnosis performed at: [facility], [place] [address] [facility] [place], [place] [address] Signed SIGNATURE ON FILE Lamar Stanley MD 05/27/18 1545 END OF REPORT COMPREHENSIVE METABOLIC [id number] 05:39:00* Test Item Value Reference Range Interpretation [...] due to change in reagent. COMPREHENSIVE METABOLIC [id number] 05:15:00* Test Item Value Reference Range Interpretation [...] code = ALKP) IUnit/L 45-117 CBC W/AUTO [id number] 05:00:00* Test Item Value Reference Range Interpretation [...] NRBC#) 0.00 K/mm3 0.0-0.1 N COMPREHENSIVE METABOLIC [id number] 06:04:00* Test Item Value Reference Range Interpretation [...] due to change in reagent. COMPREHENSIVE METABOLIC [id number] 05:53:00* Test Item Value Reference Range Interpretation [...] code = ALKP) IUnit/L 45-117 CBC W/AUTO [id number] 05:30:00* Test Item Value Reference Range Interpretation [...] NRBC#) 0.00 K/mm3 0.0-0.1 N BASIC METABOLIC [id number] 07:15:00* Test Item Value Reference Range Interpretation [...] CA) 8.4 mg/dL 8.5-10.1 L BASIC METABOLIC [id number] 06:40:00* Test Item Value Reference Range Interpretation [...] code = CA) mg/dL 8.5-10.1 CBC W/AUTO [id number] 06:38:00* Test Item Value Reference Range Interpretation [...] = MDIFF) NO, ONLY SCAN NEEDED DIFFERENTIAL [id number] 06:38:00* Test Item Value Reference Range Interpretation Comments STAIN ACCEPTABILITY (test code = STN ACCEPTABLE) STAIN ACCEPTABLE PLATELET ESTIMATE (test code = PLTEST) ADEQUATE PLATELET MORPHOLOGY (test code = PLTMORPH) NORMAL CBC W/AUTO [id number] 06:14:00* Test Item Value Reference Range Interpretation [...] = MDIFF) NO, ONLY SCAN NEEDED DIFFERENTIAL [id number] 06:14:00* Test Item Value Reference Range Interpretation Comments STAIN ACCEPTABILITY (test code = STN ACCEPTABLE) CABOT RINGS (test code = CAB) MORPHOLOGY COMMENT (test code = MOC) PLATELET ESTIMATE (test code = PLTEST) PLATELET MORPHOLOGY (test code = PLTMORPH) CBC W/AUTO [id number] 06:14:00* Test Item Value Reference Range Interpretation [...] = MDIFF) NO, ONLY SCAN NEEDED DIFFERENTIAL [id number] 06:14:00* Test Item Value Reference Range Interpretation Comments STAIN ACCEPTABILITY (test code = STN ACCEPTABLE) CABOT RINGS (test code = CAB) MORPHOLOGY COMMENT (test code = MOC) PLATELET ESTIMATE (test code = PLTEST) PLATELET MORPHOLOGY (test code = PLTMORPH) CBC W/AUTO [id number] 06:14:00* Test Item Value Reference Range Interpretation [...] = MDIFF) NO, ONLY SCAN NEEDED DIFFERENTIAL [id number] 06:14:00* Test Item Value Reference Range Interpretation Comments STAIN ACCEPTABILITY (test code = STN ACCEPTABLE) MORPHOLOGY COMMENT (test code = MOC) PLATELET ESTIMATE (test code = PLTEST) PLATELET MORPHOLOGY (test code = PLTMORPH) CBC W/AUTO [id number] 06:13:00* Test Item Value Reference Range Interpretation [...] = MDIFF) NO, ONLY SCAN NEEDED DIFFERENTIAL [id number] 06:13:00* Test Item Value Reference Range Interpretation Comments STAIN ACCEPTABILITY (test code = STN ACCEPTABLE) CABOT RINGS (test code = CAB) MORPHOLOGY COMMENT (test code = MOC) PLATELET ESTIMATE (test code = PLTEST) PLATELET MORPHOLOGY (test code = PLTMORPH) COMPREHENSIVE METABOLIC [id number] 06:35:00* Test Item Value Reference Range Interpretation [...] due to change in reagent. COMPREHENSIVE METABOLIC [id number] 06:17:00* Test Item Value Reference Range Interpretation [...] code = ALKP) IUnit/L 45-117 CBC W/AUTO [id number] 05:59:00* Test Item Value Reference Range Interpretation [...] K/mm3 0.0-0.1 N - XR CHEST 1 [id number] 15:09:00 FAX: Paris Maldonado MD [phone] [employer]: B St: ADM FAX: Marianne Hogue MD [phone] Name: SHALOM SORIANO [facility] : 1950 Age/S: 68/F [address] Unit #: [id number] Loc: V.[address] [place] [address] Phys: Marianne Mclean MD Acct: [id number] Dis Date: Status: ADM IN PHONE #: [phone] Exam Date: 05/22/2018 1502 FAX #: [phone] Reason: CHF and ESRD EXAMS: CPT CODE: [id number] XR CHEST 1 V 05431 REASON FOR EXAM: CHF and ESRD EXAM ORDER DATE: 05/22/2018 12:00 AM Ordering MSimeon: Marianne Mclean MD PROCEDURE: - XR CHEST 1 V COMPARISON: 01/17/2018 FINDINGS: Portable AP frontal view of the chest obtained at 2:53 PM shows the heart size is minimally enlarged. Pulmonary vasculatures are minimally congested. Stable appearance of the right IJ graft. IMPRESSION: Minimal atelectasis of the bases with small right pleural effusion. at 1506 Reported and signed by: Ricki Bearden M.D. CC: Paris Johnson MD; Marianne Mclean MD Technologist: DAVE DESHPANDE(R) Trnscrd Date/Time/By: 05/22/2018 (8472) : By: Julia Orig Print D/T: S: 05/22/2018 (2972) PAGE 1 Signed Report AG HEPAT B [id number] 08:54:00* Test Item Value Reference Range Interpretation Comments AG HEPAT B SURF (test code = HBSAG) Nonreactive Index Nonreactive BASIC METABOLIC [id number] 06:48:00* Test Item Value Reference Range Interpretation [...] CA) 8.6 mg/dL 8.5-10.1 N BASIC METABOLIC [id number] 06:43:00* Test Item Value Reference Range Interpretation [...] code = CA) mg/dL 8.5-10.1 CBC W/AUTO [id number] 06:25:00* Test Item Value Reference Range Interpretation [...] DIFF REQUIRED (test code = MDIFF) NO [id number] 11:11:00* Test Item Value Reference Range Interpretation Comments POTASSIUM (test code = K) 4.3 mmol/L 3.5-5.1 N COMPREHENSIVE METABOLIC [id number] 17:42:00* Test Item Value Reference Range Interpretation [...] due to change in reagent. COMPREHENSIVE METABOLIC [id number] 17:33:00* Test Item Value Reference Range Interpretation [...] code = ALKP) IUnit/L 45-117 CBC W/AUTO [id number] 17:00:00* Test Item Value Reference Range Interpretation [...] K/mm3 0.0-0.1 N Hepatitis B Core Total Zpsmefkc2048-62-18 23:57:00* Test Item Value Reference Range Interpretation Comments Hepatitis B Core Total Antibody (test code = 05210-1) Negative Negative Performed at: - [facility] [id number] Director: Ruben Velázquez MD, Phone: [phone] Health Hospital MansfieldHeemanate health/[facility] B Core Total Spulivri9016-40-56 23:57:00* Test Item Value Reference Range Interpretation Comments Hepatitis B Core Total Antibody (test code = 47750-5) Negative Negative Performed at: [address] [id number] Director: Ruben Velázquez MD, Phone: [phone] Medical Center B Core Total Tdlwqdzl6603-60-77 23:57:00* Test Item Value Reference Range Interpretation Comments Hepatitis B Core Total Antibody (test code = 08432-8) Negative Negative Performed at: [address] [id number] Director: Ruben Velázquez MD, Phone: [phone] Medical Center B Core Total Zknkkeab1452-69-49 23:57:00* Test Item Value Reference Range Interpretation Comments Hepatitis B Core Total Antibody (test code = 58442-2) Negative Negative Performed at: [address] [id number] Director: Ruben Velázquez MD, Phone: [phone] Hermann [facility] SINGLE (PORTABLE)2018-02-26 06:43:00 [place] [address] Patient Name: SHALOM SORIANO MR #: [id number] : 1950 Age/Sex: 68/F Req #: [id number] [facility] Physician: MARIANNE MCLEAN MD Ordered by: OSWALDO BAEZ MD Report #: [id number] Location: [facility] Room/Bed: [place] [address] Procedure: [id number] DX/CHEST SINGLE (PORTABLE) Exam Date: 02/26/18 Exam [...] right pleural effusion. Signed by: DR. Garry Mccarthy MD on 02/26/2018 6:46 AM Dictated By: GARRY MCCARTHY MD 5 Transcribed By: Ruth BRAVO on 02/26/18645 COPY TO: OSWALDO BAEZ MD Hepatitis B Surface Lussvai6807-27-10 06:21:00* Test Item Value Reference Range Interpretation Comments Hepatitis B Surface Antigen (test code = 5196-1) Negative Negat tho Performed at: [facility] [id number] Director: Ruben Velázquez MD, Phone: [phone] Medical Center B Surface Gfcdihn1276-11-61 06:21:00* Test Item Value Reference Range Interpretation Comments Hepatitis B Surface Antigen (test code = 5196-1) Negative Negat tho Performed at: - [facility] [id number] Director: Ruben Velázquez MD, Phone: [phone] Medical Center B Surface Oyvezat5149-42-74 06:21:00* Test Item Value Reference Range Interpretation Comments Hepatitis B Surface Antigen (test code = 5196-1) Negative Negat tho Performed at: - [facility] [id number] Director: Ruben Velázquez MD, Phone: [phone] TexSan Hospitalodium Xjnsv9172-95-41 06:15:00* Test Item Value Reference Range Interpretation Comments Sodium Level (test code = 2951-2) 138 136-145 [facility]fieldPotassium Skgww1297-19-10 06:15:00* Test Item Value Reference Range Interpretation Comments Potassium Level (test code = 2823-3) 3.8 3.5-5.1 [facility] MansfieldChloride Oaztx9984-10-25 06:15:00* Test Item Value Reference Range Interpretation Comments Chloride Level (test code = 2075-0) 98 98-107 [facility] MansfieldCarbon Dioxide Ubljv7336-06-82 06:15:00* Test Item Value Reference Range Interpretation Comments Carbon Dioxide Level (test code = 2028-9) 29 22-29 [facility] MansfieldAnion Lxh1692-76-99 06:15:00* Test Item Value Reference Range Interpretation Comments Anion Gap (test code = 92929-7) 14.8 8-16 [facility] MansfieldBlood Urea Aahtfrhc1161-98-16 06:15:00* Test Item Value Reference Range Interpretation Comments Blood Urea Nitrogen (test code = 3094-0) 19 7-26 [facility] MansfieldCreatinine2018-11-21 06:15:00* Test Item Value Reference Range Interpretation Comments Creatinine (test code = 2160-0) 4.06 0.57-1.11 H [facility] MansfieldBUN/Creatinine Congd5690-74-64 06:15:00* Test Item Value Reference Range Interpretation Comments BUN/Creatinine Ratio (test code = 3097-3) 5 6-25 L [facility] MansfieldEstimat Glomerular Filtration Rate 2018-02-26 06:15:00* Test Item Value Reference Range Interpretation Comments Estimat Glomerular Filtration Rate (test code = 680320006) 11 >60 L Ranges were taken from the National Kidney Disease Education Program and the [facility] Kidney Foundation literature.Reference ranges:60 or greater: Tiddgn14-57 ( for 3 consecutive months): Chronic kidney disease 15 or less: Kidney failureTexas Health Hospital MansfieldGlucose Zqktb6833-52-19 06:15:00* Test Item Value Reference Range Interpretation Comments Glucose Level (test code = DVI7636) 86 74-118 [facility] MansfieldCalcium Fdffj3568-27-06 06:15:00* Test Item Value Reference Range Interpretation Comments Calcium Level (test code = 36738-8) 8.5 8.4-10.2 [facility] MansfieldPhosphorus Gwlvl7307-69-88 06:15:00* Test Item Value Reference Range Interpretation Comments Phosphorus Level (test code = SNO0458) 4.7 2.3-4.7 [facility] MansfieldMagnesium Uebjd3060-83-66 06:15:00* Test Item Value Reference Range Interpretation Comments Magnesium Level (test code = 28756-8) 2.0 1.3-2.1 [facility] MansfieldTotal Mpuvhlifm1435-93-45 06:15:00* Test Item Value Reference Range Interpretation Comments Total Bilirubin (test code = 1975-2) 0.4 0.2-1.2 [facility] MansfieldAspartate Amino Transf (AST/SGOT) 2018-02-26 06:15:00* Test Item Value Reference Range Interpretation Comments Aspartate Amino Transf (AST/SGOT) (test code = Aspartate Amino Transf (AST/SGOT)) 18 5-34 [facility] MansfieldAlanine Aminotransferase (ALT/SGPT) 2018-02-26 06:15:00* Test Item Value Reference Range Interpretation Comments Alanine Aminotransferase (ALT/SGPT) (test code = 1742-6) 6 0-55 [facility] MansfieldTotal Rtsuntf0785-39-91 06:15:00* Test Item Value Reference Range Interpretation Comments Total Protein (test code = 2885-2) 6.3 6.5-8.1 L [facility] MansfieldAlbumin2018-11-21 06:15:00* Test Item Value Reference Range Interpretation Comments Albumin (test code = 1751-7) 2.4 3.5-5.0 L [facility] MansfieldGlobulin2018-11-21 06:15:00* Test Item Value Reference Range Interpretation Comments Globulin (test code = 89746-0) 3.9 2.3-3.5 H [facility] MansfieldAlbumin/Globulin Jkksz4855-17-80 06:15:00 * Test Item Value Reference Range Interpretation Comments Albumin/Globulin Ratio (test code = 1759-0) 0.6 0.8-2.0 L [facility] MansfieldAlkaline Pazrdihlybg5711-53-65 06:15:00* Test Item Value Reference Range Interpretation Comments Alkaline Phosphatase (test code = 6768-6) 104 40-150 [facility] MansfieldTriglycerides Krbhd2692-28-54 06:15:00* Test Item Value Reference Range Interpretation Comments Triglycerides Level (test code = 2571-8) 105 0-149 [facility]fieldCholesterol Adxyr5974-15-08 06:15:00* Test Item Value Reference Range Interpretation Comments Cholesterol Level (test code = 2093-3) 139 0-199 Less than 200 mg/dL Low Nupk568 - 239 mg/dL Borderline Zeyt294 m g/dl and greater High Risk [facility] MansfieldLDL Fftutczddkc7806-55-01 06:15:00* Test Item Value Reference Range Interpretation Comments LDL Cholesterol (test code = 2089-1) 69 60-130 [facility] MansfieldHDL Gomfskxqqli9007-33-26 06:15:00* Test Item Value Reference Range Interpretation Comments HDL Cholesterol (test code = 2085-9) 49 40-60 [facility] MansfieldCholesterol/HDL Rpkkh5898-11-85 06:15:00 * Test Item Value Reference Range Interpretation Comments Cholesterol/HDL Ratio (test code = 9830-1) 2.8 3.0-3.6 L [facility] MansfieldPhosphorus Hblgr5590-33-85 06:15:00* Test Item Value Reference Range Interpretation Comments Phosphorus Level (test code = SHM2394) 4.7 2.3-4.7 [facility] MansfieldMagnesium Qwwrn6576-48-93 06:15:00* Test Item Value Reference Range Interpretation Comments Magnesium Level (test code = 59736-1) 2.0 1.3-2.1 [facility] MansfieldTriglycerides Bmerq8236-96-98 06:15:00* Test Item Value Reference Range Interpretation Comments Triglycerides Level (test code = 2571-8) 105 0-149 [facility] MansfieldCholesterol Iwwzd6215-52-22 06:15:00* Test Item Value Reference Range Interpretation Comments Cholesterol Level (test code = 2093-3) 139 0-199 Less than 200 mg/dL Low Bzim130 - 239 mg/dL Borderline Sipw245 m g/dl and greater High Risk [facility] MansfieldLDL Rauhhzmpsus1789-41-77 06:15:00* Test Item Value Reference Range Interpretation Comments LDL Cholesterol (test code = 2089-1) 69 60-130 [facility] Xtpvgmkiooe8573-22-36 06:15:00* Test Item Value Reference Range Interpretation Comments HDL Cholesterol (test code = 2085-9) 49 40-60 [facility]fieldCholesterol/HDL Jpygu8700-95-97 06:15:00 * Test Item Value Reference Range Interpretation Comments Cholesterol/HDL Ratio (test code = 9830-1) 2.8 3.0-3.6 L [facility] MansfieldTriglycerides Jiotf1558-51-15 06:15:00* Test Item Value Reference Range Interpretation Comments Triglycerides Level (test code = 2571-8) 105 0-149 [facility]fieldCholesterol Smmdv2450-20-57 06:15:00* Test Item Value Reference Range Interpretation Comments Cholesterol Level (test code = 2093-3) 139 0-199 Less than 200 mg/dL Low Hklq768 - 239 mg/dL Borderline Unaw106 m g/dl and greater High Risk [facility] MansfieldLDL Zdtrddfazoh5549-68-92 06:15:00* Test Item Value Reference Range Interpretation Comments LDL Cholesterol (test code = 2089-1) 69 60-130 [facility] Mutpeavmgeb0324-35-41 06:15:00* Test Item Value Reference Range Interpretation Comments HDL Cholesterol (test code = 2085-9) 49 40-60 [facility]fieldCholesterol/HDL Ljtpe2671-43-94 06:15:00 * Test Item Value Reference Range Interpretation Comments Cholesterol/HDL Ratio (test code = 9830-1) 2.8 3.0-3.6 L [facility]fieldTriglycerides Rzdfy9196-73-47 06:15:00* Test Item Value Reference Range Interpretation Comments Triglycerides Level (test code = 2571-8) 105 0-149 [facility]fieldCholesterol Dqbdq6070-72-14 06:15:00* Test Item Value Reference Range Interpretation Comments Cholesterol Level (test code = 2093-3) 139 0-199 Less than 200 mg/dL Low Guxp481 - 239 mg/dL Borderline Prze759 m g/dl and greater High Risk [facility] Wdqsawfbnnj5852-35-49 06:15:00* Test Item Value Reference Range Interpretation Comments LDL Cholesterol (test code = 2089-1) 69 60-130 [facility] Jkkwgurikxr4740-38-12 06:15:00* Test Item Value Reference Range Interpretation Comments HDL Cholesterol (test code = 2085-9) 49 40-60 [facility]fieldCholesterol/HDL Opswt5828-84-07 06:15:00 * Test Item Value Reference Range Interpretation Comments Cholesterol/HDL Ratio (test code = 9830-1) 2.8 3.0-3.6 L [facility]fieldTriglycerides Epmiu5726-25-45 06:15:00* Test Item Value Reference Range Interpretation Comments Triglycerides Level (test code = 2571-8) 105 0-149 [facility]fieldCholesterol Bqwem2098-26-30 06:15:00* Test Item Value Reference Range Interpretation Comments Cholesterol Level (test code = 2093-3) 139 0-199 Less than 200 mg/dL Low Eoeu852 - 239 mg/dL Borderline Zajr489 m g/dl and greater High Risk [facility] MansfieldLDL Qknzuigeepu2214-85-45 06:15:00* Test Item Value Reference Range Interpretation Comments LDL Cholesterol (test code = 2089-1) 69 60-130 [facility] Vedqhdfuywk2722-53-78 06:15:00* Test Item Value Reference Range Interpretation Comments HDL Cholesterol (test code = 2085-9) 49 40-60 [facility]fieldCholesterol/HDL Jqewt2660-02-77 06:15:00 * Test Item Value Reference Range Interpretation Comments Cholesterol/HDL Ratio (test code = 9830-1) 2.8 3.0-3.6 L [facility] MansfieldB-Type Natriuretic Ybfokwy8432-16-94 06:10:00* Test Item Value Reference Range Interpretation Comments B-Type Natriuretic Peptide (test code = 21165-2) 1112.9 0-100 H [facility] MansfieldB-Type Natriuretic Qasdras9743-23-82 06:10:00* Test Item Value Reference Range Interpretation Comments B-Type Natriuretic Peptide (test code = 02882-9) 1112.9 0-100 H [facility] MansfieldProthrombin Hwtm3985-92-10 05:49:00* Test Item Value Reference Range Interpretation Comments Prothrombin Time (test code = 5902-2) 13.2 11.9-14.5 [facility] MansfieldProthromb Time International Ratio 2018-02-26 05:49:00* Test Item Value Reference Range Interpretation Comments Prothromb Time International Ratio (test code = 6301-6) 0.92 Oral Anticoagulant Therapy INR Values:1. Low Intensity Therapy 1.5 - 2.02 . Moderate Intensity Therapy 2.0 - 3.03. High Intensity Therapy(1) 2.5 - 3. 54. High Intensity Therapy(2) 3.0 - 4.05. Panic Value INR > 5.0 [facility] MansfieldActivated Partial Thromboplast Time 2018-02-26 05:49:00* Test Item Value Reference Range Interpretation Comments Activated Partial Thromboplast Time (test code = 83441-5) 29.4 23.8-35.5 [facility] MansfieldWhite Blood Izawn8090-64-61 05:33:00* Test Item Value Reference Range Interpretation Comments White Blood Count (test code = 6690-2) 7.13 4.8-10.8 [facility] MansfieldRed Blood Yjane8606-23-11 05:33:00* Test Item Value Reference Range Interpretation Comments Red Blood Count (test code = 789-8) 3.95 3.6-5.1 [facility]fieldHemoglobin2018-11-21 05:33:00* Test Item Value Reference Range Interpretation Comments Hemoglobin (test code = 64601-7) 11.1 12.0-16.0 L [facility]fieldHematocrit2018-11-21 05:33:00* Test Item Value Reference Range Interpretation Comments Hematocrit (test code = 4544-3) 36.9 34.2-44.1 [facility] MansfieldMean Corpuscular Khetjh1931-70-05 05:33:00* Test Item Value Reference Range Interpretation Comments Mean Corpuscular Volume (test code = 787-2) 93.4 81-99 [facility] MansfieldMean Corpuscular Dmjjffmjbu1122-58-83 05:33:00* Test Item Value Reference Range Interpretation Comments Mean Corpuscular Hemoglobin (test code = 785-6) 28.1 28-32 [facility] MansfieldMean Corpuscular Hemoglobin Concent 2018-02-26 05:33:00* Test Item Value Reference Range Interpretation Comments Mean Corpuscular Hemoglobin Concent (test code = 786-4) 30.1 31-35 L [facility] MansfieldRed Cell Distribution Edhng3886-11-46 05:33:00* Test Item Value Reference Range Interpretation Comments Red Cell Distribution Width (test code = 72758-2) 14.9 11.7 -14.4 H [facility] MansfieldPlatelet Bivmj3723-34-94 05:33:00* Test Item Value Reference Range Interpretation Comments Platelet Count (test code = 777-3) 267 140-360 [facility] MansfieldNeutrophils (%) (Auto)2018-02-26 05:33:00 * Test Item Value Reference Range Interpretation Comments Neutrophils (%) (Auto) (test code = 73001-0) 65.2 38.7-80.0 [facility] MansfieldLymphocytes (%) (Auto)2018-02-26 05:33:00 * Test Item Value Reference Range Interpretation Comments Lymphocytes (%) (Auto) (test code = 736-9) 19.9 18.0-39.1 [facility] MansfieldMonocytes (%) (Auto)2018-02-26 05:33:00* Test Item Value Reference Range Interpretation Comments Monocytes (%) (Auto) (test code = 5905-5) 10.5 4.4-11.3 [facility]fieldEosinophils (%) (Auto)2018-02-26 05:33:00 * Test Item Value Reference Range Interpretation Comments Eosinophils (%) (Auto) (test code = 713-8) 3.4 0.0-6.0 [facility]fieldBasophils (%) (Auto)2018-02-26 05:33:00* Test Item Value Reference Range Interpretation Comments Basophils (%) (Auto) (test code = 706-2) 0.7 0.0-1.0 [facility] MansfieldIM GRANULOCYTES %2018-02-26 05:33:00* Test Item Value Reference Range Interpretation Comments IM GRANULOCYTES % (test code = IM GRANULOCYTES %) 0.3 0.0- 1.0 [facility] MansfieldNeutrophils # (Auto)2018-02-26 05:33:00* Test Item Value Reference Range Interpretation Comments Neutrophils # (Auto) (test code = 751-8) 4.7 2.1-6.9 [facility] MansfieldLymphocytes # (Auto)2018-02-26 05:33:00* Test Item Value Reference Range Interpretation Comments Lymphocytes # (Auto) (test code = 44815-4) 1.4 1.0-3.2 [facility]fieldMonocytes # (Auto)2018-02-26 05:33:00* Test Item Value Reference Range Interpretation Comments Monocytes # (Auto) (test code = 742-7) 0.8 0.2-0.8 [facility]fieldEosinophils # (Auto)2018-02-26 05:33:00* Test Item Value Reference Range Interpretation Comments Eosinophils # (Auto) (test code = 711-2) 0.2 0.0-0.4 [facility]fieldBasophils # (Auto)2018-02-26 05:33:00* Test Item Value Reference Range Interpretation Comments Basophils # (Auto) (test code = 704-7) 0.1 0.0-0.1 [facility] MansfieldAbsolute Immature Granulocyte (auto 2018-02-26 05:33:00* Test Item Value Reference Range Interpretation Comments Absolute Immature Granulocyte (auto (grazyna t code = Absolute Immature Granulocyte (auto) 0.02 0-0.1 [facility] MansfieldInfluenza Virus Types A,B Antigen 2018-02-26 00:58:00* Test Item Value Reference Range Interpretation Comments Influenza Virus Types A,B Antigen (test code = 65731-5) NEGATIVE NEGATIVE [facility] MansfieldInfluen Virus Types A,B Antigen 2018-02-26 00:58:00* Test Item Value Reference Range Interpretation Comments Influenza Virus Types A,B Antigen (test code = 22890-0) NEGATIVE NEGATIVE [facility] MansfieldInfluenza Virus Types A,B Antigen 2018-02-26 00:58:00* Test Item Value Reference Range Interpretation Comments Influenza Virus Types A,B Antigen (test code = 98664-7) NEGATIVE NEGATIVE [facility] MansfieldInfluenza Virus Types A,B Antigen 2018-02-26 00:58:00* Test Item Value Reference Range Interpretation Comments Influenza Virus Types A,B Antigen (test code = 44021-0) NEGATIVE NEGATIVE [facility] MansfieldInfluenza Virus Types A,B Antigen 2018-02-26 00:58:00* Test Item Value Reference Range Interpretation Comments Influenza Virus Types A,B Antigen (test code = 55565-9) NEGATIVE NEGATIVE [facility] MansfieldCreatine Kinase KR0871-44-84 16:34:00* Test Item Value Reference Range Interpretation Comments Creatine Kinase MB (test code = 68659-1) 1.40 0-5.0 [facility] MansfieldTroponin H3358-29-48 16:34:00* Test Item Value Reference Range Interpretation Comments Troponin I (test code = KIZ5566) 0.058 0-0.300 [facility] MansfieldCreatine Ryksid5140-05-64 16:28:00* Test Item Value Reference Range Interpretation Comments Creatine Kinase (test code = 2157-6) 27 29-168 L [facility] MansfieldCHEST SINGLE (PORTABLE)2018-02-25 07:16:00 [facility] [address] [place] [address] Patient Name: SHALOM SORIANO MR #: [id number] : 1950 Age/Sex: 68/F Req #: [id number] Adm Physician: Ordered by: IRENE MELCHOR MD Report #: [id number] Location: ER Room/Bed: Procedure: [id number] 0 DX/CHEST [...] relative to 02/01/2018. Signed by: Dr. Paris Chauhan M.D. on 02/25/2018 7:18 AM Dictated By: PARIS CHAUHAN MD 0718 Transcribed By: ANTONY on 02/25/18717 COPY TO: IRENE MELCHOR MD CHEST SINGLE (PORTABLE)2018-02-01 17:59:00 [place] [address] Patient Name: SHALOM SORIANO MR #: [id number] : 1950 Age/Sex: 68/F Req #: [id number] Adm Physician: Ordered by: REZA ZAMBRANO NP Report #: [id number] Location: ER Room/Bed: Procedure: [id number] DX/CH EST SINGLE (PORTABLE) Exam Date: 02/01/18 [...] BATISTA on 02/01/181800 COPY TO: REZA ZAMBRANO NP PERICARDIUM 2018-01-10 14:11:00 RUN DATE: 01/10/18 [facility] [place] PAGE 1 RUN TIME: 1411 Specimen Inqui ry RUN USER: INTERFACE PATIENT: SHALOM SORIANO ACCT #: V [id number] LOC: ALESSANDRA U #: [id number] AGE/SX: 68/F ROOM: [facility] RE01/07/18REG DR: Davida Dc MD : 54 BED: A DIS: STATUS: ADM IN TLOC: SPEC #: [id number] RECD: 01/09/18 STATUS: CRISTIANA REQ #: [id number] ОЛЬГА: 01/08/18- SUBM DR: Bruce Hsieh MD ENTERED: 01/09/18 SP TYPE: PERICARDIU OTHR DR: José Luis Ahuja MD, Mohamed O MD Orahood, Monte E MD Shiue, Angela B MDORDERED: GROSS COPIES TO: José Luis Ahuja MD [address] [place] [address] Roberta Vasquez MD [address] [place] [address] Bruce Hsieh MD [address] [facility] [address] [place] [address] Marianne Mclean MD [address] [facility] [address] [place] [address] Cayetano Patel MD [address] [facility] [address] [place] [address] PROC EDURES: JAY (01/10/18-1204) TISSUES: PERICARDIUM, NOS CLINIC AL HISTORY COLLECTION DATE: 01/08/18 PERICARDIAL EFFUSION CONTINUED ON NEXT PAGE RUN DATE: 01/10/18 [facility] [place] PAGE 2 RUN TIME: 1411 Specimen Inquiry RUN USER: I MICHAEL S PEC #: [id number] PATIENT: PRITESHSHALOM #[id number] (Continued) COMMENT All of the tissue is [...] SURFACE NEGATIVE FOR MA LIGNANCY RRB/sm D 97641 MACROSCOPIC The specimen is r eceived in [...] in a single cassette. GROSS PERFORMED AT [facility] [address] [place] [address], [place] [address] (p)[phone] MICROSCOPIC MICROSC OPIC PERFORMED AT [facility] All of the stains, including any cont rols performed, stain appropriately. CONTINU ED ON NEXT PAGE RUN DATE: 01/10/18 [facility] PAGE 3 RUN TIME: 1411 Specimen Inquiry RUN USER: INTERFACE SPEC #: [id number] RENZO IENT: SHALOM SORIANO #[id number] (Continued) MICROSCOPIC (Continued) [facility] [address] [place] [address] (P)[phone] PERFORMING SITE Di agnosis performed at: [facility], [place] [address] [facility] [place] [address] Signed SIG NATURE ON FILE Seth Weber 01/10/18 1411 ------- ----- END OF REPORT GHXYNQGOPAV9828-05-81 13:51:00 RUN DATE: 01/10/18 [facility] [place] PAGE 1 RUN TIME: 1351 Specimen Inqui ry RUN USER: INTERFACE PATIENT: SHALOM SORIANO ACCT #: V [id number] LOC: CASSIDYBrody U #: [id number] AGE/SX: 68/F ROOM: [facility] RE01/07/18REG DR: Davida Dc MD : [birth year] BED: A DIS: STATUS: ADM IN TLOC: SPEC #: [id number] RECD: 01/09/18 STATUS: CRISTIANA REQ #: [id number] ОЛЬГА: 01/08/18- SUBM DR: Bruce Hsieh MD ENTERED: 01/09/18 SP TYPE: PERICARDIU OTHR DR: José Luis Ahuja MD, Mohamed O MD Orahood, Monte E MD Shiue, Angela B MDORDERED: GROSS COPIES TO: José Luis Ahuja MD [address] [facility] [address] [place] [address] Roberta Vasquez MD [address] [place] [address] Bruce Hsieh MD [address] [facility] [address] [place] [address] Marianne Mclean MD [address] [facility] [address] [place] [address] Cayetano Patel MD [address] [place] [address] PROC EDURES: JAY (01/10/187753) TISSUES: PERICARDIUM, NOS - 1000ML RED F LUID CLINICAL HISTORY COLLECTION DATE: 01/08/2018 PERICARDIAL EFFUSION PENDING CONTINUED ON NEXT PAGE RUN DATE: 01/10/18 [facility] [place] PAGE 2 RUN TIME: 1351 Specimen In quiry RUN USER: INTERFACE SPEC #: [id number] PATIENT: GHANSHYAM SORIANO #[id number] (Continued) COMMENT Two concentrated smears, a cytospin and cell block are prepared from the flui d. FINAL DIAGNOSIS Pericardial fluid, cytology: NEGATIVE FOR MALIGNANCY MIXED INFLAMMATORY CELLS IN BACKGROUND [place]/ D [address], [address] MACROSCOPIC The specimen consists of 1000 mL of red fluid for concentration and evaluation. GROSS PERFORMED AT [facility] [address] [place] [address] (p)[phone] MICROSCOPIC MICROSCOPIC PERFORMED AT [facility] All of the stains, including any controls performed, stain appro priately. [facility] [address] [place] [address] (p)[phone] PERFORMING SITE Diagnosis performed at: [facility], [address] [address] Signed SIGNATURE ON FILE Seth Weber 01/10/18 1351 END OF REPORT Blood Gknrupr3867-25-54 12:20:00* Test Item Value Reference Range Interpretation Comments Blood Culture (test code = 47523887) NO GROWTH AFTER 5 DAYS, FINAL REPORT [facility] Xwsuhiv8429-01-53 12:20:00* Test Item Value Reference Range Interpretation Comments Blood Culture (test code = 01171662) NO GROWTH AFTER 5 DAYS, FINAL REPORT [facility]fieldBlood Howctqh2002-92-78 12:20:00* Test Item Value Reference Range Interpretation Comments Blood Culture (test code = 75985093) NO GROWTH AFTER 5 DAYS, FINAL REPORT [facility] B Surface Antibody, Quant 2018 06:30:00* Test Item Value Reference Range Interpretation Comments Hepatitis B Surface Antibody, Quant (test code = 5194-6) <3.1 Immunity>9.9 L Status of Immunity Anti-HBs Level Inconsistent with Immunity 0.0 - 9.9Consistent with Immunity >9.9[facility] B Core Total Sfuuqwla4078-64-75 06:30:00* Test Item Value Reference Range Interpretation Comments Hepatitis B Core Total Antibody (test code = 39294-1) Negative Negative Performed at: [facility] [id number] Director: Ruben Velázquez MD, Phone: [phone] Medical Center B Surface Antibody, Naamb8259-28-06 06:30:00* Test Item Value Reference Range Interpretation Comments Hepatitis B Surface Antibody, Quant (test code = 5194-6) <3.1 Immunity>9.9 L Status of Immunity Anti-HBs Level Inconsistent with Immunity 0.0 - 9.9Consistent with Immunity >9.9[facility] B Surface Antibody, Psusf4226-47-08 06:30:00* Test Item Value Reference Range Interpretation Comments Hepatitis B Surface Antibody, Quant (test code = 5194-6) <3.1 Immunity>9.9 L Status of Immunity Anti-HBs Level Inconsistent with Immunity 0.0 - 9.9Consistent with Immunity >9.9[facility] Dnvly8604-69-15 06:31:00* Test Item Value Reference Range Interpretation Comments Sodium Level (test code = 2951-2) 138 136-145 [facility]fieldPot[facility] Rzesi0889-65-27 06:31:00* Test Item Value Reference Range Interpretation Comments Potassium Level (test code = 2823-3) 3.7 3.5-5.1 [facility]fieldChloride Azycq0143-46-40 06:31:00* Test Item Value Reference Range Interpretation Comments Chloride Level (test code = 2075-0) 96 98-107 L [facility] MansfieldCarbon Dioxide Gkipp5473-87-72 06:31:00* Test Item Value Reference Range Interpretation Comments Carbon Dioxide Level (test code = 2028-9) 26 22-29 [facility] MansfieldAnion Xkn7274-35-91 06:31:00* Test Item Value Reference Range Interpretation Comments Anion Gap (test code = 39615-7) 19.7 8-16 H [facility]fieldBlood Urea Aahwigfh1036-76-96 06:31:00* Test Item Value Reference Range Interpretation Comments Blood Urea Nitrogen (test code = 3094-0) 16 7-26 [facility]fieldCreatinine2018-09-28 06:31:00* Test Item Value Reference Range Interpretation Comments Creatinine (test code = 2160-0) 3.65 0.57-1.11 H [facility]fieldBUN/Creatinine Hlcvo9896-36-03 06:31:00* Test Item Value Reference Range Interpretation Comments BUN/Creatinine Ratio (test code = 3097-3) 4 6-25 L [facility] MansfieldEstimat Glomerular Filtration Rate 2018-01-03 06:31:00* Test Item Value Reference Range Interpretation Comments Estimat Glomerular Filtration Rate (test code = 549890756) 12 >60 L Ranges were taken from the National Kidney Disease Education Program and the [facility] Kidney Foundation literature.Reference ranges:60 or greater: Ermmec67-43 ( for 3 consecutive months): Chronic kidney disease 15 or less: Kidney failureTexas Health Hospital MansfieldGlucose Wobpa7546-56-44 06:31:00* Test Item Value Reference Range Interpretation Comments Glucose Level (test code = NCB5670) 106 74-118 [facility] MansfieldCalcium Ifbuq3044-07-65 06:31:00* Test Item Value Reference Range Interpretation Comments Calcium Level (test code = 46670-1) 8.9 8.4-10.2 [facility]fieldWhite Blood Hgtff9834-18-88 06:29:00* Test Item Value Reference Range Interpretation Comments White Blood Count (test code = 6690-2) 12.40 4.8-10.8 H [facility] MansfieldRed Blood Fwbwr3399-84-78 06:29:00* Test Item Value Reference Range Interpretation Comments Red Blood Count (test code = 789-8) 2.90 3.6-5.1 L [facility]fieldHemoglobin2018-09-28 06:29:00* Test Item Value Reference Range Interpretation Comments Hemoglobin (test code = 31361-5) 8.5 12.0-16.0 L [facility]fieldHematocrit2018-09-28 06:29:00* Test Item Value Reference Range Interpretation Comments Hematocrit (test code = 4544-3) 27.4 34.2-44.1 L [facility] MansfieldMean Corpuscular Agugdd6204-53-18 06:29:00* Test Item Value Reference Range Interpretation Comments Mean Corpuscular Volume (test code = 787-2) 94.5 81-99 [facility]fieldMean Corpuscular Panzwcsore7820-35-56 06:29:00* Test Item Value Reference Range Interpretation Comments Mean Corpuscular Hemoglobin (test code = 785-6) 29.3 28-32 [facility]fieldMean Corpuscular Hemoglobin Concent 2018-01-03 06:29:00* Test Item Value Reference Range Interpretation Comments Mean Corpuscular Hemoglobin Concent (test code = 786-4) 31.0 31-35 [facility]fieldRed Cell Distribution Wgjhd2321-47-41 06:29:00* Test Item Value Reference Range Interpretation Comments Red Cell Distribution Width (test code = 70496-4) 15.7 11.7 -14.4 H [facility] MansfieldPlatelet Lzght9577-09-03 06:29:00* Test Item Value Reference Range Interpretation Comments Platelet Count (test code = 777-3) 247 140-360 [facility]fieldNeutrophils (%) (Auto)2018-01-03 06:29:00 * Test Item Value Reference Range Interpretation Comments Neutrophils (%) (Auto) (test code = 76827-0) 81.2 38.7-80.0 H [facility] MansfieldLymphocytes (%) (Auto)2018-01-03 06:29:00 * Test Item Value Reference Range Interpretation Comments Lymphocytes (%) (Auto) (test code = 736-9) 7.2 18.0-39.1 L [facility]fieldMonocytes (%) (Auto)2018-01-03 06:29:00* Test Item Value Reference Range Interpretation Comments Monocytes (%) (Auto) (test code = 5905-5) 8.5 4.4-11.3 [facility]fieldEosinophils (%) (Auto)2018-01-03 06:29:00 * Test Item Value Reference Range Interpretation Comments Eosinophils (%) (Auto) (test code = 713-8) 2.2 0.0-6.0 [facility]fieldBasophils (%) (Auto)2018-01-03 06:29:00* Test Item Value Reference Range Interpretation Comments Basophils (%) (Auto) (test code = 706-2) 0.3 0.0-1.0 [facility] MansfieldIM GRANULOCYTES %2018-01-03 06:29:00* Test Item Value Reference Range Interpretation Comments IM GRANULOCYTES % (test code = IM GRANULOCYTES %) 0.6 0.0- 1.0 [facility] MansfieldNeutrophils # (Auto)2018-01-03 06:29:00* Test Item Value Reference Range Interpretation Comments Neutrophils # (Auto) (test code = 751-8) 10.1 2.1-6.9 H [facility] MansfieldLymphocytes # (Auto)2018-01-03 06:29:00* Test Item Value Reference Range Interpretation Comments Lymphocytes # (Auto) (test code = 44766-6) 0.9 1.0-3.2 L [facility]fieldMonocytes # (Auto)2018-01-03 06:29:00* Test Item Value Reference Range Interpretation Comments Monocytes # (Auto) (test code = 742-7) 1.1 0.2-0.8 H [facility]fieldEosinophils # (Auto)2018-01-03 06:29:00* Test Item Value Reference Range Interpretation Comments Eosinophils # (Auto) (test code = 711-2) 0.3 0.0-0.4 [facility]fieldBasophils # (Auto)2018-01-03 06:29:00* Test Item Value Reference Range Interpretation Comments Basophils # (Auto) (test code = 704-7) 0.0 0.0-0.1 [facility] MansfieldAbsolute Immature Granulocyte (auto 2018-01-03 06:29:00* Test Item Value Reference Range Interpretation Comments Absolute Immature Granulocyte (auto (grazyna t code = Absolute Immature Granulocyte (auto) 0.08 0-0.1 [facility] MansfieldBlood Pmyfezq6711-60-18 12:20:00* Test Item Value Reference Range Interpretation Comments Blood Culture (test code = 42009023) NO GROWTH AFTER 24 HOURS [facility]fieldCHEST SINGLE (PORTABLE)2018-01-02 11:12:00 [place] [address] Patient Name: SHALOM SORIANO MR #: [id number] : 1950 Age/Sex: 67/F Req #: [id number] Adm Physician: MARIANNE MCLEAN MD Ordered by: MARIANNE MCLEAN MD Report #: [id number] Location: MED/SURG2 Room/Bed: [facility] Procedure: [id number] DX/C HEST SINGLE (PORTABLE) Exam Date: 01/02/18 [...] YURI on 01/02/18 1112 COPY TO: MARIANNE MCLEAN MD Creatine Kinase WF3188-52-16 06:16:00* Test Item Value Reference Range Interpretation Comments Creatine Kinase MB (test code = 72228-0) 0.50 0-5.0 [facility] MansfieldTroponin B9090-03-63 06:16:00* Test Item Value Reference Range Interpretation Comments Troponin I (test code = UCD4928) 0.052 0-0.300 [facility] MansfieldB-Type Natriuretic Wyzuycz8638-71-72 06:08:00* Test Item Value Reference Range Interpretation Comments B-Type Natriuretic Peptide (test code = 88687-5) 662.2 0-100 H [facility] MansfieldPhosphorus Vtvkp1048-52-82 06:01:00* Test Item Value Reference Range Interpretation Comments Phosphorus Level (test code = TDQ6136) 5.1 2.3-4.7 H [facility] MansfieldMagnesium Rmdtb9236-57-10 06:01:00* Test Item Value Reference Range Interpretation Comments Magnesium Level (test code = 09520-0) 1.8 1.3-2.1 [facility] MansfieldTotal Ongmwneab4978-71-95 06:01:00* Test Item Value Reference Range Interpretation Comments Total Bilirubin (test code = 1975-2) 0.5 0.2-1.2 [facility] MansfieldAspartate Amino Transf (AST/SGOT) 2018-01-02 06:01:00* Test Item Value Reference Range Interpretation Comments Aspartate Amino Transf (AST/SGOT) (test code = Aspartate Amino Transf (AST/SGOT)) 11 5-34 [facility] MansfieldAlanine Aminotransferase (ALT/SGPT) 2018-01-02 06:01:00* Test Item Value Reference Range Interpretation Comments Alanine Aminotransferase (ALT/SGPT) (test code = 1742-6) -6 0-55 [facility]fieldTotal Ygevgxh2244-72-45 06:01:00* Test Item Value Reference Range Interpretation Comments Total Protein (test code = 2885-2) 5.9 6.5-8.1 L [facility] MansfieldAlbumin2018-09-27 06:01:00* Test Item Value Reference Range Interpretation Comments Albumin (test code = 1751-7) 2.6 3.5-5.0 L [facility] MansfieldGlobulin2018-09-27 06:01:00* Test Item Value Reference Range Interpretation Comments Globulin (test code = 03900-5) 3.3 2.3-3.5 [facility] MansfieldAlbumin/Globulin Cptuo5832-89-53 06:01:00 * Test Item Value Reference Range Interpretation Comments Albumin/Globulin Ratio (test code = 1759-0) 0.8 0.8-2.0 [facility] MansfieldAlkaline Qcabxbwlsri8011-14-53 06:01:00* Test Item Value Reference Range Interpretation Comments Alkaline Phosphatase (test code = 6768-6) 82 40-150 [facility] MansfieldCreatine Nhjxym7777-10-23 06:01:00* Test Item Value Reference Range Interpretation Comments Creatine Kinase (test code = 2157-6) 15 29-168 L [facility] MansfieldCHEST 2 QUJNS4390-05-64 09:19:00 [facility] [address] [address] Patient Name: SHALOM SORIANO MR #: [id number] : Age/Sex: 67/F Req #: [id number] Adm Physician: Ordered by: OSWALDO BAEZ MD Report #: [id number] Location: ER Room/B ed: Procedure: [id number] DX/CHEST 2 VIEWS Exam Date: 01/01/18 Exam [...] 01/01/18918 COPY TO: OSWALDO GUERRA MD Prothrombin Deia9497-97-24 12:22:00* Test Item Value Reference Range Interpretation Comments Prothrombin Time (test code = 5902-2) 13.6 11.9-14.5 [facility] MansfieldProthromb Time International Ratio 2017-12-17 12:22:00* Test Item Value Reference Range Interpretation Comments Prothromb Time International Ratio (test code = 6301-6) 1.13 Oral Anticoagulant Therapy INR Values:1. Low Intensity Therapy 1.5 - 2.02 . Moderate Intensity Therapy 2.0 - 3.03. High Intensity Therapy(1) 2.5 - 3. 54. High Intensity Therapy(2) 3.0 - 4.05. Panic Value INR > 5.0 [facility]He[facility] B Surface Antibody, Quant 2017-12-11 10:04:00* Test Item Value Reference Range Interpretation Comments Hepatitis B Surface Antibody, Quant (test code = 5194-6) -3.1 Immunity>9.9 L Status of Immunity Anti-HBs Level Inconsistent with Immunity 0.0 - 9.9Consistent with Immunity >9.9[facility] B Core Total Ymarbjkt0334-99-18 10:04:00* Test Item Value Reference Range Interpretation Comments Hepatitis B Core Total Antibody (test code = 81658-7) Negative Negative [facility] B Surface Gwvahhq9766-65-98 10:04:00* Test Item Value Reference Range Interpretation Comments Hepatitis B Surface Antigen (test code = 5196-1) Negative Negat tho [facility] B Core IgM Ycapbgwn7287-90-33 10:04:00* Test Item Value Reference Range Interpretation Comments Hepatitis B Core IgM Antibody (test code = 00149-8) Negative Ne gative Performed at: [address] [id number] Director: Ruben Velázquez MD, Phone: [phone] Health Hospital MansfieldHetrigg county hospitaltis B Core IgM Qpcpbdak0405-85-78 10:04:00* Test Item Value Reference Range Interpretation Comments Hepatitis B Core IgM Antibody (test code = 23133-9) Negative Ne gative Performed at: [address] [id number] Director: Ruben Velázquez MD, Phone: [phone] Health Hospital MansfieldHeemanate health/[facility] B Core IgM Ysshqbmu7207-01-88 10:04:00* Test Item Value Reference Range Interpretation Comments Hepatitis B Core IgM Antibody (test code = 99680-0) Negative Ne gative Performed at: [address] [id number] Director: Ruben Velázquez MD, Phone: [phone] Health Hospital MansfieldHeemanate health/[facility] B Core IgM Novoqxyb0381-01-36 10:04:00* Test Item Value Reference Range Interpretation Comments Hepatitis B Core IgM Antibody (test code = 63290-7) Negative Ne gative Performed at: [address] [id number] Director: Ruben Velázquez MD, Phone: [phone] Health Hospital MansfieldCreatine Kinase SQ7614-89-43 12:48:00* Test Item Value Reference Range Interpretation Comments Creatine Kinase MB (test code = 45303-8) 0.80 0-5.0 [facility] MansfieldTroponin A2260-45-41 12:48:00* Test Item Value Reference Range Interpretation Comments Troponin I (test code = YJT5617) 0.053 0-0.300 [facility] MansfieldCreatine Jkrfkz1856-20-93 12:41:00* Test Item Value Reference Range Interpretation Comments Creatine Kinase (test code = 2157-6) 13 29-168 L [facility] Qeoqe2847-54-95 07:05:00* Test Item Value Reference Range Interpretation Comments Sodium Level (test code = 2951-2) 134 136-145 L [facility] MansfieldPotassium Wbqks6719-73-67 07:05:00* Test Item Value Reference Range Interpretation Comments Potassium Level (test code = 2823-3) 3.4 3.5-5.1 L [facility] MansfieldChloride Wbcmf8509-15-18 07:05:00* Test Item Value Reference Range Interpretation Comments Chloride Level (test code = 2075-0) 94 98-107 L [facility] MansfieldCarbon Dioxide Gqsrp6049-94-03 07:05:00* Test Item Value Reference Range Interpretation Comments Carbon Dioxide Level (test code = 2028-9) 26 22-29 [facility] MansfieldAnion Bpq4490-02-87 07:05:00* Test Item Value Reference Range Interpretation Comments Anion Gap (test code = 83021-0) 17.4 8-16 H [facility] MansfieldBlood Urea Ovvwbiqo9475-43-11 07:05:00* Test Item Value Reference Range Interpretation Comments Blood Urea Nitrogen (test code = 3094-0) 30 7-26 H [facility] MansfieldCreatinine2018-09-01 07:05:00* Test Item Value Reference Range Interpretation Comments Creatinine (test code = 2160-0) 5.44 0.57-1.11 H [facility] MansfieldBUN/Creatinine Huvae5202-50-13 07:05:00* Test Item Value Reference Range Interpretation Comments BUN/Creatinine Ratio (test code = 3097-3) 6 6-25 [facility] MansfieldEstimat Glomerular Filtration Rate 2017-12-07 07:05:00* Test Item Value Reference Range Interpretation Comments Estimat Glomerular Filtration Rate (test code = 08064-3) 8 >60 L Ranges were taken from the National Kidney Disease Education Program and the [facility] Kidney Foundation literature.Reference ranges:60 or greater: Tgoaif43-15 ( for 3 consecutive months): Chronic kidney disease 15 or less: Kidney failureTexas Health Hospital MansfieldGlucose Lfxza5563-58-02 07:05:00* Test Item Value Reference Range Interpretation Comments Glucose Level (test code = KOJ5449) 85 74-118 [facility] MansfieldCalcium Mrlmo2725-43-50 07:05:00* Test Item Value Reference Range Interpretation Comments Calcium Level (test code = 44588-4) 8.7 8.4-10.2 [facility] MansfieldTotal Bkqkmlpay6910-09-60 07:05:00* Test Item Value Reference Range Interpretation Comments Total Bilirubin (test code = 1975-2) 0.5 0.2-1.2 [facility] MansfieldAspartate Amino Transf (AST/SGOT) 2017-12-07 07:05:00* Test Item Value Reference Range Interpretation Comments Aspartate Amino Transf (AST/SGOT) (test code = Aspartate Amino Transf (AST/SGOT)) 10 5-34 [facility] MansfieldAlanine Aminotransferase (ALT/SGPT) 2017-12-07 07:05:00* Test Item Value Reference Range Interpretation Comments Alanine Aminotransferase (ALT/SGPT) (test code = 1742-6) 7 0-55 [facility] MansfieldTotal Gfxnnmu2904-29-94 07:05:00* Test Item Value Reference Range Interpretation Comments Total Protein (test code = 2885-2) 5.5 6.5-8.1 L [facility] MansfieldAlbumin2018-09-01 07:05:00* Test Item Value Reference Range Interpretation Comments Albumin (test code = 1751-7) 2.3 3.5-5.0 L [facility] MansfieldGlobulin2018-09-01 07:05:00* Test Item Value Reference Range Interpretation Comments Globulin (test code = 59343-9) 3.2 2.3-3.5 [facility] MansfieldAlbumin/Globulin Iacmd6161-23-95 07:05:00 * Test Item Value Reference Range Interpretation Comments Albumin/Globulin Ratio (test code = 1759-0) 0.7 0.8-2.0 L [facility] MansfieldAlkaline Kbyfwcvtcpx2500-70-10 07:05:00* Test Item Value Reference Range Interpretation Comments Alkaline Phosphatase (test code = 6768-6) 76 40-150 [facility] MansfieldTriglycerides Wcwfl7764-24-88 07:05:00* Test Item Value Reference Range Interpretation Comments Triglycerides Level (test code = 2571-8) 82 0-149 [facility] MansfieldCholesterol Pqach6593-67-92 07:05:00* Test Item Value Reference Range Interpretation Comments Cholesterol Level (test code = 2093-3) 147 0-199 Less than 200 mg/dL Low Erew157 - 239 mg/dL Borderline Gbof877 m g/dl and greater High Risk [facility] MansfieldLDL Pujioajirvx0379-85-30 07:05:00* Test Item Value Reference Range Interpretation Comments LDL Cholesterol (test code = 2089-1) 85 60-130 [facility] Qmrrdylohja5743-92-17 07:05:00* Test Item Value Reference Range Interpretation Comments HDL Cholesterol (test code = 2085-9) 46 40-60 [facility]HDL Mpinr5747-36-76 07:05:00 * Test Item Value Reference Range Interpretation Comments Cholesterol/HDL Ratio (test code = 9830-1) 3.2 3.0-3.6 [facility]Triglycerides Zwmrb2771-90-68 07:05:00* Test Item Value Reference Range Interpretation Comments Triglycerides Level (test code = 2571-8) 82 0-149 [facility]Ch[facility] Qikbl2986-98-47 07:05:00* Test Item Value Reference Range Interpretation Comments Cholesterol Level (test code = 2093-3) 147 0-199 Less than 200 mg/dL Low Okur677 - 239 mg/dL Borderline Fejt314 m g/dl and greater High Risk [facility]fieldLDL Elklhjgsbqb3087-57-27 07:05:00* Test Item Value Reference Range Interpretation Comments LDL Cholesterol (test code = 2089-1) 85 60-130 [facility] Xxnjwiqpgbd6839-96-00 07:05:00* Test Item Value Reference Range Interpretation Comments HDL Cholesterol (test code = 2085-9) 46 40-60 [facility]HDL Zpdkg5266-64-83 07:05:00 * Test Item Value Reference Range Interpretation Comments Cholesterol/HDL Ratio (test code = 9830-1) 3.2 3.0-3.6 [facility]fieldWhite Blood Hfaml3963-43-29 06:28:00* Test Item Value Reference Range Interpretation Comments White Blood Count (test code = 6690-2) 6.69 4.8-10.8 [facility]fieldRed Blood Ilbeb5193-14-90 06:28:00* Test Item Value Reference Range Interpretation Comments Red Blood Count (test code = 789-8) 3.03 3.6-5.1 L [facility]Hemoglobin2018-09-01 06:28:00* Test Item Value Reference Range Interpretation Comments Hemoglobin (test code = 50602-3) 9.3 12.0-16.0 L [facility]Hematocrit2018-09-01 06:28:00* Test Item Value Reference Range Interpretation Comments Hematocrit (test code = 4544-3) 29.3 34.2-44.1 L [facility]fieldMean Corpuscular Mfbtmk7470-55-03 06:28:00* Test Item Value Reference Range Interpretation Comments Mean Corpuscular Volume (test code = 787-2) 96.7 81-99 [facility]Mean Corpuscular Kuscujtkwd5176-45-55 06:28:00* Test Item Value Reference Range Interpretation Comments Mean Corpuscular Hemoglobin (test code = 785-6) 30.7 28-32 [facility]Mean Corpuscular Hemoglobin Concent 2017-12-07 06:28:00* Test Item Value Reference Range Interpretation Comments Mean Corpuscular Hemoglobin Concent (test code = 786-4) 31.7 31-35 [facility]fieldRed Cell Distribution Oyxad6818-74-91 06:28:00* Test Item Value Reference Range Interpretation Comments Red Cell Distribution Width (test code = 02555-1) 15.5 11.7 -14.4 H [facility]fieldPlatelet Wjqam4159-73-93 06:28:00* Test Item Value Reference Range Interpretation Comments Platelet Count (test code = 777-3) 174 140-360 [facility]fieldNeutrophils (%) (Auto)2017-12-07 06:28:00 * Test Item Value Reference Range Interpretation Comments Neutrophils (%) (Auto) (test code = 95306-5) 68.4 38.7-80.0 [facility]fieldLymphocytes (%) (Auto)2017-12-07 06:28:00 * Test Item Value Reference Range Interpretation Comments Lymphocytes (%) (Auto) (test code = 736-9) 19.1 18.0-39.1 [facility]fieldMonocytes (%) (Auto)2017-12-07 06:28:00* Test Item Value Reference Range Interpretation Comments Monocytes (%) (Auto) (test code = 5905-5) 8.2 4.4-11.3 [facility]fieldEosinophils (%) (Auto)2017-12-07 06:28:00 * Test Item Value Reference Range Interpretation Comments Eosinophils (%) (Auto) (test code = 713-8) 3.6 0.0-6.0 [facility]ophils (%) (Auto)2017-12-07 06:28:00* Test Item Value Reference Range Interpretation Comments Basophils (%) (Auto) (test code = 706-2) 0.4 0.0-1.0 [facility]fieldIM GRANULOCYTES %2017-12-07 06:28:00* Test Item Value Reference Range Interpretation Comments IM GRANULOCYTES % (test code = IM GRANULOCYTES %) 0.3 0.0- 1.0 [facility]fieldNeutrophils # (Auto)2017-12-07 06:28:00* Test Item Value Reference Range Interpretation Comments Neutrophils # (Auto) (test code = 751-8) 4.6 2.1-6.9 [facility]fieldLymphocytes # (Auto)2017-12-07 06:28:00* Test Item Value Reference Range Interpretation Comments Lymphocytes # (Auto) (test code = 03414-5) 1.3 1.0-3.2 [facility]fieldMonocytes # (Auto)2017-12-07 06:28:00* Test Item Value Reference Range Interpretation Comments Monocytes # (Auto) (test code = 742-7) 0.6 0.2-0.8 [facility]fieldEosinophils # (Auto)2017-12-07 06:28:00* Test Item Value Reference Range Interpretation Comments Eosinophils # (Auto) (test code = 711-2) 0.2 0.0-0.4 [facility]Basophils # (Auto)2017-12-07 06:28:00* Test Item Value Reference Range Interpretation Comments Basophils # (Auto) (test code = 704-7) 0.0 0.0-0.1 [facility]fieldAbsolute Immature Granulocyte (auto 2017-12-07 06:28:00* Test Item Value Reference Range Interpretation Comments Absolute Immature Granulocyte (auto (grazyna t code = Absolute Immature Granulocyte (auto) 0.02 0-0.1 [facility]fieldB-Type Natriuretic Cuhohsa8579-23-61 22:08:00* Test Item Value Reference Range Interpretation Comments B-Type Natriuretic Peptide (test code = 54578-4) 408.5 0-100 H [facility]fieldProthrombin Qegd1350-85-77 21:58:00* Test Item Value Reference Range Interpretation Comments Prothrombin Time (test code = 5902-2) 13.1 11.9-14.5 [facility]fieldProthromb Time International Ratio 2017-12-06 21:58:00* Test Item Value Reference Range Interpretation Comments Prothromb Time International Ratio (test code = 6301-6) 1.07 Oral Anticoagulant Therapy INR Values:1. Low Intensity Therapy 1.5 - 2.02 . Moderate Intensity Therapy 2.0 - 3.03. High Intensity Therapy(1) 2.5 - 3. 54. High Intensity Therapy(2) 3.0 - 4.05. Panic Value INR > 5.0 [facility]fieldActivated Partial Thromboplast Time 2017-12-06 21:58:00* Test Item Value Reference Range Interpretation Comments Activated Partial Thromboplast Time (test code = 18941-9) 36.2 23.8-35.5 H [facility]fieldActivated Partial Thromboplast Time 2017-12-06 21:58:00* Test Item Value Reference Range Interpretation Comments Activated Partial Thromboplast Time (test code = 48272-6) 36.2 23.8-35.5 H [facility]fieldCHEST SINGLE (PORTABLE)2017-12-06 21:51:00 [facility] [address] [address] Patient Name: SHALOM SORIANO MR #: [id number] : 1950 Age/Sex: 67/F Req #: [id number] Adm Physician: Ordered by: REZA ZAMBRANO NP Report #: [id number] Location: ER Room/Bed: Procedure: [id number] DX/CHEST SINGLE (PORTABLE) Exam Date: Exam Time: [...]
[2020-01-07 17:19] LABS: ALBUMIN 3.9 g/dL (3.5-5.0); ALBUMIN/GLOBULIN RATIO 1.1 (0.8-2.0); ANION GAP 17.9 mmol/L (8-16); CALCIUM 9.9 mg/dL (8.4-10.2); CREATININE, SERUM 4.47 mg/dL (0.57-1.11); MAGNESIUM 2.2 MG/DL (1.3-2.1); POTASSIUM 3.9 mmol/L (3.5-5.1)
[2020-01-07 17:38] LABS: CREATINE KINASE MB 0.8 ng/mL (0-5.0); THYROID STIMULATING HORMONE 1.046 uIU/mL (0.350-4.940)
--- NOTE | 2020-01-07 17:38 | History and Physical ---
CHIEF COMPLAINT: "I feel like I am passing out." HISTORY OF PRESENT ILLNESS: This is a 70-year-old woman, who states that over the last 2 weeks she has been experiencing intermittent episodes of dizziness and near-syncope. The patient initially was diagnosed with otitis media and peripheral vertigo that did not respond to oral amoxicillin and oral meclizine. The patient was actually hospitalized here at [facility] on November 28, 2019 for one day because of this near-syncope type symptoms. It was felt that the patient perhaps had central vertigo, thus an MRI and MRA of the brain were ordered, but unfortunately the patient refused to undergo these imaging studies due to claustrophobia. Anxiolytics were offered to the patient, but she still was adamant about not undergoing MRI or MRA of the brain in an enclosed MRI tube. The patient apparently had an external quality assurance monitor chassis placed eight days ago and today it revealed transient episodes of complete heart block lasting up to 4 seconds. Thus, the machine cleaner namely, Dr. Patel referred the patient to the hospital for admission and tentative permanent pacemaker placement tomorrow, Saturday, January 08, 2020. The patient states that earlier today around noon, she did have a brief episode of dizziness and near syncope. Currently, she voiced no complaints. The patient states she has not missed any sessions of hemodialysis. The patient underwent an echocardiogram on December 29, 2019, that revealed a preserved left ventricular ejection fraction 55-60%, but it revealed impaired relaxation as well as moderate aortic stenosis. The patient denies any chest pain or tightness. Chest film performed today on January 07, 2020, revealed cardiomegaly and pulmonary vascular congestion, otherwise unremarkable. REVIEW OF SYSTEMS: GENERAL: The patient has gained weight over the last few months, approximately 20 pounds during the COVID-19 global crisis. The patient denies any fever or chills. HEENT: No headaches. No vision changes, but the patient states she has episodes of dizziness and near-syncope which occurs sporadically. CARDIOVASCULAR SYSTEM/RESPIRATORY: No chest pain or short of cough. GI: She has nausea at times with dizziness and near-syncope, but no vomiting. : The patient does not urinate. She undergoes hemodialysis 3 times a week. NEUROMUSCULAR: The patient denies any limb weakness or numbness. ALLERGIES: NO KNOWN DRUG ALLERGIES. MEDICATIONS: 1. Atorvastatin 10 mg at bedtime. 2. Meclizine 25 mg every 6 hours p.r.n. dizziness. 3. Metoprolol succinate 25 mg daily. 4. Clopidogrel 75 mg daily. PAST MEDICAL HISTORY: 1. End-stage renal disease (since February 2017). 2. Hypertensive heart disease. 3. Chronic diastolic congestive heart failure. 4. Anemia secondary to chronic kidney disease. 5. Obesity. BMI 36. 6. Recurrent pericardial effusion resulting in pericardial window in January 2018. 7. Right retinal hemorrhage. PAST SURGICAL HISTORY: 1. Right upper extremity AV graft placement. 2. Left upper extremity AV fistula placement. 3. -section five times. 4. Right subclavian hemodialysis catheter placement and subsequent removal. 5. Open cholecystectomy. 6. Total abdominal hysterectomy with bilateral salpingo-oophorectomy. 7. Sigmoid resection with diverting colostomy placement in October 2017. 8. Pericardial window placement in January 2018 because of recurrent pericardial effusion. 9. Colostomy take down and reversal in June 2018. SOCIAL HISTORY: She is a and disabled. The patient lives with an adult son and luyjrtcz-er-jwm. The patient's adult son and qkzfdexj-aa-ocw are very much involved in her health care needs. No history of tobacco or alcohol use. FAMILY HISTORY: Mother with hypertension. Father with type 2 diabetes mellitus. PHYSICAL EXAMINATION: GENERAL: She is awake. She is alert. She is fully oriented. Her adult son and mlmsfssg-os-lra are at bedside. She is pleasant, cooperative with exam. She speaks predominantly Peruvian. VITAL SIGNS: Height 5 feet 0 inches, weight is 180 pounds, BMI 37. Blood pressure is 112/54, pulse 74, respiratory rate 18, oxygen saturation is 99% on room air, and temperature 96.7. INTEGUMENT: Skin is warm and dry. No pallor, jaundice, or diaphoresis. HEENT: Anterior sclerae with moist mucous membranes. NECK: Supple. CARDIOVASCULAR: Distant heart sounds. Regular rate and rhythm with S3 gallop. LUNGS: No rales. No rhonchi. No wheezes. ABDOMEN: Obese yet benign. EXTREMITIES: No edema or deformity. NEUROLOGICAL: Intact. No gross focal deficits appreciated. DIAGNOSES: 1. Near syncope secondary to transient episodes of complete heart block. 2. End-stage renal disease. 3. Chronic diastolic congestive heart failure with preserved left ventricular ejection fraction. 4. Hypertensive heart disease. 5. Obesity, BMI 37. 6. Moderate aortic stenosis. PLAN: 1. Hold beta blockers. 2. Rule out myocardial infarction. 3. Consult Cardiology. 4. Consult Nephrology since the patient undergoes hemodialysis 3 times a week. 5. Telemetry monitoring. 6. According to Cardiology, the patient will undergo tentative permanent pacemaker placement tomorrow, Wednesday, January 08, 2020. I spent 75 minutes in the care of this critical patient. MD ALVARO Neumann/ARIA /[id number] MTDAmarjit
--- NOTE | 2020-01-07 21:03 | Consultation ---
DATE OF CONSULTATION: Cardiology Consultation REASON FOR CONSULTATION: Complete heart block. HISTORY OF PRESENT ILLNESS: This is a 70-year-old woman, who has history of hypertension, hyperlipidemia, end-stage renal disease, chronic diastolic heart failure, and aortic stenosis, who presented as an outpatient with episodes of near syncope. She was found to have episodes of complete heart block by telemetry monitoring. She was sent to the ER for a pacemaker insertion. REVIEW OF SYSTEMS: A 12-point review of system was conducted, is negative except as stated above in the HPI. PAST MEDICAL HISTORY: As stated above in the HPI. PAST SURGICAL HISTORY: AV graft fistula and section. PAST FAMILY HISTORY: Noncontributory to current illness. SOCIAL HISTORY: No illicit drug, alcohol, or tobacco use. ALLERGIES: NO KNOWN DRUG ALLERGIES. MEDICATIONS: See medication reconciliation form. PHYSICAL EXAMINATION: VITAL SIGNS: Temperature is 98.1, heart rate is 92, respirations 18, blood pressure is 115/74, and oxygen saturation 99% on room air. GENERAL: Well appearing, in no apparent distress. Alert and oriented x3. HEAD: Normocephalic and atraumatic. EYES: The extraocular muscles intact. Conjunctivae are clear. NECK: No JVD. No bruits. CARDIOVASCULAR: Regular rate and rhythm. LUNGS: Clear to auscultation. ABDOMEN: Soft, nontender, and nondistended. EXTREMITIES: No clubbing, cyanosis, or edema. VASCULAR: 2+ pulses. SKIN: Warm, dry, and intact. NEUROLOGIC: No focal deficits noted. Cranial nerves grossly intact. PSYCHIATRIC: Normal mood and affect. LABORATORY DATA: Reviewed. Echocardiogram shows an ejection fraction of 55% to 60%. IMPRESSION: 1. Near-syncope. 2. Complete heart block. 3. End-stage renal disease. 4. Chronic diastolic heart failure. 5. Chronic kidney disease. RECOMMENDATIONS: Continue to monitor on telemetry overnight. The patient will require permanent pacemaker implantation. Continue current cardiovascular medications. We will continue to follow along with you. DO SAMEER Jc/MODL /[id number]
--- NOTE | 2020-01-08 00:19 | NUR ---
Patient lying on her right side comfortably sleeping with VSS per nurse monitoring.
[2020-01-08 01:05] LABS: ANION GAP 16.5 mmol/L (8-16); CALCIUM 9.3 mg/dL (8.4-10.2); CREATININE, SERUM 5.15 mg/dL (0.57-1.11); POTASSIUM 4.5 mmol/L (3.5-5.1)
[2020-01-08 01:14] LABS: CREATINE KINASE MB 0.8 ng/mL (0-5.0)
--- NOTE | 2020-01-08 05:21 | NUR ---
Assist pt to restroom, ambulatory with steady gait.
[2020-01-08 05:57] LABS: ALBUMIN 3.7 g/dL (3.5-5.0); ALBUMIN/GLOBULIN RATIO 1.1 (0.8-2.0); ANION GAP 16.8 mmol/L (8-16); CALCIUM 9.2 mg/dL (8.4-10.2); CHOL/HDL RATIO 3.9 (3.0-3.6); CREATININE, SERUM 5.57 mg/dL (0.57-1.11); POTASSIUM 4.8 mmol/L (3.5-5.1)
--- NOTE | 2020-01-08 06:10 | NUR ---
Dr Petty at bedside talking with patient regarding pacemaker placement today. Pt awake & alert with no distress noted.
[2020-01-08 06:16] LABS: CREATINE KINASE MB 0.8 ng/mL (0-5.0)
--- NOTE | 2020-01-08 07:15 | NUR ---
Report received from Ken Sultana RN, pt is comfortably resting in bed, both side rails up, symmetrical chest rise noted, vital signs WNL
--- NOTE | 2020-01-08 07:45 | Progress Note ---
DATE: 01/08/2020 CHIEF COMPLAINT/HISTORY OF PRESENT ILLNESS: This is a 70-year-old woman, whose primary treating diagnosis is transient episodes of complete heart block. Overnight, she did have a brief episode of complete heart block as evidenced by telemetry monitoring. The patient states that overnight she had multiple episodes of dizziness. The patient denies any chest pain or shortness of breath. The patient had blood work done yesterday and was found to have a B-type natriuretic peptide at a level of 458. The patient has undergone three sets of cardiac enzymes, namely, troponin I and they have all been in the normal range. The patient's BUN and creatinine today is 31 and 5.57 respectively. Potassium is 4.8. The patient's LDL cholesterol is 133 mg/dL. REVIEW OF SYSTEMS: As per HPI. PHYSICAL EXAMINATION: GENERAL: She is awake, alert and fully oriented. VITAL SIGNS: Blood pressure is 124/66, pulse 70, respiratory rate 16, oxygen 100% on room air, temperature is 98.1, height 4 feet 9 inches, weight is 170 pounds, BMI 37. INTEGUMENT: Skin is warm and dry. No pallor, jaundice, or diaphoresis. HEENT: Anterior sclerae. Moist mucous membranes. NECK: Supple. CARDIOVASCULAR: Distant heart sounds. Regular rate and rhythm with a systolic ejection murmur 4/6 in intensity. LUNGS: No rales, no rhonchi, or wheezes. ABDOMEN: Soft. Normal bowel sounds, nontender. EXTREMITIES: No edema or deformity. NEUROLOGIC: Intact. No deficits appreciated. DIAGNOSES: 1. Transient episodes of complete heart block. 2. Episodes of near-syncope/dizziness. 3. End-stage renal disease. 4. Chronic diastolic congestive heart failure. 5. Hypertensive heart disease. 6. Moderate aortic stenosis. 7. Obesity, BMI 37. PLAN: 1. Tentative permanent pacemaker placement today. 2. Appreciate Electrophysiology and Cardiology input. 3. Discharge planning likely later today after permanent pacemaker placement. 4. Nephrology has been consulted in the event that she will require hemodialysis prior to discharge. I spent 35 minutes in the care of the patient. MD ALVARO Neumann/ARIA /[id number] MTDD
[2020-01-08] MEDS ORDERED: MIDAZOLAM HCL 2 MG/2 ML VIAL ONE ×4 (09:09→13:51)
[2020-01-08] MEDS ORDERED: GENTAMICIN SULFATE 40 MG/ML 2 ML VIAL ONE ×2 (09:10→13:16)
[2020-01-08] MEDS ORDERED: LIDOCAINE 1% W/EPINEPHRINE 20 ML VIAL ONE ×2 (09:10→13:31)
[2020-01-08] MEDS ORDERED: FENTANYL CITRATE/PF 100MCG/2 ML INJ ONE (09:10)
[2020-01-08] MEDS ORDERED: SODIUM CHLORIDE 0.9% 1000ML 1,000 ML ONE (09:11)
[2020-01-08] MEDS ORDERED: SODIUM CHLORIDE 0.9% 500ML 1,000 ML ONE (09:11)
[2020-01-08] MEDS ORDERED: VANCOMYCIN 1GM/NS 250 ML 500 ML ONE (09:11)
[2020-01-08] MEDS ORDERED: IOPAMIDOL 300MG/ML 50ML INFUS..BTL IV ONE (09:12)
[2020-01-08 10:45] LABS: BASOPHILS # (AUTO) 0.1 (0.0-0.1); BASOPHILS % 0.6 % (0.0-1.0); EOSINOPHILS # (AUTO) 0.5 (0.0-0.4); EOSINOPHILS % 6.3 % (0.0-6.0); HEMATOCRIT 36.8 % (34.2-44.1); LYMPHOCYTES # (AUTO) 1.5 (1.0-3.2); LYMPHOCYTES % 19.4 % (18.0-39.1); MEAN CORPUSCULAR HEMOGLOBIN 32.1 pg (28-32); MEAN CORPUSCULAR HGB CONC 32.6 g/dL (31-35); MEAN CORPUSCULAR VOLUME 98.4 fL (81-99); MONOCYTES # (AUTO) 0.7 (0.2-0.8); MONOCYTES % 9.4 % (4.4-11.3); NEUTROPHILS % 63.9 % (38.7-80.0); PLATELET COUNT 207 x10e3/uL (140-360); RED BLOOD COUNT 3.74 x10e6/uL (3.6-5.1); RED CELL DISTRIBUTION WIDTH 12.5 % (11.7-14.4)
--- NOTE | 2020-01-08 12:42 | Consultation ---
DATE OF CONSULTATION: Renal Consultation Thank you, Dr. Mclean, for the consult. HISTORY OF PRESENT ILLNESS: Ms. Soriano is a pleasant 70-year-old female patient of mine, well known to me from the outpatient setting. She has end-stage renal disease, dialysis on Saturday, , Saturday at [facility] under my care. The patient often is noncompliant with medical advice and often is hesitant to have extra fluid removed during her dialysis treatments. She also occasionally will show up for the extra treatment for fluid removal if required. She has been admitted through the ER with some shortness of breath. Renal consultation has been asked for her to provide her dialysis while she is here. She is saturating 100% on room air. The patient does have some central pulmonary vascular congestion on chest x-ray. Currently, no other complaints. Apparently, she had some heart arrhythmia with some sinus pauses as well and has been sent over to the emergency room and hospital for further management. Currently, no fever, no chills, no nausea, no vomiting, no diarrhea, no abdominal pain, and no other symptoms or signs were outlined above. PAST MEDICAL HISTORY: History of end-stage renal disease, history of hypertension, and history of congestive heart failure. REVIEW OF SYSTEMS: See HPI. Otherwise all systems negative. MEDICATIONS: Have all been reviewed per chart. ALLERGIES: NO KNOWN DRUG ALLERGIES. SOCIAL HISTORY: No tobacco. No alcohol use. FAMILY HISTORY: Noncontributory. PHYSICAL EXAMINATION: VITAL SIGNS: Blood pressure 123/66, 70 pulse, and afebrile. HEENT: No cervical lymphadenopathy. NECK: Supple without masses. No obvious JVD. Moist appearing oral mucosa. SKIN: Moist with good skin turgor. CHEST WALL: Good expansion. No chest wall tenderness. LUNGS: Clear to auscultation bilaterally. CARDIOVASCULAR: S1 and S2. No obvious gallop, rub, or murmur. ABDOMEN: Soft. Positive bowel sounds. Nontender. No organomegaly. EXTREMITIES: No evidence of lower extremity edema. No clubbing. No cyanosis. NEUROLOGIC: Awake, alert, and oriented x3. Grossly nonfocal exam. LABORATORY DATA: Sodium 136, potassium 4.8, BUN is 31, and creatinine is 5.57. H and H are 12 and 36. IMPRESSION AND PLAN: 1. End-stage renal disease. We will continue to provide dialysis Saturday, , and Saturday and additional days as needed for ultrafiltration only. 2. Hypertension. Blood pressure is controlled. Continue to monitor. 3. Anemia of chronic disease. Stable H and H. 4. History of fluid overload. We will do ultrafiltration as allowed by blood pressures and extra treatment as needed to allow the patient to have less symptomatology. The patient currently is saturating 100% on room air. Should not require any dialysis today. We will await to do dialysis again tomorrow. Thank you once again for the consultation. We will follow the patient closely with you and make further recommendations. José Luis Ahuja MD /MOD /[id number] cc: Kaushal Mclean MD
--- NOTE | 2020-01-08 12:58 | NUR ---
1245 Pt arrived to incinerator plant laborer via Rn escort x2 Assist to procedural table Rt arm with fistula positive bruit [place] arm alert applied Thrill present. Handoff to Omaira ALONSO incinerator plant laborer nurse. Dr Velazquez arrives. hortencia Addendum: 01/08/20 at 1301 by Donya Wright RN [address] Petty.Covid is still pending. hortencia
--- NOTE | 2020-01-08 13:03 | NUR ---
pt was completely changed into gown with nothing else and yellow fall socks. all belongings in bag and with pt. consent signed with sherrie callaway, from radiology. pt states full understanding of consent and signed.
[2020-01-08 14:31] VITALS: BP 123/61
--- NOTE | 2020-01-08 14:40 | NUR ---
Pt received from airport maintenance laborer at this time. Pt is aox3 and able to verbalize needs, but is mostly vietnamese speaking. Pt is s/p pacemaker placement to left upper chest, she has sling in place and instructed pt not to raise arm above head. Denies any pain at this time. Breaths are even and unlabored.
[2020-01-08 14:50] VITALS: BP 123/61
--- NOTE | 2020-01-08 17:15 | NUR ---
Spoke with Dr. Mclean to ask if pt will be discharging today and states that pt will be staying one more night. Notified Bertin that pt will need to be on dialysis schedule for tomorrow.
[2020-01-08] MEDS ORDERED: MECLIZINE HCL12.5 MG PO (17:18)
[2020-01-08] MEDS ORDERED: LEVOCETIRIZINE D5 MG PO (17:18)
[2020-01-08] MEDS ORDERED: SENSIPAR30 MG PO (17:18)
[2020-01-08] MEDS ORDERED: AURYXIA210 MG PO (17:18)
[2020-01-08] MEDS ORDERED: PLAVIX75 MG PO (17:18)
[2020-01-08 20:00] VITALS: BP 92/60
[2020-01-08 22:11] VITALS: BP 92/60
[2020-01-09] VITALS: BP 129/58
[2020-01-09 04:00] VITALS: BP 109/62
[2020-01-09 05:38] LABS: BASOPHILS # (AUTO) 0.1 (0.0-0.1); BASOPHILS % 0.7 % (0.0-1.0); EOSINOPHILS # (AUTO) 0.5 (0.0-0.4); EOSINOPHILS % 6.5 % (0.0-6.0); HEMOGLOBIN 10.9 g/dL (12.0-16.0); LYMPHOCYTES # (AUTO) 1.2 (1.0-3.2); LYMPHOCYTES % 15.5 % (18.0-39.1); MEAN CORPUSCULAR HEMOGLOBIN 32.8 pg (28-32); MEAN CORPUSCULAR VOLUME 99.4 fL (81-99); MONOCYTES # (AUTO) 0.7 (0.2-0.8); MONOCYTES % 9.6 % (4.4-11.3); NEUTROPHILS % 67.3 % (38.7-80.0); PLATELET COUNT 177 x10e3/uL (140-360); RED BLOOD COUNT 3.32 x10e6/uL (3.6-5.1); RED CELL DISTRIBUTION WIDTH 12.5 % (11.7-14.4)
[2020-01-09 06:18] LABS: ALBUMIN 3.1 g/dL (3.5-5.0); ALBUMIN/GLOBULIN RATIO 0.9 (0.8-2.0); CALCIUM 8.4 mg/dL (8.4-10.2); CREATININE, SERUM 7.4 mg/dL (0.57-1.11); MAGNESIUM 2.2 MG/DL (1.3-2.1); PHOSPHORUS 7.6 MG/DL (2.3-4.7)
--- NOTE | 2020-01-09 06:32 | NUR ---
SPOKE TO DR. DURAN AT THIS TIME. NEW ORDER RECEIVED TO CONSENT FOR HEMODIALYSIS.
[2020-01-09 08:00] VITALS: BP 103/82
[2020-01-09 08:14] VITALS: BP 103/82
[2020-01-09] MEDS ORDERED: SODIUM CHLORIDE 0.9% 1000ML 2,000 ML ONE (09:30)
[2020-01-09] MEDS ORDERED: MINOCYCLINE HCL50 MG PO (10:04)
[2020-01-09] MEDS ORDERED: TYLENOL # 31 EA PO (10:05)
[2020-01-09] MEDS ORDERED: MANNITOL 25% 12.5GM/50 ML VIAL IV PRN (10:15)
[2020-01-09] MEDS ORDERED: ALBUMIN 25% 12.5GM 0.25 GM/ML BTL IV PRN (10:15)
[2020-01-09] MEDS ORDERED: SODIUM CHLORIDE 0.9% 1000ML 2,000 ML IV PRN (10:15)
--- NOTE | 2020-01-09 10:30 | Discharge Summary ---
ADMIT DIAGNOSES: 1. Transient complete heart block. 2. Near syncope, secondary to transient complete heart block. 3. End-stage renal disease. 4. Bbgtn-hm-dpgkklm diastolic congestive heart failure. 5. Hypertensive heart disease. 6. Moderate aortic stenosis. DISCHARGE DIAGNOSES: 1. Status post permanent pacemaker placement. 2. Transient complete heart block, resolved. 3. Near syncope symptoms, resolved. 4. End-stage renal disease. 5. Wpuyq-gc-lzfkwwy diastolic congestive heart failure, resolved. 6. Hypertensive heart disease. 7. Moderate aortic stenosis. HOSPITAL COURSE: This is a 70-year-old woman, who was initially admitted to [facility] with diagnosis of a near syncope, secondary to transient episodes of complete heart block. The patient had an external telemetry monitoring device placed 9 days prior to admission, that revealed transient episodes of complete heart block with some episodes lasting as long as 4 seconds. Yesterday, Wednesday January 08, 2020, the patient underwent successful permanent pacemaker placement; this procedure was performed by Dr. Richard Petty, the patient tolerated this procedure quite well. The patient voiced no complaints. During this hospitalization, she was dialyzed. During this hospitalization, her adobe developer namely Dr. Nickie Patel was consulted as well as Dr. Richard Petty. Moreover, she was seen by Dr. José Luis Ahuja her computer game designer because of her end-stage renal disease. Her condition on discharge was stable. On the day of discharge, her white blood cell count was 7400 with normal differential. Hemoglobin on discharge 10.9 g/dL. DISCHARGE MEDICATIONS: 1. Minocycline 100 mg one b.i.d. for 7 days. 2. Tylenol No. 3 one pill every 6 hours p.r.n. pain, 14 prescribed, no refills. FOLLOWUP INSTRUCTIONS: The patient is instructed to follow up with Dr. Richard Petty in 1 week and with her primary care physician namely myself in 2 weeks. The patient was instructed to not take any of her previous home medications until further notice. MD ALVARO Neumann/ARIA /[id number] cc: MD Richard Keys MD Tahir Hafeez, MD MTDD
--- NOTE | 2020-01-09 10:46 | Consultation ---
DATE OF CONSULTATION: 01/08/2020 REASON FOR CONSULT: Syncope, complete heart block. HISTORY OF PRESENT ILLNESS: This is a 70-year-old woman with history of hypertension, history of end-stage renal disease on hemodialysis, who has had recurrent syncope and near syncope episodes. She has been wearing a Holter monitor that demonstrated episodes of complete heart block, lasting for about 6-7 seconds, so she was brought into the ER. She is currently hemodynamically stable. However, she feels she has these recurrent episodes of near-syncope. The patient was on metoprolol and despite holding it, she continues to have the episodes. No chest pain. REVIEW OF SYSTEMS: CONSTITUTIONAL: Negative. CARDIOVASCULAR: As per HPI. RESPIRATORY: Negative. GASTROINTESTINAL: Negative. GENITOURINARY: Negative. MUSCULOSKELETAL: Negative. EYES: Negative. ENT: Negative. ALLERGY/IMMUNOLOGY: Negative. PSYCHIATRIC: Negative. PAST MEDICAL HISTORY: Hypertension, end-stage renal disease, on hemodialysis. PAST SURGICAL HISTORY: Dialysis catheter. FAMILY HISTORY: No premature coronary artery disease. SOCIAL HISTORY: Denies alcohol, smoking. PHYSICAL EXAMINATION: VITAL SIGNS: Blood pressure 128/60, pulse 60, respirations 20, O2 saturation 98%. GENERAL: No acute distress. HEENT: Moist mucous membranes. CARDIOVASCULAR: Regular. RESPIRATORY: Clear. ABDOMEN: Soft, nontender. MUSCULOSKELETAL: 2+ distal pulses. NEUROLOGICAL: No focal deficits. SKIN: No lesions. PSYCHIATRIC: Normal thought process. EKG; sinus rhythm. Event monitor demonstrated episodes of complete heart block, lasting about 5-6 seconds. IMPRESSION: 1. Intermittent complete heart block on event monitor highly symptomatic. 2. Recurrent near-syncope episodes consistent with complete heart block. No reversible causes. RECOMMENDATIONS: Discussed with the patient in detail, benefits and risks. She voices understanding and wishes to proceed. Plan for a dual-chamber pacemaker placement. Thank you for letting us participate in Ms. Peters health. Richard Apple MD [facility]/MODL /[id number]
[2020-01-09 12:46] VITALS: BP 109/45
--- NOTE | 2020-01-09 13:51 | Operative Report ---
DATE OF PROCEDURE: 01/08/2020 SURGEON: Richard Apple MD PREPROCEDURE DIAGNOSES: 1. Intermittent heart block. 2. Dizziness frequent near-syncope episodes. 3. End-stage renal disease, on hemodialysis. POSTPROCEDURE DIAGNOSES: 1. Intermittent heart block. 2. Dizziness frequent near-syncope episodes. 3. End-stage renal disease, on hemodialysis. ATTENDING PHYSICIAN: Richard Apple MD ESTIMATED BLOOD LOSS: 10 mL. COMPLICATIONS: None. PROCEDURES PERFORMED: 1. Dual-chamber pacemaker placement. 2. Moderate sedation. 3. Moderate conscious sedation was provided under my direct supervision by sedation trained nurse. Sedation approximate time 30 minutes, versed and fentanyl. There were no complications. See sedation form for details. DESCRIPTION OF PROCEDURE: After informed consent was obtained, the patient was brought to the electrophysiology laboratory in a fasting, nonsedated state. Area over her chest was prepped and draped in the usual sterile fashion. Moderate sedation and prophylactic antibiotics were given. 1% lidocaine was used as local anesthetic and a 3 cm skin incision was made in the supraclavicular area. Electrocautery sharp and blunt dissection were used to bridge the muscular fascia and a pocket was created for event implantation of the device. Vascular access was obtained x2 in the left axillary vein using modified Seldinger technique under fluoroscopic guidance. Three sheaths were placed, ventricular lead to the RV apex. R-wave 12, pacing 0.5, then atrial lead to the right atrial appendage, P-wave 2, pacing 0.6. Sheaths were removed from the body. Leads were secured to fascia using Ethibond. Pocket was irrigated with antibiotic solution using a pulse terrazzo layer helper. Hemostasis was meticulous. Leads connected to the device and entire pacemaker system placed in the pocket. Incision was closed using absorbable sutures and Dermabond. Of note, we used an antibiotic pouch to the generator. The patient tolerated the procedure well. Procedure was incomplete. SUMMARY OF HARDWARE IMPLANTED: 1. The new pacemaker defibrillator is [employer], serial #[id number]. 2. RA lead is [employer] [id number]. 3. RV lead is [employer] [id number]. IMPRESSION: Successful dual-chamber pacemaker implant via left axillary vein. PLAN: 1. Routine postop monitoring on telemetry bed. 2. Chest x-ray. 3. Follow up in two weeks. MD MIKHAIL Jones/ARIA /[id number]
--- NOTE | 2020-01-09 14:47 | Progress Note ---
DATE: 01/09/2020 Cardiology Progress Note SUBJECTIVE: Pacing was placed yesterday. OBJECTIVE: VITAL SIGNS: Temperature afebrile, pulse 73, respiratory rate 16, blood pressure 103/82, saturating 100% on room air. GENERAL: Middle-aged female, well developed, well nourished in no acute distress. CARDIOVASCULAR: Regular rate and rhythm. No murmurs, rubs, or gallops. LUNGS: Clear to auscultation anteriorly. ABDOMEN: Soft, nontender, nondistended. NEURO AND PSYCH: Alert and oriented to person, place, and time. Normal affect. INPATIENT MEDICATIONS: Reviewed. LABORATORY DATA: Reviewed. TELEMETRY DATA: Reviewed, shows intermittently paced rhythm. ASSESSMENT/PLAN: Complete heart block, status post pacemaker placement. PLAN: Okay to discharge from a cardiovascular standpoint. Pacemaker normal function on interrogation today. Followup in clinic with Dr. Nickie Patel in 2 weeks. MD JOSE ALFREDO Chino/ARIA /[id number]
--- NOTE | 2020-01-09 15:37 | Progress Note ---
DATE: 01/09/2020 Renal Progress Note SUBJECTIVE: Followed for end-stage renal disease, tolerating dialysis on Saturday, , and Saturday. Dialysis is being done today. No nausea, no vomiting, and no shortness of breath. OBJECTIVE: VITAL SIGNS: Noted. Blood pressure is 109/45, room air O2 saturation 100%. No nausea, no vomiting, and no shortness of breath. LUNGS: Clear to auscultation bilaterally. CARDIOVASCULAR: S1, S2. No rub. ABDOMEN: Soft, nontender. EXTREMITIES: No edema. LABS: From today H and H 10.9 and 33. Sodium 135, potassium 5, BUN is 52, creatinine 7.4, phosphorus is 7.6, magnesium is 2.2, and calcium is 8.4. IMPRESSION AND PLAN: 1. End-stage renal disease. Continue dialysis on Saturday, , and Saturday. Next dialysis will be on Saturday. 2. Hypertension. Blood pressure is currently stable, off blood pressure medicines. 3. Anemia of chronic disease, stable. 4. Hypophosphatemia . MD AUBRIE Howell/MODL /[id number]
[2020-01-09] MEDS ORDERED: SEVELAMER CARBONATE 800 MG TAB PO SCH (17:00)
== END 2020-01-09 16:24 | disposition home or self-care (01) | DRG 242 ==
LOC: ER 15:30 → ERHOLD 16:27 → MED/SURG 01-08 14:55
PROVIDERS: ADMIT Internal Medicine; ATTEND Internal Medicine
PROC: 0JH606Z Insertion of Pacemaker, Dual Chamber into Chest Subcutaneous Tissue and Fascia, Open Approach (ICD-10-PCS; principal; 2020-01-08)
PROC: 02HK3JZ Insertion of Pacemaker Lead into Right Ventricle, Percutaneous Approach (ICD-10-PCS; 2020-01-08)
PROC: 02H63JZ Insertion of Pacemaker Lead into Right Atrium, Percutaneous Approach (ICD-10-PCS; 2020-01-08)
PROC: 3E0102A Introduction of Anti-Infective Envelope into Subcutaneous Tissue, Open Approach (ICD-10-PCS; 2020-01-08)
DX: I44.2 Atrioventricular block, complete (principal); N18.6 End stage renal disease; I50.33 Acute on chronic diastolic (congestive) heart failure; I13.2 Hypertensive heart and chronic kidney disease with heart failure and with stage 5 chronic kidney disease, or end stage renal disease; I25.10 Atherosclerotic heart disease of native coronary artery without angina pectoris; I35.0 Nonrheumatic aortic (valve) stenosis; Z90.49 Acquired absence of other specified parts of digestive tract; Z99.2 Dependence on renal dialysis; D63.1 Anemia in chronic kidney disease; E66.9 Obesity, unspecified; Z68.36 Body mass index [BMI] 36.0-36.9, adult; Z82.49 Family history of ischemic heart disease and other diseases of the circulatory system; Z83.3 Family history of diabetes mellitus; E83.39 Other disorders of phosphorus metabolism
CPT/HCPCS: 33208; 36415; 71045; 75820; 80048; 80053; 80061; 82550; 82553; 83735; 83880; 84100; 84443; 84484; 85025; 85610; 85730; 93005; 99152; 99153; 99284; C1763; C1769; C1785; C1898; J1580; J2150; J2250; J3010; J3370; J7030; J7040

== ENCOUNTER 2020-02-11 22:30 | Emergency (ER) | payer MEDICARE ==
[~2020-02-11] VITALS: Ht 175.3 cm; Wt 82.1 kg
[~2020-02-11 22:30] MED LIST: AURYXIA210 MG PO; LEVOCETIRIZINE D5 MG PO; MECLIZINE HCL12.5 MG PO; MINOCYCLINE HCL50 MG PO; PLAVIX75 MG PO; SENSIPAR30 MG PO; TYLENOL # 31 EA PO
[2020-02-11] MEDS ORDERED: DEXAMETHASONE 4 MG TAB PO STA (23:03)
[2020-02-11] MEDS ORDERED: DEXAMETHASONE 4 MG TAB ONE (23:10)
[2020-02-11] MEDS ORDERED: DEXAMETHASONE 4 MG TAB PO SCH (23:15)
== END 2020-02-11 23:10 | disposition home or self-care (01) ==
LOC: ER 23:09
DX: M54.41 Lumbago with sciatica, right side (principal); I12.0 Hypertensive chronic kidney disease with stage 5 chronic kidney disease or end stage renal disease; N18.6 End stage renal disease; Z99.2 Dependence on renal dialysis; I50.9 Heart failure, unspecified; I25.10 Atherosclerotic heart disease of native coronary artery without angina pectoris; E66.9 Obesity, unspecified
CPT/HCPCS: 99282; J8540